=== PATIENT | male | born 1940 | race Caucasian/White ===

== ENCOUNTER 2016-11-19 06:56 | Day surgery (SDC) | payer MEDICARE ==
[~2016-11-19 06:56] MED LIST: Buffered Lidocaine 1% SYRIN* 3 ML/SYR SYRINGE INTRADERM ONE
[2016-11-19] MEDS ORDERED: Lidocaine 1% INJ* 10 MG/ML 30 ML SDV ONE (07:06)
[2016-11-19] MEDS ORDERED: Bupivacaine 0.5% W/EPI SDV* 30 ML VIAL ONE (07:06)
[2016-11-19] MEDS ORDERED: Ketorolac INJ* 30 MG/ML 1 ML VIAL ONE (07:33)
[2016-11-19] MEDS ORDERED: ceFAZolin 2 GM PREMIX(*) 2 GM/50 ML BAG IVPB ONE (07:34)
[2016-11-19] MEDS ORDERED: fentaNYL* 50 MCG/ML 2 ML VIAL (100 MCG VIAL) ONE (07:38)
[2016-11-19] MEDS ORDERED: Midazolam* 1 MG/ML 2 ML VIAL (2 MG) ONE (07:38)
[2016-11-19] MEDS ORDERED: Propofol* 10 MG/ML 20 ML BTL IV PUSH ONE (07:40)
[2016-11-19] MEDS ORDERED: fentaNYL* 50 MCG/ML 2 ML VIAL (100 MCG VIAL) IV PRN (07:48)
[2016-11-19] MEDS ORDERED: Ondansetron INJ* 2 MG/ML VIAL IV PRN (07:48)
[2016-11-19] MEDS ORDERED: oxyCODONE/Acetamin 5/325 MG* TAB PO PRN (09:24)
[2016-11-19 11:34] VITALS: BP 99/62
--- NOTE | 2016-11-20 00:23 | OP ---
CC: Karl Mata MD; Heber Moran MD OPERATIVE REPORT: DATE OF OPERATION: 11/19/16 DATE OF : 36 SURGEON: Karl Mata MD. EAP CLINICIAN: Emma Ramirez NP ANESTHESIOLOGIST: Dr. Levine. ANESTHESIA: LMAC anesthesia. PRE-OP DIAGNOSIS: Right inguinal hernia. POST-OP DIAGNOSIS: Right inguinal hernia. OPERATIVE PROCEDURE: Open repair of right inguinal hernia with mesh. DESCRIPTION OF PROCEDURE: The patient was supine on the operating room table. After adequate intrav enous sedation, compression stockings, Darryl Hugger warmer, and intravenous antibiotics, the right gr oin was clipped and prepped with antiseptic, draped in a sterile fashion. Local infiltrative anesth esia was administered, approximately 2.5 inch incision was created and carried down to the tissue la yers. External oblique was opened in the directions of its fibers. Cord structures were encircled w ith a Shannan drain and tented upward. The indirect space sac was dissected free and reduced. Cone mesh plug was placed into the internal ring, sutured there with 2-0 Polysorb. A second piece of me sh was placed over the inguinal floor, sutured to the tubercle, tails were split, brought around the cord structures and tagged down laterally. External oblique was closed over top with 2- 0 Polysorb , Judy's with 3-0 Polysorb, skin with 4-0 Surgipro followed by sterile dressing. He tolerated the procedure well. He was brought to Recovery in good condition. No complications. No drains. No p athologic specimens. Sponge and instrument counts were correct. ESTIMATED BLOOD LOSS: 10 mL. [id number]/[facility] #: [id number]
== END 2016-11-19 13:23 | disposition home or self-care (01) ==
LOC: OR 06:56
PROVIDERS: ATTEND Surgery
DX: K40.90 Unilateral inguinal hernia, without obstruction or gangrene, not specified as recurrent (principal); Z87.891 Personal history of nicotine dependence; E78.5 Hyperlipidemia, unspecified; I10 Essential (primary) hypertension; R01.1 Cardiac murmur, unspecified; Z85.51 Personal history of malignant neoplasm of bladder
CPT/HCPCS: C1781; J0690; J1885; J2001; J2250; J2704; J3010

== ENCOUNTER 2017-02-14 13:50 | Observation (INO) | payer MEDICARE ==
--- NOTE | 2017-02-14 17:48 | RAD ---
Indication: Right leg edema. Duplex Doppler sonography of the deep venous system of the right lower extremity deep venous system was performed. Bilaterally the common femoral veins appear patent and compressible. Right proximal greater saphenous vein, proximal deep femoral vein, femoral vein, popliteal vein, posterior tibial veins and peroneal veins appear patent and compressible. Overall there is no evidence of occlusive thrombosis visualized there is slow flow and stasis in the right lower extremity venous system and more proximal obstruction is not excluded. IMPRESSION: NO EVIDENCE OF DEEP VENOUS THROMBOSIS IS IDENTIFIED. ALTHOUGH NO OBSTRUCTIVE THROMBOSIS IS NOTED THERE IS SLOW FLOW IN THE RIGHT LOWER EXTREMITY VENOUS SYSTEM. A MORE PROXIMAL OBSTRUCTION CANNOT BE EXCLUDED.
[2017-02-14 19:34] LABS: Hematocrit 29 % (42-52); Hemoglobin 8.9 g/dl (14.0-18.0); Mean Corpuscular HGB Conc 31 g/dl (31-36); Mean Corpuscular Hemoglobin 24 pg (27-31); Mean Corpuscular Volume 76 fL (80-94); Mean Platelet Volume 7 um3 (7.4-10.4); Red Blood Count 3.75 10^6/ul (4.0-5.4); Red Cell Distribution Width 18 % (10.5-15); White Blood Count 13.8 10^3/ul (3.5-10.8)
[2017-02-14 19:39] LABS: Add Diff/Slide Review? Slide Review Added; Comments Flag Yes
[2017-02-14 19:48] LABS: Albumin 2.9 g/dL (3.2-5.2); BUN/Creatinine Ratio 21.6 (8-20); C Reactive Protein 125.67 mg/L (< 5.00); Calcium 9.3 mg/dL (8.6-10.3); EGFR African American 131.6 (>60); EGFR Non-African American 102.3 (>60); Globulin 3.7 g/dL (2-4); Potassium 4.4 mmol/L (3.5-5.0); Total Bilirubin 0.3 mg/dL (0.2-1.0); Total Protein 6.6 g/dL (6.4-8.9)
[2017-02-14 20:01] LABS: Hypochromasia 2+
[2017-02-14 20:02] LABS: Microcytosis 1+; Polychromasia 2+
[2017-02-14] MEDS ORDERED: Iohexol 300* (CONTRAST) 10 ML SDV IV ONE (21:14)
--- NOTE | 2017-02-14 23:28 | ED ---
Petar Aguilar Alok, scribed for Scott Taylor MD on 02/14/17 at 1634 . Lower Extremity - HPI Summary HPI Summary: 76M presents to the ED with right leg edema and right thigh, knee, and coronado pain for the past 2 days. Pt states his pain is worse when bearing weight and notes difficulty ambulating. PMHx includes a bulging disc and PSHx includes hernia repair 3 weeks ago. - History of Current Complaint Chief Complaint: EDExtremityLower Stated Complaint: RT LEG SWELLING/PAIN Time Seen by Provider: 02/14/17 16:18 Hx Obtained From: Patient Onset of Pain: Days Onset/Duration: Still Present Severity Initially: Moderate Severity Currently: Moderate Pain Intensity: 10 Pain Scale Used: 0-10 Numeric Timing: Constant Location: Is Discrete @ - right knee, thigh, coronado Associated Signs And Symptoms: Positive: Swelling, Knee Pain Aggravating Factor(s): Ambulation, Weight Bearing Able to Bear Weight: No - Allergies/Home Medications Allergies/Adverse Reactions: Allergies Allergy/AdvReac Type Severity Reaction Status Date / Time No Known Allergies Allergy Verified 02/14/17 14:02 PMH/Surg Hx/FS Hx/Imm Hx Endocrine/Hematology History: Denies: Hx Diabetes Cardiovascular History: Reports: Hx Hypercholesterolemia, Hx Hypertension - controlled with med Denies: Hx Pacemaker/ICD GI History: Reports: Other GI Disorders - right inguinal hernia History: Reports: Other Problems/Disorders - bladder cancer 2011 - followed by dr lilly Denies: Hx Renal Disease Musculoskeletal History: Reports: Hx Arthritis - spine, Hx Back Problems, Other Musculoskeletal History - bulging disc in lower back, causes leg pain Sensory History: Reports: Hx Contacts or Glasses - glasses Denies: Hx Hearing Aid Opthamlomology History: Reports: Hx Contacts or Glasses - glasses Neurological History: Denies: Hx Headaches Psychiatric History: Denies: Hx Panic Disorder - Cancer History Cancer Type, Location and Year: BLADDER - TUMOR REMOVED Hx Chemotherapy: No Hx Radiation Therapy: No - Surgical History Surgery Procedure, Year, and Place: BLADDER TUMOR REMOVED - 2011, [facility]. tonsillectomy as a child Hx Anesthesia Reactions: No Infectious Disease History: Yes Infectious Disease History: Denies: Traveled Outside the [place] in Last 30 Days - Family History Known Family History: Positive: Other - No - malignant hypothermia - Social History Occupation: Retired Lives: With Family Alcohol Use: None Alcohol Amount: One drink per week Substance Use Type: Reports: None Smoking Status (MU): Never Smoked Tobacco Type: Cigarettes Amount Used/How Often: 2 ppd Review of Systems Negative: Fever Positive: Edema, Other - right coronado, knee, thigh pain. All Other Systems Reviewed And Are Negative: Yes Physical Exam Triage Information Reviewed: Yes Vital Signs On Initial Exam: Initial Vitals Temp Pulse Resp BP Pulse Ox 98.5 F 81 16 115/72 99 02/14/17 14:02 02/14/17 14:02 02/14/17 14:02 02/14/17 14:02 02/14/17 14:02 Vital Signs Reviewed: Yes Appearance: Positive: Well-Appearing, No Pain Distress Skin: Positive: Warm, Skin Color Reflects Adequate Perfusion, Dry Head/Face: Positive: Normal Head/Face Inspection Eyes: Positive: Normal ENT: Positive: Normal ENT inspection Neck: Positive: Supple, Nontender Respiratory/Lung Sounds: Positive: Clear to Auscultation, Breath Sounds Present Cardiovascular: Positive: RRR Abdomen Description: Positive: Nontender, Soft Bowel Sounds: Positive: Present Musculoskeletal: Positive: Other - Slight pitting edema right ankle. No Femoral canal tenderness Neurological: Positive: Normal Psychiatric: Positive: Normal, Affect/Mood Appropriate - Jaylin Coma Scale Coma Scale Total: 15 Diagnostics - Vital Signs Vital Signs Temp Pulse Resp BP Pulse Ox 02/14/17 16:20 98.2 F 76 20 124/80 100 02/14/17 16:19 38 124/80 02/14/17 16:01 98.6 F 70 16 118/78 100 02/14/17 14:02 98.5 F 81 16 115/72 99 - Laboratory Lab Results: Lab Results 02/14/17 02/14/17 Range/Units 19:25 19:25 WBC 13.8 H (3.5-10.8) 10^3/ul RBC 3.75 L (4.0-5.4) 10^6/ul Hgb 8.9 L (14.0-18.0) g/dl Hct 29 L (42-52) % MCV 76 L (80-94) fL MCH 24 L (27-31) pg MCHC 31 (31-36) g/dl RDW 18 H (10.5-15) % Plt Count 478 H (150-450) 10^3/ul MPV 7 L (7.4-10.4) um3 Neut % (Auto) 80.5 (38-83) % Lymph % (Auto) 9.6 L (25-47) % [place] % (Auto) 6.9 (1-9) % Eos % (Auto) 2.5 (0-6) % Baso % (Auto) 0.5 (0-2) % Absolute Neuts (auto) 11.1 H (1.5-7.7) 10^3/ul Absolute Lymphs (auto) 1.3 (1.0-4.8) 10^3/ul Absolute Monos (auto) 0.9 H (0-0.8) 10^3/ul Absolute Eos (auto) 0.4 (0-0.6) 10^3/ul Absolute Basos (auto) 0.1 (0-0.2) 10^3/ul Absolute Nucleated RBC 0 10^3/ul Nucleated RBC % 0 Normal RBC Morphology Not Reportable Polychromasia 2+ Hypochromasia 2+ Microcytosis 1+ Elliptocytes 1+ Sodium 132 L (133-145) mmol/L Potassium 4.4 (3.5-5.0) mmol/L Chloride 99 L (101-111) mmol/L Carbon Dioxide 27 (22-32) mmol/L Anion Gap 6 (2-11) mmol/L BUN 16 (6-24) mg/dL Creatinine 0.74 (0.67-1.17) mg/dL Est GFR ( Amer) 131.6 (>60) Est GFR (Non-Af Amer) 102.3 (>60) BUN/Creatinine Ratio 21.6 H (8-20) Glucose 117 H (70-100) mg/dL Calcium 9.3 (8.6-10.3) mg/dL Total Bilirubin 0.30 (0.2-1.0) mg/dL AST 10 L (13-39) U/L ALT 15 (7-52) U/L Alkaline Phosphatase 92 (34-104) U/L C-Reactive Protein 125.67 H (< 5.00) mg/L Total Protein 6.6 (6.4-8.9) g/dL Albumin 2.9 L (3.2-5.2) g/dL Globulin 3.7 (2-4) g/dL Albumin/Globulin Ratio 0.8 L (1-3) Result Diagrams: 02/14/17 19:25 02/14/17 19:25 Lab Statement: Any lab studies that have been ordered have been reviewed, and results considered in the medical decision making process. - CT CT abd/pel CT Interpretation: Positive (See Comments) - Results pending CT Interpretation Completed By: Radiologist - EKG 2136 Cardiac Rate: NL - 69 bpm EKG Rhythm: Sinus Rhythm - Additional Comments Diagnostic Additional Comments: Right Lower Extremity US - IMPRESSION: NO EVIDENCE OF DEEP VENOUS THROMBOSIS IS IDENTIFIED. ALTHOUGH NO OBSTRUCTIVE THROMBOSIS IS NOTED THERE IS SLOW FLOW IN THE RIGHT LOWER EXTREMITY VENOUS SYSTEM. A MORE PROXIMAL OBSTRUCTION CANNOT BE EXCLUDED. Lower Extremity Course/Dx - Course Course Of Treatment: Mr. Santoyo presented with a C/O his right leg swelling and hurting a little. He had hernia repair in his right groin 3 weeks ago. He R/U'd for a DVT but they mentioned the flow was decreased and he is awaiting the results of a pelvic CT lookiing for obstruction. - Diagnoses Provider Diagnoses: Swelling of right lower extremity Discharge - Discharge Plan Condition: Stable Disposition: OTHER Discharge Disposition Comment: Signed out to Dr. Farah Patient Education Materials: Leg Edema (ED) Referrals: Heber Mroan MD [Primary Care Provider] - Additional Instructions: Please follow up with your primary care provider The documentation as recorded by the Petar hartman Alok accurately reflects the service I personally performed and the decisions made by me, Scott Taylor MD.
--- NOTE | 2017-02-14 23:56 | HP ---
H&P (Free Text) History and Physical: PCP: Aviva Moran MD Urology: Laura Warren MD Date/Time of Evaluation: 02/15/2017 0005 CC: R leg pain & swelling HPI: Mr Santoyo is a 76YO male HX bladder CA followed by Laura Warren MD urology and chronic LBP w/ R sciatica who reports the onset yesterday of non-traumatic R leg pain and swelling from the toes to the thigh. The pain is different and worse than his baseline LBP/sciatica prompting him to present for evaluation. He reports recent weight loss for which his PCP was working him up. Tonight a CT abd/pel W reveals a R pelvic soft tissue mass associated with lytic lesions in the R holly-pelvis concerning for metastatic disease. PMedHx chronic LBP w/ R sciatica bladder CA HLD Ambulatory Orders Pravastatin Sodium [Pravachol] 10 mg PO QPM 01/30/14 Ascorbic Acid TAB* [Vitamin C TAB*] 500 mg PO QAM 11/13/16 Multiple Vitamins W/ Minerals [Multivitamin Adults] 1 tab PO QAM 11/13/16 Tramadol HCl [Ultram] 50 mg PO TID PRN 12/17/16 PSurgHx R inguinal hernia repair ~3 weeks ago tonsillectomy SocHx: quit smoking >40 years ago, minimal alcohol, no recreational drugs; lives with his ; full code status FamHx: M: survived colon CA, passed in her 80s; Father: passed in his 90s "just wore out" ROS: as above, otherwise reviewed and all were negative Constitutional: NAD, normally developed, well-nourished white male vitals: Vital Signs Temp 36.8 C 02/14/17 16:20 Pulse 77 02/15/17 00:34 Resp 22 02/15/17 00:34 BP 124/84 02/15/17 00:34 Pulse Ox 99 02/15/17 00:34 Intake & Output 02/14/17 02/14/17 02/15/17 11:59 23:59 11:59 Weight 67.585 kg HEENM: atraumatic; sclera/conjunctiva: non-icteric/clear; hearing: clinically intact; oropharynx: clear, mucosa moist Neck: soft tissue: non-tender; thyroid: normal Pulmonary: clear to auscultation bilaterally, good aeration, no accessory muscle use CV: RR/RR, normal S1S2, no carotid bruit, no jugular venous distention, 2+ B DP/ PT, trace edema entire RLE Abdominal: soft, non-distended, non-tender, no rebound/guarding/rigidity, normoactive bowel sounds, no hepatosplenomegaly or masses, no costovertebral angle tenderness Musculoskeletal: general: grossly intact; gait: borderline stability Integumental: normal appearance and texture of exposed skin Psychiatric orientation: AA&O to PPS affect: calm mood: cooperative, pleasant eye contact: good content: reliable responses: timely insight: good Testing: Lab Results 02/14/17 02/14/17 Range/Units 19:25 19:25 WBC 13.8 H (3.5-10.8) 10^3/ul RBC 3.75 L (4.0-5.4) 10^6/ul Hgb 8.9 L (14.0-18.0) g/dl Hct 29 L (42-52) % MCV 76 L (80-94) fL MCH 24 L (27-31) pg MCHC 31 (31-36) g/dl RDW 18 H (10.5-15) % Plt Count 478 H (150-450) 10^3/ul MPV 7 L (7.4-10.4) um3 Neut % (Auto) 80.5 (38-83) % Lymph % (Auto) 9.6 L (25-47) % [place] % (Auto) 6.9 (1-9) % Eos % (Auto) 2.5 (0-6) % Baso % (Auto) 0.5 (0-2) % Absolute Neuts (auto) 11.1 H (1.5-7.7) 10^3/ul Absolute Lymphs (auto) 1.3 (1.0-4.8) 10^3/ul Absolute Monos (auto) 0.9 H (0-0.8) 10^3/ul Absolute Eos (auto) 0.4 (0-0.6) 10^3/ul Absolute Basos (auto) 0.1 (0-0.2) 10^3/ul Absolute Nucleated RBC 0 10^3/ul Nucleated RBC % 0 Normal RBC Morphology Not Reportable Polychromasia 2+ Hypochromasia 2+ Microcytosis 1+ Elliptocytes 1+ Sodium 132 L (133-145) mmol/L Potassium 4.4 (3.5-5.0) mmol/L Chloride 99 L (101-111) mmol/L Carbon Dioxide 27 (22-32) mmol/L Anion Gap 6 (2-11) mmol/L BUN 16 (6-24) mg/dL Creatinine 0.74 (0.67-1.17) mg/dL Est GFR ( Amer) 131.6 (>60) Est GFR (Non-Af Amer) 102.3 (>60) BUN/Creatinine Ratio 21.6 H (8-20) Glucose 117 H (70-100) mg/dL Calcium 9.3 (8.6-10.3) mg/dL Total Bilirubin 0.30 (0.2-1.0) mg/dL AST 10 L (13-39) U/L ALT 15 (7-52) U/L Alkaline Phosphatase 92 (34-104) U/L C-Reactive Protein 125.67 H (< 5.00) mg/L Total Protein 6.6 (6.4-8.9) g/dL Albumin 2.9 L (3.2-5.2) g/dL Globulin 3.7 (2-4) g/dL Albumin/Globulin Ratio 0.8 L (1-3) Prostate Specific Ag 1.882 (0-4.000) ng/mL ECG, personally reviewed: NSR rate 69, no ischemia CT abd/pel W, personally reviewed: R pelvic soft tissue mass with R pelvic lytic destruction; official read pending US DVT RLE: IMPRESSION: NO EVIDENCE OF DEEP VENOUS THROMBOSIS IS IDENTIFIED. ALTHOUGH NO OBSTRUCTIVE THROMBOSIS IS NOTED THERE IS SLOW FLOW IN THE RIGHT LOWER EXTREMITY VENOUS SYSTEM. A MORE PROXIMAL OBSTRUCTION CANNOT BE EXCLUDED. 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
[2017-02-15] MEDS ORDERED: Acetaminophen TAB* 325 MG PO PRN (00:07)
[2017-02-15] MEDS ORDERED: traMADol TAB* 50 MG PO PRN (00:08)
[2017-02-15] MEDS ORDERED: Melatonin (NF) 3 MG TAB PO PRN (00:08)
[2017-02-15] MEDS ORDERED: Ondansetron INJ* 2 MG/ML VIAL IV PRN (00:08)
[2017-02-15] MEDS: HYDROmorphone* 1 MG/ML 1 ML SYR IV PRN (01:50)
[2017-02-15] MEDS: Heparin VIAL(*) 5000 UNITS/ML VIAL (FIVE THOUSAND) SUBCUT SCH ×3 (06:39→20:17)
[2017-02-15] MEDS: Omeprazole CAP* 20 MG PO SCH (06:40)
[2017-02-15 07:02] LABS: Hematocrit 28 % (42-52); Hemoglobin 8.6 g/dl (14.0-18.0); Mean Corpuscular HGB Conc 31 g/dl (31-36); Mean Corpuscular Hemoglobin 24 pg (27-31); Mean Corpuscular Volume 76 fL (80-94); Mean Platelet Volume 7 um3 (7.4-10.4); Red Blood Count 3.66 10^6/ul (4.0-5.4); Red Cell Distribution Width 18 % (10.5-15); White Blood Count 12.7 10^3/ul (3.5-10.8)
[2017-02-15 07:18] LABS: BUN/Creatinine Ratio 17.4 (8-20); EGFR African American 142.6 (>60); EGFR Non-African American 110.9 (>60); Potassium 4.5 mmol/L (3.5-5.0)
[2017-02-15] MEDS ORDERED: Iohexol 300* (CONTRAST) 10 ML SDV IV ONE (07:28)
--- NOTE | 2017-02-15 07:49 | RAD ---
INDICATION: Abdominal and right lower extremity pain. History of bladder carcinoma. COMPARISON: There are no prior studies available for comparison. TECHNIQUE: A CT scan of the abdomen and pelvis was performed with intravenous and oral contrast following intravenous injection of 91 ml of Omnipaque 300 nonionic contrast. Contiguous axial sections were obtained from the lung bases through the symphysis pubis. Images were reconstructed in the coronal and sagittal planes. FINDINGS: The lung bases are clear. No pleural effusion is present. The liver and spleen are within normal limits in size without significant focal abnormality. No calcified gallstones are seen. The pancreas appears to be within normal limits in size. The kidneys and adrenal glands are normal in size. No hydronephrosis is seen. There is a fluid density lesion arising from the upper pole of the left kidney measuring 2.0 cm in size most consistent with a cyst. There is mild thickening of the wall of the urinary bladder. There is a small urinary bladder diverticulum arising from the posterior superior aspect of the bladder on the right side measuring 1.8 x 1.5 cm in size. The aorta is normal in caliber with moderate calcific plaque present. There is a large mass present in the right iliopsoas muscle measuring approximately 6.5 x 5.6 cm in size this also involves the obturator internus muscle. There is also a mass in the right gluteus medius muscle measuring 2.5 x 4.6 cm in size. There are numerous relatively large lytic lesions present within the adjacent right iliac bone and acetabulum. There is also small lytic lesion in the right femoral head. There are multiple enlarged left periaortic lymph nodes measuring up to 1.7 cm in transverse dimension. In addition there is mildly enlarged retrocrural lymph nodes present on the right side measuring up to 0.9 cm in size. The stomach, small and large bowel appear nondistended. The appendix is within normal limits. There is no evidence for diverticulitis or colitis. No free intraperitoneal air or fluid is seen. IMPRESSION: 1. EXTENSIVE NEOPLASTIC PROCESSES IN THE RIGHT HEMIPELVIS WITH MULTIPLE LYTIC LESIONS WHICH ARE MOST PROMINENT IN THE RIGHT ILIAC BONE AND ACETABULAR REGION ALSO LIKELY INVOLVING THE RIGHT FEMORAL HEAD. THERE IS INVOLVEMENT OF THE ADJACENT MUSCLES AND SOFT TISSUES DESCRIBED. THERE IS ALSO LEFT PERIAORTIC AND RIGHT RETROCRURAL LYMPHADENOPATHY. 2. MILD THICKENING OF THE WALL OF THE URINARY BLADDER AND SMALL BLADDER DIVERTICULUM.
--- NOTE | 2017-02-15 09:03 | RAD ---
INDICATION: RIGHT soft tissue and bone mass on February 14, 2017 CT. COMPARISON: February 14, [address] and June 23, 2011 chest radiograph. TECHNIQUE: Multidetector CT images were obtained from the lung apices to the upper abdomen with 80 mL Omnipaque 300 IV contrast. Multiplanar reformation. REPORT: Small calcified granuloma at the apical segment of the RIGHT upper lobe. Minimal bibasilar subsegmental atelectasis and linear pleural-parenchymal scarring. No suspicious focal pulmonary lesions. Negative for pleural effusions. 1 cm hypodense nodule at the posterior aspect of the LEFT thyroid lobe. Negative for thoracic lymphadenopathy. Negative for cardiomegaly or pericardial effusion. Coronary artery calcifications. Normal diameter thoracic aorta. Limited images through the upper abdomen are remarkable for decreased density of the liver consistent with fatty infiltration. Negative for suspicious focal osseous lesions of the thorax. IMPRESSION: 1. Negative for suspicious focal pulmonary lesions, thoracic lymphadenopathy, or suspicious thoracic osseous lesions. 2. Thyroid ultrasound suggested for further assessment of noted LEFT thyroid lobe nodule. 3. Coronary artery calcifications. 4. Hepatosteatosis.
[2017-02-15] MEDS: Docusate CAP* 100 MG PO SCH ×2 (09:28→20:17)
--- NOTE | 2017-02-15 15:18 | PN ---
Subjective Date of Service: 02/15/17 Interval History: Patient seen and examined at bedside. Denies fever, chills, shortness of breath , chest discomfort, N/V/D. Pt states that it is easier to walk today and his pain and swelling is improved in his right LE. Pt states that he follows with the pain clinic for chronic low back pain due to a bulging disc with pain that radiates to his right LE. Pt states that the pain yesterday was different than his normal pain. Pt states that his last colonoscopy was 3 years ago and was normal. Pt's bladder cancer was in 2010. He has no knowledge of a thyroid nodule. Family History: Unchanged from Admission Social History: Unchanged from Admission Past Medical History: Unchanged from Admission Objective Active Medications: Acetaminophen (Tylenol Tab*) 650 mg PO Q6H PRN Reason: FEVER/PAIN Docusate Sodium (Colace Cap*) 200 mg PO BID ASHOK Heparin Sodium (Porcine) (Heparin Vial(*)) 5,000 units SUBCUT Q8HR ASHOK Hydromorphone HCl (Dilaudid Iv*) 0.5 mg IV Q2H PRN Reason: PAIN Sodium Chloride (Ns 0.9% 1000 Ml*) 1,000 mls @ 75 mls/hr IV PER RATE [facility] Melatonin (Melatonin (Nf)) 3 mg PO BEDTIME PRN; Protocol Reason: Sleep Omeprazole (Prilosec Cap*) 20 mg PO DAILY@0600 ASHOK Ondansetron HCl (Zofran Inj*) 4 mg IV Q6H PRN Reason: NAUSEA Oxycodone HCl (Roxycodone Tab*) 5 mg PO Q4H PRN Reason: PAIN Tramadol HCl (Ultram*) 50 mg PO Q6H PRN Reason: PAIN Vital Signs 02/15/17 02/15/17 02/15/17 00:34 01:25 01:50 Temperature 99.2 F Pulse Rate 77 74 Respiratory 22 18 18 Rate Blood Pressure 124/84 133/79 (mmHg) O2 Sat by Pulse 99 100 Oximetry 02/15/17 02/15/17 02/15/17 02:50 04:49 07:55 Temperature 98.9 F 98.2 F Pulse Rate 75 70 Respiratory 16 16 16 Rate Blood Pressure 133/71 119/70 (mmHg) O2 Sat by Pulse 97 97 Oximetry 02/15/17 02/15/17 08:00 11:55 Temperature 98.0 F Pulse Rate 69 Respiratory 16 16 Rate Blood Pressure 116/61 (mmHg) O2 Sat by Pulse 99 Oximetry Oxygen Devices in Use Now: None Appearance: NAD, laying in bed Eyes: PERRLA Ears/Nose/Mouth/Throat: Mucous Membranes Moist Respiratory: Symmetrical Chest Expansion and Respiratory Effort, Clear to Auscultation Cardiovascular: NL Sounds; No Murmurs; No JVD, RRR Abdominal: NL Sounds; No Tenderness; No Distention Extremities: - - +1 right LE edema Skin: No Rash or Ulcers Neurological: Alert and Oriented x 3, NL Muscle Strength and Tone Lines/Tubes/Other Access: Clean, Dry and Intact Peripheral IV - site benign Nutrition: Taking PO's Result Diagrams: 02/15/17 06:39 02/15/17 06:39 Additional Lab and Data: Assess/Plan/Problems-Billing Assessment: Mr. Santoyo is a 76 yo male with PMH bladder CA, s/p TURB in 2010 and chronic low back pain and right sciatica who presented to the emergency room for right LE pain and edema and was found to have a right pelvic mass on CT. - Patient Problems (1) Metastatic disease Code(s): C79.9 - SECONDARY MALIGNANT NEOPLASM OF UNSPECIFIED SITE SNOMED Code( s): 192220361 Comment: - to Right hemipelvis (soft tissue mass and lytic lesions to right pelvis) - Chest CT no significant findings except for a thyroid nodule - Pain controlled - Oncology consult pending (2) Chronic low back pain with right-sided sciatica Code(s): M54.41 - LUMBAGO WITH SCIATICA, RIGHT SIDE; G89.29 - OTHER CHRONIC PAIN SNOMED Code(s): 722357620 Comment: - Continue pain control (3) History of bladder cancer Code(s): Z85.51 - PERSONAL HISTORY OF MALIGNANT NEOPLASM OF BLADDER SNOMED Code(s): 043893293 Comment: - S/P TURB 06/[address] Warren - Continue to follow outpatient (4) HLD (hyperlipidemia) Code(s): E78.5 - HYPERLIPIDEMIA, UNSPECIFIED SNOMED Code(s): 34073722 Comment: - Continue home statin (5) DVT prophylaxis Code(s): CMW9667 - SNOMED Code(s): 140209856 Comment: - SQ heparin and SCDs (6) Full code status Code(s): Z78.9 - OTHER SPECIFIED HEALTH STATUS SNOMED Code(s): 466680283 Status and Disposition: Inpatient. Discharge to home when medically stable.
[2017-02-15] MEDS: NS 0.9% 1000 ML* 1,000 ML IV SCH (15:39)
[2017-02-15] MEDS: oxyCODONE TAB* 5 MG TAB PO PRN (18:27)
[2017-02-15] MEDS ORDERED: CMCS Pravastatin (NF) 20 MG TAB PO SCH (21:00)
[2017-02-15 21:31] LABS: Ferritin 1162.4 ng/mL (24-336)
--- NOTE | 2017-02-15 21:59 | CONS ---
Amended report to enter date of consultation. CONSULTATION REPORT: DATE OF CONSULT: 02/15/2017. REFERRING PHYSICIAN: Dr. Olivia. PRIMARY CARE: Dr. Moran. UROLOGY: Dr. Warren REASON FOR CONSULTATION: Pelvic mass. HISTORY OF PRESENT ILLNESS: A 76-year-old male, who developed right back pain and right leg pain approximately 1 year ago. He notes a sharp pain going down his right leg. It could occur with movement or with rest. Originally, thought to be secondary to lumbar spine disk disease. Approximately 6 months ago, he started to notice pain in his right hip lying down at night, but no hip pain during the day. The leg pain progressed and he was referred to pain clinic in November of this year. Started on several medications including Neurontin and tramadol. Medications caused constipation and loss of appetite. He went from 165 to 149 pounds this spring and summer. Stopped all pain medications over the past month. His appetite has seemed to improve. Urination is slow, but otherwise normal for him. No hematuria or urgency. His breathing has been fine , no chest pain. He has had no fevers, chills, or night sweats. No cardiac symptoms. No neurologic symptoms. Two days prior to admission, he had sudden swelling in the right leg and excruciating pain to where he became nonweightbearing and that triggered coming to the emergency room. In the emergency room, he had blood work showing a hemoglobin of 8.9, down to 8.6, MCV 76, platelets 478, white count 13.8 with a normal differential. Sodium of 132, creatinine 0.74, calcium 9.3. Normal LFTs. Elevated C-reactive protein. Albumin of 2.9. PSA 1.882. He had a lower extremity ultrasound that did not show DVT, but showed questionable proximal obstruction with low venous flow. He then had a CT scan of the abdomen and pelvis that showed a large mass in the right hemipelvis involving the right iliac bone and acetabulum as well as the right femoral head. A large soft tissue component, which appeared to invade adjacent muscles. Soft tissue mass is 4.5 cm at widest dimension. Its one large mass invading to the bone in multiple locations and it is getting down into the hip sockets, there is no evidence of metastasis. He does not appear to have regional lymphadenopathy, nothing on the left side. Abdominal CT is normal. No liver lesions and a CT of the chest without any pulmonary lesions. Extensive bony infiltration of the pelvis, but no other bone lesions evident. PAST MEDICAL HISTORY: 1. Bladder cancer, [address] Warren, superficial spreading, has had followup. Cystoscopies done every 6 months without evidence for recurrence. 2. Hypertension. 3. High cholesterol. 4. Colonoscopy in 2013 with 3 polyps. SURGERIES: Hernia repair, right side, October of this year. MEDICATIONS AT HOME: 1. Tramadol 50 mg t.i.d. p.r.n. 2. Multivitamin. 3. Vitamin C. 4. Pravachol 10 mg a day. ALLERGIES: None. FAMILY HISTORY: Mother had colon cancer in her 50s, lived into her 80s. No other malignancy in the family. REVIEW OF SYSTEMS: A 14-point review of systems is negative except what is described in HPI. PHYSICAL EXAM: Temp 98.1, BP 111/64, pulse 76, respirations 16, O2 sat 100%. HEENT: Mucosa moist. No lesions. No cervical or supraclavicular lymphadenopathy. Lungs: Clear to auscultation. Heart: Regular rhythm. S1, S2. No murmurs, rubs, or gallops. Abdomen: Nontender, nondistended. No hepatosplenomegaly. Extremities: He has +1 edema, right leg. Good pulses x4. He has scar tissue in the right groin, difficult to tell if he can feel the mass. Pain with right leg on straight leg raise. Left-sided musculoskeletal examination negative. Neuro: Strength 5/5 throughout. Alert and oriented x3. Did not walk him. DIAGNOSTIC STUDIES/LAB DATA: Labs and imaging as reviewed above. ASSESSMENT AND PLAN: A 76-year-old male, who presents with a large pelvic mass. Differential is broad and includes large plasmacytoma, metastatic bladder cancer, could be metastatic colon cancer given microcytic anemia, sarcoma, primary bone cancer, lymphoma unlikely. Currently bedbound secondary to pain. 1. I recommend CT-guided biopsy tomorrow. 2. He is not ambulatory at this time and that will be the primary issue for discharge. It would be good to have an orthopedist look at the CT to make sure he has not had elevated fracture risk with routine activity. The femur appears intact, little worried about the left and right hemipelvis. 3. We will send B12 and iron studies for his anemia as well as an SPEP, but I do not think this is a plasma cell process. 4. I could try short-acting narcotics such as oxycodone since he has had a mixed reaction to other pain medication. 5. We will continue to follow during the hospital stay. [id number]/[facility] #: [id number] MARLY
[2017-02-16] MEDS ORDERED: Heparin VIAL(*) 5000 UNITS/ML VIAL (FIVE THOUSAND) SUBCUT SCH (06:00)
[2017-02-16] MEDS: oxyCODONE TAB* 5 MG TAB PO PRN (06:04)
[2017-02-16] MEDS: Omeprazole CAP* 20 MG PO SCH (06:04)
[2017-02-16] MEDS: NS 0.9% 1000 ML* 1,000 ML IV SCH (06:05)
[2017-02-16] MEDS: Heparin VIAL(*) 5000 UNITS/ML VIAL (FIVE THOUSAND) SUBCUT SCH ×2 (06:15→14:22)
[2017-02-16] MEDS: Docusate CAP* 100 MG PO SCH (09:15)
[2017-02-16 09:35] VITALS: BP 98/62
--- NOTE | 2017-02-16 09:48 | PN ---
Subjective Date of Service: 02/16/17 Interval History: Mr. Santoyo reports pain in the right hip with efforts at mobility. He denies other complaint including chest pain, SOB, nausea, or abdominal pain. He is very eager for discharge to home. Family History: Unchanged from Admission Social History: Unchanged from Admission Past Medical History: Unchanged from Admission Objective Active Medications: Acetaminophen (Tylenol Tab*) 650 mg PO Q6H PRN Docusate Sodium (Colace Cap*) 200 mg PO BID ASHOK Heparin Sodium (Porcine) (Heparin Vial(*)) 5,000 units SUBCUT Q8HR ASHOK Hydromorphone HCl (Dilaudid Iv*) 0.5 mg IV Q2H PRN Sodium Chloride (Ns 0.9% 1000 Ml*) 1,000 mls @ 75 mls/hr IV PER RATE ASHOK Melatonin (Melatonin (Nf)) 3 mg PO BEDTIME PRN; Protocol Omeprazole (Prilosec Cap*) 20 mg PO DAILY@0600 ASHOK Ondansetron HCl (Zofran Inj*) 4 mg IV Q6H PRN Oxycodone HCl (Roxycodone Tab*) 5 mg PO Q4H PRN Pravastatin Sodium (Pravachol (Nf)) 10 mg PO QPM ASHOK Tramadol HCl (Ultram*) 50 mg PO Q6H PRN Vital Signs 02/15/17 02/15/17 02/15/17 11:55 15:20 18:27 Temperature 98.0 F 98.1 F Pulse Rate 69 76 Respiratory 16 16 16 Rate Blood Pressure 116/61 111/64 (mmHg) O2 Sat by Pulse 99 100 Oximetry 02/15/17 02/15/17 02/15/17 19:23 20:22 23:32 Temperature 98.3 F 99.2 F Pulse Rate 83 81 Respiratory 20 16 16 Rate Blood Pressure 125/74 123/69 (mmHg) O2 Sat by Pulse 99 98 Oximetry 02/16/17 02/16/17 02/16/17 04:31 04:35 06:04 Temperature 98.4 F Pulse Rate 73 Respiratory 16 18 19 Rate Blood Pressure (mmHg) O2 Sat by Pulse 98 Oximetry 02/16/17 02/16/17 02/16/17 07:30 08:00 08:04 Temperature 98.6 F Pulse Rate 70 Respiratory 16 18 18 Rate Blood Pressure 98/62 (mmHg) O2 Sat by Pulse 96 Oximetry Oxygen Devices in Use Now: None Appearance: Male sitting up on edge of bed in NAD Eyes: No Scleral Icterus Ears/Nose/Mouth/Throat: Mucous Membranes Moist Neck: Trachea Midline Respiratory: Symmetrical Chest Expansion and Respiratory Effort, Clear to Auscultation Cardiovascular: NL Sounds; No Murmurs; No JVD, No Edema Abdominal: NL Sounds; No Tenderness; No Distention Lymphatic: No Cervical Adenopathy Extremities: No Edema Skin: No Rash or Ulcers Neurological: Alert and Oriented x 3, NL Muscle Strength and Tone Nutrition: Taking PO's Result Diagrams: 02/15/17 06:39 02/15/17 06:39 Additional Lab and Data: Assess/Plan/Problems-Billing Assessment: Mr. Santoyo is a 76 yo male with PMH bladder CA, s/p TURB in 2010, chronic low back pain and right sciatica who presented to the emergency room for right LE pain and edema and was found to have a right pelvic mass with extensive bony involvement. - Patient Problems (1) History of bladder cancer Comment: - Now with metastatic right pelvic mass with extensive bony involvement. - Chest CT no significant findings except for a thyroid nodule. - History of bladder cancer s/p TURP in 2010. - Onc consult appreciated, CT biopsy performed today. Patient will follow up with Dr. Walton early next week for results and planning. - Pain meds prn. - Patient is recommended to be NWB on right hip, discussed over the phone only with Dr. Workman from orthopedics team. If surgical intervention is warranted will need oncology orthopedics at tertiary care facility. (2) HLD (hyperlipidemia) Comment: - Continue pravastatin. (3) DVT prophylaxis Comment: - SQ heparin and SCDs (4) Full code status Status and Disposition: Inpatient. Discharge to home.
[2017-02-16] MEDS: HYDROmorphone* 1 MG/ML 1 ML SYR IV PRN (10:41)
[2017-02-16] MEDS ORDERED: fentaNYL* 50 MCG/ML 2 ML VIAL (100 MCG VIAL) ONE (11:29)
--- NOTE | 2017-02-16 12:38 | RAD ---
Indication: Right-sided pelvic mass with bony destruction, history of bladder cancer Informed consent was obtained from the patient. Using usual aseptic technique and lidocaine as a local anesthetic a destructive lesion in the right ilium was localized under CT guidance. Fine-needle aspiration was performed. One pass was made. Postbiopsy scan demonstrates no hematoma. IMPRESSION: Successful CT localization and fine-needle aspiration of a destructive bony lesion in the right ilium.
--- NOTE | 2017-02-17 03:53 | DS ---
CC: Dr. Moran* DISCHARGE SUMMARY: DATE OF ADMISSION: 02/15/17 DATE OF DISCHARGE: 02/16/17 ATTENDING PHYSICIAN: Dr. Mattie Romero* (dictation provided by Karen Giraldo NP) PRIMARY CARE PHYSICIAN: Dr. Moran. PRIMARY DIAGNOSIS: New right pelvic mass with lytic lesions in the right hip. SECONDARY DIAGNOSES: 1. History of bladder cancer. 2. Chronic low-back pain with right lower extremity sciatica. MEDICATIONS AT THE TIME OF DISCHARGE: 1. Pravastatin 10 mg p.o. q.p.m. 2. Ascorbic acid 500 mg p.o. q.a.m. 3. Multivitamin with mineral 1 tab p.o. q.a.m. 4. Tramadol 50 mg p.o. t.i.d. p.r.n. 5. Oxycodone 5 to 10 mg p.o. q.4 hours p.r.n. pain. HOSPITAL COURSE: Mr. Santoyo is a 76-year-old male with a past medical history of bladder cancer, who presented to the hospital on 02/15/17, who reports a sudden onset of nontraumatic right leg pain and swelling. Please see the dictated H and P by Dr. Harley Dumont for complete details. In brief, at the time of admission, the patient had a CT of abdomen and pelvis that revealed the following: "Extensive neoplastic processes in the right hemipelvis with multiple lytic lesions, which are most prominent in the right iliac bone and acetabular region, also likely involving the right femoral head. There is involvement of the adjacent muscles and soft tissues as described. There is also left periaortic and right retrocrural lymphadenopathy." Mr. Santoyo was admitted to the hospital for pain control and further workup. He went on to have a CT of the chest, which showed "negative for suspicious focal pulmonary lesions, thoracic lymphadenopathy or suspicious thoracic osseous lesions. Thyroid ultrasound suggested for further assessment of noted left thyroid lobe nodule, coronary artery calcifications, and hepatic steatosis." He was seen in consultation by Dr. Walton from Oncology. I refer you to his notes for complete details, but he suspected that the differential would include a large plasma cytoma, metastatic bladder cancer or metastatic colon cancer given the history of microcystic anemia. He recommended that a CT- guided biopsy be performed. That biopsy was obtained today. In addition, I discussed the case with Dr. Workman from orthopedic services who recommended that the patient be nonweightbearing due to the instability of his right pelvis. Dr. Walton also sent B12 and iron studies as well as SPEP for his anemia. I will note that his hemoglobin on arrival was 8.9, with last known hemoglobin of 10 on 01/26/17. He remained stable during this hospitalization and those results can be followed up on outpatient by Dr. Walton. Mr. Santoyo has been seen by Physical Therapy and demonstrates independence with short periods of ambulation with a walker, with nonweightbearing. Efforts were made to have him use the crutches for stairs, but plans will be for his family to obtain a ramp and they will be using a wheelchair for any excursions out of the home. Mr. Santoyo is medically stable for discharge to home. He will have oxycodone for pain control and to followup with Dr. Walton early next week. DISPOSITION: Home. DIET: Regular. ACTIVITY: Nonweightbearing, right hip. FOLLOWUP PLANS: Please follow up with Dr. Walton. The patient has been asked to call for an appointment, Wednesday or Wednesday of next week, to followup with biopsy results and for planning for any treatment. TIME SPENT: Approximately 60 minutes were spent on discharge of this patient; more than half the time spent with the patient at the bedside reviewing the events leading up to this hospitalization, performing the physical examination, and reviewing my plan of care. KAREN GIRALDO NP [id number]/[facility] #: [id number] MARLY
[2017-02-17 16:06] LABS: Albumin 2.2 g/dL (3.4-4.7); Gamma Globulin 0.9 g/dL (0.6-1.6); Total Protein(PEP) 5.8 g/dL (6.3 - 7.9)
== END 2017-02-16 15:45 | disposition home or self-care (01) ==
LOC: ED 13:50 → INTOOBSV 02-15 00:06 → MED 02-15 00:06
PROVIDERS: ADMIT Hospitalist; ATTEND Internal Medicine
DX: C79.51 Secondary malignant neoplasm of bone (principal); C79.89 Secondary malignant neoplasm of other specified sites; Z85.51 Personal history of malignant neoplasm of bladder; M54.41 Lumbago with sciatica, right side; E78.5 Hyperlipidemia, unspecified; Z79.899 Other long term (current) drug therapy; Z87.891 Personal history of nicotine dependence; I10 Essential (primary) hypertension; E78.00 Pure hypercholesterolemia, unspecified; M79.604 Pain in right leg
CPT/HCPCS: 20225; 36415; 71260; 74177; 77012; 80048; 80053; 82607; 82728; 83540; 83550; 84153; 84155; 84165; 85025; 85610; 85730; 86140; 88172; 88173; 88305; 88341; 88342; 88360; 93005; 96372; 96374; 96376; 99223; 99283; A9270-GY; G0103; G0378; J1170; J1644; J3010; Q9967

== ENCOUNTER 2017-03-26 10:56 | Inpatient (IN) | payer MEDICARE ==
[2017-03-26] MEDS ORDERED: Enoxaparin(*) 40 MG/0.4 ML SYR SUBCUT SCH (13:00)
[2017-03-26] MEDS ORDERED: Acetaminophen TAB* 325 MG PO PRN (13:00)
[2017-03-26] MEDS ORDERED: Ondansetron TAB* 4 MG PO PRN (13:00)
[2017-03-26] MEDS ORDERED: NS 0.9% 1000 ML* 1,000 ML IV SCH (13:00)
[2017-03-26] MEDS ORDERED: Prochlorperazine TAB* 10 MG PO PRN (13:00)
[2017-03-26] MEDS ORDERED: LORazepam INJ* 2 MG/ML 1 ML VIAL IV PUSH PRN (13:02)
[2017-03-26] MEDS ORDERED: Ondansetron INJ* 2 MG/ML VIAL IV PRN (13:02)
--- NOTE | 2017-03-26 18:19 | RAD ---
HISTORY: Right leg pain and edema COMPARISONS: February 14, 2017 TECHNIQUE: Multiple transverse and longitudinal ultrasound images were obtained of the right lower extremity from the level of the common femoral vein inferiorly through to the infrapopliteal veins using grayscale, color Doppler, and spectral Doppler imaging with and without compression and with augmentation. Comparison images were obtained of the contralateral common femoral vein. FINDINGS: VEINS: There is partially occlusive thrombus noted within the right common femoral vein, profunda femoris, and within the posterior tibial vein and peroneal vein. The remainder of the venous system of the right lower extremity is compressible throughout its course, with normal flow on color Doppler imaging and normal response to augmentation on spectral Doppler imaging. SOFT TISSUES: Unremarkable. OTHER FINDINGS: There are mildly enlarged right inguinal lymph nodes measuring up to 1.2 cm in short axis IMPRESSION: 1. MULTIFOCAL PARTIALLY OCCLUSIVE RIGHT LOWER EXTREMITY DEEP VEIN THROMBOSIS. 2. MILD RIGHT INGUINAL LYMPHADENOPATHY.
[2017-03-26] MEDS: Enoxaparin(*) 150 MG/ML 1 ML SYRINGE SUBCUT SCH (18:39)
[2017-03-26] MEDS ORDERED: NS 0.9% 500 ML BAG* 500 ML IV ONE (20:00)
[2017-03-26] MEDS: Docusate CAP* 100 MG PO SCH (22:54)
[2017-03-26] MEDS: Polyethylene Glycol 3350* 17 GM PACKET PO SCH (22:55)
[2017-03-27] MEDS: NS 0.9% 1000 ML* 1,000 ML IV SCH ×3 (01:45→21:43)
[2017-03-27 06:33] LABS: Hematocrit 22 % (42-52); Hemoglobin 7.4 g/dl (14.0-18.0); Mean Corpuscular HGB Conc 33 g/dl (31-36); Mean Corpuscular Hemoglobin 25 pg (27-31); Mean Platelet Volume 7 um3 (7.4-10.4); Red Blood Count 3.02 10^6/ul (4.0-5.4); Red Cell Distribution Width 20 % (10.5-15); White Blood Count 9.8 10^3/ul (3.5-10.8)
[2017-03-27 06:37] LABS: Comments Flag Yes
[2017-03-27 06:38] LABS: Mean Corpuscular Volume 74 fL (80-94)
[2017-03-27 06:43] LABS: BUN/Creatinine Ratio 26.9 (8-20); Calcium 7.8 mg/dL (8.6-10.3); EGFR African American 66.3 (>60); EGFR Non-African American 51.6 (>60); Globulin 3.1 g/dL (2-4); Potassium 2.8 mmol/L (3.5-5.0); Total Bilirubin 0.9 mg/dL (0.2-1.0); Total Protein 5.1 g/dL (6.4-8.9)
[2017-03-27 08:07] LABS: Magnesium 2.2 mg/dL (1.9-2.7)
[2017-03-27] MEDS: KCL 20 MEQ/100 ML IVPREMIX* 20 MEQ/100 ML BAG IV SCH ×4 (08:23→16:09)
[2017-03-27] MEDS: Docusate CAP* 100 MG PO SCH ×2 (08:23→20:03)
[2017-03-27] MEDS: Potassium Chlor TAB* 20 MEQ TAB.ER PO SCH (08:23)
[2017-03-27] MEDS: Polyethylene Glycol 3350* 17 GM PACKET PO SCH ×2 (08:23→20:03)
--- NOTE | 2017-03-27 08:23 | PN ---
Progress Note - Progress Note Date of Service: 03/27/17 SOAP: Subjective: feels about the same as yesterday. has not gotten up out of bed yet. has not eaten since admission. has not had a bowel movement. right leg pain. Objective: Vital Signs Temp Pulse Resp BP Pulse Ox 98.8 F 70 16 98/56 96 03/27/17 03:29 03/27/17 03:29 03/27/17 03:29 03/27/17 03:29 03/27/17 03:29 perr eomi op very dry CTA bl s1 s2 nl soft nt +bs r LE swelling to pelvis A+O x 3 Laboratory Results - last 24 hr 03/26/17 03/27/17 03/27/17 12:53 06:02 06:02 WBC 9.8 RBC 3.02 L Hgb 7.4 L Hct 22 L MCV 74 L MCH 25 L MCHC 33 RDW 20 H Plt Count 185 MPV 7 L Neut % (Auto) 93.4 H Lymph % (Auto) 3.3 L Pike % (Auto) 2.2 Eos % (Auto) 1.0 Baso % (Auto) 0.1 Absolute Neuts (auto) 9.2 H Absolute Lymphs (auto) 0.3 L Absolute Monos (auto) 0.2 Absolute Eos (auto) 0.1 Absolute Basos (auto) 0 Absolute Nucleated RBC 0 Nucleated RBC % 0 Sodium 131 L Potassium 2.8 L Chloride 94 L Carbon Dioxide 30 Anion Gap 7 BUN 36 H Creatinine 1.34 H Est GFR ( Amer) 66.3 Est GFR (Non-Af Amer) 51.6 BUN/Creatinine Ratio 26.9 H Glucose 97 Calcium 7.8 L Magnesium 2.2 Total Bilirubin 0.90 AST 16 ALT 18 Alkaline Phosphatase 131 H Total Protein 5.1 L Albumin 2.0 L Globulin 3.1 Albumin/Globulin Ratio 0.6 L Crossmatch See Detail Acetaminophen (Tylenol Tab*) 650 mg PO Q6H PRN PRN Reason: FEVER/PAIN Docusate Sodium (Colace Cap*) 200 mg PO BID REPLACED BY [facility] Last Admin: 03/26/17 22:54 Dose: 200 mg Enoxaparin Sodium (Lovenox(*)) 105 mg SUBCUT DAILY REPLACED BY [facility] Last Admin: 03/26/17 18:39 Dose: 105 mg Sodium Chloride (Ns 0.9% 1000 Ml*) 1,000 mls @ 100 mls/hr IV PER RATE REPLACED BY [facility] Last Admin: 03/27/17 01:45 Dose: 100 mls/hr Potassium Chloride (Potassium Chloride 20 Meq/100 Ml Ivpremix*) 20 meq in 100 mls @ 50 mls/hr IV Q2H ASHOK Stop: 03/27/17 15:59 Lorazepam (Ativan Inj*) 0.5 mg IV PUSH Q4H PRN PRN Reason: Anxiety/nausea/insomnia Ondansetron HCl (Zofran Tab*) 4 mg PO Q4HR PRN PRN Reason: NAUSEA Ondansetron HCl (Zofran Inj*) 4 mg IV Q4H PRN PRN Reason: nausea Oxycodone HCl (Roxycodone Tab*) 5 mg PO Q4H PRN PRN Reason: PAIN Polyethylene Glycol/Electrolytes (Miralax*) 17 gm PO 0800,2100 REPLACED BY [facility] Last Admin: 03/26/17 22:55 Dose: 17 gm Potassium Chloride (Klor Con Er Tab*) 40 meq PO DAILY REPLACED BY [facility] Prochlorperazine (Compazine Tab*) 10 mg PO Q6H PRN PRN Reason: NAUSEA doppler: extensive RLE DVT Assessment: 76 yo M w metastatic bladder CA sp RT and on palliative cisplatin/gemcitabine sp cycle 1 day 6 admitted with weakness, poor PO intake, and dehydration with acute renal failure. Clinically no better today despite hydration over night and blood. Plan: -full admit -cont IVFs, will transfuse another unit of blood -BP still soft, baseline 115-125 systolic, will monitor closely -hypokalemia likely from poor PO intake and cisplatin, will replete IV today and start POs, check magnesium DVT: extensive RLE DVT will plan on lovenox for now based on CLOT trial and will defer to Dr. Dewey as outpatient 1.5mg/kg/dy (can give 100 mg on discharge) DNR
[2017-03-27] MEDS: Enoxaparin(*) 150 MG/ML 1 ML SYRINGE SUBCUT SCH (10:44)
[2017-03-28] MEDS: Enoxaparin(*) 150 MG/ML 1 ML SYRINGE SUBCUT SCH (08:29)
[2017-03-28] MEDS: Polyethylene Glycol 3350* 17 GM PACKET PO SCH ×2 (08:29→20:53)
[2017-03-28] MEDS: Potassium Chlor TAB* 20 MEQ TAB.ER PO SCH ×2 (08:29→13:14)
[2017-03-28] MEDS: Docusate CAP* 100 MG PO SCH ×2 (08:29→20:53)
[2017-03-28] MEDS: NS 0.9% 1000 ML* 1,000 ML IV SCH (08:30)
[2017-03-28 08:45] LABS: Hematocrit 26 % (42-52); Hemoglobin 8.6 g/dl (14.0-18.0); Mean Corpuscular HGB Conc 34 g/dl (31-36); Mean Corpuscular Hemoglobin 26 pg (27-31); Mean Corpuscular Volume 76 fL (80-94); Mean Platelet Volume 7 um3 (7.4-10.4); Red Blood Count 3.38 10^6/ul (4.0-5.4); Red Cell Distribution Width 21 % (10.5-15); White Blood Count 7.1 10^3/ul (3.5-10.8)
[2017-03-28 08:59] LABS: Albumin 2.1 g/dL (3.2-5.2); BUN/Creatinine Ratio 25.9 (8-20); Calcium 7.9 mg/dL (8.6-10.3); EGFR African American 59.6 (>60); EGFR Non-African American 46.3 (>60); Magnesium 1.8 mg/dL (1.9-2.7); Potassium 3.1 mmol/L (3.5-5.0); Total Bilirubin 0.8 mg/dL (0.2-1.0); Total Protein 5.1 g/dL (6.4-8.9)
--- NOTE | 2017-03-28 10:47 | PN ---
Subjective Date of Service: 03/28/17 Interval History: HOSPITALIST PROGRESS NOTE Patient seen and examined at bedside. He feels a little better today, but still feels weak. Family History: Unchanged from Admission Social History: Unchanged from Admission Past Medical History: Unchanged from Admission Objective Active Medications: Acetaminophen (Tylenol Tab*) 650 mg PO Q6H PRN PRN Reason: FEVER/PAIN Last Admin: 03/27/17 08:23 Dose: 650 mg Docusate Sodium (Colace Cap*) 200 mg PO BID [facility] Last Admin: 03/28/17 08:29 Dose: 200 mg Enoxaparin Sodium (Lovenox(*)) 105 mg SUBCUT DAILY [facility] Last Admin: 03/28/17 08:29 Dose: 105 mg Sodium Chloride (Ns 0.9% 1000 Ml*) 1,000 mls @ 100 mls/hr IV PER RATE [facility] Last Admin: 03/28/17 08:30 Dose: 100 mls/hr Lorazepam (Ativan Inj*) 0.5 mg IV PUSH Q4H PRN PRN Reason: Anxiety/nausea/insomnia Ondansetron HCl (Zofran Tab*) 4 mg PO Q4HR PRN PRN Reason: NAUSEA Ondansetron HCl (Zofran Inj*) 4 mg IV Q4H PRN PRN Reason: nausea Oxycodone HCl (Roxycodone Tab*) 5 mg PO Q4H PRN PRN Reason: PAIN Polyethylene Glycol/Electrolytes (Miralax*) 17 gm PO 0800,2100 [facility] Last Admin: 03/28/17 08:29 Dose: 17 gm Potassium Chloride (Klor Con Er Tab*) 40 meq PO DAILY [facility] Last Admin: 03/28/17 08:29 Dose: 40 meq Prochlorperazine (Compazine Tab*) 10 mg PO Q6H PRN PRN Reason: NAUSEA Vital Signs 03/27/17 03/28/17 03/28/17 23:23 03:17 07:40 Temperature 100.0 F 99.3 F 99.1 F Pulse Rate 77 79 70 Respiratory 18 18 14 Rate Blood Pressure 141/71 115/59 103/51 (mmHg) O2 Sat by Pulse 95 98 98 Oximetry Oxygen Devices in Use Now: None Appearance: Elderly gentleman lying in bed in [facility]. Eyes: No Scleral Icterus Ears/Nose/Mouth/Throat: Mucous Membranes Moist Neck: Trachea Midline Respiratory: Symmetrical Chest Expansion and Respiratory Effort, Clear to Auscultation Cardiovascular: RRR - Normal S1 and S2 Extremities: - - RLE edema Neurological: Alert and Oriented x 3, NL Muscle Strength and Tone Lines/Tubes/Other Access: Clean, Dry and Intact Peripheral IV Nutrition: Taking PO's Result Diagrams: 03/28/17 08:38 03/28/17 08:38 Assess/Plan/Problems-Billing Assessment: Mr. Santoyo is a 76yo M with PMH of metastatic bladder CA s/p RT, now on palliative cisplatin/gemcitabine admitted with weakness, found to have dehydration/CHARLEEN and RLE DVT. - Patient Problems (1) Dehydration Comment: - Creatinine slightly higher today, but maintaining good urine output. - Continue IVF and monitor - if no response by tomorrow, may need further imaging. (2) Hypokalemia Comment: - Replete. (3) Hypomagnesemia Comment: - Replete. (4) Anemia Comment: - Hb 8.6 - will not transfuse at this time - continue to monitor. (5) DVT (deep venous thrombosis) Comment: - Patient found to have extensive RLE DVT - continue Lovenox. (6) Metastatic carcinoma of the bladder Comment: - Patient is hopeful he'll be able to continue his chemotherapy this week. (7) DVT prophylaxis Comment: - Lovenox. Status and Disposition: Change to inpatient as patient requires >48h for stabilization.
[2017-03-28] MEDS ORDERED: Magnesium Sulfate 2 GM IV* 2 GM/50 ML BAG IVPB ONE (10:48)
[2017-03-28] MEDS: NS 0.9% w/ 20 Meq KCL 1000 ML* 1,000 ML IV SCH (13:08)
[2017-03-29] MEDS: NS 0.9% w/ 20 Meq KCL 1000 ML* 1,000 ML IV SCH ×2 (00:12→15:52)
[2017-03-29 06:09] LABS: White Blood Count 8.5 10^3/ul (3.5-10.8)
[2017-03-29 06:19] LABS: BUN/Creatinine Ratio 24.6 (8-20); EGFR Non-African American 48.2 (>60); Hematocrit 24 % (42-52); Mean Corpuscular HGB Conc 33 g/dl (31-36); Mean Corpuscular Hemoglobin 25 pg (27-31); Mean Corpuscular Volume 76 fL (80-94); Mean Platelet Volume 7 um3 (7.4-10.4); Potassium 3.5 mmol/L (3.5-5.0); Red Cell Distribution Width 20 % (10.5-15)
[2017-03-29 06:20] LABS: Add Diff/Slide Review? Slide Review Added; Comments Flag Yes
[2017-03-29] MEDS: Polyethylene Glycol 3350* 17 GM PACKET PO SCH ×2 (07:23→21:39)
[2017-03-29] MEDS: oxyCODONE TAB* 5 MG TAB PO PRN ×2 (07:23→12:45)
[2017-03-29] MEDS: Potassium Chlor TAB* 20 MEQ TAB.ER PO SCH (07:23)
[2017-03-29] MEDS: Docusate CAP* 100 MG PO SCH ×2 (07:23→21:39)
[2017-03-29] MEDS: Enoxaparin(*) 150 MG/ML 1 ML SYRINGE SUBCUT SCH (07:24)
[2017-03-29] MEDS ORDERED: Ferric Gluconate IV* 25 MG in NS 0.9% 50 ML* 50 ML IVPB ONE (08:08)
--- NOTE | 2017-03-29 08:25 | PN ---
Progress Note - Progress Note Date of Service: 03/29/17 SOAP: Subjective: feels "ok". a lot of pain in his leg last night, feels better this am after oxycodone. last BM Wednesday, no noticeable blood. no appetite. Objective: Vital Signs Temp Pulse Resp BP Pulse Ox 97.5 F 70 17 98/47 97 03/29/17 07:42 03/29/17 07:42 03/29/17 07:42 03/29/17 07:42 03/29/17 07:42 lying flat in nad perr eomi op dry, very mild thrush mild crackles left base s1 s2 nl soft nt +bs 2+ right LE edema with right inguinal adenopathy A+O x 3, nonfocal neurological exam Laboratory Results - last 24 hr 03/29/17 03/29/17 04:45 04:45 WBC 8.5 RBC 3.20 L Hgb 8.0 L Hct 24 L MCV 76 L MCH 25 L MCHC 33 RDW 20 H Plt Count 111 L MPV 7 L Neut % (Auto) 89.8 H Lymph % (Auto) 5.2 L Mcclain % (Auto) 4.0 Eos % (Auto) 0.9 Baso % (Auto) 0.1 Absolute Neuts (auto) 7.7 Absolute Lymphs (auto) 0.4 L Absolute Monos (auto) 0.3 Absolute Eos (auto) 0.1 Absolute Basos (auto) 0 Absolute Nucleated RBC 0 Nucleated RBC % 0 Sodium 133 Potassium 3.5 Chloride 98 L Carbon Dioxide 27 Anion Gap 8 BUN 35 H Creatinine 1.42 H Est GFR ( Amer) 62.0 Est GFR (Non-Af Amer) 48.2 BUN/Creatinine Ratio 24.6 H Glucose 111 H Calcium 8.0 L Magnesium Total Bilirubin AST ALT Alkaline Phosphatase Total Protein Albumin Globulin Albumin/Globulin Ratio Crossmatch Acetaminophen (Tylenol Tab*) 650 mg PO Q6H PRN PRN Reason: FEVER/PAIN Last Admin: 03/27/17 08:23 Dose: 650 mg Ascorbic Acid (Vitamin C Tab*) 500 mg PO BID [facility] Docusate Sodium (Colace Cap*) 200 mg PO BID [facility] Last Admin: 03/29/17 07:23 Dose: 200 mg Enoxaparin Sodium (Lovenox(*)) 105 mg SUBCUT DAILY [facility] Last Admin: 03/29/17 07:24 Dose: 105 mg Ferrous Sulfate (Ferrous Sulfate Tab*) 325 mg PO BID [facility] Potassium Chloride/Sodium Chloride (Ns 0.9% W/ 20 Meq Kcl 1000 Ml*) 1,000 mls @ 100 mls/hr IV PER RATE [facility] Last Admin: 03/29/17 00:12 Dose: 100 mls/hr Ferric Sodium Gluconate (Complex 25 mg/ Sodium Chloride) 52 mls @ 52 mls/hr IVPB ONCE ONE Stop: 03/29/17 09:07 Ferric Sodium Gluconate Complex 100 mg/ Sodium Chloride 108 mls @ 0 mls/hr IVPB ONCE ONE PRN Reason: As Directed Stop: 03/29/17 08:10 Potassium Chloride (Potassium Chloride 20 Meq/100 Ml Ivpremix*) 20 meq in 100 mls @ 50 mls/hr IV Q2H [facility] Stop: 03/29/17 12:59 Lorazepam (Ativan Inj*) 0.5 mg IV PUSH Q4H PRN PRN Reason: Anxiety/nausea/insomnia Ondansetron HCl (Zofran Tab*) 4 mg PO Q4HR PRN PRN Reason: NAUSEA Ondansetron HCl (Zofran Inj*) 4 mg IV Q4H PRN PRN Reason: nausea Oxycodone HCl (Roxycodone Tab*) 5 mg PO Q4H PRN PRN Reason: PAIN Last Admin: 03/29/17 07:23 Dose: 5 mg Polyethylene Glycol/Electrolytes (Miralax*) 17 gm PO 0800,2100 [facility] Last Admin: 03/29/17 07:23 Dose: 17 gm Potassium Chloride (Klor Con Er Tab*) 40 meq PO 0900,1400 [facility] Last Admin: 03/29/17 07:23 Dose: 40 meq Prochlorperazine (Compazine Tab*) 10 mg PO Q6H PRN PRN Reason: NAUSEA Assessment: 76 yo M w metastatic bladder CA sp RT and on palliative cisplatin/gemcitabine sp cycle 1 day 8 admitted with weakness, poor PO intake, and dehydration with acute renal failure. Plan: ARF: likely combination of prerenal azotemia and cisplatin induced renal toxicity -cont IVFs, will transfuse another unit of blood -hypokalemia likely from poor PO intake and cisplatin, will replete IV today and cont POs (change to liquid) -check magnesium DVT: extensive RLE DVT -lovenox for now based on CLOT trial and likely falling platelets/ease of stopping -1.5mg/kg/dy (can give 100 mg on discharge) anemia: note microcytic anemia, with last Hb prior to this illness in 2010 when he was normocytic. Certainly at least in part chemotherapy related but concerning for iron deficiency, and now that on lovenox this may become an issue -check anemia panel -give dose of ferrlicit today -start PO iron plus vitamin C -stool guaiac -transfuse 1U today metastatic bladder CA: due for cycle 1 day 8 today, single agent gemcitabine. -will give today to keep on cycle full code
[2017-03-29 08:33] LABS: Magnesium 2.1 mg/dL (1.9-2.7)
[2017-03-29] MEDS: Ferrous Sulfate TAB* 325 MG PO SCH ×2 (11:10→21:39)
[2017-03-29] MEDS: Ascorbic Acid TAB* 500 MG PO SCH ×2 (11:11→21:39)
[2017-03-29] MEDS: Potassium Chloride LIQUID* 20 MEQ PACKET PO SCH ×2 (11:11→21:38)
[2017-03-29 11:39] LABS: Ferritin 2290.6 ng/mL (24-336)
[2017-03-29] MEDS: KCL 20 MEQ/100 ML IVPREMIX* 20 MEQ/100 ML BAG IV SCH ×2 (12:34→14:40)
[2017-03-29] MEDS ORDERED: NS 0.9% IVPB ONE (13:00)
[2017-03-29] MEDS ORDERED: GEMCITABINE IVPB ONE (13:00)
[2017-03-30] MEDS: NS 0.9% w/ 20 Meq KCL 1000 ML* 1,000 ML IV SCH (01:31)
[2017-03-30 08:39] LABS: Hematocrit 29 % (42-52); Hemoglobin 9.5 g/dl (14.0-18.0); Mean Corpuscular HGB Conc 33 g/dl (31-36); Mean Corpuscular Hemoglobin 26 pg (27-31); Mean Corpuscular Volume 78 fL (80-94); Mean Platelet Volume 7 um3 (7.4-10.4); Red Blood Count 3.67 10^6/ul (4.0-5.4); Red Cell Distribution Width 22 % (10.5-15); White Blood Count 10.6 10^3/ul (3.5-10.8)
[2017-03-30 08:45] LABS: Comments Flag Yes
[2017-03-30 08:46] LABS: Add Diff/Slide Review? Slide Review Added
[2017-03-30 09:12] LABS: Albumin 2.1 g/dL (3.2-5.2); BUN/Creatinine Ratio 22.6 (8-20); Calcium 7.9 mg/dL (8.6-10.3); EGFR Non-African American 43.6 (>60); Globulin 3.1 g/dL (2-4); Magnesium 1.7 mg/dL (1.9-2.7); Potassium 4.1 mmol/L (3.5-5.0); Total Protein 5.2 g/dL (6.4-8.9)
[2017-03-30] MEDS: Enoxaparin(*) 150 MG/ML 1 ML SYRINGE SUBCUT SCH (09:48)
[2017-03-30] MEDS: Potassium Chloride LIQUID* 20 MEQ PACKET PO SCH (09:49)
[2017-03-30] MEDS: Docusate CAP* 100 MG PO SCH (09:50)
[2017-03-30] MEDS: Ascorbic Acid TAB* 500 MG PO SCH (09:50)
[2017-03-30] MEDS: Ferrous Sulfate TAB* 325 MG PO SCH (09:50)
[2017-03-30] MEDS: Polyethylene Glycol 3350* 17 GM PACKET PO SCH (10:04)
[2017-03-30 11:53] VITALS: BP 115/63
--- NOTE | 2017-03-30 13:10 | DS ---
DISCHARGE SUMMARY: DATE OF ADMISSION: 03/26/17 DATE OF DISCHARGE: 03/30/17 REASON FOR ADMISSION: Dehydration, renal insufficiency, status post cisplatin and chemotherapy for metastatic bladder cancer. HISTORY OF PRESENT ILLNESS: Mr. Santoyo is a 76-year-old male who recently was started on chemotherapy for metastatic bladder cancer with cisplatinum and Gemzar receiving day #1 on 03/22/2017 with the cisplatin dose of 70 mg/m2. He presented to the office on the day of admission with being very weak and fatigued. He was found to have hemoglobin of 6.3 and elevated creatinine. He was feeling quite poorly and decision made to admit him to the hospital. At the time of admission labs included a creatinine of 1.27 up from his baseline of 0.7, H and H of 19/6.0 with a white count of 17,000 and platelet count 277, 000. Electrolytes included a slightly low potassium at 3.6. HOSPITAL COURSE: The patient was admitted to the hospital, given 2 units of packed red blood cells and also normal saline at 75 an hour after initial bolus of 500 mL. His right leg was somewhat swollen and there was concern whether this could be a secondary to tumor obstruction in the groin. Question of whether he could have a DVT. He was initially started on Lovenox prophylaxis, but was found to have an extensive DVT and was changed to therapeutic doses of Lovenox. During the hospitalization he continued to receive IV fluids along with repletion of electrolytes. He received 1 further unit of packed red blood cells on 03/29/2017. At that time, he was also due for his day #8 Gemzar and he received this at full dose as his counts were adequate at that time. He continued receiving electrolyte repletion with extra doses of potassium and magnesium as well as IV Ferrlecit due to his low MCV and presumed iron deficiency. During the hospitalization iron and TIBC were ordered along with ferritin; unfortunately it was drawn after he had received his dose of Ferrlecit and therefore falsely elevated. When the patient was seen this morning he was feeling markedly improved and felt ready to be discharged to home. PHYSICAL EXAMINATION: This 76-year-old male in no acute distress, in bed, eating breakfast although stating that his appetite is very poor and food tastes poorly. Blood pressure 103/53, pulse 78, T-max in the last 48 hours is temperature of 99.6 and there was just one recorded temperature of 100 during hospitalization currently 99.0. HEENT: No erythema, no thrush reasonably moist mucous membranes. Heart: 2/6 systolic ejection murmur. Lungs clear. Abdomen is soft, nontender without masses or organomegaly. Right leg significantly swollen although not changed from admission. DIAGNOSTIC STUDIES/LAB DATA: Laboratory studies at the time of discharge include white count 10,600, hematocrit 29, hemoglobin 9.5, platelet count of 72, 000. Chemistry studies sodium 134, potassium 4.1, chloride 100, bicarb 25, BUN 35, creatinine 1.55 (creatinine is slightly higher even than last several days ago, but he does appear to be eating and drinking better and can continue to receive IV hydration as an outpatient). Glucose 116, magnesium 1.7. MEDICATIONS AT THE TIME OF DISCHARGE: Include: 1. Potassium chloride 20 mEq b.i.d. 2. Magnesium oxide 250 mg b.i.d. 3. Ferrous sulfate 325 b.i.d. 4. Enoxaparin 100 mg subcutaneously. Patient is being taught how to give himself subcutaneous injections. 5. The patient will remain on ascorbic acid 500 mg daily. 6. Pravastatin 20 mg daily. 7. Oxycodone 5 to 10 q. 4 hours p.r.n. pain. 8. Compazine p.r.n. 9. Zofran p.r.n. 10. Bowel medications as needed. 11. Tylenol p.r.n. DISCHARGE DIAGNOSES: 1. Metastatic bladder cancer. 2. DVT diagnosed during hospitalization. 3. Dehydration with renal insufficiency secondary to prior cisplatinum and bladder cancer. 4. Anemia, iron deficient. 5. Hypokalemia. 6. Hypomagnesemia. PLAN: Patient to return to the outpatient clinic in 2 day's time for further labs and IV hydration, this will likely need to be repeated 2 to 3 times per week. He is currently day #9 status post cycle #1 of Gemzar and cisplatinum and may or may not be able to receive further cisplatinum in the future. [id number]/[facility] #: [id number] [facility]
== END 2017-03-30 13:20 | disposition home or self-care (01) | DRG 812 ==
LOC: MED 10:56 → OBSVTOIN 03-28 10:56
PROVIDERS: ADMIT Internal Medicine Hematology & Oncology; ATTEND Internal Medicine Hematology & Oncology
PROC: 30233P1 Transfusion of Nonautologous Frozen Red Cells into Peripheral Vein, Percutaneous Approach (ICD-10-PCS; principal; 2017-03-26)
DX: D64.81 Anemia due to antineoplastic chemotherapy (principal); N17.9 Acute kidney failure, unspecified; I82.411 Acute embolism and thrombosis of right femoral vein; C79.51 Secondary malignant neoplasm of bone; E86.0 Dehydration; C67.9 Malignant neoplasm of bladder, unspecified; T45.1X5A Adverse effect of antineoplastic and immunosuppressive drugs, initial encounter; E87.6 Hypokalemia; I82.441 Acute embolism and thrombosis of right tibial vein; X58.XXXA Exposure to other specified factors, initial encounter; E78.00 Pure hypercholesterolemia, unspecified; Z80.0 Family history of malignant neoplasm of digestive organs; Y92.9 Unspecified place or not applicable; Z79.891 Long term (current) use of opiate analgesic; Z79.899 Other long term (current) drug therapy
CPT/HCPCS: 36415; 80048; 80053; 81003; 81015; 82728; 83540; 83550; 83735; 85025; 86850; 86900; 86901; 86922; 96361; 96374; 99215; 99219; 99232; A9270-GY; G0378; G0463; G8978-GP-CJ; G8979-GP-CI; J1650; J2060; J2916; J3475; J3480; J9201; P9040

== ENCOUNTER 2017-04-19 07:25 | Day surgery (SDC) | payer MEDICARE ==
[~2017-04-19 07:25] MED LIST changes: +Buffered Lidocaine 0.9% SYRIN* 5 ML/SYR SYRINGE INTRADERM ONE; +Buffered Lidocaine 0.9% SYRIN* 5 ML/SYR SYRINGE ONE; -Buffered Lidocaine 1% SYRIN* 3 ML/SYR SYRINGE INTRADERM ONE; +Famotidine IV* 10 MG/ML 2 ML (20 mg) IV ONE
[2017-04-19] MEDS ORDERED: Midazolam* 1 MG/ML 2 ML VIAL (2 MG) ONE (08:25)
[2017-04-19] MEDS ORDERED: fentaNYL* 50 MCG/ML 2 ML VIAL (100 MCG VIAL) ONE (08:25)
[2017-04-19] MEDS ORDERED: Lidocaine 1% MPF wEPI 200,000* 30 ML SDV ONE (08:48)
[2017-04-19] MEDS ORDERED: Bupivacaine 0.5% SDV PF* 30 ML VIAL ONE (08:48)
[2017-04-19] MEDS ORDERED: KETAMINE HCL* 50 MG/ML 10 ML VIAL ONE (09:12)
[2017-04-19] MEDS ORDERED: Acetaminophen TAB* 325 MG PO PRN (09:19)
[2017-04-19] MEDS ORDERED: Ondansetron INJ* 2 MG/ML VIAL IV PRN (09:19)
[2017-04-19] MEDS ORDERED: PROCHLORPERAZINE INJ 5 MG/ML 2 ML VIAL IV PRN (09:19)
[2017-04-19] MEDS ORDERED: Propofol* 10 MG/ML 20 ML BTL IV PUSH ONE (09:32)
[2017-04-19] MEDS ORDERED: Famotidine IV* 10 MG/ML 2 ML (20 mg) ONE (09:32)
[2017-04-19] MEDS ORDERED: Lidocaine 2% PF * 5 ML VIAL ONE (09:32)
[2017-04-19] MEDS ORDERED: oxyCODONE/Acetamin 5/325 MG* TAB PO PRN (10:00)
[2017-04-19 10:28] VITALS: BP 113/71
--- NOTE | 2017-04-19 10:44 | RAD ---
Indication: Status post line placement. Single frontal view of the chest performed at 1010 hours was reviewed. Comparison is made with previous exam dated April 19, 2017, earlier the same day. No mediastinal shift is noted. Central line is in place. Lung vernon appear clear. IMPRESSION: CENTRAL LINE IN PLACE WITH NO PNEUMOTHORAX.
--- NOTE | 2017-04-19 11:39 | RAD ---
CPT II Codes: 6045F INDICATION: PowerPort placement Approximately 21.4 seconds of fluoroscopy time was used. One spot image demonstrates placement of a PowerPort into the superior vena cava. IMPRESSION: Successful placement of a PowerPort in the superior vena cava.
--- NOTE | 2017-04-19 16:47 | OP ---
CC: [facility]; Dr. Heber Moran * DATE OF OPERATION: 04/19/17 - [facility] DATE OF : 36 SURGEON: Sandra Glaser MD METAL MINE INSPECTOR: None. ANESTHESIOLOGIST: Dr. Pavon ANESTHESIA: MAC PRE-OP DIAGNOSIS: Bladder cancer. POST-OP DIAGNOSIS: Bladder cancer. OPERATIVE PROCEDURE: PowerPort placement. INDICATIONS: Mr. Santoyo is a 76-year-old male who presented to the office with a known history of bladder cancer, who is to undergo chemotherapy, who needs a port for the chemotherapy. He was therefore prepared for surgery. DESCRIPTION OF PROCEDURE: He was brought to the operating room, placed on the OR table in a supine position and given IV sedation. The chest was prepped and draped in the usual sterile fashion. After infiltrating with local anesthetic, under Seldinger technique, a wire was placed into the right subclavian vein. A port pocket was then created by infiltrating the skin of the chest wall with local anesthetic, making an incision and elevating a flap inferiorly using electrocautery. Once this was of size adequate to accommodate the port, the catheter was tunneled from the wire exit site to the port pocket site. Then a dilator and introducer were passed over the wire into the right subclavian vein and superior vena cava under fluoroscopic visualization. The wire and dilator were removed. The catheter was advanced through the introducer and to the superior vena cava under fluoroscopic visualization and then the wire was peeled away. The position of the catheter was checked. Next, catheter was trimmed and attached to the port and then the port was inserted into the pocket and secured to the chest wall with 2-0 Surgipro stitch. The port function was checked and it was found to flush easily and withdraws easily. Then, the port pocket was closed using 3-0 Polysorb and subcutaneous layers of skin was closed with 4-0 Surgipro in a subcuticular fashion. The dayday in the skin that had been made at the wire access site was closed with a stitch of 4-0 Surgipro as well. The port was flushed with heparinized saline and the needle was left in place. Steri-Strips and a dry sterile dressing were applied. All sponge and instrument counts were correct. The patient tolerated the procedure well and was transferred to Recovery in a stable condition. [id number]/[facility] #: [id number] MARLY
== END 2017-04-19 10:40 | disposition home or self-care (01) ==
LOC: OR 07:25
PROVIDERS: ATTEND Surgery
DX: C67.9 Malignant neoplasm of bladder, unspecified (principal); E78.00 Pure hypercholesterolemia, unspecified; D64.9 Anemia, unspecified; E86.0 Dehydration; Z87.891 Personal history of nicotine dependence
CPT/HCPCS: 71010; C1788; J1642; J2001; J2250; J2704; J3010

== ENCOUNTER 2019-05-07 14:38 | Inpatient (IN) | payer MEDICARE ==
--- NOTE | 2019-05-07 15:11 | ED ---
GI/ HPI - HPI Summary HPI Summary: The patient is an 78 y/o M presenting to [facility] accompanied by daughter with a chief complaint of generalized weakness and lethargy since yesterday accompanied by diarrhea. His daughter states that she noticed he wasnt feeling well yesterday, and today he notes that hes had watery diarrhea without blood, incontinence of stool, fever, and diaphoresis. He denies any cough. Currently, his symptoms are rated 3/10 in severity. He also c/o chronic right knee pain secondary to metastases of bladder cancer with immunotherapy treatment, which he has an appointment for tomorrow. Oncologist is Dr. Walton. PMHx: DVT, HLD, right inguinal hernia, bladder cancer with metastases. Nonsmoker, no EtOH, no substance use. Medications reviewed. Allergies noted. - History of Current Complaint Time Seen by Provider: 05/07/19 14:53 Stated Complaint: WEAKNESS,MUSCLE PAIN PER DAUGHTER Hx Obtained From: Patient, Family/Burrer Hand - daughter Onset/Duration: Started Hours Ago - yesterday, Still Present Timing: Lasting Hours Severity: Mild Current Severity: Moderate Pain Intensity: 3 Associated Signs and Symptoms: Positive: Weakness, Fever, Other: - diaphoresis, incontinence of stool. Negative: Blood w/Stool, Cough Aggravating Factor(s): Nothing Alleviating Factor(s): Nothing - Additional Pertinent History Primary Care Physician: LISA - Allergy/Home Medications Allergies/Adverse Reactions: Allergies Allergy/AdvReac Type Severity Reaction Status Date / Time Iodinated Contrast Media Allergy Itching Verified 02/27/19 09:16 [Iodinated Contrast- Oral and IV Dye] iodixanol [From Visipaque] Allergy Itching Verified 02/27/19 09:16 Home Medications: Home Medications Apixaban [Eliquis] 5 mg PO BID 05/07/19 [History Confirmed 05/07/19] Hydrocortisone TAB* [Cortef*] 5 mg PO SEE INSTRUCTIONS 05/07/19 [History Confirmed 05/07/19] Levothyroxine TAB* [Synthroid TAB*] 50 mcg PO DAILY 05/07/19 [History Confirmed 05/07/19] Morphine Sulfate 15 mg PO 05/07/19 [History] traMADol TAB* [Ultram*] 50 mg PO Q6HR PRN 05/07/19 [History Confirmed 05/07/19] PMH/Surg Hx/FS Hx/Imm Hx Endocrine/Hematology History: Denies: Hx Diabetes Cardiovascular History: Reports: 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 , Hx Hypercholesterolemia Denies: Hx Hypertension, Hx Pacemaker/ICD Respiratory History: Denies: Hx Asthma, Hx Chronic Obstructive Pulmonary Disease (COPD) GI History: Reports: Other GI Disorders - right inguinal hernia History: Reports: Hx Renal Disease - abnormal gfr, Other Problems/ Disorders - bladder cancer 2011 - followed by dr lilly Denies: Hx Dialysis Musculoskeletal History: Reports: Hx Arthritis - spine, Hx Back Problems, Other Musculoskeletal History - bulging disc in lower back, causes leg pain Sensory History: Reports: Hx Contacts or Glasses Denies: Hx Hearing Aid Opthamlomology History: Reports: Hx Contacts or Glasses Neurological History: Reports: Hx Nerve Disease Denies: Hx Headaches Psychiatric History: Denies: Hx Panic Disorder - Cancer History Cancer Type, Location and Year: bladder Hx Chemotherapy: No - on radiation Hx Radiation Therapy: No - Surgical History Surgery Procedure, Year, and Place: BLADDER TUMOR REMOVED - 2011, [facility] [place]. tonsillectomy as a child. right inguinal hernia repair 10/2016 Hx Anesthesia Reactions: No Infectious Disease History: No Infectious Disease History: Denies: Traveled Outside the [place] in Last 30 Days - Family History Known Family History: Positive: Other - No - malignant hypothermia Negative: Hypertension, Diabetes - Social History Alcohol Use: None Alcohol Amount: One drink per week Hx Substance Use: No Substance Use Type: Reports: None Substance Use Comment - Amount & Last Used: transcribed oxycodone Hx Tobacco Use: No Smoking Status (MU): Never Smoked Tobacco Type: Cigarettes Amount Used/How Often: 2 ppd, smoked for 10 years Review of Systems Positive: Fever, Skin Diaphoresis, Other - lethargy Negative: Cough Positive: Diarrhea - watery, Other - incontinence of stool. Negative: hematochezia Positive: Weakness - generalized All Other Systems Reviewed And Are Negative: Yes Physical Exam - Summary Physical Exam Summary: VITAL SIGNS: Reviewed. GENERAL: Patient is an elderly and very frail appearing male who is lying comfortable in the stretcher. Patient is not in any acute respiratory distress. HEAD AND FACE: No signs of trauma. No ecchymosis, hematomas or skull depressions. No sinus tenderness. EYES: PERRLA, EOMI x 2, No injected conjunctiva, no nystagmus. EARS: Hearing grossly intact. Ear canals and tympanic membranes are within normal limits. MOUTH: Dry oral mucosa but oropharynx is otherwise within normal limits. NECK: Supple, trachea is midline, no adenopathy, no JVD, no carotid bruit, no c- spine tenderness, neck with full ROM. CHEST: Symmetric, no tenderness at palpation. LUNGS: Crackles in the bases of the lungs. No wheezing. CVS: Regular rate and rhythm, S1 and S2 present, no murmurs or gallops appreciated. ABDOMEN: Soft, non-tender. No signs of distention. No rebound, no guarding, and no masses palpated. Bowel sounds are normal. EXTREMITIES: Tenderness to palpation of the right knee, no swelling, no deformity, no edema. FROM in all major joints, no edema, no cyanosis or clubbing. NEURO: Alert and oriented x 3. No acute neurological deficits. Speech is normal and follows commands. SKIN: Erythema on the right third and left second fingers. Dry and warm. Triage Information Reviewed: Yes Vital Signs On Initial Exam: Initial Vitals Pulse Pulse Ox 84 94 05/07/19 14:47 05/07/19 14:47 Vital Signs Reviewed: Yes Procedures - Sedation Patient Received Moderate/Deep Sedation with Procedure: No Diagnostics - Vital Signs Vital Signs Temp Pulse Resp BP Pulse Ox 05/07/19 14:53 100.2 F 78 20 122/83 95 05/07/19 14:48 122/83 05/07/19 14:47 84 94 - Laboratory Result Diagrams: 05/07/19 15:39 05/07/19 15:39 Lab Statement: Any lab studies that have been ordered have been reviewed, and results considered in the medical decision making process. - Radiology Chest X-Ray Radiology Interpretation Completed By: Radiologist Summary of Radiographic Findings: Impression: No evidence for active cardiopulmonary disease. ED physician has reviewed this report. - EKG 1538 Cardiac Rate: NL - 80 bpm EKG Rhythm: Sinus Rhythm Summary of EKG Findings: EKG at 1538 reveals NSR at 80 bpm. Left axis deviation. No ST elevations. ED physician has reviewed and interpreted this EKG. Re-Evaluation - Re-Evaluation First Eval Re-Evaluation Time: 18:10 Change: Unchanged Comment: We discussed all of the results and plan for admission. GIGU Course/Dx - Course Assessment/Plan: Patient is an 78 y/o M with chief complaint of watery diarrhea without blood, incontinence of stool, fever, weakness, lethargy, and diaphoresis onset last night. Currently being treated for bladder cancer by Dr. Walton. Initially in the ED course, the patient was given IV fluids since the patient has severe dehydration. Blood work shows WBCs of 13.3, hemoglobin of 14 , BUN of 26, creatinine of 1.53, total bili of 1.2, AST of 41, CPK of 439, troponin of 0.29, CRP of 204.8, BNP of 42, ESR of 67, INR of 1.45, APTT of 44.6 , and fibrinogen of 674. Therefore the patient was given Rocephin. Urinalysis is positive for UTI. The patient continues to have IV fluids. I discussed my physical exam and findings with Dr. Dewey from oncology and he recommends admission to the hospitalist services. I discussed my physical exam and findings with Dr. Wade from the hospital services who accepted the patient for admission. - Diagnoses Provider Diagnoses: Cellulitis, UTI (urinary tract infection), Weakness, Knee pain, chronic - Physician Notifications Discussed Care Of Patient With: Freddy Dewey - oncologist Time Discussed With Above Provider: 17:50 Instructed by Provider To: Other - I discussed the patient's case with Dr. Dewey , who recommends admission to the hosptialist services. At 1755, I spoke with Dr. Wade, hospitalist, who accepts the patient for admission. Discharge ED - Sign-Out/Discharge Documenting (check all that apply): Patient Departure - Patient accepted for admission by Dr. Wade. - Discharge Plan Condition: Stable Disposition: ADMITTED TO [facility] Referrals: Heber Moran MD [Primary Care Provider] - - Billing Disposition and Condition Condition: STABLE Disposition: Admitted to [facility] - Attestation Statements Document Initiated by Janieibflex: Yes Documenting Scribe: Jazmine Lucas Provider For Whom Dionisio is Documenting (Include Credential): Dr. Heber Bowie MD Scribe Attestation: Jazmine Aguilar scribed for Dr. Heber Bowie MD on 05/07/19 at 1846. Scribe Documentation Reviewed: Yes Provider Attestation: The documentation as recorded by the Jazmine hartman accurately reflects the service I personally performed and the decisions made by me, Dr. Heber Bowie MD Status of Scribe Document: Viewed
[2019-05-07] MEDS ORDERED: NS 0.9% 1000 ML** 1,000 ML IV ONE ×2 (15:18→19:13)
[2019-05-07 15:53] LABS: Hematocrit 42 % (42-52); Hemoglobin 13.9 g/dL (14.0-18.0); Mean Corpuscular HGB Conc 34 g/dL (31-36); Mean Corpuscular Hemoglobin 29 pg (27-31); Mean Corpuscular Volume 86 fL (80-94); Mean Platelet Volume 7.9 fL (7.4-10.4); Platelet Count 178 10^3/uL (150-450); Red Blood Count 4.81 10^6 /uL (4.18-5.48); Red Cell Distribution Width 14 % (10-15); White Blood Count 13.3 10^3/uL (3.5-10.8)
[2019-05-07 16:05] LABS: ALT 17 U/L (7-52); AST 41 U/L (13-39); Albumin 3.9 g/dL (3.2-5.2); Albumin/Globulin Ratio 1.2 (1-3); Alkaline Phosphatase 80 U/L (34-104); Anion Gap 14 mmol/L (2-11); Blood Urea Nitrogen 26 mg/dL (6-24); CO2 Carbon Dioxide 22 mmol/L (22-32); Calcium 9.4 mg/dL (8.6-10.3); Chloride 101 mmol/L (101-111); Creatine Kinase 439 U/L (10-223); EGFR African American 53.3 (>60); Globulin 3.2 g/dL (2-4); Glucose 76 mg/dL (70-100); Potassium 3.6 mmol/L (3.5-5.0); Sodium 137 mmol/L (135-145); Total Protein 7.1 g/dL (6.4-8.9)
[2019-05-07 16:08] LABS: Troponin I 0.29 ng/mL (<0.04)
[2019-05-07 16:23] LABS: ABS Eosinophils 0.1 10^3/ul (0-0.6); ABS Lymphocytes 1.5 10^3/ul (1.0-4.8); ABS Monocytes 1.6 10^3/ul (0-0.8); ABS Neutrophils 10.1 10^3/ul (1.5-7.7); Eosinophil % 0.8 %; Lymphocyte % 10.9 %
[2019-05-07 16:26] LABS: Activated Partial Thrombo Time 44.6 seconds (26.0-38.0); Fibrinogen 674.5 mg/dL (110.8-404.3); INR 1.45 (0.82-1.09)
[2019-05-07 16:51] LABS: Urine Appearance Cloudy; Urine Bacteria Absent (Absent); Urine Bilirubin Negative (Negative); Urine Blood 3+ (Negative); Urine Color Yellow; Urine Glucose Negative (Negative); Urine Ketones 1+ (Negative); Urine Nitrite Negative (Negative); Urine Protein Negative (Negative); Urine Red Blood Cell 3+(>10/hpf) (Absent); Urine Specific Gravity 1.012 (1.010-1.030); Urine Urobilinogen Negative (Negative); Urine White Blood Cell 3+(>20/hpf) (Absent)
[2019-05-07 17:08] LABS: Erythrocyte Sed Rate 67 mm/Hr (0-19)
[2019-05-07] MEDS ORDERED: Ondansetron INJ* 2 MG/ML VIAL IV ONE (17:16)
[2019-05-07] MEDS ORDERED: Morphine 4 MG/ML VIAL (1 ml) 4 MG/ML VIAL IV ONE (17:16)
[2019-05-07] MEDS ORDERED: cefTRIAXone(*) 1 GM in NS 0.9% 50 ML* 50 ML IVPB ONE (17:35)
[2019-05-07] MEDS ORDERED: NS 0.9% 500 ML* 500 ML IV ONE (19:15)
[2019-05-07] MEDS ORDERED: Ondansetron TAB* 4 MG PO PRN (19:15)
[2019-05-07] MEDS ORDERED: Docusate CAP* 100 MG PO PRN (19:15)
[2019-05-07] MEDS ORDERED: Morphine ORAL.SOLN 10 mg* 2 MG/ML UDC 5 ml PO PRN (19:15)
[2019-05-07] MEDS ORDERED: Aspirin TAB* 325 MG PO ONE (19:17)
[2019-05-07 19:48] LABS: Cholesterol 196 mg/dL; HDL Cholesterol 35.2 mg/dL; LDL Cholesterol 141 mg/dL; Triglycerides 98 mg/dL
[2019-05-07] MEDS: Acetaminophen TAB* 325 MG PO PRN (20:31)
[2019-05-07] MEDS: traMADol TAB* 50 MG PO PRN (20:43)
[2019-05-07] MEDS: Apixaban* 5 MG TAB PO SCH (20:43)
[2019-05-07] MEDS: Metoprolol Tartrate TAB* 25 MG PO SCH ×2 (20:44→22:22)
[2019-05-07] MEDS ORDERED: NS 0.9% 1000 ML** 1,000 ML IV SCH (21:00)
[2019-05-07 21:08] LABS: Troponin I 0.39 ng/mL (<0.04)
--- NOTE | 2019-05-07 22:17 | HP ---
HISTORY AND PHYSICAL: DATE OF ADMISSION: 05/07/19 ADMITTING PROVIDER: Marc Wade MD PRIMARY CARE PROVIDER: Dr. Moran. OUTPATIENT ONLINE ADVERTISING MANAGER/ONCOLOGIST: Dr. Walton. OUTPATIENT SURVEY RODMAN: Dr. Leonard. OUTPATIENT UROLOGIST: Dr. Warren. CHIEF COMPLAINT: Diffuse body aches; profuse diarrhea; right third finger pain ; increased frequency of urination. HISTORY OF PRESENT ILLNESS: Sean Santoyo is an 78-year-old male with past medical history of bladder cancer(metastatic to the right pelvis and bones; on immunotherapy q3 weeks with Atezolizumab), chronic right knee and leg pain, hyperlipidemia, and DVT(on lifelong anticoagulation). He attended a wedding 2 days prior to admission, felt well, but upon awaking in the morning prior to admission felt overall body ache and developed multiple episodes of loose brown diarrhea throughout the day. He is a poor and inconsistent historian. He, at one point in time, said he did have chest pain that was "pretty bad," but then revised it to say that was really back pain. He did have some diaphoresis and drenching night sweats the night prior to admission. He denies any blood in his bowel movements. He had a headache that has since resolved. No shortness of breath or cough. His right third finger has been slightly painful for the last few weeks. The index finger on the left has been red but not been painful. He does have frequency of urination for the last few days, but denies any dysuria. He presented [place] [facility], was found to be febrile up to 102 with leukocytosis of 13.3. CRP of 204.8 and a troponin of 0.29. Urinalysis had 3+ leukocyte esterase, 3+ white count, 3+ rbc's. He was started on ceftriaxone and got 1 L of normal saline. He was referred to hospitalist service for admission for sepsis secondary to possible UTI versus bilateral finger cellulitis and/or diarrheal illness. Hematology/Oncology will be taking over the case tomorrow. PAST MEDICAL HISTORY: 1. Metastatic bladder cancer to the right pelvis and bones. 2. Chronic right knee and leg pain, on opiate therapy. 3. DVT, on lifelong anticoagulation. 4. Hyperlipidemia. 5. Adrenal insufficiency, on chronic hydrocortisone. 6. Moderate aortic stenosis, aortic valve area 1.2 cm as of September 2018. 7. Immunosuppression secondary to treatment of 1) MEDICATIONS: Include: 1. Levothyroxine 50 mcg daily. 2. Tramadol 50 mg p.o. q.6 hours p.r.n. 3. Hydrocortisone 10 mg a.m., 5 mg noon, and 2.5 mg p.m. 4. Eliquis 5 mg p.o. b.i.d. 5. Tylenol 650 mg p.o. q.6 hours p.r.n. 6. Colace 200 mg p.o. b.i.d. p.r.n. 7. Ascorbic acid 500 mg p.o. q.a.m. 8. Zofran 4 mg p.o. q.4 hours p.r.n. 9. Morphine sulfate 15 mg b.i.d. p.r.n. 10. Multivitamin 1 tab p.o. q.a.m. 11. Atezolizumab every 3 weeks, almost finishing up 2-year course, due for next session tomorrow. FAMILY HISTORY: His mother of old age in her 80s; she had history of rectal cancer. Father of old age at 95. Sister is alive and obese. ALLERGIES: No known drug allergies. SOCIAL HISTORY: The patient is a former smoker, quit in the 1970s, smoked 5 years for 1 pack per day. Does not drink any alcohol formally, occasionally did. Denies any drug use. He is a retired [employer]. His medical surrogates are his daughters including Shaunna Tate. He he desires to be a DNR/DNI and states there should be paperwork already to this effect. REVIEW OF SYSTEMS: A complete 14-point review of systems is negative except as per HPI. He denies any current headache, vision changes, neck stiffness, abdominal pain, nausea, vomiting, orthopnea. He has chronic right leg swelling and chronic right knee pain with both pressure and bending. He walks with a walker versus cane. Denies history of falls. PHYSICAL EXAMINATION GENERAL APPEARANCE: In no acute distress, but he looks ill appearing. VITAL SIGNS: Temperature 100.2, pulse rate 78, respiratory rate 20, satting 94 % on room air, blood pressure 122/83. HEENT: Normocephalic, atraumatic. Pupils equal, round, and reactive to light. Extraocular motions are intact. Poor dentition. Dry mucous membranes. NECK: Supple. No cervical lymphadenopathy. No thyroid masses appreciated. LUNGS: Anterolaterally clear to auscultation bilaterally with no wheezing, rales, or rhonchi. CARDIOVASCULAR: Pansystolic 3/6 murmur across the precordium. RRR no rubs or gallops. ABDOMEN: Soft, nontender, nondistended. No rebound. No guarding. EXTREMITIES: Warm, well perfused. No peripheral edema, but slight darkening of the right leg skin compared to the left. He has pain to palpation of the patella with any bending of the knee. SKIN: The third right finger has a distal DIP amputation from a service injury and is slightly erythematous and tender to palpation and minimally warm, no drainage. The left index finger also with some swelling and erythema, slightly warm. DIAGNOSTIC STUDIES/LAB DATA: White count 13.3, hemoglobin 13.9, hematocrit 42. INR 1.45. ESR 67. Fibrinogen 674, aPTT 44.6. AB.42, pCO2 34, pO2 67 , bicarb 23.5. Sodium 137, potassium 3.6, chloride 101, carbon dioxide 22, anion gap 14, BUN 26, creatinine 1.53, glucose 76, lactic acid 1.2. Total bili 1.2, AST 41, ALT 17, alk phos 80. CK 439. Troponin 0.29. CRP 204.8. BNP 402. Albumin 3.9. Urinalysis: 1+ ketones, 3+ blood, 3+ leukocyte esterase, 3+ wbc's, 3+ rbc's, no nitrites. Imaging demonstrated chest x-ray with no acute cardiopulmonary process. EKG demonstrated normal sinus rhythm, left axis deviation, prolonged QTc of 473. There is nondiagnostic slight ST depressions in V4 through V6 and lead II. No ST elevations or T-wave inversions. ASSESSMENT AND PLAN: Sean Santoyo is an 78-year-old male with past medical history of metastatic bladder cancer, on immunotherapy with a PDL1- directed antibody, who is presenting with diarrhea, diffuse body aches, fever, leukocytosis, and 2 warm, red fingers. 1. Sepsis. He is meeting sepsis criteria for leukocytosis, fever, but no lactic acidosis. He has been getting ceftriaxone. I will continue that here. Follow up blood cultures. He has intermittently positive UA and possible UTI. 2. Non-ST elevation myocardial infarction with elevated troponin. He is a poor historian of chest pain. I am going to give him aspirin 324 mg and Lipitor 80 mg and if blood pressure tolerates beta anuj. Repeat troponins every 3 hours until peaked. Repeat EKG in the morning. He does have history of echo back in September that showed preserved ejection fraction, impaired relaxation, and some moderate aortic stenosis. 3. Metastatic bladder cancer. He is due to for his atezolizumab tomorrow, and has nearly finished off his planned 2-year course, but will be held for now in the setting of infection/sepsis. This medication has risk of infection (42%) and diarrhea (24%) and for his diarrhea, we will be testing for Clostridium difficile, but may be just related to the medications. He denies any recent antibiotics. 4. For his chronic pain, continue his morphine sulfate 15 mg p.o. b.i.d. p.r.n. and Tylenol 50 mg p.r.n. He has reported extensive workup for the right leg pain and does not look acutely infected, but we will monitor clinically. 5. For his hypercoagulable state in the setting of metastatic bladder cancer, continue his Eliquis 5 mg daily. 6. For his adrenal insufficiency, he will continue his hydrocortisone 10 mg a.m., 5 mg noon, 2.5 mg q.p.m. He follows with Dr. Leonard. May need stress-dose steroids if he gets hypotensive in the setting of his acute illness. 7. Code status. He is a DNR/DNI. 8. DVT prophylaxis. He will be on Eliquis for his chronic deep venous thrombosis and hypercoagulable state. 9. He can eat a heart healthy diet. 10. Medical surrogate is Shaunna Tate, his daughter. [id number]/CPS #: [id number] MARLY
[2019-05-07] MEDS: Morphine TAB Extended Release (*) 15 MG TAB.ER PO PRN (22:41)
[2019-05-08 00:21] LABS: Troponin I 0.53 ng/mL (<0.04)
[2019-05-08] MEDS: traMADol TAB* 50 MG PO PRN ×2 (02:40→16:34)
[2019-05-08] MEDS: Levothyroxine TAB* 50 MCG TAB PO SCH (05:13)
[2019-05-08 06:18] LABS: ABS Eosinophils 0.3 10^3/ul (0-0.6); ABS Lymphocytes 0.8 10^3/ul (1.0-4.8); ABS Monocytes 0.9 10^3/ul (0-0.8); ABS Neutrophils 7.8 10^3/ul (1.5-7.7); Hematocrit 39 % (42-52); Hemoglobin 12.9 g/dL (14.0-18.0); Mean Corpuscular HGB Conc 33 g/dL (31-36); Mean Corpuscular Hemoglobin 29 pg (27-31); Mean Corpuscular Volume 88 fL (80-94); Mean Platelet Volume 8.3 fL (7.4-10.4); Platelet Count 140 10^3/uL (150-450); Red Blood Count 4.45 10^6 /uL (4.18-5.48); Red Cell Distribution Width 14 % (10-15); White Blood Count 9.8 10^3/uL (3.5-10.8)
[2019-05-08 06:35] LABS: Anion Gap 8 mmol/L (2-11); BUN/Creatinine Ratio 16.9 (8-20); Blood Urea Nitrogen 30 mg/dL (6-24); CO2 Carbon Dioxide 23 mmol/L (22-32); Calcium 8.3 mg/dL (8.6-10.3); Chloride 108 mmol/L (101-111); EGFR African American 44.7 (>60); Glucose 79 mg/dL (70-100); Potassium 4.3 mmol/L (3.5-5.0); Sodium 139 mmol/L (135-145)
[2019-05-08 06:57] LABS: Urine Creatinine Concentration 151.53 mg/dL
[2019-05-08 08:27] LABS: Troponin I 0.45 ng/mL (<0.04)
[2019-05-08] MEDS ORDERED: Hydrocortisone TAB* 5 MG PO SCH ×3 (09:00→18:00)
[2019-05-08] MEDS: Metoprolol Tartrate TAB* 25 MG PO SCH ×2 (09:24→21:57)
[2019-05-08] MEDS: Apixaban* 5 MG TAB PO SCH (09:24)
--- NOTE | 2019-05-08 12:48 | ECHO ---
*[facility]* [place] [address] Fax #: [phone] Transthoracic Echocardiogram Patient: Sean Santoyo : 1940 Study Date: 05/08/2019 Age: 78 Gender: M HR: 75 bpm Height: 70 in /177.8 cm BSA: 1.96 m^2 Weight: 170.6 lb /77.6 kg BMI: 24.5 kg/m^2 *Police Commissioner: * Olga Del Valle RDCS RN *Referring Physician: * Marc Wade *Reading Physician: * Jerson Dolan MD Indications: Abnormal EKG. Myocardial Infarction (new). Aortic Stenosis. History: Aortic stenosis. Metastatic bladder cancer. Prior DVT. Risk factors: Dyslipidemia. Conclusions Summary: - Left ventricle: Systolic function is normal. The estimated ejection fraction is 60-65%. Wall motion is normal; there are no regional wall motion abnormalities. Left ventricular diastolic function parameters are indeterminate. - Right ventricle: Systolic function is normal. - Mitral valve: There is no evidence of stenosis. There is mild regurgitation. - Aortic valve: The findings are consistent with moderate stenosis. There is no regurgitation. The peak systolic velocity is 4.1 m/sec. The mean systolic gradient is 41.0 mm Hg. The LVOT to aortic valve VTI ratio is 0.39. The valve area by the peak velocity method is 1.10 cm^2. - Tricuspid valve: There is trace to mild regurgitation. - Pericardium, extracardiac: There is no significant pericardial effusion. - Pulmonary arteries: Systolic pressure can not be accurately estimated. - Compared to study of 10/19/18, there is little change. Study data: Transthoracic echocardiogram. Procedure: Transthoracic echocardiography was performed. Image quality was fair. Complete 2D, spectral Doppler, and color flow Doppler. Location: Bedside. Patient status: Inpatient. Patient room number: 439. Rhythm: Normal sinus rhythm. Findings Left ventricle: The cavity size is mildly reduced. Wall thickness is mildly to moderately increased. Systolic function is normal. The estimated ejection fraction is 60-65%. Wall motion is normal; there are no regional wall motion abnormalities. Left ventricular diastolic function parameters are indeterminate. Right ventricle: The cavity size is normal. Systolic function is normal. Left atrium: The atrium is normal in size. Right atrium: The atrium is normal in size. Mitral valve: The mitral valve annulus appears calcified. The leaflets are mildly thickened. There is no evidence of stenosis. There is mild regurgitation. Aortic valve: The valve is trileaflet. The leaflets are moderately thickened. Valve mobility is restricted. The findings are consistent with moderate stenosis. There is no regurgitation. Tricuspid valve: The valve is structurally normal. There is no evidence of stenosis. There is trace to mild regurgitation. Pulmonic valve: The valve is structurally normal. There is no evidence of stenosis. There is trace regurgitation. Aorta: Aortic root: The aortic root is not dilated. Ascending aorta: The ascending aorta is mildly dilated. Aortic arch: The aortic arch is not dilated. Pericardium: There is no significant pericardial effusion. Pulmonary arteries: Not well visualized. Systolic pressure can not be accurately estimated. Systemic veins: Inferior vena cava: Not visualized. Measurements Left ventricle Value Ref Right atrium Value Ref LEYLA, LAX (L) 3.6 cm 4.2 - ML dim, ES, A4C 3.5 cm 2.6 - 4.4 5.8 SI dim, ES, A4C 5.2 cm 3.4 - 5.3 ESD, LAX (L) 2.1 cm 2.5 - 4.0 Aortic valve Value Ref FS, LAX 42 % 25 - 43 Peak v, S 4.1 m/sec --------- PW, ED (H) 1.1 cm 0.6 - VTI, S 79.4 cm --------- 1.0 Mean grad, S 41.0 mm Hg --------- IVS/PW, ED 1.13 -------- Peak grad, S 67.0 mm Hg --------- E', lat hilary, TDI (L) 9.0 cm/sec >=10.0 LVOT/AV, VTI ratio 0.39 --- ------ E/e', lat hilary, TDI 14 -------- ENRIQUE, VTI 1.20 cm^2 ------ --- E', med hilary, TDI (L) 5.0 cm/sec >=7.0 ENRIQUE, Vmax 1.10 cm^2 --- ------ E/e', med hilary, TDI 25 -------- E', avg, TDI 7.0 cm/sec -------- Mitral valve Value Ref E/e', avg, TDI (H) 18 <=14 Peak E 1.23 m/sec --- ------ Peak A 1.56 m/sec --------- LVOT Value Ref Decel time 287 ms --------- Diam, S 2.00 cm -------- Peak grad, D 6.0 mm Hg --------- Area 3.1 cm^2 -------- Peak E/A ratio 0.79 --------- Peak ann, S 1.41 m/sec -------- VTI, S 31.0 cm -------- Pulmonic valve Value Ref Peak grad, S 8 mm Hg -------- Peak v, S 1 m/sec --------- Mean grad, S 5 mm Hg -------- Peak grad, S 4.0 mm Hg --------- Ventricular septum Value Ref Aortic root Value Ref IVS, ED (H) 1.3 cm 0.6 - Root diam 3.5 cm <4.1 1.0 Ascending aorta Value Ref Right ventricle Value Ref AAo AP diam, S 3.5 cm --------- AW thickness, ED 0.4 cm 0.1 - 0.5 Aortic arch Value Ref LEYLA, LAX 3.2 cm -------- Arch diam 2.9 cm --------- LEYLA minor ax, A4C (H) 3.6 cm 1.9 - mid 3.5 Decending aorta Value Ref Zi peak ann 0.9 m/sec --------- Left atrium Value Ref SI dim ES, LAX 3.6 cm -------- ML dim, A4C 4.0 cm -------- SI dim, A4C 5.6 cm -------- Vol, ES, 2-p 52 ml -------- Vol/bsa, ES, 2-p 27 ml/m^2 16 - 34 Legend: (L) and (H) ventura values outside specified reference range. Prepared and electronically signed by Jerson Dolan MD 05/08/2019 12:47
[2019-05-08] MEDS: Atorvastatin* 40 MG TAB PO SCH (16:19)
[2019-05-08] MEDS: cefTRIAXone(*) 1 GM in NS 0.9% 50 ML* 50 ML IVPB SCH (16:19)
[2019-05-08] MEDS: NS 0.9% 1000 ML** 1,000 ML IV SCH ×2 (16:20→20:00)
[2019-05-08] MEDS: Morphine TAB Extended Release (*) 15 MG TAB.ER PO PRN (16:33)
[2019-05-08] MEDS ORDERED: NS 0.9% 1000 ML** 1,000 ML IV SCH (17:30)
--- NOTE | 2019-05-08 17:37 | PN ---
Progress Note - Progress Note Date of Service: 05/08/19 SOAP: Subjective: []Presented with 48 hrs of fever, diarrhea and diffuse joint pain. On presentation noted to have increased ESR, swelling and redness in several fingers, and initial evaluation with fever, WBC in urine. Labs: Cr 1.78 (up), WBC 13, Trop 0.5. He was admitted and started on antibiotics. Acetaminophen (Tylenol Tab*) 650 mg PO Q6H PRN PRN Reason: FEVER/PAIN Last Admin: 05/07/19 20:31 Dose: 650 mg Apixaban (Eliquis*) 2.5 mg PO BID ASHOK Atorvastatin Calcium (Lipitor*) 40 mg PO 1700 [facility] Last Admin: 05/08/19 16:19 Dose: 40 mg Docusate Sodium (Colace Cap*) 200 mg PO BID PRN PRN Reason: CONSTIPATION Hydrocortisone Sodium Succinate (Solu-Cortef*) 100 mg IV Q8H [facility] Ceftriaxone Sodium 1 gm/ (Sodium Chloride) 50 mls @ 100 mls/hr IVPB Q24H [facility] Last Admin: 05/08/19 16:19 Dose: 100 mls/hr Sodium Chloride (Ns 0.9% 1000 Ml) 1,000 mls @ 150 mls/hr IV PER RATE [facility] Last Admin: 05/08/19 16:20 Dose: 150 mls/hr Sodium Chloride (Ns 0.9% 1000 Ml) 1,000 mls @ 1,000 mls/hr IV PER RATE [facility] Stop: 05/08/19 18:30 Levothyroxine Sodium (Synthroid Tab*) 50 mcg PO 0600 [facility] Last Admin: 05/08/19 05:13 Dose: 50 mcg Metoprolol Tartrate (Lopressor Tab*) 12.5 mg PO Q12HR [facility] Last Admin: 05/08/19 09:24 Dose: 12.5 mg Morphine Sulfate (Ms Contin(*)) 15 mg PO BID PRN PRN Reason: PAIN - SEVERE Last Admin: 05/08/19 16:33 Dose: 15 mg Ondansetron HCl (Zofran Tab*) 4 mg PO Q4HR PRN PRN Reason: NAUSEA Tramadol HCl (Ultram*) 50 mg PO Q6HR PRN PRN Reason: PAIN - MODERATE Last Admin: 05/08/19 16:34 Dose: 50 mg PMHx: Bladder Cancer, adrenal insufficiency, Objective: [] Vital Signs Temp Pulse Resp BP Pulse Ox 99.7 F 80 22 102/59 98 05/08/19 11:45 05/08/19 11:45 05/08/19 16:34 05/08/19 11:45 05/08/19 11:45 HEENT: OM dry, dehydrated CTA VIANNEY, RRR 70s +BS, diffuse tenderness, no HSM Ext dry, good puses, cool Neuro: responsive but bellow baseline MS, NF Assessment: []78 yo with metastatic bladder cancer and long standing immunotherapy now with 2 days diarrhea, polyarthrits, fever and hypotensive. Ddx: acute infection, acute immune activation syndrome. Plan: []1. FEN/ARF - 1 L NS now and thend 150 cc per hr. - Check CMP and Mg in am. 2. GI - check stool leukocytes, C. diff - If stool leukocytes +, possible immune colitis. - CT chest once RF improved 3. Endocrine - Stress steroids, hydrocortisone 100 mg IV Q8 4. Joint inflammation. check YAHAIRA and RF 5. Cardiac. Possible demand ischemia, immune carditis. - Follow Trop - Continue Beta anuj. 6. Full code 7. MS change, if not improved in am, WARP TIER imaging.
[2019-05-08] MEDS ORDERED: Hydrocortisone INJ* 100 MG VIAL IV SCH (18:00)
[2019-05-08] MEDS: Hydrocortisone INJ* 100 MG VIAL IV SCH (18:15)
[2019-05-08 19:10] LABS: Troponin I 0.36 ng/mL (<0.04)
[2019-05-08] MEDS: Acetaminophen TAB* 325 MG PO PRN (19:59)
[2019-05-08] MEDS: Apixaban* 2.5 MG TAB PO SCH (22:11)
[2019-05-09] MEDS: Hydrocortisone INJ* 100 MG VIAL IV SCH ×2 (02:20→09:27)
[2019-05-09] MEDS: NS 0.9% 1000 ML** 1,000 ML IV SCH ×3 (02:20→17:53)
[2019-05-09] MEDS: Levothyroxine TAB* 50 MCG TAB PO SCH (05:25)
[2019-05-09 06:10] LABS: ABS Lymphocytes 0.6 10^3/ul (1.0-4.8); ABS Monocytes 0.5 10^3/ul (0-0.8); ABS Neutrophils 9.7 10^3/ul (1.5-7.7); Hematocrit 33 % (42-52); Hemoglobin 11.1 g/dL (14.0-18.0); Lymphocyte % 5.7 %; Mean Corpuscular HGB Conc 34 g/dL (31-36); Mean Corpuscular Hemoglobin 30 pg (27-31); Mean Corpuscular Volume 87 fL (80-94); Mean Platelet Volume 8.5 fL (7.4-10.4); Platelet Count 132 10^3/uL (150-450); Red Blood Count 3.76 10^6 /uL (4.18-5.48); Red Cell Distribution Width 14 % (10-15); White Blood Count 10.9 10^3/uL (3.5-10.8)
[2019-05-09 06:24] LABS: Anion Gap 8 mmol/L (2-11); CO2 Carbon Dioxide 21 mmol/L (22-32); Calcium 8.3 mg/dL (8.6-10.3); Chloride 111 mmol/L (101-111); Potassium 4.6 mmol/L (3.5-5.0); Sodium 140 mmol/L (135-145)
[2019-05-09 06:30] LABS: ALT 20 U/L (7-52); AST 44 U/L (13-39); Albumin/Globulin Ratio 1.1 (1-3); Alkaline Phosphatase 81 U/L (34-104); BUN/Creatinine Ratio 19.3 (8-20); Blood Urea Nitrogen 33 mg/dL (6-24); C Reactive Protein 420.96 mg/L (<8.01); EGFR African American 46.8 (>60); EGFR Non-African American 38.7 (>60); Globulin 2.7 g/dL (2-4); Glucose 146 mg/dL (70-100); Total Protein 5.7 g/dL (6.4-8.9)
[2019-05-09 06:34] LABS: Troponin I 0.17 ng/mL (<0.04)
[2019-05-09] MEDS: Apixaban* 2.5 MG TAB PO SCH ×2 (09:27→21:19)
[2019-05-09] MEDS: Metoprolol Tartrate TAB* 25 MG PO SCH ×2 (09:27→21:22)
--- NOTE | 2019-05-09 11:18 | PN ---
Progress Note - Progress Note Date of Service: 05/09/19 SOAP: Subjective: [Feeling better today. Acknowledges that his brain has been "a little off". Still foggy today, but improved. Afebrile overnight. Appetite still poor, no n /v. No BM in 2d (was having diarrhea at admission).] Objective: [ Vital Signs: Temp Pulse Resp BP Pulse Ox 96.3 F 71 20 100/65 95 05/09/19 07:15 05/09/19 07:15 05/09/19 07:47 05/09/19 07:15 05/09/19 07:15 Acetaminophen (Tylenol Tab*) 650 mg PO Q6H PRN PRN Reason: FEVER/PAIN Last Admin: 05/08/19 19:59 Dose: 650 mg Apixaban (Eliquis*) 2.5 mg PO BID [facility] Last Admin: 05/09/19 09:27 Dose: 2.5 mg Atorvastatin Calcium (Lipitor*) 40 mg PO 1700 [facility] Last Admin: 05/08/19 16:19 Dose: 40 mg Docusate Sodium (Colace Cap*) 200 mg PO BID PRN PRN Reason: CONSTIPATION Ceftriaxone Sodium 1 gm/ (Sodium Chloride) 50 mls @ 100 mls/hr IVPB Q24H [facility] Last Admin: 05/08/19 16:19 Dose: 100 mls/hr Sodium Chloride (Ns 0.9% 1000 Ml) 1,000 mls @ 150 mls/hr IV PER RATE [facility] Last Admin: 05/09/19 11:01 Dose: 150 mls/hr Levothyroxine Sodium (Synthroid Tab*) 50 mcg PO 0600 [facility] Last Admin: 05/09/19 05:25 Dose: 50 mcg Methylprednisolone Sodium Succinate (Solu-Medrol 40 Mg) 80 mg IV Q12H [facility] Metoprolol Tartrate (Lopressor Tab*) 12.5 mg PO Q12HR [facility] Last Admin: 05/09/19 09:27 Dose: Not Given Morphine Sulfate (Ms Contin(*)) 15 mg PO BID PRN PRN Reason: PAIN - SEVERE Last Admin: 05/08/19 16:33 Dose: 15 mg Ondansetron HCl (Zofran Tab*) 4 mg PO Q4HR PRN PRN Reason: NAUSEA Tramadol HCl (Ultram*) 50 mg PO Q6HR PRN PRN Reason: PAIN - MODERATE Last Admin: 05/08/19 16:34 Dose: 50 mg Laboratory Results - last 24 hr 05/08/19 05/08/19 05/09/19 05:34 18:18 05:56 WBC 10.9 H RBC 3.76 L Hgb 11.1 L Hct 33 L MCV 87 MCH 30 MCHC 34 RDW 14 Plt Count 132 L MPV 8.5 Neut % (Auto) 89.3 Lymph % (Auto) 5.7 [place] % (Auto) 4.9 Eos % (Auto) 0.0 Baso % (Auto) 0.1 Absolute Neuts (auto) 9.7 H Absolute Lymphs (auto) 0.6 L Absolute Monos (auto) 0.5 Absolute Eos (auto) 0.0 Absolute Basos (auto) 0.0 Absolute Nucleated RBC 0.0 Nucleated RBC % 0.0 Sodium Potassium Chloride Carbon Dioxide Anion Gap BUN Creatinine Est GFR ( Amer) Est GFR (Non-Af Amer) BUN/Creatinine Ratio Glucose Calcium Magnesium Total Bilirubin AST ALT Alkaline Phosphatase Troponin I 0.36 H* C-Reactive Protein Total Protein Albumin Globulin Albumin/Globulin Ratio Rheumatoid Factor 15 H 05/09/19 05:56 WBC RBC Hgb Hct MCV MCH MCHC RDW Plt Count MPV Neut % (Auto) Lymph % (Auto) [place] % (Auto) Eos % (Auto) Baso % (Auto) Absolute Neuts (auto) Absolute Lymphs (auto) Absolute Monos (auto) Absolute Eos (auto) Absolute Basos (auto) Absolute Nucleated RBC Nucleated RBC % Sodium 140 Potassium 4.6 Chloride 111 Carbon Dioxide 21 L Anion Gap 8 BUN 33 H Creatinine 1.71 H Est GFR ( Amer) 46.8 Est GFR (Non-Af Amer) 38.7 BUN/Creatinine Ratio 19.3 Glucose 146 H Calcium 8.3 L Magnesium 2.0 Total Bilirubin 0.40 AST 44 H ALT 20 Alkaline Phosphatase 81 Troponin I 0.17 H* C-Reactive Protein 420.96 H Total Protein 5.7 L Albumin 3.0 L Globulin 2.7 Albumin/Globulin Ratio 1.1 Rheumatoid Factor Exam: Gen: Chronically ill appearing 78 yo male but in NAD, sitting up in a chair at bedside HEENT: MMM CV: RRR, 3/6 VIANNEY noted Abd: soft, nonTTP MS: focal effusion at the R 3rd finger PIPJ (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 Cultures have been negative up to the this time without evidence of for focal source of infection. He has now been afebrile for ~24 hours but has had a significant rise in CRP. RF is mildly positive. This appears most consistent with an immune mediated syndrome, but infection can not be completely ruled out at this time. Plan: [1. Febrile illness - favor immune mediated event - switch steroid to 2mg/kg prednisone equivalent (will use 80mg solumedrol bid) - cont ceftriaxone at this time - follow CRP - diarrhea has now stopped, making an infectious colitis unlikely - mental status appears improved since yesterday 2. Demand ischemia - no focal wall motion abnormalities on echo - no pericardial effusion or pericardial thickening to indicate pericarditis - no EKG changes - stop telemetry monitoring at this time 3. Metastatic bladder CA - recent restaging scans show a low burden of stable disease 4. Adrenal insufficiency - stress doses of hydrocortisone received yesterday, transition to solumedrol today 5. h/o DVT - cont Eliquis - small drop in Hgb, no evidence of significant bleeding, cont to follow 6. Moderate Dispo: continue inpatient level care, no clear discharge plan at this time
[2019-05-09] MEDS: methylPREDNISolone SOD 40 MG* 1 ML VIAL IV SCH (11:24)
[2019-05-09] MEDS: cefTRIAXone(*) 1 GM in NS 0.9% 50 ML* 50 ML IVPB SCH (15:05)
[2019-05-09] MEDS: Atorvastatin* 40 MG TAB PO SCH (15:42)
[2019-05-10] MEDS: NS 0.9% 1000 ML** 1,000 ML IV SCH ×2 (00:47→08:28)
[2019-05-10] MEDS: methylPREDNISolone SOD 40 MG* 1 ML VIAL IV SCH (00:47)
[2019-05-10] MEDS: Levothyroxine TAB* 50 MCG TAB PO SCH (05:07)
[2019-05-10 06:56] LABS: ABS Lymphocytes 0.6 10^3/ul (1.0-4.8); ABS Monocytes 0.3 10^3/ul (0-0.8); ABS Neutrophils 9.4 10^3/ul (1.5-7.7); Eosinophil % 0.1 %; Hematocrit 36 % (42-52); Hemoglobin 12.2 g/dL (14.0-18.0); Lymphocyte % 5.6 %; Mean Corpuscular HGB Conc 34 g/dL (31-36); Mean Corpuscular Hemoglobin 29 pg (27-31); Mean Corpuscular Volume 86 fL (80-94); Mean Platelet Volume 9.3 fL (7.4-10.4); Platelet Count 127 10^3/uL (150-450); Red Blood Count 4.16 10^6 /uL (4.18-5.48); Red Cell Distribution Width 14 % (10-15); White Blood Count 10.3 10^3/uL (3.5-10.8)
[2019-05-10 07:08] LABS: BUN/Creatinine Ratio 26.6 (8-20); C Reactive Protein 265.91 mg/L (<8.01); Calcium 8.7 mg/dL (8.6-10.3); EGFR African American 59.5 (>60); EGFR Non-African American 49.2 (>60); Potassium 3.8 mmol/L (3.5-5.0)
[2019-05-10] MEDS: Metoprolol Tartrate TAB* 25 MG PO SCH ×2 (08:36→19:58)
[2019-05-10] MEDS: Apixaban* 2.5 MG TAB PO SCH ×2 (08:36→19:58)
--- NOTE | 2019-05-10 10:20 | PN ---
Progress Note - Progress Note Date of Service: 05/10/19 SOAP: Subjective: [Feeling much better today. Still has some discomfort in his R 3rd finger. Feels less "foggy". Appetite is improving slightly.] Objective: [ Vital Signs: Temp Pulse Resp BP Pulse Ox 97.1 F 79 20 147/86 94 05/10/19 07:40 05/10/19 07:40 05/10/19 07:40 05/10/19 07:40 05/10/19 07:40 Acetaminophen (Tylenol Tab*) 650 mg PO Q6H PRN PRN Reason: FEVER/PAIN Last Admin: 05/08/19 19:59 Dose: 650 mg Apixaban (Eliquis*) 2.5 mg PO BID [facility] Last Admin: 05/10/19 08:36 Dose: 2.5 mg Atorvastatin Calcium (Lipitor*) 40 mg PO 1700 [facility] Last Admin: 05/09/19 15:42 Dose: 40 mg Docusate Sodium (Colace Cap*) 200 mg PO BID PRN PRN Reason: CONSTIPATION Levothyroxine Sodium (Synthroid Tab*) 50 mcg PO 0600 [facility] Last Admin: 05/10/19 05:07 Dose: 50 mcg Methylprednisolone Sodium Succinate (Solu-Medrol 125mg *) 60 mg IV Q12H [facility] Metoprolol Tartrate (Lopressor Tab*) 12.5 mg PO Q12HR [facility] Last Admin: 05/10/19 08:36 Dose: 12.5 mg Morphine Sulfate (Ms Contin(*)) 15 mg PO BID PRN PRN Reason: PAIN - SEVERE Last Admin: 05/08/19 16:33 Dose: 15 mg Ondansetron HCl (Zofran Tab*) 4 mg PO Q4HR PRN PRN Reason: NAUSEA Tramadol HCl (Ultram*) 50 mg PO Q6HR PRN PRN Reason: PAIN - MODERATE Last Admin: 05/08/19 16:34 Dose: 50 mg Laboratory Results - last 24 hr 05/10/19 05/10/19 05:50 05:50 WBC 10.3 RBC 4.16 L Hgb 12.2 L Hct 36 L MCV 86 MCH 29 MCHC 34 RDW 14 Plt Count 127 L MPV 9.3 Neut % (Auto) 91.2 Lymph % (Auto) 5.6 Heard % (Auto) 3.0 Eos % (Auto) 0.1 Baso % (Auto) 0.1 Absolute Neuts (auto) 9.4 H Absolute Lymphs (auto) 0.6 L Absolute Monos (auto) 0.3 Absolute Eos (auto) 0.0 Absolute Basos (auto) 0.0 Absolute Nucleated RBC 0.0 Nucleated RBC % 0.0 Sodium 142 Potassium 3.8 Chloride 114 H Carbon Dioxide 20 L Anion Gap 8 BUN 37 H Creatinine 1.39 H Est GFR ( Amer) 59.5 Est GFR (Non-Af Amer) 49.2 BUN/Creatinine Ratio 26.6 H Glucose 152 H Calcium 8.7 C-Reactive Protein 265.91 H Exam: Gen: Chronically ill appearing 78 yo male but in NAD, sitting up in bed HEENT: MMM CV: RRR, 3/6 VIANNEY noted Abd: soft, nonTTP MS: focal effusion at the R 3rd finger PIPJ (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 Cultures are negative and he is without evidence of for focal source of infection. He has now been afebrile for ~48 hours. He had a significant rise in CRP, but improved now today. RF is mildly positive. Diarrhea has resolved and he had a regular BM today. This appears most consistent with an immune mediated syndrome. Plan: [1. Febrile illness, improved with acute metabolic encephalopathy - favor immune mediated event - decrease solumedrol to 60 mg bid - stop ceftriaxone - cont to follow CRP - diarrhea has now stopped, making an infectious colitis unlikely - mental status appears back to baseline 2. Demand ischemia v myocarditis - no focal wall motion abnormalities on echo - no pericardial effusion or pericardial thickening to indicate pericarditis - no EKG changes - stop telemetry monitoring at this time 3. Metastatic bladder CA - recent restaging scans show a low burden of stable disease - further treatment will be determined by Dr Walton following discharge 4. Adrenal insufficiency - stress doses of hydrocortisone initially, now receiving treatment doses of solumedrol 5. h/o DVT - cont Eliquis - initial small drop in Hgb which was likely dilutional, no evidence of significant bleeding, cont to follow 6. Moderate Dispo: continue inpatient level care, anticipate potential dc tomorrow if he continues to do well off of IV fluids and abx today
[2019-05-10] MEDS: methylPREDNISolone 125 MG* 2 ML VIAL IV SCH (12:55)
[2019-05-10] MEDS: Atorvastatin* 40 MG TAB PO SCH (17:29)
[2019-05-11] MEDS: methylPREDNISolone 125 MG* 2 ML VIAL IV SCH (00:17)
[2019-05-11 05:07] LABS: ABS Lymphocytes 0.7 10^3/ul (1.0-4.8); ABS Monocytes 0.5 10^3/ul (0-0.8); ABS Neutrophils 11.1 10^3/ul (1.5-7.7); Hematocrit 33 % (42-52); Lymphocyte % 5.8 %; Mean Corpuscular HGB Conc 34 g/dL (31-36); Mean Corpuscular Hemoglobin 29 pg (27-31); Mean Corpuscular Volume 86 fL (80-94); Mean Platelet Volume 9.5 fL (7.4-10.4); Platelet Count 150 10^3/uL (150-450); Red Blood Count 3.83 10^6 /uL (4.18-5.48); Red Cell Distribution Width 14 % (10-15); White Blood Count 12.3 10^3/uL (3.5-10.8)
[2019-05-11] MEDS: Levothyroxine TAB* 50 MCG TAB PO SCH (05:11)
[2019-05-11 05:18] LABS: BUN/Creatinine Ratio 29.6 (8-20); C Reactive Protein 151.37 mg/L (<8.01); Potassium 3.6 mmol/L (3.5-5.0)
--- NOTE | 2019-05-11 09:21 | DS ---
- Discharge Summary Admission Date: 05/07/19 Discharge Date: 05/11/19 Discharge Diagnosis: 1. 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 DVT: continue NOAC 5. Metastatic Bladder Cancer: stable disease, treatment on hold Discharge Medications: Medication Instructions Recorded Confirmed Type Ascorbic Acid TAB* [Vitamin C 500 mg PO QAM 11/13/16 05/07/19 History TAB*] Multiple Vitamins W/ Minerals 1 tab PO QAM 11/13/16 05/07/19 History [Multivitamin Adults] Acetaminophen TAB* [Tylenol TAB*] 650 mg PO Q6H PRN #0 tab 02/16/17 05/07/19 Rx Ondansetron TAB* [Zofran 4 MG Tab*] 4 mg PO Q4HR PRN 03/26/17 05/07/19 History Docusate CAP* [Colace Cap*] 200 mg PO BID PRN 04/13/17 05/07/19 History Apixaban [Eliquis] 5 mg PO BID 05/07/19 05/07/19 History Hydrocortisone TAB* [Cortef TAB*] 5 mg PO SEE INSTRUCTIONS 05/07/19 05/07/19 History Levothyroxine TAB* [Synthroid TAB*] 50 mcg PO DAILY 05/07/19 05/07/19 History Morphine Sulfate [Ms Contin] 15 mg PO BID 05/07/19 05/07/19 History traMADol TAB* [Ultram*] 50 mg PO Q6HR PRN 05/07/19 05/07/19 History Metoprolol Tartrate TAB* 12.5 mg PO Q12HR #60 tab 05/11/19 Rx [Lopressor TAB*] Pantoprazole TAB * [Protonix TAB*] 40 mg PO DAILY #30 tab 05/11/19 Rx predniSONE TAB* [Deltasone 20 MG 20 mg PO DAILY #100 tab 05/11/19 Rx TAB*] Disposition: Home Condition: Good Activity: as tolerated Diet: as tolerated Hospital Course: Please see admission note for full H&P, however, briefly, Mr. Santoyo is well known to our service due to his unfortunate diagnosis of metastatic bladder cancer. He has been treated with Atezolizimab for the past 2 years tolerating reasonably well, though complicated by immune mediated adrenal insufficiency and hypothyroidism that has been managed medically. He presented to the ER on 05/07/19 with a fever, diffuse joint pains, diarrhea, and non-specific chest pain. His last treatment was 04/17 (Cycle 33, q4week dosing). He was admitted by the hospitalist service with the diagnosis of sepsis of unclear source and NSTEMI. However, on 05/08/19 oncology evaluation increased suspicion for immune-mediated response. He was started on high-dose steroids and has shown marked improvement since. All of his cultures are negative and he has not had further fevers since presentation. On admission Mr. Santoyo's CRP was 204.8, rising to 420.96, and decreasing in response to steroids at 151.37 today. His Creatinine on admission was 1.53 rising to 1.78, and normalizing as of today hear his baseline 1.42. Rheumatoid factor on admission was 15. Bilirubin on admission was 1.2 and has normalized. His troponin on admission was 0.29 with no changes on EKG, he peaked @ 0.45 on 05/08/19. A transthoracic echo completed on admission revealed moderate stenosis of both the mitral and aortic valves. There was no focal wall abnormalities and his EF is 60-65%. Mr. Santoyo feels very well today and has been ambulating with PT. All of his presenting symptoms have improved and he has been off abx. for the last 24 hours. He will be discharged home following his first dose of prednisone 100 mg PO. He will taper this slowly decreasing to 80 mg (to equal 1 mg/kg) on . He will be followed closely by our office. Plan of care was reviewed at length, all questions answered. Follow-up: Oncology, Dr. Walton: 05/18/19 [id number] @ [facility]ology, Dr. Leonard: within 1 mo., office to contact patient Primary, Dr. Moran: follow-up as needed
[2019-05-11] MEDS ORDERED: predniSONE TAB* 20 MG PO ONE (10:01)
[2019-05-11] MEDS ORDERED: predniSONE TAB* 50 MG PO ONE (10:01)
[2019-05-11] MEDS ORDERED: Pantoprazole TAB * 40 MG TAB PO ONE (10:01)
[2019-05-11] MEDS: Metoprolol Tartrate TAB* 25 MG PO SCH (10:30)
[2019-05-11] MEDS: Apixaban* 2.5 MG TAB PO SCH (10:32)
[2019-05-11 11:01] VITALS: BP 135/80
== END 2019-05-11 14:42 | disposition home or self-care (01) | DRG 871 ==
LOC: ED 14:38 → MEDTELE 18:25
PROVIDERS: ADMIT Internal Medicine; ATTEND Internal Medicine Hematology & Oncology
DX: A41.9 Sepsis, unspecified organism (principal); I21.4 Non-ST elevation (NSTEMI) myocardial infarction; G92 Toxic encephalopathy; C79.51 Secondary malignant neoplasm of bone; C79.89 Secondary malignant neoplasm of other specified sites; D68.59 Other primary thrombophilia; E27.3 Drug-induced adrenocortical insufficiency; K52.1 Toxic gastroenteritis and colitis; I31.9 Disease of pericardium, unspecified; E78.00 Pure hypercholesterolemia, unspecified; M47.9 Spondylosis, unspecified; C67.9 Malignant neoplasm of bladder, unspecified; E78.5 Hyperlipidemia, unspecified; M13.0 Polyarthritis, unspecified; E03.2 Hypothyroidism due to medicaments and other exogenous substances; T45.1X5A Adverse effect of antineoplastic and immunosuppressive drugs, initial encounter; N05.8 Unspecified nephritic syndrome with other morphologic changes; K71.6 Toxic liver disease with hepatitis, not elsewhere classified; G89.29 Other chronic pain; Z66 Do not resuscitate; I08.0 Rheumatic disorders of both mitral and aortic valves; M25.561 Pain in right knee; Z80.8 Family history of malignant neoplasm of other organs or systems; Z91.041 Radiographic dye allergy status; Z86.718 Personal history of other venous thrombosis and embolism; Z87.891 Personal history of nicotine dependence; Y92.9 Unspecified place or not applicable; Z79.01 Long term (current) use of anticoagulants
CPT/HCPCS: 36415; 71045; 80048; 80053; 80061; 81003; 81015; 82550; 82570; 82803; 83036; 83605; 83630; 83735; 83880; 84300; 84484; 85025; 85384; 85610; 85652; 85730; 86038; 86140; 86431; 87040; 87086; 93005; 93306; 96361; 96365; 96375; 99232; 99233; 99239; 99284; A9270-GY; G8978-GP-CI; G8978-GP-CL; G8979-GP-CI; G8980-GP-CI; J0696; J1720; J2270; J2405; J2920; J2930; J7512

== ENCOUNTER 2019-06-11 10:21 | Emergency (ER) | payer MEDICARE ==
--- OUTSIDE RECORDS SUMMARY | 2019-06-11 10:26 | XMS REPORT | Continuity of Care Document ---
:1940 External Reference #:[id number] Author Name Heber Moran M.D. (transmitted by agent of provider Hannah Nieto) Address [address] [facility] [address] [facility], [place] [address] Problems Active Problems Provider Date Chondromalacia Em Greene MD Onset: 04/16/2016 History of thromboembolism of vein Heber Moran M.D. Onset: 11/08/2017 Pure hypercholesterolemia Heber Moran M.D. Onset: 11/08/2017 Secondary malignant neoplasm of bone Heber Moran M.D. Onset: 11/08/2017 Malignant tumor of urinary bladder Heber Moran M.D. Onset: 11/08/2017 Social History Type Date Description Comments Sex Unknown Cigarette Use Quit 45 Years Ago Tobacco Use Start: Unknown 2ppd; began age 18 Smoking Status Reviewed: 05/15/19 2ppd; began age 18 ETOH Use Occasionally consumes alcohol Tobacco Use Start: Unknown End: Patient is a former smoker Unknown Exercise Type/Frequency Exercises regularly Allergies, Adverse Reactions, Alerts Description No Known Drug Allergies Medications Active Medications SIG Qnty Indications Ordering Date Provider Metoprolol Tartrate 1/2 Tab Every 12 60tabs Unknown 05/11/2019 Hours 25mg Tablets Pantoprazole Sodium Every Day 30tabs Unknown 05/11/[address] Prednisone Every Day 100tabs Unknown 05/11/2019 20mg Tablets Eliquis Twice Daily Unknown 05/07/2019 5mg Tablets Hydrocortisone See Instructions Unknown 05/07/2019 5mg Tablets Tramadol HCL Every 6 Hours Unknown 05/07/2019 50mg Tablets Levothyroxine Sodium Every Day Unknown 05/07/2019 50mcg Tablets Morphine Sulfate ER Twice Daily Unknown 05/07/2019 15mg Tablets ER Docusate Sodium Twice Daily Unknown 04/13/2017 100mg Capsules Ondansetron HCL Every 4 Hours Unknown 03/26/2017 4mg Tablets Ascorbic Acid Every Morning Unknown 11/13/2016 500mg Tablets Multivitamins 1 PO qd 30tabs Heber Gustafson 11/07/2007 Tablets Garcia Moran Vit C 1 PO qd Heber Gustafson 11/07/2007 500mg, Tablets Garcia Moran Morphine 1 tablet as needed Unknown 15mg Acetaminophen 2 tablets by mouth Unknown 325mg every 6 hours as Tablets needed for pain/fever Miralax 17 grams by mouth Unknown Powder every day as needed Eliquis 1 by mouth twice a Unknown 5mg Tablets day Levothyroxine Sodium 1 by mouth every Unknown day 50mcg Tablets Hydrocortisone Unknown 5mg Tablets Immunizations CPT Code Status Date Vaccine Lot # 73780 Given 04/21/2019 Influenza Virus Vaccine, Quadrivalent, Split, Preservative Free [id number] Given 01/16/2019 Pneumococcal Conjugate Vaccine 13 Valent For [id number] Intramuscular Use 01995 Given 09/28/2016 Tdap - Tetanus/Diptheria/Acellular Pertussis [id number] 38320 Given 04/09/2016 Influenza Virus Vaccine, Quadrivalent, Split, Preservative Free [id number] Given 04/27/2015 Flu Vaccine NOS 28836 Given 05/20/2013 Flu Vaccine Split Virus Preservative Free For Indiv 3Yr Older 87523 Given 08/03/2012 Zoster (Zostavax) [id number] Given 07/05/2012 Fluzone Vaccine [id number] Given 05/18/2011 Fluzone Vaccine [id number] 41734 Given 06/11/2008 Influenza Virus 3Yrs & Over 06654 Given 06/11/2008 Influenza Virus 3Yrs & Over 02585 Given 06/20/2007 Influenza Virus 3Yrs & Over 52066 Given 06/20/2007 Influenza Virus 3Yrs & Over 20631 Given 10/04/2006 Tetanus And Diptheria (Td) For Adult Use Preservative Free 96289 Given 09/11/2002 Pneumonia Vaccine 51394 Given 08/27/1997 Hep B Pediatric/Adolescent Vital Signs Date Vital Result Comment 05/15/2019 9:56am Height 67 inches 5'7" Weight 181.00 lb Heart Rate 63 /min BP Systolic Sitting 149 mmHg BP Diastolic Sitting 80 mmHg O2 % BldC Oximetry 96 % BMI (Body Mass Index) 28.3 kg/m2 01/16/2019 2:21pm Height 67 inches 5'7" Weight 169.00 lb Heart Rate 60 /min BP Systolic Sitting 133 mmHg BP Diastolic Sitting 73 mmHg BMI (Body Mass Index) 26.5 kg/m2 Results Test Date Facility Test Result H/L Range Note Comp Metabolic 05/07/2019 [facility] Sodium 137 mmol/L Normal 135-[address] [place] [address] [phone] Potassium 3.6 mmol/L Normal 3.5-5.0 Chloride 101 mmol/L Normal 101-111 Co2 Carbon Dioxide 22 mmol/L Normal 22-32 Anion Gap 14 mmol/L High 2-11 Glucose 76 mg/dL Normal 70-100 Blood Urea Nitrogen 26 mg/dL High 6-24 Creatinine 1.53 mg/dL High 0.67-1.17 BUN/Creatinine Ratio 17.0 Normal 8-20 Calcium 9.4 mg/dL Normal 8.6-10.3 Total Protein 7.1 g/dL Normal 6.4-8.9 Albumin 3.9 g/dL Normal 3.2-5.2 Globulin 3.2 g/dL Normal 2-4 Albumin/Globulin Ratio 1.2 Normal 1-3 Total Bilirubin 1.20 mg/dL High 0.2-1.0 Alkaline Phosphatase 80 U/L Normal 34-104 Alt 17 U/L Normal 7-52 Ast 41 U/L High 13-39 Egfr Non- 44.0 >60 Egfr 53.3 >60 1 Laboratory test 05/07/2019 [facility] Creatine 439 U/L High 10 -[address] Kinase(CK) [place] [address] [phone] C Reactive Protein 204.80 mg/L High <8.01 Troponin-I (TnI) 0.29 ng/mL Critical high <0.04 2 B-Type Natriuretic Peptide BNP 402 pg/mL High <=100 Lactic Acid 1.2 mmol/L Normal 0.5-2.0 3 Inr/Protime 05/07/2019 [facility] Inr 1.45 High 0.82-1.[address] [place] [address] [phone] Laboratory test 05/07/2019 [facility] Partial 44.6 High 26.0- 38.[address] [place] [address] Time PTT [phone] Fibrinogen 674.5 mg/dL High 110.8-404.3 Urinalysis Profile 05/07/2019 [facility] Urine Color Yellow [address] [place] [address] [phone] Urine Appearance Cloudy Urine Specific [place] 1.012 Normal 1.010-1.030 Urine pH 5.0 Normal 5-9 Urine Urobilinogen Negative Negative Urine Ketones 1+ Abnormal Negative Urine Protein Negative Negative Urine Leukocytes 3+ Abnormal Negative Urine Blood 3+ Abnormal Negative Urine Nitrite Negative Negative Urine Bilirubin Negative Negative Urine Glucose Negative Negative Urine White Blood Cell 3+(>20/hpf) Abnormal Absent Urine Red Blood Cell 3+(>10/hpf) Abnormal Absent Urine Bacteria Absent Absent CBC Auto 05/07/2019 [facility] White Blood 13.3 10^3/uL High 3.5-10.[address] [place] [address] [phone] Red Blood Count 4.81 10^6/uL Normal 4.18-5.48 Hemoglobin 13.9 g/dL Low 14.0-18.0 Hematocrit 42 % Normal 42-52 Mean Corpuscular Volume 86 fL Normal 80-94 Mean Corpuscular Hemoglobin 29 pg Normal 27-31 Mean Corpuscular HGB Conc 34 g/dL Normal 31-36 Red Cell Distribution Width 14 % Normal 10-15 Platelet Count 178 10^3/uL Normal 150-450 Mean Platelet Volume 7.9 fL Normal 7.4-10.4 Abs Neutrophils 10.1 10^3/uL High 1.5-7.7 Abs Lymphocytes 1.5 10^3/uL Normal 1.0-4.8 Abs Monocytes 1.6 10^3/uL High 0-0.8 Abs Eosinophils 0.1 10^3/uL Normal 0-0.6 Abs Basophils 0.0 10^3/uL Normal 0-0.2 Abs Nucleated RBC 0.0 10^3/uL Granulocyte % 76.1 % Lymphocyte % 10.9 % Monocyte % 12.0 % Eosinophil % 0.8 % Basophil % 0.2 % Nucleated Red Blood Cells % 0.0 Laboratory test 05/07/2019 [facility] Erythrocyte Sed 67 mm/Hr High 0-[address] [place] [address] [phone] Lipid Profile 05/07/2019 [facility] Triglycerides 98 mg/dL 5 (Trig/Chol/HDL) [place] [address] [phone] Cholesterol 196 mg/dL 6 HDL Cholesterol 35.2 mg/dL 7 LDL Cholesterol 141 mg/dL 8 Laboratory test 05/07/2019 [facility] Hemoglobin A1c 5.6 % Normal 4.0-5.[address] (Glyco HGB) [place] [address] [phone] Blood Culture SEE RESULT BELOW 10 Urine Culture And 05/07/2019 [facility] Urine Culture SEE RESULT [address] [place] [address] [phone] Arterial Blood Gas 05/07/2019 [facility] PH Arterial 7.[address] -7.4 [place] [address] 5 [phone] Pco2 Arterial 34 mmHg Low 35-45 Po2 Arterial 67 mmHg Low 80-100 O2 Saturation Arterial 96.1 % Normal 94.0-98.0 Base Excess Arterial -1.7 mmol/L Normal -2.0-2.0 12 Hco3 Arterial 23.5 mmol/L Normal 19-31 Laboratory test 02/13/2019 [facility] Magnesium 2.0 mg/dL Normal 1.9-2.[address] [place] [address] [phone] TSH (Thyroid Stim Horm) 1.88 mcIU/mL Normal 0.34-5.60 Free T4 (Free Thyroxine) 0.90 ng/dL Normal 0.61-1.12 Comp Metabolic 02/13/2019 [facility] Sodium 138 mmol/L Normal 135-[address] [place] [address] [phone] Potassium 4.4 mmol/L Normal 3.5-5.0 Chloride 103 mmol/L Normal 101-111 Co2 Carbon Dioxide 28 mmol/L Normal 22-32 Anion Gap 7 mmol/L Normal 2-11 Calcium 9.1 mg/dL Normal 8.6-10.3 Albumin 3.9 g/dL Normal 3.2-5.2 Total Bilirubin 0.40 mg/dL Normal 0.2-1.0 Glucose 113 mg/dL High 70-100 Blood Urea Nitrogen 24 mg/dL Normal 6-24 Creatinine 1.29 mg/dL High 0.67-1.17 BUN/Creatinine Ratio 18.6 Normal 8-20 Total Protein 6.2 g/dL Low 6.4-8.9 Globulin 2.3 g/dL Normal 2-4 Albumin/Globulin Ratio 1.7 Normal 1-3 Alkaline Phosphatase 89 U/L Normal 34-104 Alt 13 U/L Normal 7-52 Ast 17 U/L Normal 13-39 Egfr Non- 53.6 >60 Egfr 64.8 >60 13 CBC Auto 02/13/2019 [facility] White Blood 9.0 10^3/uL Normal 3.5-10.[address] [place], [place] [address] [phone] Red Blood Count 4.23 10^6/uL Normal 4.18-5.48 Hemoglobin 12.4 g/dL Low 14.0-18.0 Hematocrit 37 % Low 42-52 Mean Corpuscular Volume 88 fL Normal 80-94 Mean Corpuscular Hemoglobin 29 pg Normal 27-31 Mean Corpuscular HGB Conc 33 g/dL Normal 31-36 Red Cell Distribution Width 14 % Normal 10-15 Platelet Count 192 10^3/uL Normal 150-450 Mean Platelet Volume 8.3 fL Normal 7.4-10.4 Abs Neutrophils 6.0 10^3/uL Normal 1.5-7.7 Abs Lymphocytes 1.9 10^3/uL Normal 1.0-4.8 Abs Monocytes 0.8 10^3/uL Normal 0-0.8 Abs Eosinophils 0.2 10^3/uL Normal 0-0.6 Abs Basophils 0.0 10^3/uL Normal 0-0.2 Abs Nucleated RBC 0.0 10^3/uL Granulocyte % 67.0 % Lymphocyte % 20.8 % Monocyte % 9.4 % Eosinophil % 2.5 % Basophil % 0.3 % Nucleated Red Blood Cells % 0.0 CBC Auto 01/23/2019 [facility] White Blood 8.8 10^3/uL Normal 3.5-10.[address] [place] [address] [phone] Red Blood Count 4.15 10^6/uL Low 4.18-5.48 Hemoglobin 12.2 g/dL Low 14.0-18.0 Hematocrit 36 % Low 42-52 Mean Corpuscular Volume 87 fL Normal 80-94 Mean Corpuscular Hemoglobin 30 pg Normal 27-31 Mean Corpuscular HGB Conc 34 g/dL Normal 31-36 Red Cell Distribution Width 14 % Normal 10-15 Platelet Count 195 10^3/uL Normal 150-450 Mean Platelet Volume 8.2 fL Normal 7.4-10.4 Abs Neutrophils 6.1 10^3/uL Normal 1.5-7.7 Abs Lymphocytes 1.7 10^3/uL Normal 1.0-4.8 Abs Monocytes 0.7 10^3/uL Normal 0-0.8 Abs Eosinophils 0.2 10^3/uL Normal 0-0.6 Abs Basophils 0.1 10^3/uL Normal 0-0.2 Abs Nucleated RBC 0.0 10^3/uL Granulocyte % 69.3 % Lymphocyte % 19.1 % Monocyte % 8.4 % Eosinophil % 2.6 % Basophil % 0.6 % Nucleated Red Blood Cells % 0.0 Comp Metabolic 01/23/2019 [facility] Sodium 140 mmol/L Normal 135-[address] [place] [address] [phone] Potassium 4.6 mmol/L Normal 3.5-5.0 Chloride 105 mmol/L Normal 101-111 Co2 Carbon Dioxide 28 mmol/L Normal 22-32 Anion Gap 7 mmol/L Normal 2-11 Calcium 9.4 mg/dL Normal 8.6-10.3 Albumin 3.8 g/dL Normal 3.2-5.2 Total Bilirubin 0.30 mg/dL Normal 0.2-1.0 Glucose 92 mg/dL Normal 70-100 Blood Urea Nitrogen 30 mg/dL High 6-24 Creatinine 1.55 mg/dL High 0.67-1.17 BUN/Creatinine Ratio 19.4 Normal 8-20 Total Protein 6.0 g/dL Low 6.4-8.9 Globulin 2.2 g/dL Normal 2-4 Albumin/Globulin Ratio 1.7 Normal 1-3 Alkaline Phosphatase 88 U/L Normal 34-104 Alt 13 U/L Normal 7-52 Ast 16 U/L Normal 13-39 Egfr Non- 43.4 >60 Egfr 52.5 >60 14 CBC Auto 01/02/2019 [facility] White Blood 9.1 10^3/uL Normal 3.5-10.[address] [place] [address] [phone] Red Blood Count 4.27 10^6/uL Normal 4.18-5.48 Hemoglobin 12.5 g/dL Low 14.0-18.0 Hematocrit 37 % Low 42-52 Mean Corpuscular Volume 87 fL Normal 80-94 Mean Corpuscular Hemoglobin 29 pg Normal 27-31 Mean Corpuscular HGB Conc 34 g/dL Normal 31-36 Red Cell Distribution Width 15 % Normal 10.5-15 Platelet Count 191 10^3/uL Normal 150-450 Mean Platelet Volume 8.4 fL Normal 7.4-10.4 Abs Neutrophils 6.8 10^3/uL Normal 1.5-7.7 Abs Lymphocytes 1.2 10^3/uL Normal 1.0-4.8 Abs Monocytes 0.8 10^3/uL Normal 0-0.8 Abs Eosinophils 0.2 10^3/uL Normal 0-0.6 Abs Basophils 0.0 10^3/uL Normal 0-0.2 Abs Nucleated RBC 0.0 10^3/uL Granulocyte % 75.1 % Lymphocyte % 13.7 % Monocyte % 8.6 % Eosinophil % 2.2 % Basophil % 0.4 % Nucleated Red Blood Cells % 0.0 Comp Metabolic 01/02/2019 [facility] Sodium 139 mmol/L Normal 135-[address] [place] [address] [phone] Potassium 4.2 mmol/L Normal 3.5-5.0 Chloride 105 mmol/L Normal 101-111 Co2 Carbon Dioxide 29 mmol/L Normal 22-32 Anion Gap 5 mmol/L Normal 2-11 Calcium 9.3 mg/dL Normal 8.6-10.3 Albumin 3.8 g/dL Normal 3.2-5.2 Total Bilirubin 0.50 mg/dL Normal 0.2-1.0 Glucose 73 mg/dL Normal 70-100 Blood Urea Nitrogen 24 mg/dL Normal 6-24 Creatinine 1.39 mg/dL High 0.67-1.17 BUN/Creatinine Ratio 17.3 Normal 8-20 Total Protein 6.0 g/dL Low 6.4-8.9 Globulin 2.2 g/dL Normal 2-4 Albumin/Globulin Ratio 1.7 Normal 1-3 Alkaline Phosphatase 73 U/L Normal 34-104 Alt 14 U/L Normal 7-52 Ast 17 U/L Normal 13-39 Egfr Non- 49.2 >60 Egfr 59.5 >60 15 CBC Auto 12/12/2018 [facility] White Blood 8.4 10^3/uL Normal 3.5-10.[address] [place] [address] [phone] Red Blood Count 4.34 10^6/uL Normal 4.18-5.48 Hemoglobin 12.5 g/dL Low 14.0-18.0 Hematocrit 38 % Low 42-52 Mean Corpuscular Volume 87 fL Normal 80-94 Mean Corpuscular Hemoglobin 29 pg Normal 27-31 Mean Corpuscular HGB Conc 33 g/dL Normal 31-36 Red Cell Distribution Width 15 % Normal 10.5-15 Platelet Count 187 10^3/uL Normal 150-450 Mean Platelet Volume 8.5 fL Normal 7.4-10.4 Abs Neutrophils 6.2 10^3/uL Normal 1.5-7.7 Abs Lymphocytes 1.3 10^3/uL Normal 1.0-4.8 Abs Monocytes 0.7 10^3/uL Normal 0-0.8 Abs Eosinophils 0.2 10^3/uL Normal 0-0.6 Abs Basophils 0.0 10^3/uL Normal 0-0.2 Abs Nucleated RBC 0.0 10^3/uL Granulocyte % 73.7 % Lymphocyte % 15.2 % Monocyte % 8.3 % Eosinophil % 2.5 % Basophil % 0.3 % Nucleated Red Blood Cells % 0.1 Laboratory 12/12/2018 [facility] TSH (Thyroid 2.98 Normal 0.34 -5.[address] Stim Horm) mcIU/[place] [address] [phone] Comp Metabolic 12/12/2018 [facility] Sodium 142 mmol/L Normal 135-[address] [place] [address] [phone] Potassium 4.0 mmol/L Normal 3.5-5.0 Chloride 106 mmol/L Normal 101-111 Co2 Carbon Dioxide 28 mmol/L Normal 22-32 Anion Gap 8 mmol/L Normal 2-11 Calcium 9.4 mg/dL Normal 8.6-10.3 Albumin 4.0 g/dL Normal 3.2-5.2 Total Bilirubin 0.40 mg/dL Normal 0.2-1.0 Glucose 98 mg/dL Normal 70-100 Blood Urea Nitrogen 26 mg/dL High 6-24 Creatinine 1.33 mg/dL High 0.67-1.17 BUN/Creatinine Ratio 19.5 Normal 8-20 Total Protein 6.2 g/dL Low 6.4-8.9 Globulin 2.2 g/dL Normal 2-4 Albumin/Globulin Ratio 1.8 Normal 1-3 Alkaline Phosphatase 88 U/L Normal 34-104 Alt 16 U/L Normal 7-52 Ast 18 U/L Normal 13-39 Egfr Non- 51.7 >60 Egfr 62.6 >60 18 CBC Auto 11/21/2018 [facility] White Blood 8.7 10^3/uL Normal 3.5-10.[address] [place] [address] [phone] Red Blood Count 3.98 10^6/uL Low 4.18-5.48 Hemoglobin 11.5 g/dL Low 14.0-18.0 Hematocrit 35 % Low 36-46 Mean Corpuscular Volume 88 fL Normal 80-94 Mean Corpuscular Hemoglobin 29 pg Normal 27-31 Mean Corpuscular HGB Conc 33 g/dL Normal 31-36 Red Cell Distribution Width 15 % Normal 10.5-15 Platelet Count 188 10^3/uL Normal 150-450 Mean Platelet Volume 8.3 fL Normal 7.4-10.4 Abs Neutrophils 6.3 10^3/uL Normal 1.5-7.7 Abs Lymphocytes 1.4 10^3/uL Normal 1.0-4.8 Abs Monocytes 0.7 10^3/uL Normal 0-0.8 Abs Eosinophils 0.2 10^3/uL Normal 0-0.6 Abs Basophils 0 10^3/uL Normal 0-0.2 Abs Nucleated RBC 0 10^3/uL Granulocyte % 72.4 % Lymphocyte % 16.2 % Monocyte % 8.5 % Eosinophil % 2.4 % Basophil % 0.5 % Nucleated Red Blood Cells % 0 Lipid Profile 11/15/2018 [facility] Triglycerides 140 mg/dL 19 (Trig/Chol/HDL) [address] [place] [address] [phone] Cholesterol 215 mg/dL 20 HDL Cholesterol 45.4 mg/dL 21 LDL Cholesterol 142 mg/dL 22 1 Because ethnic data is not always readily available, this report includes an eGFR for both -Americans and non- Americans. The National Kidney Disease Education Program (NKDEP) does not endorse the use of the MDRD equation for patients that are not between the ages of 18 and 70, are , have extremes of body size, muscle mass, or nutritional status, or are non- or non-. According to the National Kidney Foundation, irrespective of diagnosis, the stage of the disease is based on the level of kidney function: Stage Description GFR(mL/min/1.73 m(2)) 1 Kidney damage with normal or decreased GFR 90 2 Kidney damage with mild decrease in GFR 60-89 3 Moderate decrease in GFR 30-59 4 Severe decrease in GFR 15-29 5 Kidney failure <15 (or dialysis) 2 Result TnIDx:0.29 Called to [id number] at: 16:06:16 by:[id number] Read back by: [id number] Troponin-I testing on Plasma Separator Tubes (PST) has a known false positive rate of 0.20-0.40%. All positive troponins reflex immediately to secondary confirmatory testing. Using the [employer] DxI 800 Access Immunoassay systems, the 99th percentile upper reference limit was demonstrated to be < 0.03 ng/mL. 3 [facility] Severe Sepsis and Septic Shock Management Bundle Measure requires all lactic acids initially measuring >2.0 mmol/L be repeated. 4 Standard intensity warfarin therapeutic range: 2.0-3.0 High intensity warfarin therapeutic range: 2.5-3.5 5 Desirable: <150 Borderline High: 150-199 High: 200-499 Very High: >500 6 Desirable: <200 Borderline High: 200-239 High: >239 7 Low: <40 Desirable: 40-60 High: >60 8 Desirable: <100 Near Optimal: 100-129 Borderline High: 130-159 High: 160-189 Very High: >189 9 Therapeutic target for the treatment of diabetes mellitus patients is <7% HBA1C, and in selective patients <6.0%. Please refer to [place] [employer] diabetic care guidelines for further information. 10 SEE RESULT BELOW Name: SEAN SANTOYO : [address]: Alec Walton MD Acct: [id number] Unit: [id number] AGE: 78 Location: [place] [address] Re05/07/19 Dis: 05/11/19 SEX: M Status: DIS IN SPEC: [id number] JOSE ANTONIO: 05/07/[address]: Heber Bowie MD REQ: [id number] RECD: 05/07/19 STATUS: FLORENCIA CROWLEY DR: Heber Moran III, MD _ SOURCE: BLOOD,VENO SPDESC: ORDERED: Blood Cult Procedure Result Reported Site Aerobic Culture Bottle Final 05/12/19- 1700 ML No Growth Day 5 Anaerobic Culture Bottle Final 05/12/19- 1658 ML No Growth Day 5 * ML - Main Lab . END OF REPORT DEPARTMENT OF PATHOLOGY, [address] [place] [address] Rafael Mckeon M.D. Director [facility] # [id number] 11 SEE RESULT BELOW Name: SEAN SANTOYO : [address]: Alec Walton MD Acct: [id number] Unit: [id number] AGE: 78 Location: [place] [address] Re05/07/19 SEX: M Status: ADM IN SPEC: [id number] JOSE ANTONIO: 05/07/19-1639 [facility] DR: Heber Bowie MD REQ: [id number] RECD: 05/07/19 STATUS: FLORENCIA CROWLEY DR: Heber Moran III, MD _ SOURCE: URINE SPDESC: ORDERED: Urine Culture Procedure Result Reported Site Urine Culture Final 05/08/19- 1556 ML No growth of clinically significant organisms * ML - Main Lab . END OF REPORT DEPARTMENT OF PATHOLOGY, [address] [place] [address] Rafael Mckeon M.D. Director [facility] # [id number] 12 Reference ranges based on room air. 13 Because ethnic data is not always readily available, this report includes an eGFR for both -Americans and non- Americans. The National Kidney Disease Education Program (NKDEP) does not endorse the use of the MDRD equation for patients that are not between the ages of 18 and 70, are , have extremes of body size, muscle mass, or nutritional status, or are non- or non-. According to the National Kidney Foundation, irrespective of diagnosis, the stage of the disease is based on the level of kidney function: Stage Description GFR(mL/min/1.73 m(2)) 1 Kidney damage with normal or decreased GFR 90 2 Kidney damage with mild decrease in GFR 60-89 3 Moderate decrease in GFR 30-59 4 Severe decrease in GFR 15-29 5 Kidney failure <15 (or dialysis) 14 Because ethnic data is not always readily available, this report includes an eGFR for both -Americans and non- Americans. The National Kidney Disease Education Program (NKDEP) does not endorse the use of the MDRD equation for patients that are not between the ages of 18 and 70, are , have extremes of body size, muscle mass, or nutritional status, or are non- or non-. According to the National Kidney Foundation, irrespective of diagnosis, the stage of the disease is based on the level of kidney function: Stage Description GFR(mL/min/1.73 m(2)) 1 Kidney damage with normal or decreased GFR 90 2 Kidney damage with mild decrease in GFR 60-89 3 Moderate decrease in GFR 30-59 4 Severe decrease in GFR 15-29 5 Kidney failure <15 (or dialysis) 15 Because ethnic data is not always readily available, this report includes an eGFR for both -Americans and non- Americans. The National Kidney Disease Education Program (NKDEP) does not endorse the use of the MDRD equation for patients that are not between the ages of 18 and 70, are , have extremes of body size, muscle mass, or nutritional status, or are non- or non-. According to the National Kidney Foundation, irrespective of diagnosis, the stage of the disease is based on the level of kidney function: Stage Description GFR(mL/min/1.73 m(2)) 1 Kidney damage with normal or decreased GFR 90 2 Kidney damage with mild decrease in GFR 60-89 3 Moderate decrease in GFR 30-59 4 Severe decrease in GFR 15-29 5 Kidney failure <15 (or dialysis) 16 [id number] 18 Because ethnic data is not always readily available, this report includes an eGFR for both -Americans and non- Americans. The National Kidney Disease Education Program (NKDEP) does not endorse the use of the MDRD equation for patients that are not between the ages of 18 and 70, are , have extremes of body size, muscle mass, or nutritional status, or are non- or non-. According to the National Kidney Foundation, irrespective of diagnosis, the stage of the disease is based on the level of kidney function: Stage Description GFR(mL/min/1.73 m(2)) 1 Kidney damage with normal or decreased GFR 90 2 Kidney damage with mild decrease in GFR 60-89 3 Moderate decrease in GFR 30-59 4 Severe decrease in GFR 15-29 5 Kidney failure <15 (or dialysis) 19 Desirable: <150 Borderline High: 150-199 High: 200-499 Very High: >500 20 Desirable: <200 Borderline High: 200-239 High: >239 21 Low: <40 Desirable: 40-60 High: >60 22 Desirable: <100 Near Optimal: 100-129 Borderline High: 130-159 High: 160-189 Very High: >189 Procedures Date Code Description Status 05/08/2019 72506 ECHO Transthorasic Realtime 2D W Doppler & Color Flow Completed Hosp 02/01/2014 [id number] Colonoscopy Completed 12/03/2008 [id number] Colonoscopy Completed Medical Devices Description No Information Available Encounters Description No Information Available Assessments Date Code Description Provider 05/15/2019 T45.1x5D Adverse effect of antineoplastic and Heber Moran M.D. immunosuppressive drugs, subsequent encounter 01/16/2019 Z00.00 Encounter for general adult medical Heber Moran M.D. examination without abno 01/16/2019 C67.9 Malignant neoplasm of bladder, unspecified Heber Moran M.D. 01/16/2019 C79.51 Secondary malignant neoplasm of bone Heber Moran M.D. 01/16/2019 E78.00 Pure hypercholesterolemia, unspecified Heber Moran M.D. 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 01/16/2019 I34.0 Nonrheumatic mitral (valve) insufficiency Heber Moran M.D. 01/16/2019 Z23 Encounter for immunization Heber Moran M.D. Plan of Treatment 05/15/2019 - Heber Moran M.D.T45.1x5D Adverse effect of antineoplastic and immunosuppressive drugs, subsequent encounterComments:Hospital admission with fatigue, fever, diarrhea initially dx'd as possible sepsis, but subsequentlyfelt to be an inflammatory reaction to his immunotherapy. Sx improved and lab abnormalities began to correct wit steroid Rx. Pt feeling better now and follow up with Dr Walton pending later this week. Functional Status Description No Information Available Mental Status Description No Information Available Referrals Description No Information Available
[2019-06-11 10:27] VITALS: BP 149/75
--- NOTE | 2019-06-11 11:25 | ED ---
Skin Complaint - HPI Summary HPI Summary: got 3 small "insect bites" on anterior thighs 1-2 days ago and the one on R thigh is leaking water for 24hours . He does have a hx of edema in R leg from past tumor surgery (2 years ago) so R leg is always swollen. no redness, pain or purulent drainage - is keeping bacitracin dressing on wound - History of Current Complaint Chief Complaint: UCLowerExtremity Time Seen by Provider: 06/11/19 11:13 Stated Complaint: DISCHARGE FROM A LEG WOUND Hx Obtained From: Patient, Family/Loadmaster Onset/Duration: Started Days Ago Skin Exposure Onset/Duration: Hours Ago - 24h Timing: Constant Current Severity: None Pain Intensity: 0 Aggravating Symptom(s): Nothing Alleviating Symptom(s): Nothing Associated Signs & Symptoms: Negative Related History: Insect Bite/Sting, Other: - chronic edema R lower extremeity - Additional Pertinent History Primary Care Physician: LISA - Allergy/Home Medications Allergies/Adverse Reactions: Allergies Allergy/AdvReac Type Severity Reaction Status Date / Time Iodinated Contrast Media Allergy Itching Verified 06/11/19 10:28 [Iodinated Contrast- Oral and IV Dye] iodixanol [From Visipaque] Allergy Itching Verified 06/11/19 10:28 PMH/Surg Hx/FS Hx/Imm Hx Previously Healthy: Yes Endocrine/Hematology History: Reports: Hx Anticoagulant Therapy Denies: Hx Diabetes Comment Only: Other Endocrine/Hematological Disorders - Adrenal Insufficiency Cardiovascular History: Reports: 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 , Hx Hypercholesterolemia, Hx Valvular Heart Disease Denies: Hx Hypertension, Hx Pacemaker/ICD Respiratory History: Denies: Hx Asthma, Hx Chronic Obstructive Pulmonary Disease (COPD) GI History: Reports: Other GI Disorders - right inguinal hernia History: Reports: Hx Kidney Infection, Hx Renal Disease - abnormal gfr, Other Problems/Disorders - bladder cancer 2011 - followed by dr lilly Denies: Hx Dialysis Musculoskeletal History: Reports: Hx Arthritis - spine, Hx Back Problems, Hx Orthopedic Injury, Other Musculoskeletal History - bulging disc in lower back, causes leg pain Sensory History: Reports: Hx Contacts or Glasses Denies: Hx Hearing Aid Opthamlomology History: Reports: Hx Contacts or Glasses Neurological History: Reports: Hx Nerve Disease Denies: Hx Headaches Psychiatric History: Denies: Hx Panic Disorder - Cancer History Cancer Type, Location and Year: bladder Hx Chemotherapy: No - on radiation Hx Radiation Therapy: No - Surgical History Surgery Procedure, Year, and Place: BLADDER TUMOR REMOVED - 2011, [facility]. tonsillectomy as a child. right inguinal hernia repair 10/2016 Hx Anesthesia Reactions: No Infectious Disease History: No Infectious Disease History: Denies: Hx Clostridium Difficile, Hx Hepatitis, Hx of Known/Suspected MRSA, Hx Shingles, Hx Tuberculosis, Traveled Outside the [place] in Last 30 Days - Family History Known Family History: Positive: Other - No - malignant hypothermia Negative: Hypertension, Diabetes - Social History Occupation: Retired Lives: Assisted Living Alcohol Use: None Alcohol Amount: One drink per week Hx Substance Use: No Substance Use Type: Reports: None Substance Use Comment - Amount & Last Used: transcribed oxycodone Hx Tobacco Use: No Smoking Status (MU): Former Smoker Type: Cigarettes Amount Used/How Often: 2 ppd, smoked for 10 years Review of Systems Constitutional: Negative Negative: Fever, Chills Cardiovascular: Negative Negative: Chest Pain Respiratory: Negative Negative: Shortness Of Breath Genitourinary: Negative Negative: dysuria, frequency Positive: Other - leaking bug bite R thigh Neurological: Negative Negative: Headache Psychological: Normal All Other Systems Reviewed And Are Negative: Yes Physical Exam Triage Information Reviewed: Yes Vital Signs On Initial Exam: Initial Vitals Temp Pulse Resp BP Pulse Ox 97.7 F 69 16 149/75 100 06/11/19 10:26 06/11/19 10:26 06/11/19 10:26 06/11/19 10:26 06/11/19 10:26 Vital Signs Reviewed: Yes Appearance: Positive: Well-Appearing, No Pain Distress, Well-Nourished Skin: Positive: Other - 4mm circular, flat, open slightly erythemic lesion R thigh draining clear watery fluid no streaking/ R lower extremity is chronically swollen Respiratory/Lung Sounds: Positive: Clear to Auscultation Cardiovascular: Positive: Normal Musculoskeletal: Positive: Normal, Strength/ROM Intact Neurological: Positive: Normal Psychiatric: Positive: Normal Diagnostics - Vital Signs Vital Signs Temp Pulse Resp BP Pulse Ox 06/11/19 10:26 97.7 F 69 16 149/75 100 - Laboratory Lab Statement: Any lab studies that have been ordered have been reviewed, and results considered in the medical decision making process. Course/Dx - Differential Diagnoses - Skin Complaint Differential Diagnoses: Abscess, Cellulitis, Contact Dermatitis - Diagnoses Provider Diagnoses: Bug bite Discharge ED - Sign-Out/Discharge Documenting (check all that apply): Patient Departure All imaging exams completed and their final reports reviewed: No Studies - Discharge Plan Condition: Good Disposition: HOME Patient Education Materials: Insect Bite or Sting (ED) Referrals: Heber Moran MD [Primary Care Provider] - 2 Days (if no better) Additional Instructions: keep wound clean and covered report to ER if you develop a fever, redness, swelling around opening or drainage changes color - Billing Disposition and Condition Condition: GOOD Disposition: Home
== END 2019-06-11 11:39 | disposition home or self-care (01) ==
LOC: UCEAST 10:21
DX: S70.361A Insect bite (nonvenomous), right thigh, initial encounter (principal); Z91.041 Radiographic dye allergy status; Z87.891 Personal history of nicotine dependence; W57.XXXA Bitten or stung by nonvenomous insect and other nonvenomous arthropods, initial encounter; Y92.9 Unspecified place or not applicable
CPT/HCPCS: 99211; G0463

== ENCOUNTER 2019-06-16 09:45 | Inpatient (IN) | payer MEDICARE ==
--- NOTE | 2019-06-16 09:57 | ED ---
Complex/Multi-Sys Presentation - HPI Summary HPI Summary: This pt is an 78 y/o male presenting to [facility] via EMS after pt was found on the floor next to his bed. EMS reports his health administrator of home health arrived this morning and found pt on his knees on the floor next to his bed. Pt is unable to remember how he ended up on the floor. Pt states the last thing he remembers is his home health aide knocking on the door. EMS report aide and daughter couldn' t get the patient up and EMS was called. Pt only reports right leg pain, which he states is chronic, as well as right leg swelling that is also chronic per patient. 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 He denies any other pain. Denies fever, chest pain, or SOB. Pt reports yesterday he was doing well. 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 His oncologist Dr. Walton. - History Of Current Complaint Hx Obtained From: Patient Onset/Duration: Still Present Severity Currently: Moderate Location: Pain At: - right leg Aggravating Factor(s): nothing Alleviating Factor(s): nothing Associated Signs And Symptoms: Positive: Edema - right leg, Other - POSITIVE: right leg pain. Negative: SOB, Chest Pain, Fever - Allergies/Home Medications Allergies/Adverse Reactions: Allergies Allergy/AdvReac Type Severity Reaction Status Date / Time Iodinated Contrast Media Allergy Itching Verified 06/16/19 09:53 [Iodinated Contrast- Oral and IV Dye] iodixanol [From Visipaque] Allergy Itching Verified 06/16/19 09:53 Home Medications: Home Medications Metoprolol Tartrate TAB* [Lopressor TAB*] 25 mg PO BID 06/16/19 [History Confirmed 06/16/19] Morphine Sulfate 15 mg PO BID PRN 06/16/19 [History Confirmed 06/16/19] Multivitamins/Minerals TAB* [Theragran/minerals TAB*] 1 tab PO DAILY 06/16/19 [ History Confirmed 06/16/19] Pantoprazole TAB * [Protonix TAB*] 40 mg PO DAILY 06/16/19 [History Confirmed ] Polyethylene Glycol 3350* [Miralax*] 17 gm PO DAILY 06/16/19 [History Confirmed 06/16/19] predniSONE TAB* [Deltasone 20 MG TAB*] 40 mg PO DAILY 06/16/19 [History Confirmed 06/16/19] traMADol TAB* [Ultram*] 50 mg PO Q6HR PRN 06/16/19 [History Confirmed 06/16/19] PMH/Surg Hx/FS Hx/Imm Hx Endocrine/Hematology History: Reports: Hx Anticoagulant Therapy Denies: Hx Diabetes Comment Only: Other Endocrine/Hematological Disorders - Adrenal Insufficiency Cardiovascular History: Reports: 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 , Hx Hypercholesterolemia, Hx Valvular Heart Disease Denies: Hx Hypertension, Hx Pacemaker/ICD Respiratory History: Denies: Hx Asthma, Hx Chronic Obstructive Pulmonary Disease (COPD) GI History: Reports: Other GI Disorders - right inguinal hernia History: Reports: Hx Kidney Infection, Hx Renal Disease - abnormal gfr, Other Problems/Disorders - bladder cancer 2011 - followed by dr lilly Denies: Hx Dialysis Musculoskeletal History: Reports: Hx Arthritis - spine, Hx Back Problems, Hx Orthopedic Injury, Other Musculoskeletal History - bulging disc in lower back, causes leg pain Sensory History: Reports: Hx Contacts or Glasses Denies: Hx Hearing Aid Opthamlomology History: Reports: Hx Contacts or Glasses Neurological History: Reports: Hx Nerve Disease Denies: Hx Headaches Psychiatric History: Denies: Hx Panic Disorder - Cancer History Cancer Type, Location and Year: bladder Hx Chemotherapy: No - on radiation Hx Radiation Therapy: No - Surgical History Surgical History: Yes Surgery Procedure, Year, and Place: BLADDER TUMOR REMOVED - 2011, . tonsillectomy as a child. right inguinal hernia repair 10/2016 Hx Anesthesia Reactions: No Infectious Disease History: Denies: Hx Clostridium Difficile, Hx Hepatitis, Hx of Known/Suspected MRSA, Hx Shingles, Hx Tuberculosis - Family History Known Family History: Positive: Other - No - malignant hypothermia Negative: Hypertension, Diabetes - Social History Alcohol Use: None Alcohol Amount: One drink per week Hx Substance Use: No Substance Use Type: Reports: None Substance Use Comment - Amount & Last Used: transcribed oxycodone Hx Tobacco Use: No Smoking Status (MU): Former Smoker Type: Cigarettes Amount Used/How Often: 2 ppd, smoked for 10 years Review of Systems Negative: Fever, Chills Negative: Chest Pain Negative: Shortness Of Breath Musculoskeletal: Other - POSITIVE: chronic right leg pain Positive: Edema - right leg All Other Systems Reviewed And Are Negative: Yes Physical Exam - Summary Physical Exam Summary: Constitutional: Well-developed, Well-nourished, Alert. (-) Distressed Skin: Warm, Dry. A papular rash to the anterior right thigh. HENT: Normocephalic; Atraumatic Eyes: Conjunctiva normal Neck: Musculoskeletal ROM normal neck. (-) JVD, (-) Stridor, (-) Nuchal rigidity Cardio: Rhythm regular, rate normal, Heart sounds normal; Intact distal pulses; Radial pulses are 2+ and symmetric. (-) Murmur Pulmonary/Chest wall: Effort normal. (-) Respiratory distress, (-) Wheezes, (-) Rales. He has a right sided chest wall port. Abd: Soft, (-) tenderness, (-) Distension, (-) Guarding, (-) Rebound Musculoskeletal: Right lower extremity has 2+ edema and tenderness at the mid femur. 2+ DP pulses Lymph: (-) Cervical adenopathy Neuro: Alert, Oriented x3, GCS 15 Psych: Mood and affect Normal Triage Information Reviewed: Yes Vital Signs On Initial Exam: Initial Vitals Temp Pulse Resp BP Pulse Ox 98.9 F 101 20 99/51 91 06/16/19 09:50 06/16/19 09:50 06/16/19 09:50 06/16/19 09:50 06/16/19 09:50 Vital Signs Reviewed: Yes Procedures - Sedation Patient Received Moderate/Deep Sedation with Procedure: No Diagnostics - Laboratory Result Diagrams: 06/16/19 10:13 06/16/19 10:13 Lab Statement: Any lab studies that have been ordered have been reviewed, and results considered in the medical decision making process. - Radiology Right hip XR Radiology Interpretation Completed By: Radiologist Summary of Radiographic Findings: IMPRESSION: Marked deformity and erosion of the right femoral head and neck and acetabulum with superior subluxation of the right femoral head which is chronic since February 27, 2019. Multiple lytic lesions were noted on a previous pelvis CT date 2017. Dr. Quintanilla has reviewed this report. chest XR Radiology Interpretation Completed By: Radiologist Summary of Radiographic Findings: IMPRESSION: No active disease is noted. Dr. Quintanilla has reviewed this report. - CT Brain CT CT Interpretation Completed By: Radiologist Summary of CT Findings: IMPRESSION: No acute intracranial pathology. Dr. Quintanilla has reviewed this report. - EKG 10:06 Cardiac Rate: NL - at 93 bpm EKG Rhythm: Sinus Tachycardia Ectopy: PACs Summary of EKG Findings: EKG at 1006 shows sinus tachycardia at a rate of 93 bpm. PACs. atrial trigeminy 10:19 Cardiac Rate: NL - at 86 bpm EKG Rhythm: Sinus Rhythm EKG Comparison: No Significant Change - no change from prior. Summary of EKG Findings: EKG at 10:19 shows sinus rhythm at 86 bpm. No change from prior. - Additional Comments Diagnostic Additional Comments: Lung Scan VQ-NM, as read by radiologist IMPRESSION: Low probability for pulmonary embolism. Dr. Quintanilla has reviewed this report. Re-Evaluation - Re-Evaluation First Eval Re-Evaluation Time: 10:44 Comment: Troponin of 0.9. Second Eval Re-Evaluation Time: 11:16 Comment: Updated the patient's daughter. Will obtain blood cultures and start him on broad spectrum antibiotics given his elevated white count. Complex Multi-Symp Course/Dx Course Of Treatment: 78 y/o male w hx mestastic bladder cancer p/w fall. - PE w R thigh pain, papular rash. XR neg for acute fr, no free air to suggest deep space infection. CT brain negative for acute pathology. EKG with atrial trigeminy. Trop elevated to 0.9 from 0.06. Discuss w oncology was concerned for autoimmune myocarditis. Patient given 125 of solumedrol also covered broadly for infectious pathology w vanc/zosyn. Cr elevated. - CXR neg for PNA. CT brain ordered for ?syncope/fall on blood thinners. No intracranial pathology. - Give IVF. Pain control w tramadol per onc. - no e/o septic shock , given 1 L IVF initially, LA returned at 3, given 2nd liter NS. - checked VQ scan for PE given elevated trop, elevated Cr. Recent echo last month w EF 60%. VQ neg for PE. - Diagnoses Provider Diagnoses: Autoimmune myocarditis - Physician Notifications Discussed Care Of Patient With: Fabrizio Sanderson Time Discussed With Above Provider: 11:02 Instructed by Provider To: Other - Discussed with Dr. Sanderson, electrical worker, who agrees with medical management at this point and looking at other causes for elevated WBC. [11:10] Discussed with Dr. Dewey, oncologist, who agrees with VQ. [11:33] Dr. Walton, oncologist, called and believes pt may have autoimmune myocarditis. [11:41] Updated Dr. Sanderson. [12:46] Dr. Dewey, oncologist, accepts the pt for admission. Discharge ED - Sign-Out/Discharge Documenting (check all that apply): Patient Departure - Admit to [facility] [place], [place] - Discharge Plan Condition: Stable Disposition: ADMITTED TO [facility] Referrals: Heber Moran MD [Primary Care Provider] - - Billing Disposition and Condition Condition: STABLE Disposition: Admitted to [facility] - Attestation Statements Document Initiated by Dionisio: Yes Documenting Scribe: Leila Jorgensen Provider For Whom Dionisio is Documenting (Include Credential): Bety Quintanilla MD Scribe Attestation: Leila Aguilar, scribed for Bety Quintanilla MD on 06/16/19 at 1351. Scribe Documentation Reviewed: Yes Provider Attestation: The documentation as recorded by the Leila hartman accurately reflects the service I personally performed and the decisions made by , Bety Quintanilla MD Status of Scribe Document: Viewed
[2019-06-16 10:20] LABS: Hematocrit 39 % (42-52); Hemoglobin 13.3 g/dL (14.0-18.0); Mean Corpuscular HGB Conc 34 g/dL (31-36); Mean Corpuscular Hemoglobin 30 pg (27-31); Mean Corpuscular Volume 90 fL (80-94); Mean Platelet Volume 8.1 fL (7.4-10.4); Platelet Count 166 10^3/uL (150-450); Red Blood Count 4.39 10^6 /uL (4.18-5.48); Red Cell Distribution Width 18 % (10-15); White Blood Count 22.8 10^3/uL (3.5-10.8)
[2019-06-16 10:38] LABS: ALT 23 U/L (7-52); AST 49 U/L (13-39); Albumin 3.4 g/dL (3.2-5.2); Albumin/Globulin Ratio 1.2 (1-3); Alkaline Phosphatase 91 U/L (34-104); Anion Gap 13 mmol/L (2-11); BUN/Creatinine Ratio 18.3 (8-20); Blood Urea Nitrogen 48 mg/dL (6-24); CO2 Carbon Dioxide 25 mmol/L (22-32); Calcium 8.8 mg/dL (8.6-10.3); Chloride 102 mmol/L (101-111); EGFR African American 28.6 (>60); EGFR Non-African American 23.7 (>60); Globulin 2.9 g/dL (2-4); Glucose 85 mg/dL (70-100); Potassium 4.6 mmol/L (3.5-5.0); Sodium 140 mmol/L (135-145); Total Protein 6.3 g/dL (6.4-8.9)
[2019-06-16 10:42] LABS: Troponin I 0.94 ng/mL (<0.04)
[2019-06-16 10:54] LABS: ABS Basophils 0.1 10^3/ul (0-0.2); ABS Lymphocytes 1.5 10^3/ul (1.0-4.8); ABS Monocytes 1.3 10^3/ul (0-0.8); Lymphocyte % 6.4 %
[2019-06-16] MEDS ORDERED: NS 0.9% 1000 ML** 1,000 ML IV ONE ×2 (11:09→13:51)
[2019-06-16] MEDS ORDERED: Piperacillin/Tazobac ADVAN(*) 3.375 GM in NS 0.9% 100 ML* 100 ML IVPB ONE (11:16)
[2019-06-16] MEDS ORDERED: Vancomycin(*) 1,250 MG in NS 0.9% 250 ML* 250 ML IVPB ONE (11:18)
[2019-06-16] MEDS ORDERED: methylPREDNISolone 125 MG* 2 ML VIAL IV ONE (11:33)
[2019-06-16] MEDS ORDERED: Vancomycin(*) 1,000 MG VIAL IVPB SCH (12:00)
[2019-06-16] MEDS ORDERED: Zosyn per Pharmacy* NOTE FOLLOW UP SCH (13:00)
[2019-06-16] MEDS ORDERED: Morphine 4 MG/ML VIAL (1 ml) 4 MG/ML VIAL IV ONE (13:03)
[2019-06-16] MEDS ORDERED: NS 0.9% 250 ML* 250 ML ONE (13:22)
--- NOTE | 2019-06-16 16:26 | ECHO ---
*[facility]* [place] [address] Fax #: [phone] Transthoracic Echocardiogram Patient: Sean Santoyo : 1940 Study Date: 06/16/2019 Age: 78 Gender: M HR: 93 bpm Height: 70 in /177.8 cm BSA: 1.95 m^2 Weight: 170.6 lb /77.6 kg BMI: 24.5 kg/m^2 *Transportation Broker: * Olga Del Valle RDCS RN *Referring Physician: * Bety Quintanilla *Reading Physician: * Fabrizio Sanderson MD Indications: Syncope. Myocarditis. History: Aortic stenosis. Metastatic bladder cancer. DVT. Risk factors: Dyslipidemia. Conclusions Summary: - Left ventricle: Systolic function is normal. The estimated ejection fraction is 60-65%. - Left atrium: The atrium is mildly dilated. - Right atrium: The atrium is mildly dilated. - Aortic valve: The findings are consistent with moderate stenosis. The peak systolic velocity is 3.83 m/sec. The mean systolic gradient is 38.0 mm Hg. The peak systolic gradient is 59.0 mm Hg. The LVOT to aortic valve VTI ratio is 0.43. The valve area by the velocity-time integral method is 1.36 cm^2. The valve area by the peak velocity method is 1.41 cm^2. - Ascending aorta: The ascending aorta is mildly dilated at 3.5 cm. - Pericardium, extracardiac: There is no significant pericardial effusion. - C/t 05/08/2019, left ventricle ejection fraction and are stable. Now there is possible relative hypokinesis of the basal inferior myocardium. Study data: Transthoracic echocardiogram. Procedure: Transthoracic echocardiography was performed. Image quality was fair. Complete 2D, spectral Doppler, and color flow Doppler. Location: Emergency department. Patient status: Inpatient. Patient room number: ED 10. Rhythm: Normal sinus rhythm with PAC's. Findings Left ventricle: The cavity size is mildly reduced. Wall thickness is mildly to moderately increased. Systolic function is normal. The estimated ejection fraction is 60-65%. Regional wall motion abnormalities: Hypokinesis of the basalinferior myocardium. Doppler parameters are consistent with abnormal left ventricular relaxation (grade 1 diastolic dysfunction). Right ventricle: The cavity size is normal. Systolic function is normal. Left atrium: The atrium is mildly dilated. Right atrium: The atrium is mildly dilated. Mitral valve: The mitral valve annulus appears calcified. The leaflets are mildly thickened. There is no evidence of stenosis. There is mild regurgitation. Aortic valve: The annulus is calcified. The valve is trileaflet. The leaflets are moderately thickened with decreased excursion, especially the right coronary cusp. The findings are consistent with moderate stenosis. There is no significant regurgitation. Tricuspid valve: The valve is structurally normal. There is no evidence of stenosis. There is trace regurgitation. Pulmonic valve: Not well visualized. There is no evidence of stenosis. There is no significant regurgitation. Aorta: Aortic root: The aortic root is not dilated. Ascending aorta: The ascending aorta is mildly dilated at 3.5 cm. Aortic arch: The aortic arch is not dilated. Pericardium: There is no significant pericardial effusion. Pulmonary arteries: Not well visualized. Systolic pressure is within the normal range, estimated to be 21 mm Hg. Systemic veins: Inferior vena cava: The vessel is normal in size. There is (>= 50%) respiratory change in the IVC dimension. Measurements Left ventricle Value Ref Aortic valve Value Ref LEYLA, LAX (L) 3.9 cm 4.2 - 5.8 Hilary diam, ED 2.1 cm ---- ESD, LAX 2.5 cm 2.5 - 4.0 Peak v, S 3.83 m/sec ---- FS, LAX 35 % 25 - 43 VTI, S 72.2 cm ---- PW, ED (H) 1.3 cm 0.6 - 1.0 Mean grad, S 38.0 mm Hg ---- IVS/PW, ED 1.1 Peak grad, S 59.0 mm Hg ---- E', lat hilary, TDI (L) 5.2 cm/sec >=10.0 LVOT/AV, VTI ratio 0.43 --- - E/e', lat hilary, 21 ENRIQUE, VTI 1.36 cm^2 ---- TDI ENRIQUE, Vmax 1.41 cm^2 ---- E', med hilary, TDI (L) 5.2 cm/sec >=7.0 E/e', med hilary, 21 Mitral valve Value Ref TDI Peak E 1.1 m/sec ---- E', avg, TDI 5.2 cm/sec Peak A 1.43 m/sec ---- E/e', avg, TDI (H) 21 <=14 Decel time 313 ms --- - Peak grad, D 4.8 mm Hg ---- LVOT Value Ref Peak E/A ratio 0.8 ---- Area 3.1 cm^2 Peak ann, S 1.72 m/sec Pulmonic valve Value Ref VTI, S 31.3 cm Peak v, S 0.86 m/sec ---- Peak grad, S 12 mm Hg Peak grad, S 3.0 mm Hg ---- Mean grad, S 7 mm Hg SV 93 ml Tricuspid valve Value Ref SV/bsa 48 ml/m^2 Peak RV-RA grad, S 18 mm Hg ---- Max TR ann 2.1 m/sec ---- Ventricular septum Value Ref IVS, ED (H) 1.4 cm 0.6 - 1.0 Aortic root Value Ref Root diam 3.2 cm <4.1 Right ventricle Value Ref LEYLA, LAX 2.8 cm Ascending aorta Value Ref LEYLA minor ax, A4C 2.8 cm 1.9 - 3.5 AAo AP diam, S 3.5 cm ---- mid Pressure, S 21 mm Hg Aortic arch Value Ref Arch diam 2.2 cm ---- Left atrium Value Ref AP dim, ES 3.90 cm 3.00 - Decending aorta Value Ref 4.00 Zi peak ann 0.43 m/sec ---- ML dim, A4C 4.5 cm SI dim, A4C 6.2 cm Pulmonary artery Value Ref Vol/bsa, ES, 1-p (H) 39 ml/m^2 12 - 37 Pressure, S 21.0 mm Hg ---- A4C Vol/bsa, ES, A/L 34 ml/m^2 16 - 34 Inferior vena cava Value Ref Diam 1.3 cm ---- Right atrium Value Ref ML dim, ES, A4C 3.6 cm 2.6 - 4.4 SI dim, ES, A4C (H) 5.5 cm 3.4 - 5.3 Estimated RAP 3 mm Hg Legend: (L) and (H) [place]ura values outside specified reference range. Prepared and electronically signed by Fabrizio Sanderson MD 06/16/2019 16:25
[2019-06-16] MEDS: NS 0.9% 1000 ML** 1,000 ML IV SCH (17:39)
[2019-06-16] MEDS: Piperacillin/Tazobac ADVAN(*) 3.375 GM in NS 0.9% 100 ML* 100 ML IVPB SCH (17:39)
[2019-06-16 18:15] LABS: Troponin I 0.82 ng/mL (<0.04)
--- NOTE | 2019-06-16 19:04 | HP ---
CC: Dr. Heber Moran; Dr. Alec Walton * ADMISSION HISTORY AND PHYSICAL: DATE OF ADMISSION: 06/16/19 PRIMARY CARE PROVIDER: Dr. Heber Moran. PRIMARY ONCOLOGIST: Dr. Alec Walton. ATTENDING PHYSICIAN: Dr. Freddy Dewey.* (DICTATED BY MICHAEL RIVERA) ADMITTING PROVIDER: MICHAEL Rivera CHIEF COMPLAINT: Altered mental status. HISTORY OF PRESENT ILLNESS: This is an 78-year-old gentleman with a history of metastatic urothelial carcinoma, completed nearly 2 years of immunotherapy and was admitted in early May with encephalitis, myocarditis, arthritis, nephritis and hepatitis, all secondary to diffuse and severe immune-mediated reaction. The patient improved significantly with high dose steroids and has been slowly tapering his steroids over the last month or so. He was seen in the Oncology Clinic for routine followup earlier this week when he was taking 40 mg of prednisone daily and reported that he was feeling very good. His labs at that time showed that his renal function had returned to baseline and he had no complaints apart from a couple of bug bites one of which was draining some serous fluid from his right thigh. The patient reports that he was feeling relatively well yesterday and is unsure what happened overnight. He believes he rolled out of bed and his healthcare aide found him on the floor this morning, confused as to how he got there. He was subsequently transferred to the emergency department for further evaluation. He was found to be hypotensive, tachycardic, but afebrile. Alert, but unclear on the exact details of the last 12 to 24 hours. The patient denies chest pain or shortness of breath. He is having some pain in his right hip and knee, which is somewhat chronic for him, which seems to be worse than usual. PAST MEDICAL HISTORY: 1. Metastatic urothelial carcinoma. 2. Adrenal insufficiency. 3. Aortic stenosis. 4. History of DVT. 5. Hyperlipidemia. 6. Hypothyroidism. 7. Retinal detachment. PAST SURGICAL HISTORY: Hernia repair. HOME MEDICATIONS: 1. Eliquis 5 mg p.o. twice daily. 2. Ascorbic acid 500 mg p.o. daily. 3. Docusate 200 mg p.o. twice daily. 4. Levothyroxine 50 mcg p.o. daily. 5. Metoprolol tartrate 25 mg p.o. twice daily. 6. Morphine sulfate 15 mg p.o. twice daily. 7. Multivitamin 1 tablet p.o. daily. 8. Zofran 4 mg p.o. q.4 hours as needed for nausea and vomiting. 9. Protonix 40 mg p.o. daily. 10. MiraLAX 17 grams p.o. daily. 11. Prednisone 40 mg p.o. daily on a taper of 10 mg per week. 12. Tramadol 50 mg p.o. q.6 hours. FAMILY HISTORY: The patient's mother of colon cancer at the age of 83. SOCIAL HISTORY: The patient lives independently with 2 daughters nearby. He has a 5-pack year smoking history, quit nearly 50 years ago and occasionally consumes alcohol. PHYSICAL EXAMINATION GENERAL: Ill and uncomfortable appearing 78-year-old male. INITIAL VITAL SIGNS: Temperature 98.9 degrees Fahrenheit, pulse 101 beats per minute, respiratory rate 20, oxygen saturation 91% on room air, blood pressure 99/51 mmHg. HEENT: Head is normocephalic, atraumatic. Mucous membranes are mildly dry. RESPIRATORY: Lungs are clear to auscultation without wheezes, crackles, or rhonchi. CARDIOVASCULAR: Heart has a regular rate and rhythm. Murmur appreciated. ABDOMEN: Soft and nontender to palpation. EXTREMITIES: Right lower extremity is edematous. SKIN: There is pustular rash consistent with what appears to be a folliculitis over the right thigh around where a prior bandage was placed and surrounding erythema engulfing most of the right medial and posterior thigh extending up over the pelvis. PSYCH: The patient is alert and appropriately oriented. DIAGNOSTIC STUDIES/LAB DATA: Laboratory evaluation: CBC shows a white blood cell count of 22,800, hemoglobin of 13.3 g/dL, platelets of 166,000. Comprehensive metabolic panel shows a sodium of 140, potassium of 4.6, BUN 48, and creatinine 2.6, lactic acid 3.1. Troponin 0.94. ASSESSMENT AND PLAN: This is an 78-year-old gentleman with metastatic urothelial cancer most recently ALESSIA after nearly 2 years of immunotherapy compromised by severe immune-mediated toxicity in approximately 6 weeks ago on a tapering prednisone dose, who presented with some mild confusion, leukocytosis , hypotension, elevated troponin, lactic acid and acute kidney injury. He does have an obvious cellulitis of the right leg. This either represents sepsis versus resurgence of immune-mediated toxicity. Based on the appearance of his leg, sepsis is favored in this case. 1. Sepsis - blood cultures have been collected. Treat with broad-spectrum antibiotics including Zosyn. The patient received fluid bolus in the emergency department and we will plan to follow his lactic acid and continue with maintenance fluids. 2. Acute kidney injury - monitored closely following fluid bolus. 3. History of severe immune-mediated toxicity - thing is it is difficult to determine whether this is the resurgence of immune toxicity from his prior PD- L1 inhibitor versus sepsis. The patient was empirically treated with high dose steroids in the emergency department and will continue at doses equivalent of 2 mg/kg of prednisone. If this does appear to be a resurgence of immune-mediated toxicity, we will consider use of infliximab, but not until infection has been effectively ruled out. 4. Demand ischemia versus recurrent myocarditis - the patient is asymptomatic with a normal EKG. We will obtain an echocardiogram and follow with serial troponins. 5. Chronic right hip pain. 6. Code status is full. 7. DVT prophylaxis - continue apixaban for prior DVT, no additional chemo prophylaxis is indicated. 8. Disposition: The patient is being admitted to inpatient status and anticipated length of stay to be greater than 1 midnight. MICHAEL RIVERA [id number]/CPS #: [id number] MTDD
[2019-06-16] MEDS: Acetaminophen TAB* 325 MG PO PRN (20:54)
[2019-06-16] MEDS: Metoprolol Tartrate TAB* 25 MG PO SCH (20:54)
[2019-06-16] MEDS: traMADol TAB* 50 MG PO PRN (20:54)
[2019-06-16] MEDS: Apixaban* 2.5 MG TAB PO SCH (20:54)
[2019-06-16 21:39] LABS: Urine Appearance Cloudy; Urine Bacteria Absent (Absent); Urine Bilirubin Negative (Negative); Urine Blood 3+ (Negative); Urine Color Yellow; Urine Glucose Negative (Negative); Urine Ketones Negative (Negative); Urine Nitrite Negative (Negative); Urine Protein 1+(30 mg/dL) (Negative); Urine Red Blood Cell 3+(>10/hpf) (Absent); Urine Urobilinogen Negative (Negative); Urine White Blood Cell Trace(0-5/hpf) (Absent)
[2019-06-16] MEDS ORDERED: NS 0.9% 500 ML* 500 ML IV ONE ×2 (23:20→23:27)
[2019-06-16] MEDS ORDERED: Ibuprofen TAB* 400 MG PO ONE (23:27)
[2019-06-16] MEDS ORDERED: Metoprolol Tartrate IV* 1 MG/ML 5 ML VIAL IV ONE (23:45)
[2019-06-17 00:17] LABS: Troponin I 0.72 ng/mL (<0.04)
[2019-06-17] MEDS ORDERED: NS 0.9% 500 ML* 500 ML IV ONE (00:40)
[2019-06-17] MEDS ORDERED: Amiodarone 150 MG IVPREMIX* 150 MG/100 ML BAG IV ONE (01:30)
[2019-06-17] MEDS ORDERED: Amiodarone 360 MG IVPREMIX* 360 MG/200 ML BAG IV ONE (01:45)
[2019-06-17] MEDS ORDERED: Vancomycin per Pharmacy* NOTE FOLLOW UP PRN (02:25)
[2019-06-17] MEDS ORDERED: Norepinephrine 16MCG/ML IVPRE* 4,000 MCG/250 ML BAG IV ONE (02:47)
[2019-06-17] MEDS ORDERED: Vancomycin 1500 MG IV - x ONCE IVPB ONE ×2 (03:00)
[2019-06-17] MEDS ORDERED: Norepinephrine 16MCG/ML IVPRE* 4,000 MCG/250 ML BAG IV SCH (03:00)
[2019-06-17 03:15] LABS: Hematocrit 37 % (42-52); Hemoglobin 12.2 g/dL (14.0-18.0); Mean Corpuscular HGB Conc 33 g/dL (31-36); Mean Corpuscular Hemoglobin 30 pg (27-31); Mean Corpuscular Volume 91 fL (80-94); Mean Platelet Volume 8.4 fL (7.4-10.4); Platelet Count 128 10^3/uL (150-450); Red Blood Count 4.08 10^6 /uL (4.18-5.48); Red Cell Distribution Width 18 % (10-15); White Blood Count 16.2 10^3/uL (3.5-10.8)
[2019-06-17 03:30] LABS: BUN/Creatinine Ratio 19.7 (8-20); EGFR African American 33.4 (>60); EGFR Non-African American 27.6 (>60)
[2019-06-17 03:53] LABS: ABS Eosinophils 0.1 10^3/ul (0-0.6); ABS Lymphocytes 0.7 10^3/ul (1.0-4.8); ABS Monocytes 0.7 10^3/ul (0-0.8); ABS Neutrophils 14.7 10^3/ul (1.5-7.7); Eosinophil % 0.5 %; Lymphocyte % 4.4 %
[2019-06-17] MEDS: Piperacillin/Tazobac ADVAN(*) 3.375 GM in NS 0.9% 100 ML* 100 ML IVPB SCH ×4 (05:33→21:30)
[2019-06-17 06:19] LABS: ABS Basophils 0.1 10^3/ul (0-0.2); ABS Eosinophils 0.1 10^3/ul (0-0.6); ABS Lymphocytes 0.7 10^3/ul (1.0-4.8); ABS Monocytes 0.8 10^3/ul (0-0.8); ABS Neutrophils 16.8 10^3/ul (1.5-7.7); Eosinophil % 0.6 %; Hematocrit 39 % (42-52); Mean Corpuscular HGB Conc 34 g/dL (31-36); Mean Corpuscular Hemoglobin 30 pg (27-31); Mean Corpuscular Volume 90 fL (80-94); Mean Platelet Volume 8.2 fL (7.4-10.4); Platelet Count 141 10^3/uL (150-450); Red Blood Count 4.29 10^6 /uL (4.18-5.48); Red Cell Distribution Width 18 % (10-15); White Blood Count 18.5 10^3/uL (3.5-10.8)
[2019-06-17 06:28] LABS: Albumin 2.4 g/dL (3.2-5.2); BUN/Creatinine Ratio 19.9 (8-20); Calcium 7.2 mg/dL (8.6-10.3); EGFR African American 33.1 (>60); EGFR Non-African American 27.4 (>60); Globulin 2.5 g/dL (2-4); Potassium 4.5 mmol/L (3.5-5.0); Total Bilirubin 0.6 mg/dL (0.2-1.0); Total Protein 4.9 g/dL (6.4-8.9)
--- NOTE | 2019-06-17 08:01 | PN ---
Progress Note - Progress Note Date of Service: 06/17/19 SOAP: Subjective: unaware of any of the events from overnight. feels "good" though does note pain in right leg Objective: Vital Signs Temp Pulse Resp BP Pulse Ox 98.6 F 113 27 114/70 94 06/17/19 07:41 06/17/19 07:15 06/17/19 07:15 06/17/19 07:15 06/17/19 07:15 sitting up in nad confused perr eomi mild thrush CTA bl s1 s2 III/ VIANNEY (known) soft nt +Bs r thigh 3+ edema to pelvis, mild erythema, clustered pinpoint rash on inner thigh, not draining dopplerable pulses on right cool toes confused but pleasant Laboratory Results - last 24 hr 06/16/19 06/16/19 06/16/19 10:13 10:13 13:06 WBC 22.8 H RBC 4.39 Hgb 13.3 L Hct 39 L MCV 90 MCH 30 MCHC 34 RDW 18 H Plt Count 166 MPV 8.1 Neut % (Auto) 87.8 Lymph % (Auto) 6.4 Haakon % (Auto) 5.5 Eos % (Auto) 0.0 Baso % (Auto) 0.3 Absolute Neuts (auto) 20.0 H Absolute Lymphs (auto) 1.5 Absolute Monos (auto) 1.3 H Absolute Eos (auto) 0.0 Absolute Basos (auto) 0.1 Absolute Nucleated RBC 0.0 Nucleated RBC % 0.0 Sodium 140 Potassium 4.6 Chloride 102 Carbon Dioxide 25 Anion Gap 13 H BUN 48 H Creatinine 2.62 H Est GFR ( Amer) 28.6 Est GFR (Non-Af Amer) 23.7 BUN/Creatinine Ratio 18.3 Glucose 85 Lactic Acid 3.1 H* Calcium 8.8 Total Bilirubin 1.00 AST 49 H ALT 23 Alkaline Phosphatase 91 Troponin I 0.94 H* Total Protein 6.3 L Albumin 3.4 Globulin 2.9 Albumin/Globulin Ratio 1.2 Urine Color Urine Appearance Urine pH Ur Specific [place] Urine Protein Urine Ketones Urine Blood Urine Nitrate Urine Bilirubin Urine Urobilinogen Ur Leukocyte Esterase Urine WBC (Auto) Urine RBC (Auto) Urine Bacteria Urine Glucose 06/16/19 06/16/19 06/16/19 17:36 17:36 21:14 WBC RBC Hgb Hct MCV MCH MCHC RDW Plt Count MPV Neut % (Auto) Lymph % (Auto) Haakon % (Auto) Eos % (Auto) Baso % (Auto) Absolute Neuts (auto) Absolute Lymphs (auto) Absolute Monos (auto) Absolute Eos (auto) Absolute Basos (auto) Absolute Nucleated RBC Nucleated RBC % Sodium Potassium Chloride Carbon Dioxide Anion Gap BUN Creatinine Est GFR ( Amer) Est GFR (Non-Af Amer) BUN/Creatinine Ratio Glucose Lactic Acid 1.5 Calcium Total Bilirubin AST ALT Alkaline Phosphatase Troponin I 0.82 H* Total Protein Albumin Globulin Albumin/Globulin Ratio Urine Color Yellow Urine Appearance Cloudy Urine pH 5.0 Ur Specific [place] 1.010 Urine Protein 1+(30 mg/dl) A Urine Ketones Negative Urine Blood 3+ A Urine Nitrate Negative Urine Bilirubin Negative Urine Urobilinogen Negative Ur Leukocyte Esterase Negative Urine WBC (Auto) Trace(0-5/hpf) Urine RBC (Auto) 3+(>10/hpf) A Urine Bacteria Absent Urine Glucose Negative 06/16/19 06/16/19 06/17/19 23:45 23:45 02:25 WBC RBC Hgb Hct MCV MCH MCHC RDW Plt Count MPV Neut % (Auto) Lymph % (Auto) [place] % (Auto) Eos % (Auto) Baso % (Auto) Absolute Neuts (auto) Absolute Lymphs (auto) Absolute Monos (auto) Absolute Eos (auto) Absolute Basos (auto) Absolute Nucleated RBC Nucleated RBC % Sodium 140 Potassium 4.0 Chloride 109 Carbon Dioxide 23 Anion Gap 8 BUN 45 H Creatinine 2.29 H Est GFR ( Amer) 33.4 Est GFR (Non-Af Amer) 27.6 BUN/Creatinine Ratio 19.7 Glucose 67 L Lactic Acid 1.5 Calcium 7.0 L Total Bilirubin AST ALT Alkaline Phosphatase Troponin I 0.72 H* Total Protein Albumin Globulin Albumin/Globulin Ratio Urine Color Urine Appearance Urine pH Ur Specific [place] Urine Protein Urine Ketones Urine Blood Urine Nitrate Urine Bilirubin Urine Urobilinogen Ur Leukocyte Esterase Urine WBC (Auto) Urine RBC (Auto) Urine Bacteria Urine Glucose 06/17/19 06/17/19 06/17/19 02:25 02:25 05:45 WBC 16.2 H 18.5 H RBC 4.08 L 4.29 Hgb 12.2 L 13.0 L Hct 37 L 39 L MCV 91 90 MCH 30 30 MCHC 33 34 RDW 18 H 18 H Plt Count 128 L 141 L MPV 8.4 8.2 Neut % (Auto) 90.7 90.8 Lymph % (Auto) 4.4 4.0 Haakon % (Auto) 4.2 4.2 Eos % (Auto) 0.5 0.6 Baso % (Auto) 0.2 0.4 Absolute Neuts (auto) 14.7 H 16.8 H Absolute Lymphs (auto) 0.7 L 0.7 L Absolute Monos (auto) 0.7 0.8 Absolute Eos (auto) 0.1 0.1 Absolute Basos (auto) 0.0 0.1 Absolute Nucleated RBC 0.0 0.0 Nucleated RBC % 0.0 0.0 Sodium Potassium Chloride Carbon Dioxide Anion Gap BUN Creatinine Est GFR ( Amer) Est GFR (Non-Af Amer) BUN/Creatinine Ratio Glucose Lactic Acid 2.2 H* Calcium Total Bilirubin AST ALT Alkaline Phosphatase Troponin I Total Protein Albumin Globulin Albumin/Globulin Ratio Urine Color Urine Appearance Urine pH Ur Specific [place] Urine Protein Urine Ketones Urine Blood Urine Nitrate Urine Bilirubin Urine Urobilinogen Ur Leukocyte Esterase Urine WBC (Auto) Urine RBC (Auto) Urine Bacteria Urine Glucose 06/17/19 06/17/19 05:45 05:45 WBC RBC Hgb Hct MCV MCH MCHC RDW Plt Count MPV Neut % (Auto) Lymph % (Auto) [place] % (Auto) Eos % (Auto) Baso % (Auto) Absolute Neuts (auto) Absolute Lymphs (auto) Absolute Monos (auto) Absolute Eos (auto) Absolute Basos (auto) Absolute Nucleated RBC Nucleated RBC % Sodium 140 Potassium 4.5 Chloride 110 Carbon Dioxide 23 Anion Gap 7 BUN 46 H Creatinine 2.31 H Est GFR ( Amer) 33.1 Est GFR (Non-Af Amer) 27.4 BUN/Creatinine Ratio 19.9 Glucose 75 Lactic Acid 1.6 Calcium 7.2 L Total Bilirubin 0.60 AST 197 H ALT 56 H Alkaline Phosphatase 86 Troponin I Total Protein 4.9 L Albumin 2.4 L Globulin 2.5 Albumin/Globulin Ratio 1.0 Urine Color Urine Appearance Urine pH Ur Specific [place] Urine Protein Urine Ketones Urine Blood Urine Nitrate Urine Bilirubin Urine Urobilinogen Ur Leukocyte Esterase Urine WBC (Auto) Urine RBC (Auto) Urine Bacteria Urine Glucose Acetaminophen (Tylenol Tab*) 650 mg PO Q4H PRN PRN Reason: PAIN OR ELEVATED TEMP Last Admin: 06/16/19 20:54 Dose: 650 mg Apixaban (Eliquis*) 2.5 mg PO BID [facility] Last Admin: 06/16/19 20:54 Dose: 2.5 mg Docusate Sodium (Colace Cap*) 200 mg PO BID PRN PRN Reason: CONSTIPATION Sodium Chloride (Ns 0.9% 1000 Ml) 1,000 mls @ 100 mls/hr IV PER RATE [facility] Last Admin: 06/16/19 17:39 Dose: 100 mls/hr Norepinephrine Bitartrate (Levophed 16 Mcg/Ml Premix*) 4,000 mcg in 250 mls @ 0 mls/hr IV .PER PROTOCOL [facility]; Protocol Last Admin: 06/17/19 03:34 Dose: 4 mls/hr Piperacillin Sod/Tazobactam (Sod 3.375 gm/ Sodium Chloride) 100 mls @ 25 mls/ hr IVPB Q8H [facility] Last Admin: 06/17/19 05:33 Dose: 25 mls/hr Levothyroxine Sodium (Synthroid Tab*) 50 mcg PO DAILY [facility] Methylprednisolone Sodium Succinate (Solu-Medrol 125mg *) 125 mg IV DAILY [facility] Metoprolol Tartrate (Lopressor Tab*) 25 mg PO BID [facility] Last Admin: 06/16/19 20:54 Dose: 25 mg Morphine Sulfate (Morphine Oral.Soln 10 Mg*) 15 mg PO BID PRN PRN Reason: PAIN - MODERATE Ondansetron HCl (Zofran Tab*) 4 mg PO Q4HR PRN PRN Reason: NAUSEA Pantoprazole Sodium (Protonix Tab*) 40 mg PO DAILY [facility] Pharmacy Consult (Zosyn Per Pharmacy*) 1 note FOLLOW UP .ZOSYN PER PHARMACY [facility] Pharmacy Consult (Vancomycin Per Pharmacy*) 1 note FOLLOW UP . PRN PRN Reason: PER PROTOCOL Polyethylene Glycol/Electrolytes (Miralax*) 17 gm PO DAILY [facility] Tramadol HCl (Ultram*) 50 mg PO Q6HR PRN PRN Reason: PAIN - MODERATE Last Admin: 06/16/19 20:54 Dose: 50 mg Assessment: 78 yo M w metastatic urothelial CA (stable disease on recent imaging) recently admitted for kim-immunotherapy related itis, on steroid taper, seen 3 days ago in office with small bug bite like lesion on right thigh with mild edema and mid serosanginous drainage. presented 2 days later with marked thigh swelling and erythema, confusion and leukocytosis. Admitted with ddx of cellulitis vs. flare of immune mediated process. Overnight went in to afib w rvr, hypotensive , and now growing MRSA in the blood making this more consistent with septic shock than immunitis. Plan: -discussed case with Dr. Azul at length, who will manage from critical care -CT thigh/leg to rule out compartment syndrome/necrotizing fasciitis -known right leg DVT on anticoagulation for this, but may make sense to rule out progression of his clot with doppler. if he does have progression would change to heparin drip -cont vanco/zosyn -can change to stress dose steroids (should be noted that has been on prolonged steroids for immune process, with plan for very slow taper. home dose was currently 40 mg with plan to taper 10mg/week) Afib w rvr: -on amiodarone drip -on renally dosed eliquis (may need to switch to heparin if kidney function continues to deteriorate) CHARLEEN: -likely prerenal azotemia, but can not rule out component of ATN -cont hydration -making good urine at this point +troponin: likely demand ischemia thrush: mild, start nystatin full code
[2019-06-17] MEDS ORDERED: methylPREDNISolone 125 MG* 2 ML VIAL IV SCH (09:00)
[2019-06-17] MEDS: Metoprolol Tartrate TAB* 25 MG PO SCH ×2 (10:05→21:49)
[2019-06-17] MEDS: NS 0.9% 1000 ML** 1,000 ML IV SCH ×2 (10:05→19:59)
[2019-06-17] MEDS: Pantoprazole TAB * 40 MG TAB PO SCH (10:27)
[2019-06-17] MEDS: Levothyroxine TAB* 50 MCG TAB PO SCH (10:27)
[2019-06-17] MEDS: Polyethylene Glycol 3350* 17 GM PACKET PO SCH (10:28)
[2019-06-17] MEDS: Nystatin SUSPENSION* 100000 UNITS/ML 5 ML UDC PO SCH ×4 (10:28→21:30)
[2019-06-17] MEDS: Apixaban* 2.5 MG TAB PO SCH ×2 (10:58→22:02)
--- NOTE | 2019-06-17 12:19 | CONS ---
CRITICAL CARE CONSULT: DATE OF CONSULT: 06/17/19 REASON FOR CONSULT: Apparent septic shock. HISTORY OF PRESENT ILLNESS: This patient is an 78-year-old white male who has a history of metastatic urothelial carcinoma, treated with immunotherapy for the last 2 years, who was brought to the emergency department yesterday with a 2 -day history of swelling in his right leg that began with a small draining lesion that looked like a bug bite. The patient was hypotensive and required vasopressors on admission. Blood cultures from yesterday growng MRSA and MSSA in one bottle. Patient has been placed on vancomycin and empiric Zosyn. Of interest, the patient has a prior history of DVT and is currently on oral anticoagulant Rx. There is also a recent Hx of immune-mediated multiorgan dysfunction (i.e.,encephalitis, myocarditis, arthritis, nephritis, and hepatitis ), which responded to steroids and has mostly resolved (except for some renal insufficiency). PAST MEDICAL HISTORY: Includes renal insufficiency, aortic stenosis, DVT, hyperlipidemia, hypothyroidism, and retinal detachment. HOME MEDICATIONS: 1. Eliquis 5 mg twice daily. 2. Levothyroxine 50 mcg p.o. daily. 3. Metoprolol 25 mg twice daily. 4. Protonix 40 mg daily. 5. Prednisone 40 mg daily on a taper of 10 mg per week. 6. Morphine sulfate 50 mg twice daily. ALLERGIES: The patient is allergic to IODINATED CONTRAST both ORAL and IV, which causes pruritus. SOCIAL HISTORY: The patient is a former [employer], and lives alone - he has 2 daughters that live nearby. There is no recent history of smoking or alcohol abuse, and no history of illicit drug use. REVIEW OF SYSTEMS: The patient denies chest pain, shortness of breath, fever, or chills. PHYSICAL EXAM: I saw the patient on the morning after his admission and at that time he looked to be comfortable, was sitting up in bed and able to converse easily. Vital Signs: Temp was 98.6, heart rate was 109 and irregular , respirations were 16 per minute and nonlabored, O2 sat was 94%, blood pressure was 113/64 with a mean of 74. HEENT: There is no facial asymmetry. Pupils were equal and reactive. Neck was supple. Lungs were clear to auscultation. Cardiac exam revealed an irregular rhythm and a 2/6 early systolic murmur which radiated up into the neck. Abdomen was nontender and nondistended. Extremities revealed the right thigh was larger than the left thigh and the right thigh was also erythematous. There were good pulses in both legs, although the right foot felt cool to touch. DIAGNOSTIC STUDIES/LAB DATA: Admission laboratory data was significant for a creatinine of 2.29 and a BUN of 45, a lactate level of 2.2 that subsequently came down to 1.6, an albumin of 2.4, an AST of 197 and an ALT of 56 with a normal total bilirubin. White count of 22.8 with a hemoglobin of 13 and normal platelet count. Preliminary cultures show MRSA in a nasal screen and MRSA in 1 of 2 aerobic blood cultures. Chest x-ray shows an enlarged cardiac silhouette and clear lung vernon. Electrocardiogram shows atrial fibrillation with LVH by voltage. OVERALL IMPRESSION: 1. Right leg cellulitis with MRSA-MSSA septicemia. The normal lactate rules-out the diagnosis of septic shock. 2. Cannot rule out a concurrent DVT in the right thigh. 3. New-onset atrial fibrillation. MANAGEMENT PLAN: 1. Taper the vasopressors when possible. 2. Vancomycin for the MRSA/MSSA. 3. CT scan of the right thigh to rule out necrotizing fasciitis. 4. Ultrasound of the right thigh in search of DVT. 5. Amiodarone for the atrial fibrillation. No further anticoagulation needed. 6. Cardiac ultrasound. CRITICAL CARE TIME: 60 minutes. Case discussed with Dr. Yin of the oncology service. [id number]/CPS #: [id number] MTDD
[2019-06-17] MEDS: Nystatin TOP POWDER* 15 GM BTL TOPICAL SCH ×2 (12:37→21:50)
[2019-06-17] MEDS ORDERED: Amiodarone DRIP 150 MG in D5W 100 ML *LOADING DOSE* OVER 10 MIN IV ONE (18:00)
[2019-06-17] MEDS ORDERED: Amiodarone DRIP* 1.8 MG/ML 200 ML IV ONE (18:30)
[2019-06-17] MEDS: traMADol TAB* 50 MG PO PRN (21:48)
[2019-06-17] MEDS ORDERED: NS 0.9% 100 ML* 100 ML ONE (21:57)
[2019-06-18] MEDS: Piperacillin/Tazobac ADVAN(*) 3.375 GM in NS 0.9% 100 ML* 100 ML IVPB SCH ×3 (04:46→21:33)
[2019-06-18] MEDS: traMADol TAB* 50 MG PO PRN (04:55)
[2019-06-18 05:04] LABS: ABS Lymphocytes 0.3 10^3/ul (1.0-4.8); ABS Monocytes 0.6 10^3/ul (0-0.8); ABS Neutrophils 14.2 10^3/ul (1.5-7.7); Hematocrit 34 % (42-52); Hemoglobin 11.3 g/dL (14.0-18.0); Mean Corpuscular HGB Conc 34 g/dL (31-36); Mean Corpuscular Hemoglobin 30 pg (27-31); Mean Corpuscular Volume 89 fL (80-94); Mean Platelet Volume 8.1 fL (7.4-10.4); Platelet Count 106 10^3/uL (150-450); Red Blood Count 3.79 10^6 /uL (4.18-5.48); Red Cell Distribution Width 19 % (10-15); White Blood Count 15.1 10^3/uL (3.5-10.8)
[2019-06-18 05:25] LABS: BUN/Creatinine Ratio 21.1 (8-20); Calcium 7.5 mg/dL (8.6-10.3); EGFR African American 29.4 (>60); EGFR Non-African American 24.3 (>60); Potassium 4.7 mmol/L (3.5-5.0)
[2019-06-18] MEDS ORDERED: Vancomycin Random Level* NOTE FOLLOW UP ONE (06:00)
--- NOTE | 2019-06-18 07:38 | PN ---
Progress Note - Progress Note Date of Service: 06/18/19 SOAP: Subjective: looks markedly better than yesterday AM. off pressors and off amiodarone drip. more oriented to where he is. mild epistaxis and hematuria (in avina this am) Objective: Vital Signs Temp Pulse Resp BP Pulse Ox 97.2 F 60 16 105/83 96 06/18/19 03:24 06/18/19 06:02 06/18/19 06:32 06/18/19 06:02 06/18/19 06:02 sitting up in nad perr eomi nares with bloody crusting thrush better cta bl s1 s2 regular today soft nt +Bs less erythema right thigh, still 3+ edema, cluster of pinpoint escoriations inner thigh, warmer toes A+O x 3 today, nonfocal Laboratory Results - last 24 hr 06/18/19 06/18/19 06/18/19 04:48 04:50 04:50 WBC 15.1 H RBC 3.79 L Hgb 11.3 L Hct 34 L MCV 89 MCH 30 MCHC 34 RDW 19 H Plt Count 106 L MPV 8.1 Neut % (Auto) 93.8 Lymph % (Auto) 2.0 [place] % (Auto) 4.1 Eos % (Auto) 0.0 Baso % (Auto) 0.1 Absolute Neuts (auto) 14.2 H Absolute Lymphs (auto) 0.3 L Absolute Monos (auto) 0.6 Absolute Eos (auto) 0.0 Absolute Basos (auto) 0.0 Absolute Nucleated RBC 0.0 Nucleated RBC % 0.0 Sodium 142 Potassium 4.7 Chloride 111 Carbon Dioxide 22 Anion Gap 9 BUN 54 H Creatinine 2.56 H Est GFR ( Amer) 29.4 Est GFR (Non-Af Amer) 24.3 BUN/Creatinine Ratio 21.1 H Glucose 136 H Calcium 7.5 L Random Vancomycin 16.1 Acetaminophen (Tylenol Tab*) 650 mg PO Q4H PRN PRN Reason: PAIN OR ELEVATED TEMP Last Admin: 06/16/19 20:54 Dose: 650 mg Docusate Sodium (Colace Cap*) 200 mg PO BID PRN PRN Reason: CONSTIPATION Sodium Chloride (Ns 0.9% 1000 Ml) 1,000 mls @ 100 mls/hr IV PER RATE [facility] Last Admin: 06/17/19 19:59 Dose: 100 mls/hr Piperacillin Sod/Tazobactam (Sod 3.375 gm/ Sodium Chloride) 100 mls @ 25 mls/ hr IVPB Q8H [facility] Last Admin: 06/18/19 04:46 Dose: 25 mls/hr Vancomycin HCl 1,250 mg/ (Sodium Chloride) 250 mls @ 166.667 mls/hr IVPB ONCE ONE Stop: 06/18/19 09:59 Levothyroxine Sodium (Synthroid Tab*) 50 mcg PO DAILY [facility] Last Admin: 06/17/19 10:27 Dose: 50 mcg Metoprolol Tartrate (Lopressor Tab*) 25 mg PO BID [facility] Last Admin: 06/17/19 21:49 Dose: 25 mg Morphine Sulfate (Morphine Oral.Soln 10 Mg*) 15 mg PO BID PRN PRN Reason: PAIN - MODERATE Nystatin (Nystatin Top Powder*) 1 applic TOPICAL BID [facility] Last Admin: 06/17/19 21:50 Dose: 1 applic Nystatin (Nystatin Suspension*) 500,000 units PO QID [facility] Stop: 06/24/19 08:14 Last Admin: 06/17/19 21:30 Dose: Not Given Ondansetron HCl (Zofran Tab*) 4 mg PO Q4HR PRN PRN Reason: NAUSEA Pantoprazole Sodium (Protonix Tab*) 40 mg PO DAILY [facility] Last Admin: 06/17/19 10:27 Dose: 40 mg Pharmacy Consult (Zosyn Per Pharmacy*) 1 note FOLLOW UP .ZOSYN PER PHARMACY [facility] Pharmacy Consult (Vancomycin Per Pharmacy*) 1 note FOLLOW UP . PRN PRN Reason: PER PROTOCOL Pharmacy Consult (Vancomycin Random Level*) 1 note FOLLOW UP 0600 ONE Stop: 06/19/19 06:01 Polyethylene Glycol/Electrolytes (Miralax*) 17 gm PO DAILY [facility] Last Admin: 06/17/19 10:28 Dose: 17 gm Tramadol HCl (Ultram*) 50 mg PO Q6HR PRN PRN Reason: PAIN - MODERATE Last Admin: 06/18/19 04:55 Dose: 50 mg Assessment: 78 yo M w metastatic urothelial CA (stable disease on recent imaging) a/w septic shock from MRSA bacteremia related to cellulitis. Clinically markedly improved. Plan: Sepsis/cellulitis/bacteremia: -will d/w ID in am if port needs to be removed and RHIANNON done, given known cellulitis source -cont vanco/zosyn for now but can likely stop zosyn tomorrow -surveillance cultures today -stop stress dose steroids, resume 40 mg daily with plan for 10 mg/week taper for prior immune mediated SEs Afib w rvr: -amio drip off, in sinus rhythm this am -resume metoprolol bid -hold eliquis with CHARLEEN, moderate thrombocytopenia, and epistaxis/hematuria CHARLEEN: -likely prerenal azotemia, but can not rule out component of ATN -cont hydration -d/c avina -cont to monitor +troponin: likely demand ischemia thrush: improved, cont nystatin thrombocytopenia: -likely response to sepsis +/- vanco/zosyn -monitor closely (already holding eliquis) full code -no DVT prophylaxis today given above -ok to transfer to floor with tele monitoring
[2019-06-18] MEDS: Polyethylene Glycol 3350* 17 GM PACKET PO SCH (08:25)
[2019-06-18] MEDS: Pantoprazole TAB * 40 MG TAB PO SCH (08:25)
[2019-06-18] MEDS: Metoprolol Tartrate TAB* 25 MG PO SCH ×2 (08:25→20:42)
[2019-06-18] MEDS: Nystatin TOP POWDER* 15 GM BTL TOPICAL SCH ×2 (08:25→20:42)
[2019-06-18] MEDS: Nystatin SUSPENSION* 100000 UNITS/ML 5 ML UDC PO SCH ×4 (08:25→20:41)
[2019-06-18] MEDS: Levothyroxine TAB* 50 MCG TAB PO SCH (08:25)
[2019-06-18] MEDS ORDERED: Vancomycin(*) 1,250 MG IV x ONCE IVPB ONE ×2 (08:30)
[2019-06-18] MEDS: NS 0.9% 1000 ML** 1,000 ML IV SCH ×2 (13:57→21:33)
[2019-06-18 20:01] LABS: Urine Bacteria Absent (Absent); Urine Red Blood Cell 3+(>10/hpf) (Absent); Urine White Blood Cell Absent (Absent)
[2019-06-18 20:02] LABS: Urine Appearance Cloudy; Urine Bilirubin Negative (Negative); Urine Blood 3+ (Negative); Urine Color Yellow; Urine Glucose Negative (Negative); Urine Ketones Negative (Negative); Urine Protein 1+(30 mg/dL) (Negative); Urine Specific Gravity 1.025 (1.010-1.030)
[2019-06-18 20:03] LABS: Urine Nitrite Negative (Negative); Urine Urobilinogen Negative (Negative)
[2019-06-19] MEDS: Piperacillin/Tazobac ADVAN(*) 3.375 GM in NS 0.9% 100 ML* 100 ML IVPB SCH (04:48)
[2019-06-19 05:20] LABS: Albumin 2.3 g/dL (3.2-5.2); Calcium 7.3 mg/dL (8.6-10.3); Total Bilirubin 0.5 mg/dL (0.2-1.0)
[2019-06-19 05:25] LABS: ABS Basophils 0.1 10^3/ul (0-0.2); ABS Lymphocytes 0.6 10^3/ul (1.0-4.8); ABS Monocytes 0.8 10^3/ul (0-0.8); ABS Neutrophils 16.9 10^3/ul (1.5-7.7); Hematocrit 34 % (42-52); Hemoglobin 11.2 g/dL (14.0-18.0); Mean Corpuscular HGB Conc 33 g/dL (31-36); Mean Corpuscular Hemoglobin 30 pg (27-31); Mean Corpuscular Volume 89 fL (80-94); Mean Platelet Volume 8.7 fL (7.4-10.4); Nucleated Red Blood Cells % 0.1; Platelet Count 105 10^3/uL (150-450); Red Blood Count 3.77 10^6 /uL (4.18-5.48); Red Cell Distribution Width 19 % (10-15); White Blood Count 18.3 10^3/uL (3.5-10.8)
[2019-06-19 05:26] LABS: BUN/Creatinine Ratio 22.1 (8-20); EGFR African American 25.6 (>60); EGFR Non-African American 21.1 (>60); Globulin 2.2 g/dL (2-4); Total Protein 4.5 g/dL (6.4-8.9)
[2019-06-19] MEDS ORDERED: Vancomycin Random Level* NOTE FOLLOW UP ONE (06:00)
[2019-06-19] MEDS: Levothyroxine TAB* 50 MCG TAB PO SCH (08:34)
[2019-06-19] MEDS: Pantoprazole TAB * 40 MG TAB PO SCH (08:34)
[2019-06-19] MEDS: Metoprolol Tartrate TAB* 25 MG PO SCH ×2 (08:35→20:15)
[2019-06-19] MEDS: Nystatin SUSPENSION* 100000 UNITS/ML 5 ML UDC PO SCH ×4 (08:35→20:15)
[2019-06-19] MEDS: Nystatin TOP POWDER* 15 GM BTL TOPICAL SCH ×2 (08:35→20:19)
[2019-06-19] MEDS: Polyethylene Glycol 3350* 17 GM PACKET PO SCH (08:42)
[2019-06-19] MEDS: NS 0.9% 1000 ML** 1,000 ML IV SCH ×2 (08:48→20:13)
--- NOTE | 2019-06-19 10:51 | PN ---
Progress Note - Progress Note Date of Service: 06/19/19 SOAP: Subjective: []Feels well today, no fevers, leg is better. Eating well. Has HR down to 40s, no symptoms. Avina went in and had a full bag of fluid out right away. Anxious to patrica home. Acetaminophen (Tylenol Tab*) 650 mg PO Q4H PRN PRN Reason: PAIN OR ELEVATED TEMP Last Admin: 06/16/19 20:54 Dose: 650 mg Docusate Sodium (Colace Cap*) 200 mg PO BID PRN PRN Reason: CONSTIPATION Sodium Chloride (Ns 0.9% 1000 Ml) 1,000 mls @ 100 mls/hr IV PER RATE [facility] Last Admin: 06/19/19 08:48 Dose: 100 mls/hr Piperacillin Sod/Tazobactam (Sod 3.375 gm/ Sodium Chloride) 100 mls @ 25 mls/ hr IVPB Q8H [facility] Last Admin: 06/19/19 04:48 Dose: 25 mls/hr Levothyroxine Sodium (Synthroid Tab*) 50 mcg PO DAILY [facility] Last Admin: 06/19/19 08:34 Dose: 50 mcg Metoprolol Tartrate (Lopressor Tab*) 25 mg PO BID [facility] Last Admin: 06/19/19 08:35 Dose: 25 mg Morphine Sulfate (Morphine Oral.Soln 10 Mg*) 15 mg PO BID PRN PRN Reason: PAIN - MODERATE Nystatin (Nystatin Top Powder*) 1 applic TOPICAL BID [facility] Last Admin: 06/19/19 08:35 Dose: 1 applic Nystatin (Nystatin Suspension*) 500,000 units PO QID [facility] Stop: 06/24/19 08:14 Last Admin: 06/19/19 08:35 Dose: 500,000 units Ondansetron HCl (Zofran Tab*) 4 mg PO Q4HR PRN PRN Reason: NAUSEA Pantoprazole Sodium (Protonix Tab*) 40 mg PO DAILY [facility] Last Admin: 06/19/19 08:34 Dose: 40 mg Pharmacy Consult (Zosyn Per Pharmacy*) 1 note FOLLOW UP .ZOSYN PER [facility]ACY [facility] Pharmacy Consult (Vancomycin Per Pharmacy*) 1 note FOLLOW UP . PRN PRN Reason: PER PROTOCOL Polyethylene Glycol/Electrolytes (Miralax*) 17 gm PO DAILY [facility] Last Admin: 06/19/19 08:42 Dose: Not Given Prednisone (Deltasone Tab*) 40 mg PO DAILY [facility] Last Admin: 06/19/19 08:34 Dose: 40 mg Tramadol HCl (Ultram*) 50 mg PO Q6HR PRN PRN Reason: PAIN - MODERATE Last Admin: 06/18/19 04:55 Dose: 50 mg Objective: []Vital Signs Temp Pulse Resp BP Pulse Ox 97.3 F 57 20 152/97 100 06/19/19 07:15 06/19/19 07:15 06/19/19 08:00 06/19/19 07:15 06/19/19 07:15 HEENT : OM moist and no lesions port w/o erythema RRR S1S2 and no murmurs +BS NT ND Ext leg improved, no more redness, continued edema BC + MRSA, remaining + on 06/18 Assessment: 78 yo M w metastatic urothelial CA (stable disease on recent imaging) a/w septic shock from MRSA bacteremia related to cellulitis. Clinically markedly improved. Several issues todya. Plan: 1. Sepsis/cellulitis/bacteremia: - Continue Vancomycin - Stop Zosyn - port out - RHIANNON - Blood cultures tomorrow - ID unavailable until 06/26 2. Afib w rvr: - stable on Metoprolol - asymptomatic bradycardia, follow. 3. CHARLEEN: -likely prerenal azotemia, but can not rule out component of ATN -cont hydration -d/c avina -cont to monito 4. Urinary obstruction. - keep avina in - start afluzosin 10 mg po dialy. - Follow for SE given heart disease - urology consult as out patient. 5. thrush: improved, cont nystatin 6. thrombocytopenia: -likely response to sepsis +/- vanco/zosyn -follow for time being full code -no DVT prophylaxis today given above -ok to transfer to floor with tele monitoring
[2019-06-20] MEDS: NS 0.9% 1000 ML** 1,000 ML IV SCH (04:10)
[2019-06-20 04:37] LABS: Hematocrit 33 % (42-52); Hemoglobin 11.2 g/dL (14.0-18.0); Mean Corpuscular HGB Conc 34 g/dL (31-36); Mean Corpuscular Hemoglobin 30 pg (27-31); Mean Corpuscular Volume 89 fL (80-94); Mean Platelet Volume 8.8 fL (7.4-10.4); Platelet Count 137 10^3/uL (150-450); Red Cell Distribution Width 19 % (10-15); White Blood Count 19.6 10^3/uL (3.5-10.8)
[2019-06-20 04:53] LABS: Albumin 2.4 g/dL (3.2-5.2); Albumin/Globulin Ratio 0.8 (1-3); BUN/Creatinine Ratio 22.3 (8-20); Calcium 7.9 mg/dL (8.6-10.3); EGFR African American 22.1 (>60); EGFR Non-African American 18.3 (>60); Globulin 3.1 g/dL (2-4); Potassium 3.8 mmol/L (3.5-5.0); Total Bilirubin 0.6 mg/dL (0.2-1.0); Total Protein 5.5 g/dL (6.4-8.9)
[2019-06-20 05:21] LABS: Vancomycin Random 17.8 mcg/mL
[2019-06-20 05:29] LABS: ABS Lymphocytes 0.4 10^3/ul (1.0-4.8); ABS Neutrophils 18.2 10^3/ul (1.5-7.7); Lymphocyte % 1.9 %
[2019-06-20] MEDS ORDERED: Midazolam* 1 MG/ML 5 ML VIAL (5 MG) ONE (08:51)
[2019-06-20] MEDS ORDERED: fentaNYL* 50 MCG/ML 2 ML VIAL (100 MCG VIAL) ONE (08:51)
[2019-06-20] MEDS ORDERED: Lidocaine 2% VISCOUS* 15 ML UDC ONE (08:52)
[2019-06-20] MEDS ORDERED: Flumazenil* 0.1 MG/ML 5 ML MDV ONE (08:52)
[2019-06-20] MEDS ORDERED: Naloxone* 0.4 MG/ML 1 ML VIAL ONE (08:52)
[2019-06-20] MEDS ORDERED: Vancomycin(*) 1,000 MG in NS 0.9% 250 ML* 250 ML IV ONE (09:00)
--- NOTE | 2019-06-20 10:54 | TEE ---
*[facility]* [place] [address] Fax #: [phone] Transesophageal Echocardiogram Patient: Sean Santoyo : 1940 Study Date: 06/20/2019 Age: 78 Gender: M HR: 94 bpm Height: 70 in /177.8 cm BSA: 1.95 m^2 Weight: 170.6 lb /77.6 kg BMI: 24.5 kg/m^2 *Food Preparer: Noni Lu [facility] *Referring Physician: * Alec Walton *Reading Physician: * Jerson Dolan MD Indications: Bacteremia. History: Metastatic bladder cancer. Syncope. Aortic stenosis. Risk factors: Dyslipidemia. Conclusions Summary: - Left ventricle: Systolic function is mildly reduced. The estimated ejection fraction is 50-55%. No focl wall motion abnormalities. - Left atrium: There is no evidence of a thrombus in the atrial cavity or appendage. There is spontaneous echo contrast ("smoke") in the cavity and the appendage. - Atrial septum: A PFO is not demonstrated by color Doppler or agitated saline contrast. - Mitral valve: There is mild to moderate regurgitation. - Aortic valve: The annulus is mildly calcified. The valve is trileaflet. The leaflets are mildly thickened. The findings are consistent with moderate stenosis. There is trace regurgitation. - Tricuspid valve: There is mild regurgitation. - Pericardium, extracardiac: A small pericardial effusion is identified. - Pulmonary arteries: Systolic pressure can not be accurately estimated. - No vegetations noted Study data: Diagnostic Transesophageal Echocardiogram Consent: The risks and benefits of the procedure, including alternatives were discussed with the patient and/or their health care desk representative and written informed consent was obtained. Procedure: Initial setup: The patient was brought to the laboratory in the fasting state.Intravenous access was obtained. Surface ECG leads, heart rate, heart rhythm, blood pressure measurements, pulse oximetric signals, and mainstream end-tidal CO2 tracings were monitored throughout the procedure. Sedation. Moderate sedation was administered by nursing staff. History and physical as well as labs were reviewed. An oral bite block was inserted for protection of oral dentition. The patient was placed in the left lateral decubitus position. Topical anesthesia was obtained using viscous lidocaine. A transesophageal probe was inserted by the attending box builder. Transesophageal echocardiography was performed, image quality was good, and all standard views were attempted within the limitations of patient tolerance and safety. Multiple 2D, color flow Doppler and spectral Doppler images were obtained. The transesophageal probe was removed. A bubble study was performed. Location: Procedure room. Patient status: Inpatient. Patient room number: 431. Study completion: The patient tolerated the procedure well. There were no complications. Administered medications: Midazolam, 7mg. Fentanyl, 50mcg. Rhythm: Atrial fibrillation. Findings Left ventricle: The cavity size is mildly reduced. Systolic function is mildly reduced. The estimated ejection fraction is 50-55%. No focl wall motion abnormalities. Right ventricle: The cavity size is normal. Systolic function is normal. Left atrium: The atrium is dilated. There is no evidence of a thrombus in the atrial cavity or appendage. There is spontaneous echo contrast ("smoke") in the cavity and the appendage. Right atrium: The atrium is dilated. Atrial septum: A PFO is not demonstrated by color Doppler or agitated saline contrast. Negative bubble study. Mitral valve: The Mitral valve annulus appears calcified. The leaflets are mildly thickened. There is no evidence of a vegetation. There is no evidence of stenosis. There is mild to moderate regurgitation. Aortic valve: The annulus is mildly calcified. The valve is trileaflet. The leaflets are mildly thickened. There is no evidence of a vegetation. The findings are consistent with moderate stenosis. There is trace regurgitation. Tricuspid valve: The leaflets are normal thickness. There is no evidence of a vegetation. There is no evidence of stenosis. There is mild regurgitation. Pulmonic valve: The leaflets are normal thickness. There is no evidence of a vegetation. There is no evidence of stenosis. There is trace regurgitation. Aorta: Aortic root: The aortic root is appears normal and calcified. Aortic arch: The aortic arch is calcified. Pericardium: A small pericardial effusion is identified. Pulmonary arteries: The main pulmonary artery is normal-sized. Systolic pressure can not be accurately estimated. Systemic veins: Inferior vena cava: The vessel is normal in size. Superior vena cava: The vessel is appears normal. Measurements Aortic valve Value Ref Aortic root Value Ref Shannan diam, ED 2.0 cm ---- Root diam 3.2 cm <4.1 Mitral valve Value Ref Ascending aorta Value Ref Peak E 1.13 m/sec ---- AAo AP diam, S 3.4 cm ---- Decel time 42 ms ---- Peak grad, D 5.1 mm Hg ---- Legend: (L) and (H) ventura values outside specified reference range. Prepared and electronically signed by Jerson Dolan MD 06/20/2019 10:53
--- NOTE | 2019-06-20 10:58 | PN ---
Progress Note - Progress Note Date of Service: 06/20/19 SOAP: Subjective: []Sleepy following procedure, but wakes to voice. No pain. Understands plan. Hungry. Feels chilled this AM. Medications: Acetaminophen (Tylenol Tab*) 650 mg PO Q4H PRN PRN Reason: PAIN OR ELEVATED TEMP Last Admin: 06/16/19 20:54 Dose: 650 mg Docusate Sodium (Colace Cap*) 200 mg PO BID PRN PRN Reason: CONSTIPATION Sodium Chloride (Ns 0.9% 1000 Ml) 1,000 mls @ 100 mls/hr IV PER RATE [facility] Last Admin: 06/20/19 04:10 Dose: 100 mls/hr Levothyroxine Sodium (Synthroid Tab*) 50 mcg PO DAILY [facility] Last Admin: 06/19/19 08:34 Dose: 50 mcg Metoprolol Tartrate (Lopressor Tab*) 12.5 mg PO BID [facility] Last Admin: 06/19/19 20:15 Dose: 12.5 mg Morphine Sulfate (Morphine Oral.Soln 10 Mg*) 15 mg PO BID PRN PRN Reason: PAIN - MODERATE Nystatin (Nystatin Top Powder*) 1 applic TOPICAL BID [facility] Last Admin: 06/19/19 20:19 Dose: 1 applic Nystatin (Nystatin Suspension*) 500,000 units PO QID [facility] Stop: 06/24/19 08:14 Last Admin: 06/19/19 20:15 Dose: 500,000 units Ondansetron HCl (Zofran Tab*) 4 mg PO Q4HR PRN PRN Reason: NAUSEA Pantoprazole Sodium (Protonix Tab*) 40 mg PO DAILY [facility] Last Admin: 06/19/19 08:34 Dose: 40 mg Pharmacy Consult (Vancomycin Per Pharmacy*) 1 note FOLLOW UP . PRN PRN Reason: PER PROTOCOL Pharmacy Consult (Vancomycin Random Level*) 1 note FOLLOW UP 0600 ONE Stop: 06/21/19 06:01 Polyethylene Glycol/Electrolytes (Miralax*) 17 gm PO DAILY [facility] Last Admin: 06/19/19 08:42 Dose: Not Given Prednisone (Deltasone Tab*) 40 mg PO DAILY [facility] Last Admin: 06/19/19 08:34 Dose: 40 mg Tamsulosin HCl (Flomax Cap*) 0.4 mg PO DAILY [facility] Tramadol HCl (Ultram*) 50 mg PO Q6HR PRN PRN Reason: PAIN - MODERATE Last Admin: 06/18/19 04:55 Dose: 50 mg Objective: [] Vital Signs Temp Pulse Resp BP Pulse Ox 97.6 F 139 14 122/95 98 06/20/19 10:40 06/20/19 10:40 06/20/19 10:40 06/20/19 10:40 06/20/19 10:40 Alert and oriented, sleepy following RHIANNON HRI, A.Fib rate 130s LS clear +BS Right LE +3 edema, firm, non-tender, light pink without weeping Laboratory Results - last 24 hr 06/20/19 06/20/19 04:18 04:18 WBC 19.6 H RBC 3.70 L Hgb 11.2 L Hct 33 L MCV 89 MCH 30 MCHC 34 RDW 19 H Plt Count 137 L MPV 8.8 Neut % (Auto) 92.7 Lymph % (Auto) 1.9 [place] % (Auto) 5.2 Eos % (Auto) 0.0 Baso % (Auto) 0.2 Absolute Neuts (auto) 18.2 H Absolute Lymphs (auto) 0.4 L Absolute Monos (auto) 1.0 H Absolute Eos (auto) 0.0 Absolute Basos (auto) 0.0 Absolute Nucleated RBC 0.0 Nucleated RBC % 0.0 Sodium 142 Potassium 3.8 Chloride 113 H Carbon Dioxide 18 L Anion Gap 11 BUN 73 H Creatinine 3.28 H Est GFR ( Amer) 22.1 Est GFR (Non-Af Amer) 18.3 BUN/Creatinine Ratio 22.3 H Glucose 94 Calcium 7.9 L Total Bilirubin 0.60 AST 39 ALT 43 Alkaline Phosphatase 125 H Total Protein 5.5 L Albumin 2.4 L Globulin 3.1 Albumin/Globulin Ratio 0.8 L Random Vancomycin 17.8 Assessment: []78 yo M w metastatic urothelial CA (stable disease on recent imaging) a/w septic shock from MRSA bacteremia secondary to right lower extremity cellulitis with significant improvement however persistent bacteremia increasing suspicion for seeding of implanted port. Plan: []1. Sepsis/cellulitis/MRSA bacteremia: - Continue Vancomycin - port out: discussed with Dr. Nunes who hopes to remove this afternoon - RHIANNON: completed this AM, final read pending - ID unavailable until 06/26 - repeat cultures daily 2. Afib w rvr: - discussed with Dr. Dolan, recommendation to stop metoprolol and restart Amiodarone 200 mg PO BID x10 days followed by 200 mg daily, as well as initiating anticoagulation (which has been d/c'd d/t CHARLEEN) - hep gtt. to start this afternoon pending port removal 3. CHARLEEN: - question 2/2 obstruction however no improvement following avina placement - US kidneys now 4. Urinary obstruction. - keep avina in - cont. afluzosin 10 mg po dialy. - urology consult dependent on US 5. thrush: - improved, cont nystatin full code
--- NOTE | 2019-06-20 12:20 | CONS ---
CC: Dr. Moran; Dr. Walton * CARDIOLOGY CONSULTATION: DATE OF CONSULT: 06/20/19 INDICATION FOR CONSULTATION: Atrial fibrillation. HISTORY OF PRESENT ILLNESS: The patient is an 78-year-old gentleman with a history of metastatic urethral carcinoma, aortic stenosis, DVTs in the past, renal insufficiency, adrenal insufficiency, who was admitted to the hospital after a fall and change in mental status at home. The patient was found on the floor at home when his health aide came to see him. The patient had been on tapering doses of steroids. It is unclear what caused him to fall out of bed. He was transferred to the emergency room. In the emergency room, he was somewhat hypotensive and tachycardic in atrial fibrillation. He was admitted to the hospital. Since being in the hospital, the patient has had a few episodes of tachycardia, also a few episodes of fever. He also had positive blood cultures for MRSA. This morning, I did a transesophageal echocardiogram on the patient demonstrating low normal LV systolic function, ejection fraction of 45% to 50%, global hypokinesis, moderate aortic stenosis, [id number] mitral regurgitation, mild tricuspid regurgitation, no masses suggestive of vegetation. He did have a small pericardial effusion. He had no obvious thrombus in the left atrial appendage, but did have "smoke" in the left atrium. The patient was found to be in atrial fibrillation this morning. Again, the patient has been going in and out of atrial fibrillation during this hospitalizations. PAST SURGICAL HISTORY: Hernia repair in the past, multiple cystoscopies. OUTPATIENT MEDICATIONS: 1. Eliquis 5 mg twice a day for his DVTs. 2. Vitamin C 500 mg a day. 3. Levothyroxine 50 mcg a day. 4. Metoprolol tartrate 25 mg b.i.d. 5. Morphine 15 mg twice a day. 6. Zofran as needed. 7. Protonix 40 mg a day. 8. Prednisone 40 mg and tapering as directed. 9. Tramadol 50 mg q.6 hours p.r.n. ALLERGIES: CONTRAST DYE. FAMILY HISTORY: Mother of colon cancer at the age of 83. SOCIAL HISTORY: He lives independently. His daughters are involved in his care. Distant history of smoking, rare alcohol intake. He does not get any regular exercise. REVIEW OF SYSTEMS: Difficult to attain as the patient is sedated after his transesophageal echocardiogram. PHYSICAL EXAM: Height is 5 feet 10 inches, weight is 167 pounds. Temperature 97.6, heart rate is 115, blood pressure 122/95, respiratory rate is 19, oxygen saturation 98% on 2 L. Sclerae anicteric. Oropharynx is pink without erythema. He does have poor dentition. Carotids are 2+ with soft bilateral bruits. JVD is normal. Thyroid is normal. Cardiac Exam: Tachycardic, irregular. S1, S2 with a 2/6 systolic ejection murmur heard best at the right upper sternal border. PMI is normal. Lungs are clear anteriorly. He is unable to hear posteriorly because he is sedated and supine. Abdomen is soft, nontender, nondistended with normoactive bowel sounds. Extremities show minimal edema. He has 2+ pulses throughout. The patient is sedated after his transesophageal echocardiogram. DIAGNOSTIC STUDIES/LAB DATA: Laboratory Studies: White count 19.6, hemoglobin 11, hematocrit 33, platelet count 137. Chemistries: Potassium 3.8, BUN 73, creatinine 3.2. His baseline creatinine is about 1.4. EKG on admission was atrial fibrillation. He did convert to normal sinus rhythm. During his hospitalization this morning, he went back into atrial fibrillation with rapid ventricular response. IMPRESSION: This is an 78-year-old gentleman admitted to the hospital because of change in mental status and was found to have MRSA bacteremia. A transesophageal echocardiogram today demonstrated low normal LV systolic function. No evidence of thrombus in the left atrial appendage, but he does have "smoke" to the left atrium. The patient has been going in and out of atrial fibrillation. During his hospitalization here, his Eliquis was decreased from 5 mg twice a day to 2.5 mg a day because of his renal insufficiency. He was also started on amiodarone in the intensive care unit. When he is in the normal sinus rhythm, he is somewhat bradycardic. RECOMMENDATIONS: For now my recommendation is the patient to restart his anticoagulation, it was stopped today in preparation for a possible port removal , but I think given his atrial fibrillation and the smoke in the left atrium, the patient should be on IV heparin until his surgery. After surgery, the patient could go back on his Eliquis depending on his renal clearance. The patient may need to be on Coumadin. It is my recommendation to start oral amiodarone. The patient will be on 200 mg twice a day. My recommendation is to stop his metoprolol as he is somewhat bradycardic when he is in sinus rhythm. Further recommendations pending his hospital course. [id number]/[facility] #: [id number] MTDKeny
[2019-06-20] MEDS: Tamsulosin CAP* 0.4 MG PO SCH (13:07)
[2019-06-20] MEDS: Nystatin SUSPENSION* 100000 UNITS/ML 5 ML UDC PO SCH ×4 (13:07→21:33)
[2019-06-20] MEDS: Amiodarone TAB* 200 MG PO SCH ×2 (13:07→21:32)
[2019-06-20] MEDS: Levothyroxine TAB* 50 MCG TAB PO SCH (13:08)
[2019-06-20] MEDS: Pantoprazole TAB * 40 MG TAB PO SCH (13:08)
[2019-06-20] MEDS: Polyethylene Glycol 3350* 17 GM PACKET PO SCH (13:09)
[2019-06-20] MEDS: Nystatin TOP POWDER* 15 GM BTL TOPICAL SCH ×2 (13:09→21:33)
[2019-06-20] MEDS: Metoprolol Tartrate TAB* 25 MG PO SCH (13:21)
[2019-06-20] MEDS ORDERED: Bupivacaine 0.25% EPI 200,000* 30 ML SDV ONE (16:36)
[2019-06-20] MEDS ORDERED: Silver Nitrate/Potassium Nitr* 1 EA STICK TOPICAL ONE ×2 (17:50→18:00)
[2019-06-20] MEDS ORDERED: Heparin VIAL(*) 5000 UNITS/ML VIAL (FIVE THOUSAND) IV SCH (18:00)
[2019-06-20 18:06] LABS: ABS Lymphocytes 0.2 10^3/ul (1.0-4.8); ABS Monocytes 0.6 10^3/ul (0-0.8); ABS Neutrophils 13.9 10^3/ul (1.5-7.7); Eosinophil % 0.1 %; Hematocrit 35 % (42-52); Hemoglobin 11.2 g/dL (14.0-18.0); Lymphocyte % 1.7 %; Mean Corpuscular HGB Conc 32 g/dL (31-36); Mean Corpuscular Hemoglobin 29 pg (27-31); Mean Corpuscular Volume 90 fL (80-94); Mean Platelet Volume 8.5 fL (7.4-10.4); Platelet Count 158 10^3/uL (150-450); Red Blood Count 3.88 10^6 /uL (4.18-5.48); Red Cell Distribution Width 20 % (10-15); White Blood Count 14.7 10^3/uL (3.5-10.8)
[2019-06-20] MEDS: Heparin DRIP 25,000 UNITS(*) 25,000 UNITS/500 ML BAG IV SCH (21:58)
--- NOTE | 2019-06-20 22:54 | CONS ---
CONSULTATION REPORT: DATE OF CONSULT: 06/20/19 REASON FOR CONSULTATION: Port removal. HISTORY OF PRESENT ILLNESS: Mr. Santoyo is an 78-year-old gentleman with a history of metastatic urothelial carcinoma, status post 2 years of immunotherapy. He had a right-sided port placed 2 years ago for his treatment. The patient presented to the emergency department on 06/16/19 with confusion. He was admitted to the oncology service with MRSA bacteremia. He initially was admitted to the ICU but is now on the floor. Although he is clinically improving, there is suspicion that his port is seeded. Surgery was consulted for removal. The patient reports that overall he has been feeling well today. He did have a RHIANNON earlier in the day and has been drowsy since the procedure. He has been afebrile. The patient has been in atrial fibrillation, which is new. He took Eliquis at home for a history of DVT, which has been held for the past 2 days. Due to renal insufficiency, he will be started on heparin infusion for atrial fibrillation. PAST MEDICAL HISTORY: 1. Metastatic urothelial carcinoma. 2. Adrenal insufficiency. 3. History of DVT. 4. Hyperlipidemia. 5. Hypothyroidism. PAST SURGICAL HISTORY: The patient reports a bladder procedure for the urothelial carcinoma. HOME MEDICATIONS: 1. Eliquis. 2. Levothyroxine. 3. Metoprolol tartrate. 4. Morphine sulfate. 5. Protonix. 6. MiraLAX. 7. Prednisone. 8. Tramadol. ALLERGIES: IODINATED CONTRAST oral and IV. FAMILY HISTORY: Mother who from colon cancer at age 83. SOCIAL HISTORY: He does not currently smoke tobacco. He occasionally drinks alcohol. PHYSICAL EXAM: Temperature 98 Fahrenheit, pulse 63, respirations 18, oxygen 97 % on room air, and blood pressure 124/74. General: No acute distress. HEENT: Head is normocephalic and atraumatic. Extraocular movements are intact. Mucous membranes are moist. CV: Regular rate and rhythm. Chest: Clear to auscultation bilaterally. Breathing comfortably on room air. Port is palpable on the right upper chest. No overlying erythema. Abdomen: Soft, nontender, nondistended. Extremities: Right leg significantly swollen compared to the left. No tenderness to palpation. Both legs are warm. Skin: No lesions, intact. Neuro: Alert and oriented x3. DIAGNOSTIC STUDIES/LAB DATA: Labs: White blood cell count 19.6, hemoglobin 11.2, hematocrit 33, platelets 137. Sodium 142, potassium 3.8, chloride 113, carbon dioxide 18, BUN 73, creatinine 3.28, glucose 94. ASSESSMENT AND PLAN: An 78-year-old man with methicillin-resistant Staphylococcus aureus bacteremia, who has a port that is suspected to be seeded. There is no sign of infection around the port. PLAN: Port removal at the bedside. Please see separate procedure note. [id number]/[facility] #: [id number] [facility]
--- NOTE | 2019-06-20 23:02 | OP ---
DATE OF OPERATION: 06/20/19 DATE OF : 36 SURGEON: Breanne Nunes MD. TRIBAL DELEGATE: MICHAEL Sanon. ANESTHESIA: Bupivacaine 0.25% with 1:200,000 epinephrine, a total of 3 mL. PRE-OPERATIVE DIAGNOSIS: MRSA bacteremia. POST-OPERATIVE DIAGNOSIS: MRSA bacteremia. OPERATIVE PROCEDURE: Port removal. INDICATION: Sean Santoyo is an 78-year-old man who was admitted with MRSA bacteremia. He has been improving; however, he has a port that is likely seeded with MRSA. He no longer needs the port. I discussed the procedure of removing the port including risk of bleeding. The patient agreed to proceed with removal. DESCRIPTION OF PROCEDURE: The patient was placed in the supine position. The right upper chest overlying the port was prepped and draped in the usual sterile fashion. A time-out confirming patient's name, date of , and procedure was called. A transverse incision was made over the port after injecting 0.25% Marcaine with epinephrine. The incision was taken down to the subcutaneous tissue using blunt and sharp dissection. The capsule around the port was opened. The catheter was identified. The patient was placed in Trendelenburg. The catheter was removed and pressure held over the subclavian vein. The patient was returned to the supine position. The capsule was sharply dissected away from the port. Two sutures were cut to release the port. Port was removed and the remaining sutures in the soft tissue were also removed. This incision was closed with 4-0 Vicryl interrupted sutures to reapproximate the dermal layer. The skin was closed with a running 4-0 Vicryl suture. Steri-Strips were placed over the incision. Gauze and Tegaderm dressing was placed. The patient tolerated the procedure well. [id number]/[facility] #: [id number] MTDD
[2019-06-21] MEDS: NS 0.9% 1000 ML** 1,000 ML IV SCH ×2 (01:28→12:17)
[2019-06-21] MEDS ORDERED: Vancomycin Random Level* NOTE FOLLOW UP ONE (06:00)
[2019-06-21 06:49] LABS: Albumin 2.2 g/dL (3.2-5.2); Albumin/Globulin Ratio 0.7 (1-3); BUN/Creatinine Ratio 21.5 (8-20); EGFR African American 20.3 (>60); EGFR Non-African American 16.8 (>60); Globulin 3.3 g/dL (2-4); Potassium 3.6 mmol/L (3.5-5.0); Total Bilirubin 0.5 mg/dL (0.2-1.0); Total Protein 5.5 g/dL (6.4-8.9)
[2019-06-21 07:24] LABS: Vancomycin Random 19.8 mcg/mL
[2019-06-21] MEDS: Nystatin SUSPENSION* 100000 UNITS/ML 5 ML UDC PO SCH ×5 (08:19→21:54)
[2019-06-21] MEDS: Tamsulosin CAP* 0.4 MG PO SCH (08:19)
[2019-06-21] MEDS: Levothyroxine TAB* 50 MCG TAB PO SCH (08:19)
[2019-06-21] MEDS: Polyethylene Glycol 3350* 17 GM PACKET PO SCH (08:19)
[2019-06-21] MEDS: Pantoprazole TAB * 40 MG TAB PO SCH (08:19)
[2019-06-21] MEDS: Nystatin TOP POWDER* 15 GM BTL TOPICAL SCH ×2 (08:19→22:35)
[2019-06-21] MEDS: Amiodarone TAB* 200 MG PO SCH ×2 (08:19→21:54)
--- NOTE | 2019-06-21 09:06 | PN ---
Progress Note - Progress Note Date of Service: 06/21/19 Note: The patient is doing well and has no complaints this morning. He denies pain at the incision site. Heparin drip is therapeutic. Temp Pulse Resp BP Pulse Ox 97.1 F 62 20 155/82 99 06/21/19 07:15 06/21/19 07:15 06/21/19 08:00 06/21/19 07:15 06/21/19 07:15 General: No acute distress Chest: Incision is clean, dry, intact with Steri-Strips. Breathing comfortably Laboratory Tests 06/21/19 04:41 APTT 53.0 H Laboratory Tests 06/20/19 17:40 WBC 14.7 H RBC 3.88 L Hgb 11.2 L Plt Count 158 Assessment and plan: 78-year-old male with MRSA bacteremia status post port removal. Doing well after procedure. Steri-Strips will peel off on their own. The patient may shower but should avoid baths. No activity restrictions. Outpatient follow-up as needed.
[2019-06-21] MEDS ORDERED: Potassium Chlor TAB* 20 MEQ TAB.ER PO ONE (09:24)
[2019-06-21] MEDS ORDERED: Metoprolol Tartrate IV* 1 MG/ML 5 ML VIAL IV ONE ×2 (09:36→20:30)
--- NOTE | 2019-06-21 12:06 | PN ---
<Kimi Ng - Last Filed: 06/21/19 12:01> Subjective Date of Service: 06/21/19 - PAF, CHARLEEN, infected mediport. Interval History: No events last night. Patient was in Afib with RVR this morning. He was given 5mg IV Lopressor. Currently in NSR rate 60's. He is asymptomatic. Medications Active Medications: Acetaminophen (Tylenol Tab*) 650 mg PO Q4H PRN PRN Reason: PAIN OR ELEVATED TEMP Last Admin: 06/16/19 20:54 Dose: 650 mg Amiodarone HCl (Cordarone Tab*) 200 mg PO BID [facility] Stop: 06/30/19 11:59 Last Admin: 06/21/19 08:19 Dose: 200 mg Amiodarone HCl (Cordarone Tab*) 200 mg PO DAILY [facility] Docusate Sodium (Colace Cap*) 200 mg PO BID PRN PRN Reason: CONSTIPATION Heparin Sodium (Porcine) (Heparin Vial(*)) 0 units IV .PER PROTOCOL [facility] Last Admin: 06/21/19 06:27 Dose: 2,650 units Sodium Chloride (Ns 0.9% 1000 Ml) 1,000 mls @ 100 mls/hr IV PER RATE [facility] Last Admin: 06/21/19 01:28 Dose: 100 mls/hr Heparin Sodium/Dextrose (Heparin Drip 25,000 Units(*)) 25,000 units in 500 mls @ 0 mls/hr IV PER RATE [facility]; Protocol Last Admin: 06/20/19 21:58 Dose: 23 mls/hr Levothyroxine Sodium (Synthroid Tab*) 50 mcg PO DAILY [facility] Last Admin: 06/21/19 08:19 Dose: 50 mcg Metoprolol Tartrate (Lopressor Tab*) 12.5 mg PO Q12HR [facility] Morphine Sulfate (Morphine Oral.Soln 10 Mg*) 15 mg PO BID PRN PRN Reason: PAIN - MODERATE Nystatin (Nystatin Top Powder*) 1 applic TOPICAL BID [facility] Last Admin: 06/21/19 08:19 Dose: 1 applic Nystatin (Nystatin Suspension*) 500,000 units PO QID [facility] Stop: 06/24/19 08:14 Last Admin: 06/21/19 08:19 Dose: 500,000 units Ondansetron HCl (Zofran Tab*) 4 mg PO Q4HR PRN PRN Reason: NAUSEA Pantoprazole Sodium (Protonix Tab*) 40 mg PO DAILY [facility] Last Admin: 06/21/19 08:19 Dose: 40 mg Pharmacy Consult (Vancomycin Per Pharmacy*) 1 note FOLLOW UP . PRN PRN Reason: PER PROTOCOL Pharmacy Consult (Vancomycin Random Level*) 1 note FOLLOW UP 0600 ONE Stop: 06/22/19 06:01 Polyethylene Glycol/Electrolytes (Miralax*) 17 gm PO DAILY [facility] Last Admin: 06/21/19 08:19 Dose: Not Given Prednisone (Deltasone Tab*) 40 mg PO DAILY [facility] Last Admin: 06/21/19 08:19 Dose: 40 mg Tamsulosin HCl (Flomax Cap*) 0.4 mg PO DAILY [facility] Last Admin: 06/21/19 08:19 Dose: 0.4 mg Tramadol HCl (Ultram*) 50 mg PO Q6HR PRN PRN Reason: PAIN - MODERATE Last Admin: 06/18/19 04:55 Dose: 50 mg Objective Vital Signs: Temp Pulse Resp BP Pulse Ox 97.1 F 62 20 155/82 99 06/21/19 07:15 06/21/19 07:15 06/21/19 08:00 06/21/19 07:15 06/21/19 07:15 Oxygen Devices in Use Now: None Appearance: Sitting in chair, offers no complaints. Pleasant in NAD Ears/Nose/Mouth/Throat: NL Teeth, Lips, Gums, Mucous Membranes Moist Neck: NL Appearance and Movements; NL JVP, Trachea Midline Respiratory: Symmetrical Chest Expansion and Respiratory Effort, Clear to Auscultation Cardiovascular: - - + systolic murmur, no gallop or rub. Normal S1, S2 Extremities: No Edema Neurological: Alert and Oriented x 3 Lines/Tubes/Other Access: Clean, Dry and Intact Peripheral IV Laboratory Results: 06/20/19 17:40 06/21/19 06:13 APTT 53.0 seconds (26.0-38.0) H 06/21/19 04:41 Total Bilirubin 0.50 mg/dL (0.2-1.0) 06/21/19 06:13 AST 23 U/L (13-39) 06/21/19 06:13 ALT 35 U/L (7-52) 06/21/19 06:13 Alkaline Phosphatase 107 U/L (34-104) H 06/21/19 06:13 Total Protein 5.5 g/dL (6.4-8.9) L 06/21/19 06:13 Albumin 2.2 g/dL (3.2-5.2) L 06/21/19 06:13 Globulin 3.3 g/dL (2-4) 06/21/19 06:13 Albumin/Globulin Ratio 0.7 (1-3) L 06/21/19 06:13 06/16/19 06/16/19 06/16/19 10:13 17:36 23:45 Troponin I 0.94 H* 0.82 H* 0.72 H* Laboratory Results - last 24 hr 06/20/19 06/20/19 06/21/19 17:40 17:40 04:41 WBC 14.7 H RBC 3.88 L Hgb 11.2 L Hct 35 L MCV 90 MCH 29 MCHC 32 RDW 20 H Plt Count 158 MPV 8.5 Neut % (Auto) 94.3 Lymph % (Auto) 1.7 [place] % (Auto) 3.9 Eos % (Auto) 0.1 Baso % (Auto) 0.0 Absolute Neuts (auto) 13.9 H Absolute Lymphs (auto) 0.2 L Absolute Monos (auto) 0.6 Absolute Eos (auto) 0.0 Absolute Basos (auto) 0.0 Absolute Nucleated RBC 0.0 Nucleated RBC % 0.0 APTT 33.1 53.0 H Sodium Potassium Chloride Carbon Dioxide Anion Gap BUN Creatinine Est GFR ( Amer) Est GFR (Non-Af Amer) BUN/Creatinine Ratio Glucose Calcium Total Bilirubin AST ALT Alkaline Phosphatase Total Protein Albumin Globulin Albumin/Globulin Ratio Random Vancomycin 06/21/19 06:13 WBC RBC Hgb Hct MCV MCH MCHC RDW Plt Count MPV Neut % (Auto) Lymph % (Auto) [place] % (Auto) Eos % (Auto) Baso % (Auto) Absolute Neuts (auto) Absolute Lymphs (auto) Absolute Monos (auto) Absolute Eos (auto) Absolute Basos (auto) Absolute Nucleated RBC Nucleated RBC % APTT Sodium 141 Potassium 3.6 Chloride 113 H Carbon Dioxide 17 L Anion Gap 11 BUN 76 H Creatinine 3.53 H Est GFR ( Amer) 20.3 Est GFR (Non-Af Amer) 16.8 BUN/Creatinine Ratio 21.5 H Glucose 119 H Calcium 8.0 L Total Bilirubin 0.50 AST 23 ALT 35 Alkaline Phosphatase 107 H Total Protein 5.5 L Albumin 2.2 L Globulin 3.3 Albumin/Globulin Ratio 0.7 L Random Vancomycin 19.8 Diagnostic Imaging: *[facility]* [place] [address] Fax #: [phone] Transesophageal Echocardiogram Patient: Sean Santoyo : 1940 Study Date: 06/20/2019 Age: 78 Gender: M HR: 94 bpm Height: 70 in /177.8 cm BSA: 1.95 m^2 Weight: 170.6 lb /77.6 kg BMI: 24.5 kg/m^2 *Engineer Intern: Noni Lu [facility] *Referring Physician: * Alec Walton *Reading Physician: * Jerson Dolan MD Indications: Bacteremia. History: Metastatic bladder cancer. Syncope. Aortic stenosis. Risk factors: Dyslipidemia. Conclusions Summary: - Left ventricle: Systolic function is mildly reduced. The estimated ejection fraction is 50-55%. No focl wall motion abnormalities. - Left atrium: There is no evidence of a thrombus in the atrial cavity or appendage. There is spontaneous echo contrast ("smoke") in the cavity and the appendage. - Atrial septum: A PFO is not demonstrated by color Doppler or agitated saline contrast. - Mitral valve: There is mild to moderate regurgitation. - Aortic valve: The annulus is mildly calcified. The valve is trileaflet. The leaflets are mildly thickened. The findings are consistent with moderate stenosis. There is trace regurgitation. - Tricuspid valve: There is mild regurgitation. - Pericardium, extracardiac: A small pericardial effusion is This report is only to be considered final once signed by the Provider(s) as displayed in the "<Electronically Signed by >" field (s). Absence of a signature indicates the report is in a draft status and still needs to be finalized. In the event this document was created by someone other than the signing Provider, the individual initiating the document will be listed in the "Entered by:" or "Dictated by:" vernon. EKG Data: 06/21/2019; Afib rate 132. Telemetry; currently NSR rate 60's he had PAF this morning however prior to administration of Lopressor Assessment/Plan #1 PAF; Currently in NSR after 5mg IV Lopressor. Continue Amiodarone load. Will start Lopressor 12.5mg Po BID. Will follow closely. Keep K+>4, Mag >2. He is asymptomatic. He is going in and out of AF thus no role for CV as of now however, if AF re occurs and is persistent will re consider. On IV heparin. Will need OAC differ agent preference to primary team given acute on chronic renal disease. QTc is stable. Conversion strip placed in patient's chart. Will consider increasing Lopressor depending on clinical response. #2 Infected Mediport s/p extraction; blood cultures pending to r/o bacteremia. On Vanco managed by primary team #3 Hypokalemia; K+ 3.6, was replaced this morning. #4 Disposition pending course will follow Attending: Zhou Mejia <Mauser,Zhou F - Last Filed: 06/21/19 15:18> Medications Active Medications: Acetaminophen (Tylenol Tab*) 650 mg PO Q4H PRN PRN Reason: PAIN OR ELEVATED TEMP Last Admin: 06/16/19 20:54 Dose: 650 mg Amiodarone HCl (Cordarone Tab*) 200 mg PO BID [facility] Stop: 06/30/19 11:59 Last Admin: 06/21/19 08:19 Dose: 200 mg Amiodarone HCl (Cordarone Tab*) 200 mg PO DAILY [facility] Docusate Sodium (Colace Cap*) 200 mg PO BID PRN PRN Reason: CONSTIPATION Heparin Sodium (Porcine) (Heparin Vial(*)) 0 units IV .PER PROTOCOL [facility] Last Admin: 06/21/19 06:27 Dose: 2,650 units Heparin Sodium/Dextrose (Heparin Drip 25,000 Units(*)) 25,000 units in 500 mls @ 0 mls/hr IV PER RATE [facility]; Protocol Last Admin: 06/20/19 21:58 Dose: 23 mls/hr Sodium Chloride (Ns 0.9% 1000 Ml) 1,000 mls @ 50 mls/hr IV PER RATE [facility] Levothyroxine Sodium (Synthroid Tab*) 50 mcg PO DAILY [facility] Last Admin: 06/21/19 08:19 Dose: 50 mcg Metoprolol Tartrate (Lopressor Tab*) 12.5 mg PO Q12HR [facility] Morphine Sulfate (Morphine Oral.Soln 10 Mg*) 15 mg PO BID PRN PRN Reason: PAIN - MODERATE Nystatin (Nystatin Top Powder*) 1 applic TOPICAL BID [facility] Last Admin: 06/21/19 08:19 Dose: 1 applic Nystatin (Nystatin Suspension*) 500,000 units PO QID [facility] Stop: 06/24/19 08:14 Last Admin: 06/21/19 12:10 Dose: Not Given Ondansetron HCl (Zofran Tab*) 4 mg PO Q4HR PRN PRN Reason: NAUSEA Pantoprazole Sodium (Protonix Tab*) 40 mg PO DAILY [facility] Last Admin: 06/21/19 08:19 Dose: 40 mg Pharmacy Consult (Vancomycin Per Pharmacy*) 1 note FOLLOW UP . PRN PRN Reason: PER PROTOCOL Pharmacy Consult (Vancomycin Random Level*) 1 note FOLLOW UP 0600 ONE Stop: 06/22/19 06:01 Polyethylene Glycol/Electrolytes (Miralax*) 17 gm PO DAILY [facility] Last Admin: 06/21/19 08:19 Dose: Not Given Prednisone (Deltasone Tab*) 40 mg PO DAILY [facility] Last Admin: 06/21/19 08:19 Dose: 40 mg Tamsulosin HCl (Flomax Cap*) 0.4 mg PO DAILY [facility] Last Admin: 06/21/19 08:19 Dose: 0.4 mg Tramadol HCl (Ultram*) 50 mg PO Q6HR PRN PRN Reason: PAIN - MODERATE Last Admin: 06/18/19 04:55 Dose: 50 mg Objective Vital Signs: Temp Pulse Resp BP Pulse Ox 97.5 F 58 18 135/71 100 06/21/19 13:00 06/21/19 13:00 06/21/19 13:00 06/21/19 13:00 06/21/19 13:00 Laboratory Results: 06/21/19 15:00 06/21/19 06:13 APTT >240.0 seconds (26.0-38.0) H* 06/21/19 13:24 Total Bilirubin 0.50 mg/dL (0.2-1.0) 06/21/19 06:13 AST 23 U/L (13-39) 06/21/19 06:13 ALT 35 U/L (7-52) 06/21/19 06:13 Alkaline Phosphatase 107 U/L (34-104) H 06/21/19 06:13 Total Protein 5.5 g/dL (6.4-8.9) L 06/21/19 06:13 Albumin 2.2 g/dL (3.2-5.2) L 06/21/19 06:13 Globulin 3.3 g/dL (2-4) 06/21/19 06:13 Albumin/Globulin Ratio 0.7 (1-3) L 06/21/19 06:13 06/16/19 06/16/19 06/16/19 10:13 17:36 23:45 Troponin I 0.94 H* 0.82 H* 0.72 H* Assessment/Plan Chart reviewed, patient examined, discussed with Ms. Ng. Now in nsr. Will continue amiodarone. add low dose metoprolol and follow rates. recheck troponin. Jose Mejia MD 06.21.19 3;17 pm
[2019-06-21] MEDS ORDERED: NS 0.9% 1000 ML** 1,000 ML IV SCH (12:56)
--- NOTE | 2019-06-21 12:56 | PN ---
Progress Note - Progress Note Date of Service: 06/21/19 SOAP: Subjective: []Feeling well. Worried but can't find his dentures (partial upper). Aware that his HR went up but has remained asymptomatic with this. Appreciative of review of current status. RCW prior port site well approximated without edema, erythema, or tenderness Medications: Acetaminophen (Tylenol Tab*) 650 mg PO Q4H PRN PRN Reason: PAIN OR ELEVATED TEMP Last Admin: 06/16/19 20:54 Dose: 650 mg Amiodarone HCl (Cordarone Tab*) 200 mg PO BID [facility] Stop: 06/30/19 11:59 Last Admin: 06/21/19 08:19 Dose: 200 mg Amiodarone HCl (Cordarone Tab*) 200 mg PO DAILY [facility] Docusate Sodium (Colace Cap*) 200 mg PO BID PRN PRN Reason: CONSTIPATION Heparin Sodium (Porcine) (Heparin Vial(*)) 0 units IV .PER PROTOCOL [facility] Last Admin: 06/21/19 06:27 Dose: 2,650 units Sodium Chloride (Ns 0.9% 1000 Ml) 1,000 mls @ 100 mls/hr IV PER RATE [facility] Last Admin: 06/21/19 12:17 Dose: 100 mls/hr Heparin Sodium/Dextrose (Heparin Drip 25,000 Units(*)) 25,000 units in 500 mls @ 0 mls/hr IV PER RATE [facility]; Protocol Last Admin: 06/20/19 21:58 Dose: 23 mls/hr Levothyroxine Sodium (Synthroid Tab*) 50 mcg PO DAILY [facility] Last Admin: 06/21/19 08:19 Dose: 50 mcg Metoprolol Tartrate (Lopressor Tab*) 12.5 mg PO Q12HR [facility] Morphine Sulfate (Morphine Oral.Soln 10 Mg*) 15 mg PO BID PRN PRN Reason: PAIN - MODERATE Nystatin (Nystatin Top Powder*) 1 applic TOPICAL BID [facility] Last Admin: 06/21/19 08:19 Dose: 1 applic Nystatin (Nystatin Suspension*) 500,000 units PO QID [facility] Stop: 06/24/19 08:14 Last Admin: 06/21/19 12:10 Dose: Not Given Ondansetron HCl (Zofran Tab*) 4 mg PO Q4HR PRN PRN Reason: NAUSEA Pantoprazole Sodium (Protonix Tab*) 40 mg PO DAILY [facility] Last Admin: 06/21/19 08:19 Dose: 40 mg Pharmacy Consult (Vancomycin Per Pharmacy*) 1 note FOLLOW UP . PRN PRN Reason: PER PROTOCOL Pharmacy Consult (Vancomycin Random Level*) 1 note FOLLOW UP 0600 ONE Stop: 06/22/19 06:01 Polyethylene Glycol/Electrolytes (Miralax*) 17 gm PO DAILY [facility] Last Admin: 06/21/19 08:19 Dose: Not Given Prednisone (Deltasone Tab*) 40 mg PO DAILY [facility] Last Admin: 06/21/19 08:19 Dose: 40 mg Tamsulosin HCl (Flomax Cap*) 0.4 mg PO DAILY [facility] Last Admin: 06/21/19 08:19 Dose: 0.4 mg Tramadol HCl (Ultram*) 50 mg PO Q6HR PRN PRN Reason: PAIN - MODERATE Last Admin: 06/18/19 04:55 Dose: 50 mg Objective: [] Vital Signs Temp Pulse Resp BP Pulse Ox 97.1 F 62 20 155/82 99 06/21/19 07:15 06/21/19 07:15 06/21/19 08:00 06/21/19 07:15 06/21/19 07:15 Laboratory Results - last 24 hr 06/20/19 06/20/19 06/21/19 17:40 17:40 04:41 WBC 14.7 H RBC 3.88 L Hgb 11.2 L Hct 35 L MCV 90 MCH 29 MCHC 32 RDW 20 H Plt Count 158 MPV 8.5 Neut % (Auto) 94.3 Lymph % (Auto) 1.7 [place] % (Auto) 3.9 Eos % (Auto) 0.1 Baso % (Auto) 0.0 Absolute Neuts (auto) 13.9 H Absolute Lymphs (auto) 0.2 L Absolute Monos (auto) 0.6 Absolute Eos (auto) 0.0 Absolute Basos (auto) 0.0 Absolute Nucleated RBC 0.0 Nucleated RBC % 0.0 APTT 33.1 53.0 H Sodium Potassium Chloride Carbon Dioxide Anion Gap BUN Creatinine Est GFR ( Amer) Est GFR (Non-Af Amer) BUN/Creatinine Ratio Glucose Calcium Total Bilirubin AST ALT Alkaline Phosphatase Total Protein Albumin Globulin Albumin/Globulin Ratio Random Vancomycin 06/21/19 06:13 WBC RBC Hgb Hct MCV MCH MCHC RDW Plt Count MPV Neut % (Auto) Lymph % (Auto) [place] % (Auto) Eos % (Auto) Baso % (Auto) Absolute Neuts (auto) Absolute Lymphs (auto) Absolute Monos (auto) Absolute Eos (auto) Absolute Basos (auto) Absolute Nucleated RBC Nucleated RBC % APTT Sodium 141 Potassium 3.6 Chloride 113 H Carbon Dioxide 17 L Anion Gap 11 BUN 76 H Creatinine 3.53 H Est GFR ( Amer) 20.3 Est GFR (Non-Af Amer) 16.8 BUN/Creatinine Ratio 21.5 H Glucose 119 H Calcium 8.0 L Total Bilirubin 0.50 AST 23 ALT 35 Alkaline Phosphatase 107 H Total Protein 5.5 L Albumin 2.2 L Globulin 3.3 Albumin/Globulin Ratio 0.7 L Random Vancomycin 19.8 Intake and Output Last 24 Hours 06/19/19 06/20/19 06/21/19 06/22/19 06:59 06:59 06:59 06:59 Intake Total 2733 3736 2235.4 120 Output Total 600 1150 1700 Balance 2133 2586 535.4 120 Intake: IV Fluids 1032 1067 400 NS (0.9%) 1032 1067 IVPB 1221 1144 500 NS (0.9%) 759 1144 500 Vancomycin 250 Zosyn 212 Heparin 195.4 Oral 480 1525 1140 120 Output: Urine 600 Avina 1150 1700 Other: Estimated Void Small # Bowel Movements 1 Estimated Stool Amount Large Medium Medium # Voids 1 Assessment: []78 yo M w metastatic urothelial CA (stable disease on recent imaging) a/w septic shock from MRSA bacteremia secondary to right lower extremity cellulitis with significant improvement, pending cleared cultures. Plan: []1. Sepsis/cellulitis/MRSA bacteremia: - Continue Vancomycin - port out 06/20 - RHIANNON: completed this AM, final read pending - repeat cultures today pending 2. Afib w rvr: - started Amiodarone 200 mg PO BID 06/20 x10 days (plan to follow with 200 mg daily), however, recurrent RVR this AM that resolved with IV beta anuj and per cardiology will resume PO metoprolol - hep gtt. initiated yesterday - consideration of cardioversion dependent on response to medical management 3. CHARLEEN 2/2 ATN r/t sepsis - neg. US, good UO with avina - follow daily and cont. IV fluids but decrease rate 4. Urinary obstruction. - keep avina in - cont. afluzosin 10 mg po dialy. - urology consult likely as an outpatient Full code
[2019-06-21 15:14] LABS: Hematocrit 35 % (42-52); Hemoglobin 11.9 g/dL (14.0-18.0); Mean Corpuscular HGB Conc 34 g/dL (31-36); Mean Corpuscular Hemoglobin 31 pg (27-31); Mean Corpuscular Volume 90 fL (80-94); Mean Platelet Volume 8.4 fL (7.4-10.4); Platelet Count 169 10^3/uL (150-450); Red Blood Count 3.89 10^6 /uL (4.18-5.48); Red Cell Distribution Width 19 % (10-15); White Blood Count 13.5 10^3/uL (3.5-10.8)
[2019-06-21 15:38] LABS: ABS Lymphocytes 0.3 10^3/ul (1.0-4.8); ABS Monocytes 0.5 10^3/ul (0-0.8); ABS Neutrophils 12.7 10^3/ul (1.5-7.7); Eosinophil % 0.1 %; Nucleated Red Blood Cells % 0.1
[2019-06-21] MEDS: Metoprolol Tartrate TAB* 25 MG PO SCH (18:24)
[2019-06-21] MEDS: Heparin DRIP 25,000 UNITS(*) 25,000 UNITS/500 ML BAG IV SCH (20:16)
[2019-06-22] MEDS ORDERED: Metoprolol Tartrate IV* 1 MG/ML 5 ML VIAL IV ONE ×2 (00:30→01:30)
[2019-06-22] MEDS: traMADol TAB* 50 MG PO PRN ×2 (03:27→15:43)
[2019-06-22 05:27] LABS: Albumin 2.2 g/dL (3.2-5.2); Albumin/Globulin Ratio 0.7 (1-3); BUN/Creatinine Ratio 20.8 (8-20); Calcium 7.9 mg/dL (8.6-10.3); EGFR African American 19.5 (>60); EGFR Non-African American 16.1 (>60); Potassium 3.7 mmol/L (3.5-5.0); Total Bilirubin 0.4 mg/dL (0.2-1.0); Total Protein 5.2 g/dL (6.4-8.9)
[2019-06-22] MEDS ORDERED: Vancomycin Random Level* NOTE FOLLOW UP ONE (06:00)
[2019-06-22 06:05] LABS: Vancomycin Random 17.4 mcg/mL
[2019-06-22] MEDS: Metoprolol Tartrate TAB* 25 MG PO SCH ×2 (09:26→21:04)
[2019-06-22] MEDS: Amiodarone TAB* 200 MG PO SCH ×2 (09:28→21:09)
[2019-06-22] MEDS: Pantoprazole TAB * 40 MG TAB PO SCH (09:28)
[2019-06-22] MEDS: Tamsulosin CAP* 0.4 MG PO SCH (09:28)
[2019-06-22] MEDS: Nystatin TOP POWDER* 15 GM BTL TOPICAL SCH ×2 (09:29→21:10)
[2019-06-22] MEDS: Nystatin SUSPENSION* 100000 UNITS/ML 5 ML UDC PO SCH ×4 (09:29→21:09)
[2019-06-22] MEDS: Polyethylene Glycol 3350* 17 GM PACKET PO SCH ×2 (09:29→09:45)
[2019-06-22] MEDS: Levothyroxine TAB* 50 MCG TAB PO SCH (10:37)
--- NOTE | 2019-06-22 11:00 | PN ---
Progress Note - Progress Note Date of Service: 06/22/19 SOAP: Subjective: []Recurrent RVR overnight requiring 2 doses of IV beta anuj. Discussed with cardiology (Dr. Azul) who recommends NOT increased oral beta anuj at this time due to resting HR in the 50s and extended time for Amiodarone loading. Mr. Santoyo is feeling very well, though sad that his dentures seem to be missing (last seen Wednesday?). He has been essentially asymptomatic with RVR and overall feels better day by day. Medications: Acetaminophen (Tylenol Tab*) 650 mg PO Q4H PRN PRN Reason: PAIN OR ELEVATED TEMP Last Admin: 06/16/19 20:54 Dose: 650 mg Amiodarone HCl (Cordarone Tab*) 200 mg PO BID [facility] Stop: 06/30/19 11:59 Last Admin: 06/22/19 09:28 Dose: 200 mg Amiodarone HCl (Cordarone Tab*) 200 mg PO DAILY [facility] Docusate Sodium (Colace Cap*) 200 mg PO BID PRN PRN Reason: CONSTIPATION Heparin Sodium (Porcine) (Heparin Vial(*)) 0 units IV .PER PROTOCOL [facility] Last Admin: 06/21/19 06:27 Dose: 2,650 units Heparin Sodium/Dextrose (Heparin Drip 25,000 Units(*)) 25,000 units in 500 mls @ 0 mls/hr IV PER RATE [facility]; Protocol Last Admin: 06/21/19 20:16 Dose: 26 mls/hr Sodium Chloride (Ns 0.9% 1000 Ml) 1,000 mls @ 50 mls/hr IV PER RATE [facility] Levothyroxine Sodium (Synthroid Tab*) 50 mcg PO DAILY [facility] Last Admin: 06/22/19 10:37 Dose: 50 mcg Metoprolol Tartrate (Lopressor Tab*) 12.5 mg PO Q12HR [facility] Last Admin: 06/22/19 09:26 Dose: Not Given Morphine Sulfate (Morphine Oral.Soln 10 Mg*) 15 mg PO BID PRN PRN Reason: PAIN - MODERATE Nystatin (Nystatin Top Powder*) 1 applic TOPICAL BID [facility] Last Admin: 06/22/19 09:29 Dose: 1 applic Nystatin (Nystatin Suspension*) 500,000 units PO QID [facility] Stop: 06/24/19 08:14 Last Admin: 06/22/19 09:29 Dose: 500,000 units Ondansetron HCl (Zofran Tab*) 4 mg PO Q4HR PRN PRN Reason: NAUSEA Pantoprazole Sodium (Protonix Tab*) 40 mg PO DAILY [facility] Last Admin: 06/22/19 09:28 Dose: 40 mg Pharmacy Consult (Vancomycin Per Pharmacy*) 1 note FOLLOW UP . PRN PRN Reason: PER PROTOCOL Polyethylene Glycol/Electrolytes (Miralax*) 17 gm PO DAILY [facility] Last Admin: 06/22/19 09:45 Dose: Not Given Prednisone (Deltasone Tab*) 40 mg PO DAILY [facility] Last Admin: 06/22/19 09:28 Dose: 40 mg Tamsulosin HCl (Flomax Cap*) 0.4 mg PO DAILY [facility] Last Admin: 06/22/19 09:28 Dose: 0.4 mg Tramadol HCl (Ultram*) 50 mg PO Q6HR PRN PRN Reason: PAIN - MODERATE Last Admin: 06/22/19 03:27 Dose: 50 mg Objective: [] Vital Signs Temp Pulse Resp BP Pulse Ox 97.4 F 49 16 149/81 100 06/22/19 08:38 06/22/19 08:38 06/22/19 08:38 06/22/19 08:38 06/22/19 08:38 A&Ox3, EOMI, neuro grossly non-focal HRR, murmur noted, S1S2, tele SB today LS clear, resp. even and non-labored +BS Laboratory Results - last 24 hr 06/21/19 06/21/19 06/21/19 13:24 15:00 15:00 WBC 13.5 H RBC 3.89 L Hgb 11.9 L Hct 35 L MCV 90 MCH 31 MCHC 34 RDW 19 H Plt Count 169 MPV 8.4 Neut % (Auto) 94.4 Lymph % (Auto) 2.0 [place] % (Auto) 3.4 Eos % (Auto) 0.1 Baso % (Auto) 0.1 Absolute Neuts (auto) 12.7 H Absolute Lymphs (auto) 0.3 L Absolute Monos (auto) 0.5 Absolute Eos (auto) 0.0 Absolute Basos (auto) 0.0 Absolute Nucleated RBC 0.0 Nucleated RBC % 0.1 APTT >240.0 H* 62.9 H Sodium Potassium Chloride Carbon Dioxide Anion Gap BUN Creatinine Est GFR ( Amer) Est GFR (Non-Af Amer) BUN/Creatinine Ratio Glucose Calcium Total Bilirubin AST ALT Alkaline Phosphatase Total Protein Albumin Globulin Albumin/Globulin Ratio Random Vancomycin 06/22/19 06/22/19 04:39 04:39 WBC RBC Hgb Hct MCV MCH MCHC RDW Plt Count MPV Neut % (Auto) Lymph % (Auto) [place] % (Auto) Eos % (Auto) Baso % (Auto) Absolute Neuts (auto) Absolute Lymphs (auto) Absolute Monos (auto) Absolute Eos (auto) Absolute Basos (auto) Absolute Nucleated RBC Nucleated RBC % APTT 86.0 H Sodium 140 Potassium 3.7 Chloride 113 H Carbon Dioxide 17 L Anion Gap 10 BUN 76 H Creatinine 3.66 H Est GFR ( Amer) 19.5 Est GFR (Non-Af Amer) 16.1 BUN/Creatinine Ratio 20.8 H Glucose 114 H Calcium 7.9 L Total Bilirubin 0.40 AST 18 ALT 34 Alkaline Phosphatase 96 Total Protein 5.2 L Albumin 2.2 L Globulin 3.0 Albumin/Globulin Ratio 0.7 L Random Vancomycin 17.4 Assessment: []78 yo M w metastatic urothelial CA (stable disease on recent imaging, off therapy 2/2 systemic immune mediated response) admitted with septic shock due to MRSA bacteremia secondary to right lower extremity cellulitis with significant improvement. Cultures now cleared as off 06/21 following port out 06/20. His course has been complicated by A.Fib with RVR with Amiodarone now loading ( initiated on 06/19). Plan: []1. Sepsis/cellulitis/MRSA bacteremia: resolved/improving/resolved - Continue Vancomycin through 72 hours to confirm neg. cultures and will need PO - port out 06/20, RHIANNON negative for vegetation 2. Afib w rvr: - started Amiodarone 200 mg PO BID 06/20 x10 days (plan to follow with 200 mg daily) and PO metoprolol with IV rescue as needed - hep gtt. and will need to transition to PO at somepoint, likely warfarin as renal funciton improves 3. CHARLEEN suspect 2/2 ATN r/t sepsis c/b urinary obstruction - neg. US, good UO with avina - cont. afluzosin 10 mg po daily, needs avina d/t obstruction, consider urology consult as outpatient - consult nephrology to assist with management Full code
[2019-06-22] MEDS ORDERED: diPHENhydraMINE PO* 50 MG PO ONE ×2 (14:05→15:27)
--- NOTE | 2019-06-22 17:13 | PN ---
Cardiology Progress Note Date of Service: 06/22/19 Attention coders, please do not bill for this encounter Discussed with INGA Resendiz Patient had rapid afib overnight with IV lopressor given Sinus rhythm today Continue amiodarone load, no changes made in maintenance therapy today Add PRN IV lopressor 5 mg q1 hour (ordered)
[2019-06-22 17:54] LABS: Hematocrit 31 % (42-52); Hemoglobin 10.3 g/dL (14.0-18.0); Mean Corpuscular HGB Conc 33 g/dL (31-36); Mean Corpuscular Hemoglobin 30 pg (27-31); Mean Corpuscular Volume 91 fL (80-94); Mean Platelet Volume 8.5 fL (7.4-10.4); Platelet Count 166 10^3/uL (150-450); Red Blood Count 3.45 10^6 /uL (4.18-5.48); Red Cell Distribution Width 19 % (10-15); White Blood Count 11.2 10^3/uL (3.5-10.8)
[2019-06-22 17:57] LABS: ABS Eosinophils 0.1 10^3/ul (0-0.6); ABS Lymphocytes 0.4 10^3/ul (1.0-4.8); ABS Monocytes 0.5 10^3/ul (0-0.8); ABS Neutrophils 10.1 10^3/ul (1.5-7.7); Eosinophil % 0.8 %; Lymphocyte % 3.9 %
--- NOTE | 2019-06-22 18:34 | CONS ---
NEPHROLOGY CONSULT NOTE: DATE OF CONSULT: 06/22/19 CHIEF COMPLAINT: Acute kidney injury. HISTORY OF PRESENT ILLNESS: Mr. Santoyo is a very nice 78-year-old gentleman who has chronic kidney disease at baseline with a serum creatinine of 1.4 to 1.7 mg/dL. He was admitted on 06/16/19 with MRSA sepsis and his creatinine on admission was 2.62 mg/dL, higher than baseline. During his admission, creatinine frederic gradually and today is 3.66 mg/dL. The patient has a history of metastatic urothelial carcinoma. He was brought to the emergency room by ambulance after he was found on the floor next to his bed. He does not remember how he ended up on the floor. He does have a right hip tumor for metastatic bladder cancer. He had chemotherapy for that. He denied any fever, chest pain, or shortness of breath on admission. PAST MEDICAL HISTORY: Metastatic urothelial carcinoma, adrenal insufficiency, DVT, hyperlipidemia, and hypothyroidism. PAST SURGICAL HISTORY: Bladder surgery for urothelial carcinoma. CURRENT MEDICATIONS: 1. Tylenol as needed. 2. Amiodarone 200 mg p.o. b.i.d. 3. Benadryl as needed. 4. Docusate as needed for constipation. 5. Heparin subcu per protocol. 6. Levothyroxine 50 mcg daily. 7. Metoprolol tartrate 12.5 mg p.o. q.12 hours. 8. Morphine sulfate as needed. 9. Zofran as needed. 10. Vancomycin per pharmacy protocol. 11. Prednisone 40 mg daily. 12. Flomax 0.4 mg daily. 13. Tramadol as needed for pain. FAMILY HISTORY: Mother passed at 83 years old from colon cancer. SOCIAL HISTORY: He does not smoke, occasionally drinks alcohol. Lives with family. REVIEW OF SYSTEMS: Constitutional: He denies any fever, chills, night sweats. He feels weak. Respiratory: He denies cough, sputum production, or wheezing. Cardiovascular: He denies chest pain, shortness of breath, PND, or swelling. GI: He denies nausea, vomiting, diarrhea. Skin: He has diffuse ulcerations covered by crust, spread on both his legs. All systems were reviewed, and they were all negative unless otherwise specified. PHYSICAL EXAM: Blood pressure is 129/69. Of note, on the day of admission on 11/15/19, his blood pressure has been low throughout the day from 65/51 up to 93 /54. Going back to today, respiration rate is 14 per minute, heart rate is 84 beats per minute, temperature is 97.3. Constitutional: The patient looks chronically ill, but in no acute distress, pleasant and conversant. HEENT: Head is atraumatic and normocephalic. Ears and nose look normal. Eyes with pink conjunctivae, anicteric sclerae. Pupils are equal, symmetric, and reactive to light. Chest is clear to auscultation with good respiratory effort. Heart shows S1, S2. Regular rate and rhythm. No murmurs rubs, or gallops appreciated. +3 lower extremity edema. Abdomen is soft, nontender, nondistended. No hepatomegaly appreciated. No organomegaly. Bowel sounds are present.Neurologic: speech fluent , grossly nonfocal, no tremors. Psychiatric: AAOx3, normal mood , judgement and insight appropriate. DIAGNOSTIC STUDIES/LAB DATA: Labs from today show sodium of 140, potassium of 3.7, total CO2 of 17, BUN is 76, creatinine is 3.66. Hemoglobin A1c was 5.6% in May last month. Albumin is low at 2.2. Urinalysis was done earlier in this admission and is positive for protein and blood. Microscopic examination shows 3+ red blood cells, which is greater than 10 per high power field and significant. ASSESSMENT AND PLAN: 1. An 78-year-old male with methicillin-resistant Staphylococcus aureus bacteremia, admitted with acute on chronic kidney disease. Acute kidney injury on chronic kidney disease. Acute kidney injury is most probably secondary to acute tubular necrosis due to hypotension. Postinfectious glomerulonephropathy cannot be excluded as the UA that showed blood and protein. Please check a urine protein-creatinine ratio and another urinalysis. check complement levels C3 and C4 at this time and maybe SPEP and light chain ratio. check kidney ultrasound to rule out obstruction. 2. Metabolic acidosis due to CHARLEEN. 3. Volume overload. Start Lasix iv 60 mg once. stop bicarbonate drip and start po bicarbonate 1200 mg by mouth three times a day. [id number]/[facility] #: [id number] MTDD
[2019-06-22] MEDS: Heparin DRIP 25,000 UNITS(*) 25,000 UNITS/500 ML BAG IV SCH (18:52)
[2019-06-22] MEDS ORDERED: diPHENhydraMINE PO* 50 MG PO SCH (19:05)
[2019-06-23 07:15] LABS: Albumin 2.4 g/dL (3.2-5.2); Albumin/Globulin Ratio 0.8 (1-3); BUN/Creatinine Ratio 20.7 (8-20); Calcium 8.1 mg/dL (8.6-10.3); EGFR Non-African American 17.3 (>60); Globulin 3.1 g/dL (2-4); Potassium 3.8 mmol/L (3.5-5.0); Total Bilirubin 0.4 mg/dL (0.2-1.0); Total Protein 5.5 g/dL (6.4-8.9)
[2019-06-23 07:44] LABS: Vancomycin Random 14.4 mcg/mL
[2019-06-23] MEDS ORDERED: Vancomycin(*) 1,000 MG in NS 0.9% 250 ML* 250 ML IV ONE (09:00)
[2019-06-23] MEDS: Polyethylene Glycol 3350* 17 GM PACKET PO SCH (09:34)
[2019-06-23] MEDS: Pantoprazole TAB * 40 MG TAB PO SCH (09:34)
[2019-06-23] MEDS: Tamsulosin CAP* 0.4 MG PO SCH (09:34)
[2019-06-23] MEDS: Amiodarone TAB* 200 MG PO SCH ×2 (09:35→21:07)
[2019-06-23] MEDS: Nystatin SUSPENSION* 100000 UNITS/ML 5 ML UDC PO SCH ×4 (09:35→21:07)
[2019-06-23] MEDS: Levothyroxine TAB* 50 MCG TAB PO SCH (09:36)
[2019-06-23] MEDS: Metoprolol Tartrate TAB* 25 MG PO SCH ×2 (09:36→21:07)
[2019-06-23] MEDS: Acetaminophen TAB* 325 MG PO PRN (12:25)
[2019-06-23] MEDS: traMADol TAB* 50 MG PO PRN (12:25)
[2019-06-23] MEDS: Nystatin TOP POWDER* 15 GM BTL TOPICAL SCH ×2 (14:52→21:09)
--- NOTE | 2019-06-23 16:17 | PN ---
Progress Note - Progress Note Date of Service: 06/23/19 Note: cc: CHARLEEN History of present illness: Mr. Santoyo is sitting up in bed eating breakfast at the time of my visit. He is in good spirits. Has good amount of urine. Denies chest pain, abdominal pain, nausea, vomiting or diarrhea Kidney function is stable with a serum creatinine of 3.43 mg/dL from 3.66 mg/dL yesterday. Hemoglobin is 10.3, white blood cell count is trending down at 11.2 today. Total CO2 improved at 20. Potassium 3.8 sodium 142. He is in slightly negative volume balance with 1.2 L in and 1.5 L out today. Had a CT chest abdomen and pelvis today without contrast: Kidneys are normal in size without hydronephrosis or nephrolithiasis; small to moderate sized bilateral pleural effusions, small air-fluid collection in the pocket from the patients prior PowerPort catheter, new small pericardial effusion, no abdominal abscess, extensive lytic and sclerotic change in the right iliac bone and proximal right femur with pathologic fracture, diffuse thickening of the wall of the urinary bladder, increased density within the gallbladder consistent with sludge versus gallstones, anasarca Medications: Heparin drip Levothyroxine sodium 50 mcg daily Metoprolol 12.5 mg by mouth every 12 hours Protonix 40 mg daily Vancomycin per pharmacy Tamsulosin 0.4 mg daily prednisone 40 mg daily tramadol 50 mg as needed for pain. Vital signs: Blood pressure 149/79, respiration rate 18/min, oxygen saturation 100% on room air, temperature 97.3, heart rate 56 bpm Constitutional: No acute distress, pleasant and conversant. chest is clear to auscultation with good respiratory effort Heart shows S1-S2 regular rate and rhythm no murmurs rubs or gallops Abdomen is soft nontender nondistended Extremities with +3 lower extremities edema no clubbing or cyanosis Psychiatric: Alert and oriented 3, normal mood, judgment and insight appropriate. Assessment and plan: 1. CHARLEEN due to ATN 2. Volume overload/anasarca 3. Metabolic acidosis improved Plan: Conservative management of the acute kidney injury with maintenance of blood pressure, avoidance of NSAIDs and other nephrotoxins. I recommend Lasix 60 mg IV twice a day to achieve negative volume balance. Continue daily weights and strict Is and Os.
[2019-06-23 17:20] LABS: Hematocrit 34 % (42-52); Hemoglobin 11.1 g/dL (14.0-18.0); Mean Corpuscular HGB Conc 33 g/dL (31-36); Mean Corpuscular Hemoglobin 30 pg (27-31); Mean Corpuscular Volume 90 fL (80-94); Mean Platelet Volume 8.4 fL (7.4-10.4); Platelet Count 207 10^3/uL (150-450); Red Blood Count 3.74 10^6 /uL (4.18-5.48); Red Cell Distribution Width 20 % (10-15); White Blood Count 12.6 10^3/uL (3.5-10.8)
--- NOTE | 2019-06-23 17:45 | PN ---
Progress Note - Progress Note Date of Service: 06/23/19 SOAP: Subjective: [Not feeling well today. Reports generalized malaise and increased weakness. Notes some drainage from R leg wound. Remained in NSR overnight.] Objective: [ Vital Signs: Temp Pulse Resp BP Pulse Ox 97.3 F 56 17 149/79 100 06/23/19 08:15 06/23/19 08:15 06/23/19 15:30 06/23/19 08:15 06/23/19 08:15 Acetaminophen (Tylenol Tab*) 650 mg PO Q4H PRN PRN Reason: PAIN OR ELEVATED TEMP Last Admin: 06/23/19 12:25 Dose: 650 mg Amiodarone HCl (Cordarone Tab*) 200 mg PO BID [facility] Stop: 06/30/19 11:59 Last Admin: 06/23/19 09:35 Dose: 200 mg Amiodarone HCl (Cordarone Tab*) 200 mg PO DAILY [facility] Docusate Sodium (Colace Cap*) 200 mg PO BID PRN PRN Reason: CONSTIPATION Heparin Sodium (Porcine) (Heparin Vial(*)) 0 units IV .PER PROTOCOL [facility] Last Admin: 06/21/19 06:27 Dose: 2,650 units Heparin Sodium/Dextrose (Heparin Drip 25,000 Units(*)) 25,000 units in 500 mls @ 0 mls/hr IV PER RATE [facility]; Protocol Last Admin: 06/22/19 18:52 Dose: 20 mls/hr Levothyroxine Sodium (Synthroid Tab*) 50 mcg PO DAILY [facility] Last Admin: 06/23/19 09:36 Dose: 50 mcg Metoprolol Tartrate (Lopressor Tab*) 12.5 mg PO Q12HR [facility] Last Admin: 06/23/19 09:36 Dose: Not Given Metoprolol Tartrate (Lopressor Iv*) 5 mg IV Q1H PRN PRN Reason: HEART RATE/PULSE GREATER THAN: Morphine Sulfate (Morphine Oral.Soln 10 Mg*) 15 mg PO BID PRN PRN Reason: PAIN - MODERATE Nystatin (Nystatin Top Powder*) 1 applic TOPICAL BID [facility] Last Admin: 06/23/19 14:52 Dose: 1 applic Nystatin (Nystatin Suspension*) 500,000 units PO QID [facility] Stop: 06/24/19 08:14 Last Admin: 06/23/19 14:50 Dose: 500,000 units Ondansetron HCl (Zofran Tab*) 4 mg PO Q4HR PRN PRN Reason: NAUSEA Pantoprazole Sodium (Protonix Tab*) 40 mg PO DAILY [facility] Last Admin: 06/23/19 09:34 Dose: 40 mg Pharmacy Consult (Vancomycin Per Pharmacy*) 1 note FOLLOW UP . PRN PRN Reason: PER PROTOCOL Pharmacy Consult (Vancomycin Random Level*) 1 note FOLLOW UP 599 ONE Stop: 06/24/19 06:01 Pharmacy Consult (Vancomycin Random Level*) 1 note FOLLOW UP 599 ONE Stop: 06/25/19 06:01 Pharmacy Consult (Vancomycin Random Level*) 1 note FOLLOW UP 599 ONE Stop: 06/26/19 06:01 Polyethylene Glycol/Electrolytes (Miralax*) 17 gm PO DAILY [facility] Last Admin: 06/23/19 09:34 Dose: Not Given Prednisone (Deltasone Tab*) 40 mg PO DAILY [facility] Last Admin: 06/23/19 09:35 Dose: 40 mg Sodium Bicarbonate (Sodium Bicarbonate (Antacid)*) 650 mg PO BID [facility] Tamsulosin HCl (Flomax Cap*) 0.4 mg PO DAILY [facility] Last Admin: 06/23/19 09:34 Dose: 0.4 mg Tramadol HCl (Ultram*) 50 mg PO Q6HR PRN PRN Reason: PAIN - MODERATE Last Admin: 06/23/19 12:25 Dose: 50 mg Laboratory Results - last 24 hr 06/22/19 06/22/19 06/23/19 17:46 19:27 02:45 WBC 11.2 H RBC 3.45 L Hgb 10.3 L Hct 31 L MCV 91 MCH 30 MCHC 33 RDW 19 H Plt Count 166 MPV 8.5 Neut % (Auto) 90.4 Lymph % (Auto) 3.9 Amador % (Auto) 4.5 Eos % (Auto) 0.8 Baso % (Auto) 0.4 Absolute Neuts (auto) 10.1 H Absolute Lymphs (auto) 0.4 L Absolute Monos (auto) 0.5 Absolute Eos (auto) 0.1 Absolute Basos (auto) 0.0 Absolute Nucleated RBC 0.0 Nucleated RBC % 0.0 APTT 59.3 H 62.3 H Sodium Potassium Chloride Carbon Dioxide Anion Gap BUN Creatinine Est GFR ( Amer) Est GFR (Non-Af Amer) BUN/Creatinine Ratio Glucose Calcium Total Bilirubin AST ALT Alkaline Phosphatase Total Protein Albumin Globulin Albumin/Globulin Ratio Random Vancomycin 06/23/19 06/23/19 06/23/19 06:18 06:18 17:13 WBC 12.6 H RBC 3.74 L Hgb 11.1 L Hct 34 L MCV 90 MCH 30 MCHC 33 RDW 20 H Plt Count 207 MPV 8.4 Neut % (Auto) Lymph % (Auto) Amador % (Auto) Eos % (Auto) Baso % (Auto) Absolute Neuts (auto) Absolute Lymphs (auto) Absolute Monos (auto) Absolute Eos (auto) Absolute Basos (auto) Absolute Nucleated RBC Nucleated RBC % APTT 66.5 H Sodium 142 Potassium 3.8 Chloride 113 H Carbon Dioxide 20 L Anion Gap 9 BUN 71 H Creatinine 3.43 H Est GFR ( Amer) 21.0 Est GFR (Non-Af Amer) 17.3 BUN/Creatinine Ratio 20.7 H Glucose 98 Calcium 8.1 L Total Bilirubin 0.40 AST 15 ALT 31 Alkaline Phosphatase 94 Total Protein 5.5 L Albumin 2.4 L Globulin 3.1 Albumin/Globulin Ratio 0.8 L Random Vancomycin 14.4 Exam: Gen: chronically ill appearing 78 yo male in NAD HEENT: MMM CV: RRR, 3/6 murmur Resp: CTA, no w/c/r Abd: soft nonTTP : scrotal edema, avina in place Ext: diffuse edema, R>L] [Assessment: []78 yo M w metastatic urothelial CA (stable disease on recent imaging, off therapy 2/2 systemic immune mediated response) admitted with septic shock due to MRSA bacteremia secondary to right lower extremity cellulitis. His course has been complicated by A.Fib with RVR with Amiodarone now loading ( initiated on 06/19). Plan: []1. Sepsis/cellulitis/MRSA bacteremia: - cellulitis appears improved - blood cultures remain positive after port removal - RHIANNON negative for vegetation - cont Vanco - repeat blood cultures today - CT C/A/P to eval for occult abscess - requested ID consult 2. Afib w rvr: - started Amiodarone 200 mg PO BID 06/20 x10 days (plan to follow with 200 mg daily) and PO metoprolol with IV rescue as needed - hep gtt, start Coumadin - follow INR daily 3. CHARLEEN suspect 2/ ATN r/t sepsis c/b urinary obstruction - neg. renal US, good UO with avina - cont. afluzosin 10 mg po daily, needs avina d/t obstruction, consider urology consult as outpatient - nephrology consultation appreciated - complement 3/4, SPEP, light chains ordered - mildly acidotic - started oral HCO3- - appears anasarcic - stop IV fluids, diuress as tolerated with close attention to Cr trend Full code Dispo: continues to require inpatient level care
[2019-06-23 17:59] LABS: ABS Lymphocytes 0.3 10^3/ul (1.0-4.8); ABS Monocytes 0.3 10^3/ul (0-0.8); ABS Neutrophils 11.9 10^3/ul (1.5-7.7); Eosinophil % 0.2 %; Lymphocyte % 2.7 %
[2019-06-23] MEDS: Furosemide IV* 10 MG/ML 2 ML VIAL (20 MG) IV SCH (18:13)
[2019-06-23] MEDS: Heparin DRIP 25,000 UNITS(*) 25,000 UNITS/500 ML BAG IV SCH (21:03)
[2019-06-23] MEDS: Sodium Bicarbonate (ANTACID)* 650 MG TAB PO SCH (21:07)
[2019-06-24] MEDS ORDERED: Vancomycin Random Level* NOTE FOLLOW UP ONE (06:00)
[2019-06-24 06:08] LABS: Albumin 2.5 g/dL (3.2-5.2); Calcium 8.3 mg/dL (8.6-10.3); Potassium 3.5 mmol/L (3.5-5.0); Total Bilirubin 0.4 mg/dL (0.2-1.0)
[2019-06-24 06:14] LABS: Albumin/Globulin Ratio 0.8 (1-3); BUN/Creatinine Ratio 19.4 (8-20); EGFR African American 21.6 (>60); EGFR Non-African American 17.8 (>60); Globulin 3.3 g/dL (2-4); Total Protein 5.8 g/dL (6.4-8.9)
[2019-06-24 07:08] LABS: Vancomycin Random 17.1 mcg/mL
--- NOTE | 2019-06-24 10:03 | PN ---
Progress Note - Progress Note Date of Service: 06/24/19 SOAP: Subjective: []He feels like he is getting better. Eating well and pain is controlled. He has edema in legs and groin. Not out of bed. No additional fevers. Has some tenderness where port removed. No focal joint tenderness other then knee that always hurts. Acetaminophen (Tylenol Tab*) 650 mg PO Q4H PRN PRN Reason: PAIN OR ELEVATED TEMP Last Admin: 06/23/19 12:25 Dose: 650 mg Amiodarone HCl (Cordarone Tab*) 200 mg PO BID [facility] Stop: 06/30/19 11:59 Last Admin: 06/23/19 21:07 Dose: 200 mg Amiodarone HCl (Cordarone Tab*) 200 mg PO DAILY [facility] Docusate Sodium (Colace Cap*) 200 mg PO BID PRN PRN Reason: CONSTIPATION Furosemide (Lasix Iv*) 20 mg IV DAILY [facility] Last Admin: 06/23/19 18:13 Dose: 20 mg Heparin Sodium (Porcine) (Heparin Vial(*)) 0 units IV .PER PROTOCOL [facility] Last Admin: 06/21/19 06:27 Dose: 2,650 units Heparin Sodium/Dextrose (Heparin Drip 25,000 Units(*)) 25,000 units in 500 mls @ 0 mls/hr IV PER RATE [facility]; Protocol Last Admin: 06/23/19 21:03 Dose: 20 mls/hr Levothyroxine Sodium (Synthroid Tab*) 50 mcg PO DAILY [facility] Last Admin: 06/23/19 09:36 Dose: 50 mcg Metoprolol Tartrate (Lopressor Tab*) 12.5 mg PO Q12HR [facility] Last Admin: 06/23/19 21:07 Dose: 12.5 mg Metoprolol Tartrate (Lopressor Iv*) 5 mg IV Q1H PRN PRN Reason: HEART RATE/PULSE GREATER THAN: Morphine Sulfate (Morphine Oral.Soln 10 Mg*) 15 mg PO BID PRN PRN Reason: PAIN - MODERATE Nystatin (Nystatin Top Powder*) 1 applic TOPICAL BID [facility] Last Admin: 06/23/19 21:09 Dose: 1 applic Ondansetron HCl (Zofran Tab*) 4 mg PO Q4HR PRN PRN Reason: NAUSEA Pantoprazole Sodium (Protonix Tab*) 40 mg PO DAILY [facility] Last Admin: 06/23/19 09:34 Dose: 40 mg Pharmacy Consult (Vancomycin Per Pharmacy*) 1 note FOLLOW UP . PRN PRN Reason: PER PROTOCOL Pharmacy Consult (Vancomycin Random Level*) 1 note FOLLOW UP 0600 ONE Stop: 06/25/19 06:01 Pharmacy Consult (Vancomycin Random Level*) 1 note FOLLOW UP 0600 ONE Stop: 06/26/19 06:01 Polyethylene Glycol/Electrolytes (Miralax*) 17 gm PO DAILY [facility] Last Admin: 06/23/19 09:34 Dose: Not Given Prednisone (Deltasone Tab*) 40 mg PO DAILY [facility] Last Admin: 06/23/19 09:35 Dose: 40 mg Sodium Bicarbonate (Sodium Bicarbonate (Antacid)*) 650 mg PO BID [facility] Last Admin: 06/23/19 21:07 Dose: 650 mg Tamsulosin HCl (Flomax Cap*) 0.4 mg PO DAILY [facility] Last Admin: 06/23/19 09:34 Dose: 0.4 mg Tramadol HCl (Ultram*) 50 mg PO Q6HR PRN PRN Reason: PAIN - MODERATE Last Admin: 06/23/19 12:25 Dose: 50 mg Objective: [] Vital Signs Temp Pulse Resp BP Pulse Ox 97.7 F 57 20 143/80 99 06/24/19 07:15 06/24/19 07:15 06/24/19 07:15 06/24/19 07:15 06/24/19 07:15 Exam: Gen: thin but no distress HEENT: MMM CV: RRR, 3/6 murmur Resp: CTA, no w/c/r Abd: soft nonTTP, abd well edema : scrotal edema, avina in place Ext: diffuse edema, R>L, no clear skin breakdown, cellulitis is better. [Assessment: []78 yo M w metastatic urothelial CA (stable disease on recent imaging, off therapy 2/2 systemic immune mediated response) admitted with septic shock due to MRSA bacteremia secondary to right lower extremity cellulitis. His course has been complicated by A.Fib with RVR now on Amiodarone (initiated on 06/19), ARF thought second to ATN. He has persistent bacteremia. Infectious reservoir unclear. Small fluid pockets on CT at port site and hip. No urinary stents, artificial joints. Plan: []1. Sepsis/cellulitis/MRSA bacteremia: - cellulitis appears improved - blood cultures remain positive after port removal - RHIANNON negative for vegetation - cont Vanco - repeat blood cultures tomorrow - CT C/A/P to eval for occult abscess - requested ID consult. Case discussed. 2. Afib w rvr: - started Amiodarone 200 mg PO BID 06/20 x10 days (plan to follow with 200 mg daily) and PO metoprolol with IV rescue as needed - hep gtt - Hold Coumadin in case needs additional procedures, Bx 3. CHARLEEN suspect / ATN r/t sepsis c/b urinary obstruction. Cr stable but UO has been improving. - neg. renal US, good UO with avina - cont. afluzosin 10 mg po daily, needs avina d/t obstruction, consider urology consult as outpatient - nephrology consultation appreciated - complement 3/4, SPEP, light chains ordered - mildly acidotic improved oral HCO3- - if Cr remains elevated after infection improves, consider renal bx to r/o immune effects, 4. Immune mediated inflammation. - Decrease Prednisone to 30 mg po daily. 5. Anasarca. - Continue Lasix 20 IV daily. - Nutrition consult to help with high protein mechanical soft diet. 6. Full code
[2019-06-24] MEDS: Furosemide IV* 10 MG/ML 2 ML VIAL (20 MG) IV SCH (10:29)
[2019-06-24] MEDS: Pantoprazole TAB * 40 MG TAB PO SCH (10:30)
[2019-06-24] MEDS: Metoprolol Tartrate TAB* 25 MG PO SCH ×2 (10:30→20:18)
[2019-06-24] MEDS: Tamsulosin CAP* 0.4 MG PO SCH (10:31)
[2019-06-24] MEDS: Amiodarone TAB* 200 MG PO SCH ×2 (10:31→20:51)
[2019-06-24] MEDS: Levothyroxine TAB* 50 MCG TAB PO SCH (10:31)
[2019-06-24] MEDS: traMADol TAB* 50 MG PO PRN (10:31)
[2019-06-24] MEDS: Sodium Bicarbonate (ANTACID)* 650 MG TAB PO SCH ×2 (10:32→20:51)
[2019-06-24] MEDS: Acetaminophen TAB* 325 MG PO PRN (10:32)
[2019-06-24] MEDS: Polyethylene Glycol 3350* 17 GM PACKET PO SCH (10:47)
--- NOTE | 2019-06-24 10:53 | PN ---
Progress Note - Progress Note Date of Service: 06/24/19 Note: Chief complaint acute kidney injury on chronic kidney disease. HPI: Serum creatinine continues to very slowly come down. Today is 3.35 mg/dL from 3.43 yesterday and 3.66 the day before yesterday. Sodium 141, potassium 3.5, total CO2 is 24 improved, corrected calcium is 9.5 normal. Volume jenkins his negative fluid balance 2.7 L yesterday but remains positive during the hospitalization. yesterday he was started on Lasix 20 mg IV daily with excellent diuretic response and sodium bicarbonate 600 mg by mouth twice a day with improvement in metabolic acidosis. at the time of my visit he was sitting up in bed waiting for his pain medication to arrive. He said that the pain was mainly in the right knee but he felt uncomfortable all over. Other than that he denies chest pain, shortness of breath, stomach upset, nausea, vomiting and diarrhea. He was visiting with her family member Physical exam: Vital signs: Blood pressure 143/80, O2 sat 99%, respiratory rate 20, heart rate 57 bpm, temperature is 97.7F.Baseline serum creatinine 1.4-1.7 mg/dL. he is in no acute distress pleasant and conversant Chest is clear to auscultation with good respiratory effort Abdomen is soft and nontender and no cyanosis and +2-+3 edema Psychiatric: Alert and oriented 3, judgment and insight appropriate, mood is normal. assessment and plan: Sean Santoyo is a very nice 78-year-old man who was admitted on the with MRSA sepsis and acute kidney injury with a creatinine of 2.62 on admission. Creatinine peaked at 3.66. He has a history of metastatic urothelial renal carcinoma. 1. acute kidney injury Most probably ATN secondary to sepsis. expects that he will start to improve. Not sure if this cannot go back to baseline or his new creatinine is can establish somewhere in between his baseline and the current creatinine 2. Metabolic acidosis: Improved with supplementation of sodium bicarbonate 3 Anasarca. Improving. Continue Lasix 20 mg IV daily.
[2019-06-24 17:11] LABS: Hematocrit 33 % (42-52); Hemoglobin 10.9 g/dL (14.0-18.0); Mean Corpuscular HGB Conc 34 g/dL (31-36); Mean Corpuscular Hemoglobin 30 pg (27-31); Mean Corpuscular Volume 89 fL (80-94); Mean Platelet Volume 8.6 fL (7.4-10.4); Platelet Count 216 10^3/uL (150-450); Red Blood Count 3.66 10^6 /uL (4.18-5.48); Red Cell Distribution Width 19 % (10-15); White Blood Count 15.4 10^3/uL (3.5-10.8)
[2019-06-24 17:49] LABS: ABS Basophils 0.1 10^3/ul (0-0.2); ABS Lymphocytes 0.4 10^3/ul (1.0-4.8); ABS Monocytes 0.2 10^3/ul (0-0.8); ABS Neutrophils 14.7 10^3/ul (1.5-7.7); Eosinophil % 0.3 %; Lymphocyte % 2.3 %; Nucleated Red Blood Cells % 0.1
[2019-06-24] MEDS: Nystatin TOP POWDER* 15 GM BTL TOPICAL SCH ×2 (18:00→20:51)
[2019-06-24] MEDS: Heparin DRIP 25,000 UNITS(*) 25,000 UNITS/500 ML BAG IV SCH (19:56)
[2019-06-25] MEDS: Morphine ORAL.SOLN 10 mg* 2 MG/ML UDC 5 ml PO PRN (03:10)
[2019-06-25] MEDS ORDERED: Vancomycin Random Level* NOTE FOLLOW UP ONE (06:00)
[2019-06-25 06:46] LABS: Hematocrit 31 % (42-52); Hemoglobin 10.4 g/dL (14.0-18.0); Mean Corpuscular HGB Conc 33 g/dL (31-36); Mean Corpuscular Hemoglobin 30 pg (27-31); Mean Corpuscular Volume 89 fL (80-94); Mean Platelet Volume 8.6 fL (7.4-10.4); Platelet Count 222 10^3/uL (150-450); Red Blood Count 3.54 10^6 /uL (4.18-5.48); Red Cell Distribution Width 19 % (10-15); White Blood Count 16.4 10^3/uL (3.5-10.8)
[2019-06-25 06:56] LABS: Albumin 2.6 g/dL (3.2-5.2); Calcium 8.3 mg/dL (8.6-10.3); Magnesium 1.6 mg/dL (1.9-2.7); Potassium 3.3 mmol/L (3.5-5.0); Total Bilirubin 0.5 mg/dL (0.2-1.0)
[2019-06-25 07:02] LABS: Albumin/Globulin Ratio 0.8 (1-3); BUN/Creatinine Ratio 19.5 (8-20); EGFR African American 24.3 (>60); EGFR Non-African American 20.1 (>60); Globulin 3.4 g/dL (2-4)
[2019-06-25 07:43] LABS: Vancomycin Random 14.7 mcg/mL
[2019-06-25 07:54] LABS: ABS Eosinophils 0.1 10^3/ul (0-0.6); ABS Lymphocytes 0.8 10^3/ul (1.0-4.8); ABS Monocytes 0.6 10^3/ul (0-0.8); ABS Neutrophils 14.9 10^3/ul (1.5-7.7); Eosinophil % 0.4 %; Lymphocyte % 4.9 %
[2019-06-25] MEDS: Furosemide IV* 10 MG/ML 2 ML VIAL (20 MG) IV SCH (08:52)
[2019-06-25] MEDS: Pantoprazole TAB * 40 MG TAB PO SCH (08:53)
[2019-06-25] MEDS: Levothyroxine TAB* 50 MCG TAB PO SCH (08:53)
[2019-06-25] MEDS: Tamsulosin CAP* 0.4 MG PO SCH (08:53)
[2019-06-25] MEDS: Polyethylene Glycol 3350* 17 GM PACKET PO SCH (08:53)
[2019-06-25] MEDS: Metoprolol Tartrate TAB* 25 MG PO SCH (08:53)
[2019-06-25] MEDS: Sodium Bicarbonate (ANTACID)* 650 MG TAB PO SCH ×2 (08:53→21:06)
[2019-06-25] MEDS: Amiodarone TAB* 200 MG PO SCH ×2 (08:53→21:07)
[2019-06-25] MEDS: Nystatin TOP POWDER* 15 GM BTL TOPICAL SCH ×2 (08:54→21:01)
[2019-06-25] MEDS ORDERED: Magnesium Sulfate 2 GM IV* 2 GM/50 ML BAG IVPB ONE (10:03)
[2019-06-25] MEDS ORDERED: Potassium Chlor TAB* 20 MEQ TAB.ER PO ONE (10:03)
--- NOTE | 2019-06-25 10:04 | PN ---
Subjective Date of Service: 06/25/19 Interval History: ONCOLOGY CROSS COVER NOTE: Patient reports tenderness to old right chest mediport site( mediport recently removed) Swelling noted to right chest. Site without redness or warmth. Patient also reports pain to right knee during the night states that pain improved after receiving morphine in the night, states that he was able to sleep well. Patient does report that he has had chronic pain in his right knee for approximately 2 years that comes and goes. Knee is without redness and is not warm to the touch. Patient denies any fever or chills. denies chest pain or shortness of breath. denies abdominal pain n/v/d. Does continue to report swelling to lower extremities. Family History: Unchanged from Admission Social History: Unchanged from Admission Past Medical History: Unchanged from Admission Objective Active Medications: Acetaminophen (Tylenol Tab*) 650 mg PO Q4H PRN PRN Reason: PAIN OR ELEVATED TEMP Last Admin: 06/24/19 10:32 Dose: 650 mg Amiodarone HCl (Cordarone Tab*) 200 mg PO BID [facility] Stop: 06/30/19 11:59 Last Admin: 06/25/19 08:53 Dose: 200 mg Amiodarone HCl (Cordarone Tab*) 200 mg PO DAILY [facility] Docusate Sodium (Colace Cap*) 200 mg PO BID PRN PRN Reason: CONSTIPATION Furosemide (Lasix Iv*) 20 mg IV DAILY [facility] Last Admin: 06/25/19 08:52 Dose: 20 mg Heparin Sodium (Porcine) (Heparin Vial(*)) 0 units IV .PER PROTOCOL [facility] Last Admin: 06/21/19 06:27 Dose: 2,650 units Heparin Sodium/Dextrose (Heparin Drip 25,000 Units(*)) 25,000 units in 500 mls @ 0 mls/hr IV PER RATE [facility]; Protocol Last Admin: 06/24/19 19:56 Dose: 20 mls/hr Vancomycin HCl 1,000 mg/ (Sodium Chloride) 250 mls @ 166.667 mls/hr IV ONCE ONE Stop: 06/25/19 11:29 Levothyroxine Sodium (Synthroid Tab*) 50 mcg PO DAILY [facility] Last Admin: 06/25/19 08:53 Dose: 50 mcg Metoprolol Tartrate (Lopressor Tab*) 12.5 mg PO Q12HR [facility] Last Admin: 06/25/19 08:53 Dose: 12.5 mg Metoprolol Tartrate (Lopressor Iv*) 5 mg IV Q1H PRN PRN Reason: HEART RATE/PULSE GREATER THAN: Morphine Sulfate (Morphine Oral.Soln 10 Mg*) 15 mg PO BID PRN PRN Reason: PAIN - MODERATE Last Admin: 06/25/19 03:10 Dose: 15 mg Nystatin (Nystatin Top Powder*) 1 applic TOPICAL BID [facility] Last Admin: 06/25/19 08:54 Dose: 1 applic Ondansetron HCl (Zofran Tab*) 4 mg PO Q4HR PRN PRN Reason: NAUSEA Pantoprazole Sodium (Protonix Tab*) 40 mg PO DAILY [facility] Last Admin: 06/25/19 08:53 Dose: 40 mg Pharmacy Consult (Vancomycin Per Pharmacy*) 1 note FOLLOW UP . PRN PRN Reason: PER PROTOCOL Pharmacy Consult (Vancomycin Random Level*) 1 note FOLLOW UP 0600 ONE Stop: 06/26/19 06:01 Polyethylene Glycol/Electrolytes (Miralax*) 17 gm PO DAILY [facility] Last Admin: 06/25/19 08:53 Dose: Not Given Prednisone (Deltasone Tab*) 40 mg PO DAILY [facility] Last Admin: 06/25/19 08:53 Dose: 40 mg Sodium Bicarbonate (Sodium Bicarbonate (Antacid)*) 650 mg PO BID [facility] Last Admin: 06/25/19 08:53 Dose: 650 mg Tamsulosin HCl (Flomax Cap*) 0.4 mg PO DAILY [facility] Last Admin: 06/25/19 08:53 Dose: 0.4 mg Tramadol HCl (Ultram*) 50 mg PO Q6HR PRN PRN Reason: PAIN - MODERATE Last Admin: 06/24/19 10:31 Dose: 50 mg Vital Signs - 8 hr 06/25/19 06/25/19 06/25/19 03:10 03:15 04:46 Temperature 97.5 F Pulse Rate 52 Respiratory 18 18 18 Rate Blood Pressure 148/68 (mmHg) O2 Sat by Pulse 98 Oximetry 06/25/19 06/25/19 08:00 08:26 Temperature 97.6 F Pulse Rate 55 Respiratory 18 16 Rate Blood Pressure 145/62 (mmHg) O2 Sat by Pulse 99 Oximetry Oxygen Devices in Use Now: None Appearance: alert oriented x 3, appears comfotable resting in bed. Eyes: No Scleral Icterus, PERRLA Ears/Nose/Mouth/Throat: NL Teeth, Lips, Gums, Mucous Membranes Moist Neck: NL Appearance and Movements; NL JVP, Trachea Midline Respiratory: Symmetrical Chest Expansion and Respiratory Effort, Clear to Auscultation Cardiovascular: NL Sounds; No Murmurs; No JVD, No Edema Abdominal: NL Sounds; No Tenderness; No Distention Extremities: No Clubbing, Cyanosis, - - bilat lower extremities with + 3 pitting edema Skin: No Rash or Ulcers Neurological: Alert and Oriented x 3 Nutrition: Taking PO's - Nutrition: Malnutrition Diagnosis/Plan Malnutrition Assessment by Registered Dietitian: Malnutrition Assessment Clinical Characteristics Chronic,Severe Malnutrition Assessment: Inadequate Oral Intake - Noted pt w/ variable, Criteria overall poor intake; consumed 15-90% all meals x2 days - Anticipate meeting <75% nutrient >1 mo (severe) Unintentional Weight Loss - Noted wt loss per chart; current wt 167lb, prev wt on record 185lb (05/2019) - 9.7% loss x1 mo (severe) Malnutrition Assessment: Nutritional Supplementals/Nourishments - Will Interventions trial Ensure Enlive (350kcal, 20g prot/serv) at 10:00 and 15:00 daily to optimize kcal/prot intake; will monitor acceptance Texture Modification - Agree w/ soft diet; will monitor tolerance and make further recommendations as indicated GI Related - Recommend giving antidiarrheal as indicated; will monitor GI s/sx for impact on intake Malnutrition Assessment: Goals 1) Pt will tolerate least restrictive dietary textures w/o further difficulty chewing 2) Adequate po intake to support lean body mass and hydration status 3) Maintain fluid/electrolyte balance w/ adequate po intake 4) Maintain bowel regularity w/ adequate po intake w/o exac of diarrhea/development of constipation Result Diagrams: 06/25/19 06:29 06/25/19 06:29 Microbiology and Other Data: Microbiology 06/23/19 11:30 Aerobic Blood Culture - Preliminary Blood Venous Anaerobic Blood Culture - Preliminary Blood MRSA/MSSA (PCR) - Final Mrsa Positive S.aureus Positive 06/21/19 06:13 Aerobic Blood Culture - Preliminary No Source Provided No Growth Day 4 Anaerobic Blood Culture - Preliminary No Growth Day 4 06/23/19 11:26 Aerobic Blood Culture - Preliminary Blood Venous No Growth Day 1 Anaerobic Blood Culture - Preliminary No Growth Day 1 06/21/19 04:29 Aerobic Blood Culture - Final No Source Provided MRSA Anaerobic Blood Culture - Final MRSA Blood MRSA/MSSA (PCR) - Final Mrsa Positive S.aureus Positive 06/18/19 07:43 Aerobic Blood Culture - Final Blood Line MRSA Anaerobic Blood Culture - Final MRSA 06/18/19 07:43 Aerobic Blood Culture - Final Blood Line MRSA Anaerobic Blood Culture - Final MRSA Blood MRSA/MSSA (PCR) - Final Mrsa Positive S.aureus Positive 06/16/19 17:36 Aerobic Blood Culture - Final Blood Line MRSA Anaerobic Blood Culture - Final MRSA 06/16/19 11:33 Aerobic Blood Culture - Final Blood Venous MRSA 06/16/19 11:33 Aerobic Blood Culture - Final Blood Venous MRSA Anaerobic Blood Culture - Final MRSA Blood MRSA/MSSA (PCR) - Final Mrsa Positive S.aureus Positive 06/17/19 17:36 Stool Gross Appearance - Final Stool C. difficile DNA Amplification - Final 027 Presumptive NEGATIVE Toxigenic C.diff NEGATIVE 06/17/19 17:36 Stool Occult Blood (CALE) - Final Stool 06/16/19 21:14 Urine Culture - Final Urine No Growth (<1,000 CFU/mL) 06/17/19 05:45 Nasal Screen MRSA (PCR) - Final Nasal Mrsa Detected Assess/Plan/Problems-Billing Assessment: 1. Sepsis/cellulitis/MRSA bacteremia: - cellulitis appears improved - blood cultures remain positive after port removal - RHIANNON negative for vegetation - cont Vancomycin with renal dosing as per pharmacy. - repeat blood cultures - continue to show MRSA - ID consult pending - CT C/A/P to eval for occult abscess- negative for abscess. Patient with small amount of fluid in the right hip joint, and at the chest old mediport site. old vascular access site with tenderness with palpation, no redness or warmth. This area should be watched closely for signs of infection. C/o right knee pain, reports chronic right knee pain no more than his normal knee pain. Would also watch knee carefully as the patient as the potential of developing and septic joint d/t MRSA bacteremia . should consider consult to orthopedics if the knee becomes more painful or develops redness, swelling. - ID consulted. Case discussed by oncology- pending recommendations . 2. Afib w rvr: now controlled - started Amiodarone 200 mg PO BID 06/20 x10 days (plan to follow with 200 mg daily) and metoprolol with IV rescue as needed, Metoprolol PO d/c's d/t bradycardia as per cardiology - hep gtt- could transition to eliquis 2.5 mg BID per cardiology - will wait oncology recommendations. - Hold Coumadin in case needs additional procedures, Bx 3. CHARLEEN suspect 2/2 ATN r/t sepsis c/b urinary obstruction. Cr stable but UO has been improving. - neg. renal US, good UO with avina - cont. afluzosin 10 mg po daily, needs avina d/t obstruction, consider urology consult as outpatient - nephrology consultation appreciated - complement 3/4, SPEP, light chains ordered - mildly acidotic improved oral HCO3- now normalized - if Cr remains elevated after infection improves, consider renal bx to r/o immune effects, 4. Immune mediated inflammation. - Decrease Prednisone to 30 mg po daily. 5. Electrolyte imbalance: Will replace potassium and magnesium today. will repeat labs in the AM Will want to keep potassium level at 4 and magnesium at 2 - given patient recent episode of afib. 6. Anasarca. - Continue Lasix 20 IV daily.- may require daily potassium supplement while taking lasix. - Nutrition consult to help with high protein mechanical soft diet. 7. Full code Oncology to resume primary care in the AM. Inpatient
--- NOTE | 2019-06-25 10:57 | PN ---
Progress Note - Progress Note Date of Service: 06/25/19 Note: Chief complaint acute kidney injury on chronic kidney disease. 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 Status post chemotherapy and radiation therapy. Has chronic kidney disease at baseline with a serum creatinine of 1.4-1.7 mg/dL. Admission creatinine was 2.62 mg/dL. Continued to rise and peaked at 3.66 mg/ dL on the . Since then has been decreasing slowly but surely. On the creatinine 3.02 mg/dL. He has been hemodynamically stable during this admission without hypotension. He remained afebrile as well. Admission white blood cell count was 22.8 and since then it has been coming down. Today is 16.4. Blood culture on the remain positive for MRSA. He is a right chest port was removed but the area remains tender and slightly ecchymotic. He continues to have pain in the right knee. No new medications added since yesterday. Continues on Lasix 20 mg daily with excellent diuretic response. He had 4.7 L out and 1.9 L in for a negative balance of 2.7 L in the last 24 hours. He continues to have pain in the right knee, but otherwise is without pain. He denies chest pain or shortness of breath. He is lying in bed in no acute distress. He is waiting for the daughters to come by. He will try again to walk in the hallway. He walked a little bit yesterday with an aide and his daughter. Labs were reviewed and showed a potassium of 3.3 mEq/L, creatinine 3.02 mg/dL, total CO2 25, hemoglobin 10.4, white blood cell count 16.4, platelets 222. Physical exam: Blood pressure 148/68, temperature 97.5, heart rate 52 bpm, respiration rate 18/ min, oxygen saturation 98% on room air. Constitutional: Looking chronically ill but in no acute distress pleasant and conversant. Abdomen is soft, nontender, nondistended Significant lower extremities edema especially on the right side all the way to the thigh. Slightly improved from yesterday. Right leg is more swollen than the left. Psychiatric: Alert and oriented 3 judgment and insight appropriate, mood is normal. Assessment and plan: 1. Acute kidney injury secondary to ATN due to sepsis. Will rule out postinfectious GN or possible dysproteinemia. Kidney ultrasound showed no obstruction during this admission. He has a Gonzalez catheter. Kidney function slowly getting better. 2. Volume overload/significant lower extremities edema. Continue Lasix 20 mg IV daily. 3. Hypokalemia. Can add Spironolactone 25 mg daily after repleting potassium with 20 mEq today. 4. Persistent MRSA bacteremia. ID consult was called. Wonder if there is any infection of the fluid that pocketed at the site of previous vascular access , which is tender on palpation or if he has an infection of the right knee, which is swollen, tender on palpation it is not warm or red. RHIANNON was negative. CT scan of the chest abdomen and pelvis was negative with the exception of fluid collection at the site of the previous port. 5. Metabolic acidosis resolved. Continue sodium bicarbonate 600 milligrams by mouth twice a day
[2019-06-25] MEDS: Vancomycin(*) 1,000 MG in NS 0.9% 250 ML* 250 ML IV ONE ×2 (12:09→12:57)
[2019-06-25] MEDS: traMADol TAB* 50 MG PO PRN (13:14)
--- NOTE | 2019-06-25 15:37 | PN ---
Subjective Date of Service: 06/25/19 Interval History: Paroxysmal afib no chest pain or dyspnea at rest K and Mg being replaced tele: SR/SB metoprolol intermittently held for low HR Medications Active Medications: Acetaminophen (Tylenol Tab*) 650 mg PO Q4H PRN PRN Reason: PAIN OR ELEVATED TEMP Last Admin: 06/24/19 10:32 Dose: 650 mg Amiodarone HCl (Cordarone Tab*) 200 mg PO BID [facility] Stop: 06/30/19 11:59 Last Admin: 06/25/19 08:53 Dose: 200 mg Amiodarone HCl (Cordarone Tab*) 200 mg PO DAILY [facility] Docusate Sodium (Colace Cap*) 200 mg PO BID PRN PRN Reason: CONSTIPATION Furosemide (Lasix Iv*) 20 mg IV DAILY [facility] Last Admin: 06/25/19 08:52 Dose: 20 mg Heparin Sodium (Porcine) (Heparin Vial(*)) 0 units IV .PER PROTOCOL [facility] Last Admin: 06/21/19 06:27 Dose: 2,650 units Heparin Sodium/Dextrose (Heparin Drip 25,000 Units(*)) 25,000 units in 500 mls @ 0 mls/hr IV PER RATE [facility]; Protocol Last Admin: 06/24/19 19:56 Dose: 20 mls/hr Levothyroxine Sodium (Synthroid Tab*) 50 mcg PO DAILY [facility] Last Admin: 06/25/19 08:53 Dose: 50 mcg Metoprolol Tartrate (Lopressor Tab*) 12.5 mg PO Q12HR [facility] Last Admin: 06/25/19 08:53 Dose: 12.5 mg Metoprolol Tartrate (Lopressor Iv*) 5 mg IV Q1H PRN PRN Reason: HEART RATE/PULSE GREATER THAN: Morphine Sulfate (Morphine Oral.Soln 10 Mg*) 15 mg PO BID PRN PRN Reason: PAIN - MODERATE Last Admin: 06/25/19 03:10 Dose: 15 mg Nystatin (Nystatin Top Powder*) 1 applic TOPICAL BID [facility] Last Admin: 06/25/19 08:54 Dose: 1 applic Ondansetron HCl (Zofran Tab*) 4 mg PO Q4HR PRN PRN Reason: NAUSEA Pantoprazole Sodium (Protonix Tab*) 40 mg PO DAILY [facility] Last Admin: 06/25/19 08:53 Dose: 40 mg Pharmacy Consult (Vancomycin Per Pharmacy*) 1 note FOLLOW UP . PRN PRN Reason: PER PROTOCOL Pharmacy Consult (Vancomycin Random Level*) 1 note FOLLOW UP 0600 ONE Stop: 06/26/19 06:01 Polyethylene Glycol/Electrolytes (Miralax*) 17 gm PO DAILY [facility] Last Admin: 06/25/19 08:53 Dose: Not Given Prednisone (Deltasone Tab*) 40 mg PO DAILY [facility] Last Admin: 06/25/19 08:53 Dose: 40 mg Sodium Bicarbonate (Sodium Bicarbonate (Antacid)*) 650 mg PO BID [facility] Last Admin: 06/25/19 08:53 Dose: 650 mg Tamsulosin HCl (Flomax Cap*) 0.4 mg PO DAILY [facility] Last Admin: 06/25/19 08:53 Dose: 0.4 mg Tramadol HCl (Ultram*) 50 mg PO Q6HR PRN PRN Reason: PAIN - MODERATE Last Admin: 06/25/19 13:14 Dose: 50 mg Objective Vital Signs: Temp Pulse Resp BP Pulse Ox 98.7 F 60 16 131/68 97 06/25/19 15:23 06/25/19 15:23 06/25/19 15:23 06/25/19 15:23 06/25/19 15:23 Oxygen Devices in Use Now: None Appearance: nad, pleasant Neck: Trachea Midline, - - uncertain jvp Respiratory: Symmetrical Chest Expansion and Respiratory Effort, Clear to Auscultation Cardiovascular: RRR, - - 2-3/6 systolic murmur Abdominal: - - soft, nontender Extremities: - - 1-2+ pitting edema Neurological: Alert and Oriented x 3 Lines/Tubes/Other Access: Clean, Dry and Intact Peripheral IV Laboratory Results: 06/25/19 06:29 06/25/19 06:29 APTT 78.7 seconds (26.0-38.0) H 06/25/19 06:29 Total Bilirubin 0.50 mg/dL (0.2-1.0) 06/25/19 06:29 AST 15 U/L (13-39) 06/25/19 06:29 ALT 29 U/L (7-52) 06/25/19 06:29 Alkaline Phosphatase 90 U/L (34-104) 06/25/19 06:29 Total Protein 6.0 g/dL (6.4-8.9) L 06/25/19 06:29 Albumin 2.6 g/dL (3.2-5.2) L 06/25/19 06:29 Globulin 3.4 g/dL (2-4) 06/25/19 06:29 Albumin/Globulin Ratio 0.8 (1-3) L 06/25/19 06:29 06/16/19 06/16/19 06/16/19 10:13 17:36 23:45 Troponin I 0.94 H* 0.82 H* 0.72 H* Diagnostic Imaging: Transesophageal Echocardiogram Study Date: 06/20/2019 -- Conclusions Summary: - Left ventricle: Systolic function is mildly reduced. The estimated ejection fraction is 50-55%. No focl wall motion abnormalities. - Left atrium: There is no evidence of a thrombus in the atrial cavity or appendage. There is spontaneous echo contrast ("smoke") in the cavity and the appendage. - Atrial septum: A PFO is not demonstrated by color Doppler or agitated saline contrast. - Mitral valve: There is mild to moderate regurgitation. - Aortic valve: The annulus is mildly calcified. The valve is trileaflet. The leaflets are mildly thickened. The findings are consistent with moderate stenosis. There is trace regurgitation. - Tricuspid valve: There is mild regurgitation. - Pericardium, extracardiac: A small pericardial effusion is EKG Data: ekg 06/21/2019 afib 130 bpm, non-specific st/t changes Assessment/Plan Paroxysmal atrial fibrillation - High risk RHIANNON with spontaneous echo contrast - Continue therapeutic anticoagulation (currently on heparin gtt, was on eliquis 5 mg po bid [employer] - currently with renal function and age would be 2.5 mg BID for Afib if this is going to be restarted instead of coumadin) with as little interruption as possible - continue amiodarone as ordered - d/c metoprolol given asymptomatic sinus bradycardia (ordered), continue IV prn lopressor - Diuretics as per Nephrology - Keep K and Mg replaced - Will sign off, please reconsult as needed
[2019-06-25] MEDS: Heparin DRIP 25,000 UNITS(*) 25,000 UNITS/500 ML BAG IV SCH (22:05)
[2019-06-26] MEDS ORDERED: Vancomycin Random Level* NOTE FOLLOW UP ONE (06:00)
[2019-06-26 06:17] LABS: Calcium 8.6 mg/dL (8.6-10.3); Magnesium 1.8 mg/dL (1.9-2.7); Potassium 3.6 mmol/L (3.5-5.0)
[2019-06-26 06:23] LABS: BUN/Creatinine Ratio 19.6 (8-20); EGFR African American 27.1 (>60); EGFR Non-African American 22.4 (>60)
[2019-06-26 06:47] LABS: Vancomycin Random 18.9 mcg/mL
[2019-06-26] MEDS: traMADol TAB* 50 MG PO PRN ×2 (08:57→22:09)
[2019-06-26] MEDS: Furosemide IV* 10 MG/ML 2 ML VIAL (20 MG) IV SCH (08:57)
[2019-06-26] MEDS: Levothyroxine TAB* 50 MCG TAB PO SCH (08:58)
[2019-06-26] MEDS: Sodium Bicarbonate (ANTACID)* 650 MG TAB PO SCH ×2 (08:58→20:55)
[2019-06-26] MEDS: Tamsulosin CAP* 0.4 MG PO SCH (08:59)
[2019-06-26] MEDS: Amiodarone TAB* 200 MG PO SCH ×2 (08:59→20:56)
[2019-06-26] MEDS: Polyethylene Glycol 3350* 17 GM PACKET PO SCH (09:00)
[2019-06-26] MEDS: Pantoprazole TAB * 40 MG TAB PO SCH (09:00)
[2019-06-26] MEDS: Nystatin TOP POWDER* 15 GM BTL TOPICAL SCH ×2 (09:01→20:56)
--- NOTE | 2019-06-26 13:09 | CONS ---
CONSULTATION REPORT: DATE OF CONSULT: 06/26/19 REQUESTING PHYSICIAN: Dr. Walton. CONSULTING SERVICE: Infectious Disease. REASON FOR CONSULTATION: MRSA bacteremia, persistent. IMPRESSION: 1. Methicillin-resistant Staphylococcus aureus bacteremia present since first cultures taken 06/16/19 in the setting of encephalopathy. He has a history of destruction of the right hip and pelvis due to metastatic bladder cancer. His hip is at baseline. He apparently had an area of cellulitis on the right thigh when he arrived and he has had worsening right knee pain over the last few days. Septic arthritis of the right knee is a possibility. CT of the right hip was done that showed stable destructive changes in that hip joint without fluid collection except for in the bursa. He is now particularly tender there and does not have pain with log roll. I think hip infection less likely though it is still possible given the underlying abnormalities of that joint and pelvis. 2. Transesophageal echocardiogram showed no vegetations. He had a right chest port that was removed at the time of admission. 3. Adrenal insufficiency. RECOMMENDATIONS: We will continue vancomycin goal trough 15 to 20, one of the bottles taken on has gram-positive cocci growing, PCR is pending as the culture. It could be same MRSA or a contaminant, we will have to await that finding. If it is MRSA, we will recheck the cultures again. Continue vancomycin. Hold on PICC until the cultures are cleared. We will ask Orthopedics to evaluate him particularly the right knee and evaluation of right hip. HISTORY OF PRESENT ILLNESS: This is an 78-year-old man with urothelial carcinoma, metastatic to the right hip, admitted with encephalopathy, found to have MRSA in his blood and cultures taken at admission on 06/16/19. He has been on vancomycin since then. His studies also include a negative urine culture, a negative C. difficile PCR, positive MRSA culture from the blood on , 06/21/19 as well as 06/23/19 and gram-positive cocci in 1 of 4 bottles from 06/25/19. His right chest port was removed on 06/20/19. He was evidently feeling better and his daughter thinks his mental status was getting better. His initial fevers are better. He still has pain in the right knee, which is new in the last week or so. He had some redness and pain with some swelling of the right thigh. The redness has much improved. He has no prosthetic material present. He has no other pain other than some low level right hip pain. His right knee pain is worse with weightbearing and better at rest. His white blood cell count is 16,000, which was low as 11,000 on the 06/22/19. PAST MEDICAL HISTORY: 1. 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 2. Adrenal insufficiency. 3. Aortic stenosis. 4. History of DVT. 5. Hyperlipidemia. 6. Hypothyroidism. 7. History of retinal detachment. 8. Status post hernia repair. MEDICATIONS: 1. Tylenol. 2. Amiodarone. 3. Docusate. 4. Lasix. 5. Heparin infusion. 6. Levothyroxine. 7. Metoprolol. 8. Nystatin topical powder. 9. Pantoprazole. 10. Tamsulosin. 11. Sodium bicarbonate. 12. Prednisone 40 mg a day. 13. Vancomycin 1 g daily. ALLERGIES: CONTRAST MATERIAL. FAMILY HISTORY: Mother with colon cancer at age 83. SOCIAL HISTORY: He lives in [facility]. He is a retired [employer]. Past smoker. REVIEW OF SYSTEMS: All negative except as noted above to a 14-point review of systems. PHYSICAL EXAM: Vital Signs: Temperature is 37.5, heart rate 60, respiratory rate 16, blood pressure 160/80, oxygen saturation 97% on room air. In general, he is awake, not in distress. Neurologic: He is oriented x3. Follows all commands. HEENT: There is no conjunctival hemorrhage. Oropharynx without lesions. Neck is supple without mass. Heart is regular with 2/6 systolic murmur. Lungs are decreased breath sounds at the bases bilaterally without wheezes or rales. Abdomen is soft, nontender, nondistended. There are bowel sounds present. Right chest port site has diffuse swelling without erythema or warmth. Musculoskeletal: There is no spine tenderness to palpation. There is no right hip pain. Left hip pain with log roll. There is diffuse edema through the right thigh. No tenderness to palpation of the right knee, but pain with flexion, extension, and weightbearing with some edema throughout the knee. DIAGNOSTIC STUDIES/LAB DATA: White blood cell count 16, hemoglobin 10, platelets 222. Creatinine is 2.7. Vancomycin trough 18. Please see impression and recommendations outlined above. I discussed with MICHAEL Mace. Thank you for asking me to see Mr. Santoyo. [id number]/[facility] #: [id number] MARLY
--- NOTE | 2019-06-26 13:16 | PN ---
Progress Note - Progress Note Date of Service: 06/26/19 SOAP: Subjective: [Feels "lousy". No real improvements in general energy. LE edema has improved with diuretics. Reports some increased R hip and knee pain over baseline.] Objective: [ Vital Signs: Temp Pulse Resp BP Pulse Ox 99.5 F 61 18 157/80 97 06/26/19 07:15 06/26/19 07:15 06/26/19 08:57 06/26/19 07:15 06/26/19 07:15 Acetaminophen (Tylenol Tab*) 650 mg PO Q4H PRN PRN Reason: PAIN OR ELEVATED TEMP Last Admin: 06/24/19 10:32 Dose: 650 mg Amiodarone HCl (Cordarone Tab*) 200 mg PO BID [facility] Stop: 06/30/19 11:59 Last Admin: 06/26/19 08:59 Dose: 200 mg Amiodarone HCl (Cordarone Tab*) 200 mg PO DAILY [facility] Docusate Sodium (Colace Cap*) 200 mg PO BID PRN PRN Reason: CONSTIPATION Furosemide (Lasix Iv*) 20 mg IV DAILY [facility] Last Admin: 06/26/19 08:57 Dose: 20 mg Heparin Sodium (Porcine) (Heparin Vial(*)) 0 units IV .PER PROTOCOL [facility] Last Admin: 06/21/19 06:27 Dose: 2,650 units Heparin Sodium/Dextrose (Heparin Drip 25,000 Units(*)) 25,000 units in 500 mls @ 0 mls/hr IV PER RATE [facility]; Protocol Last Admin: 06/25/19 22:05 Dose: 20 mls/hr Vancomycin HCl 1,000 mg/ (Sodium Chloride) 250 mls @ 166.667 mls/hr IV Q24H [facility] Levothyroxine Sodium (Synthroid Tab*) 50 mcg PO DAILY [facility] Last Admin: 06/26/19 08:58 Dose: 50 mcg Metoprolol Tartrate (Lopressor Iv*) 5 mg IV Q1H PRN PRN Reason: HEART RATE/PULSE GREATER THAN: Morphine Sulfate (Morphine Oral.Soln 10 Mg*) 15 mg PO BID PRN PRN Reason: PAIN - MODERATE Last Admin: 06/25/19 03:10 Dose: 15 mg Nystatin (Nystatin Top Powder*) 1 applic TOPICAL BID [facility] Last Admin: 06/26/19 09:01 Dose: 1 applic Ondansetron HCl (Zofran Tab*) 4 mg PO Q4HR PRN PRN Reason: NAUSEA Pantoprazole Sodium (Protonix Tab*) 40 mg PO DAILY [facility] Last Admin: 06/26/19 09:00 Dose: 40 mg Pharmacy Consult (Vancomycin Per Pharmacy*) 1 note FOLLOW UP . PRN PRN Reason: PER PROTOCOL Pharmacy Profile Note (Vancomycin Trough Check) 1 note FOLLOW UP ONCE ONE Stop: 06/29/19 05:31 Polyethylene Glycol/Electrolytes (Miralax*) 17 gm PO DAILY [facility] Last Admin: 06/26/19 09:00 Dose: Not Given Prednisone (Deltasone Tab*) 40 mg PO DAILY [facility] Last Admin: 06/26/19 09:00 Dose: 40 mg Sodium Bicarbonate (Sodium Bicarbonate (Antacid)*) 650 mg PO BID [facility] Last Admin: 06/26/19 08:58 Dose: 650 mg Tamsulosin HCl (Flomax Cap*) 0.4 mg PO DAILY [facility] Last Admin: 06/26/19 08:59 Dose: 0.4 mg Tramadol HCl (Ultram*) 50 mg PO Q6HR PRN PRN Reason: PAIN - MODERATE Last Admin: 06/26/19 08:57 Dose: 50 mg Laboratory Results - last 24 hr 06/26/19 06/26/19 05:23 05:23 APTT 57.9 H Sodium 138 Potassium 3.6 Chloride 103 Carbon Dioxide 27 Anion Gap 8 BUN 54 H Creatinine 2.75 H Est GFR ( Amer) 27.1 Est GFR (Non-Af Amer) 22.4 BUN/Creatinine Ratio 19.6 Glucose 99 Calcium 8.6 Magnesium 1.8 L Random Vancomycin 18.9 Exam: Gen: thin but no distress HEENT: MMM Skin: port pocket at R chest wall is erythematous, swollen and has some bloody drainage CV: RRR, 3/6 murmur Resp: CTA, no w/c/r Abd: soft nonTTP, abd well edema : scrotal edema, avina in place Ext: diffuse edema, R>L (improved), no clear skin breakdown, cellulitis is better. [Assessment: []78 yo M w metastatic urothelial CA (stable disease on recent imaging, off therapy 2/2 systemic immune mediated response) admitted with septic shock due to MRSA bacteremia secondary to right lower extremity cellulitis. His course has been complicated by A.Fib with RVR now on Amiodarone (initiated on 06/19), ARF thought second to ATN. He has persistent bacteremia. Infectious reservoir unclear. Small fluid pockets on CT at port site and hip. No urinary stents, artificial joints. Plan: []1. Sepsis/cellulitis/MRSA bacteremia: - cellulitis appears improved - blood cultures remain positive after port removal, but now negative after 24hours - RHIANNON negative for vegetation - cont Vanco - requested ID consult - question whether hip washout is necessary - requested surgery to re-eval prior port pocket for abscess v hematoma and consider I&D 2. Afib w rvr: - started Amiodarone 200 mg PO BID 06/20 x10 days (plan to follow with 200 mg daily) and PO metoprolol with IV rescue as needed - hep gtt - renal fxn has improved to the point that eliquis would be a suitable oral option - start tomorrow if no additional procedures are necessary 3. CHARLEEN suspect 2/2 ATN r/t sepsis c/b urinary obstruction. Cr now improving - neg. renal US, good UO with avina - cont. afluzosin 10 mg po daily, needs avina d/t obstruction, consider urology consult as outpatient - nephrology consultation appreciated - complement 3/4, SPEP, light chains ordered - mildly acidotic improved oral HCO3- 4. Immune mediated inflammation. - Decrease Prednisone to 30 mg po daily. 5. Anasarca. - Continue Lasix 20 IV daily. - Nutrition consult to help with high protein mechanical soft diet. 6. Full code] Dispo: will require a course of prolonged IV abx, pending ID consult and recommendations. Can not return home independently at this time. Consider PMRU v ELVIRA
--- NOTE | 2019-06-26 17:46 | PN ---
PROGRESS NOTE: DATE OF VISIT: 06/26/19 SERVICE: [facility] Nephrology. SUBJECTIVE: The patient was seen and examined at bedside. The patient reports feeling better. He continues to have ongoing pain in his hip and lower extremity. Vitals and labs have been reviewed. PHYSICAL EXAM: HEENT: NC/AT. Heart: S1, S2 present. Irregularly irregular. Lungs: Clear to auscultation. Abdomen: Soft. Extremities: Noted to have some edema. Neuro: Alert. ASSESSMENT AND PLAN: 1. Acute kidney injury secondary to acute tubular necrosis in the setting of sepsis. The patient noted to have blood cultures positive for methicillin- resistant Staphylococcus aureus. 2. Acute kidney injury in recovery phase with improvement in renal function. 3. Immune-mediated renal injury is also possible. The patient has been on immune therapy for 2 years. The patient is currently on prednisone; however, the patient's kidney function is currently improving and can follow up closely with Nephrology as an outpatient. 4. Metabolic acidosis. Continue the p.o. bicarb. 5. Volume overload. Continue the Lasix 20 mg IV daily currently. 6. Further antibiotics per the primary team and Infectious Disease. 7. We will follow with the team as needed for any renal issues. [id number]/[facility] #: [id number] [facility] CENTERKeny
--- NOTE | 2019-06-26 17:50 | PN ---
Progress Note - Progress Note Date of Service: 06/26/19 Note: Notified that there is a hematoma at the previous port site. The port was removed 06/20. The patient reports that he noticed the hematoma about 3 days ago. It is painful when pushing on it but otherwise does not bother him much. He thinks it has been about the same size since he first noticed it. There was a little oozing from the incision. The port site is covered with a 2x2 gauze and Tegederm. There is a small amount of bloody drainage on the gauze. The hematoma is approximately 4 cm in diameter. Will monitor for now. If the hematoma continues to grow, then may need imaging to evaluate. Will see him again tomorrow.
[2019-06-26] MEDS: Docusate CAP* 100 MG PO PRN (18:19)
[2019-06-26 21:51] LABS: Kappa Free Light Chain 6.13 mg/dL; Lambda Free Light Chain 5.47 mg/dL
[2019-06-26] MEDS: Ondansetron TAB* 4 MG PO PRN (22:10)
[2019-06-26] MEDS: Heparin DRIP 25,000 UNITS(*) 25,000 UNITS/500 ML BAG IV SCH (23:16)
[2019-06-26 23:40] LABS: Complement C3 127 mg/dL (75 - 175)
[2019-06-27 05:20] LABS: EGFR African American 30.6 (>60); EGFR Non-African American 25.3 (>60)
[2019-06-27] MEDS: Vancomycin(*) 1,000 MG in NS 0.9% 250 ML* 250 ML IV SCH (05:36)
--- NOTE | 2019-06-27 09:11 | PN ---
Progress Note - Progress Note Date of Service: 06/27/19 SOAP: Subjective: []Doesn't feel great but certainly doesn't feel any worse. Tired, but hasn't been very active. More pain in leg since moving down for CT and having to hold it straight for an extended period. Port site this AM saturated with break-red blood, dressing changed with large scab (Photo reviewed). Contacted MD and hep gtt held and new dressing CDI. Site remains mildly tender. No BM in two days, at home will take miralax, but hasn't been eating as much here. Happy to have denture impression made. Medications: Acetaminophen (Tylenol Tab*) 650 mg PO Q4H PRN PRN Reason: PAIN OR ELEVATED TEMP Last Admin: 06/24/19 10:32 Dose: 650 mg Amiodarone HCl (Cordarone Tab*) 200 mg PO BID [facility] Stop: 06/30/19 11:59 Last Admin: 06/26/19 20:56 Dose: 200 mg Amiodarone HCl (Cordarone Tab*) 200 mg PO DAILY [facility] Docusate Sodium (Colace Cap*) 200 mg PO BID PRN PRN Reason: CONSTIPATION Last Admin: 06/26/19 18:19 Dose: 200 mg Furosemide (Lasix Iv*) 20 mg IV DAILY [facility] Last Admin: 06/26/19 08:57 Dose: 20 mg Heparin Sodium (Porcine) (Heparin Vial(*)) 0 units IV .PER PROTOCOL [facility] Last Admin: 06/21/19 06:27 Dose: 2,650 units Heparin Sodium/Dextrose (Heparin Drip 25,000 Units(*)) 25,000 units in 500 mls @ 0 mls/hr IV PER RATE [facility]; Protocol Last Admin: 06/26/19 23:16 Dose: 20 mls/hr Vancomycin HCl 1,000 mg/ (Sodium Chloride) 250 mls @ 166.667 mls/hr IV Q24H [facility] Last Admin: 06/27/19 05:36 Dose: 166.667 mls/hr Levothyroxine Sodium (Synthroid Tab*) 50 mcg PO DAILY [facility] Last Admin: 06/26/19 08:58 Dose: 50 mcg Metoprolol Tartrate (Lopressor Iv*) 5 mg IV Q1H PRN PRN Reason: HEART RATE/PULSE GREATER THAN: Morphine Sulfate (Morphine Oral.Soln 10 Mg*) 15 mg PO BID PRN PRN Reason: PAIN - MODERATE Last Admin: 06/25/19 03:10 Dose: 15 mg Nystatin (Nystatin Top Powder*) 1 applic TOPICAL BID [facility] Last Admin: 06/26/19 20:56 Dose: 1 applic Ondansetron HCl (Zofran Tab*) 4 mg PO Q4HR PRN PRN Reason: NAUSEA Last Admin: 06/26/19 22:10 Dose: 4 mg Pantoprazole Sodium (Protonix Tab*) 40 mg PO DAILY [facility] Last Admin: 06/26/19 09:00 Dose: 40 mg Pharmacy Consult (Vancomycin Per Pharmacy*) 1 note FOLLOW UP . PRN PRN Reason: PER PROTOCOL Pharmacy Profile Note (Vancomycin Trough Check) 1 note FOLLOW UP ONCE ONE Stop: 06/29/19 05:31 Polyethylene Glycol/Electrolytes (Miralax*) 17 gm PO DAILY [facility] Last Admin: 06/26/19 09:00 Dose: Not Given Prednisone (Deltasone Tab*) 40 mg PO DAILY [facility] Last Admin: 06/26/19 09:00 Dose: 40 mg Sodium Bicarbonate (Sodium Bicarbonate (Antacid)*) 650 mg PO BID [facility] Last Admin: 06/26/19 20:55 Dose: 650 mg Tamsulosin HCl (Flomax Cap*) 0.4 mg PO DAILY [facility] Last Admin: 06/26/19 08:59 Dose: 0.4 mg Tramadol HCl (Ultram*) 50 mg PO Q6HR PRN PRN Reason: PAIN - MODERATE Last Admin: 06/26/19 22:09 Dose: 50 mg Objective: [] Vital Signs Temp Pulse Resp BP Pulse Ox 97.8 F 68 19 123/68 98 06/27/19 03:13 06/27/19 03:13 06/27/19 03:13 06/27/19 03:13 06/27/19 03:13 A&Ox3, EOMI, neuro grossly non-focal HRR, S1S2 LS clear RCW dressing currently CDI +BS, abd. soft and non-tender Right leg red, enlarged Laboratory Results - last 24 hr 06/24/19 06/27/19 06/27/19 05:29 04:16 07:01 WBC RBC Hgb Hct MCV MCH MCHC RDW Plt Count MPV Neut % (Auto) Lymph % (Auto) [place] % (Auto) Eos % (Auto) Baso % (Auto) Absolute Neuts (auto) Absolute Lymphs (auto) Absolute Monos (auto) Absolute Eos (auto) Absolute Basos (auto) Absolute Nucleated RBC Nucleated RBC % APTT 59.4 H BUN 57 H Creatinine 2.47 H Est GFR ( Amer) 30.6 Est GFR (Non-Af Amer) 25.3 [place] Light Chain 6.13 H Lambda Light Chain 5.47 H [place]/Lambda Ratio 1.12 Complement C3 127 Complement C4 42 H 06/27/19 09:57 WBC 15.1 H RBC 3.52 L Hgb 10.4 L Hct 31 L MCV 89 MCH 30 MCHC 33 RDW 19 H Plt Count 219 MPV 8.3 Neut % (Auto) 90.5 Lymph % (Auto) 4.7 [place] % (Auto) 4.0 Eos % (Auto) 0.7 Baso % (Auto) 0.1 Absolute Neuts (auto) 13.7 H Absolute Lymphs (auto) 0.7 L Absolute Monos (auto) 0.6 Absolute Eos (auto) 0.1 Absolute Basos (auto) 0.0 Absolute Nucleated RBC 0.0 Nucleated RBC % 0.0 APTT BUN Creatinine Est GFR ( Amer) Est GFR (Non-Af Amer) [place] Light Chain Lambda Light Chain [place]/Lambda Ratio Complement C3 Complement C4 Assessment: []78 yo M w metastatic urothelial CA (stable disease on recent imaging, off therapy 2/2 systemic immune mediated response) admitted with septic shock due to MRSA bacteremia secondary to right lower extremity cellulitis. His course has been complicated by A.Fib with RVR now on Amiodarone (initiated on 06/19), ARF thought second to ATN, and unfortunately with persistent bacteremia with reservoir unclear. His port was removed and there was a hematoma and we have now repeated imaging of his right leg with significant concern for infected joint and question of communication to the pelvis cavity. Plan: []1. Sepsis/cellulitis/MRSA bacteremia: - blood cultures unfortunately remain positive after port removal, 06/25 08/05 positive - RHIANNON negative for vegetation - cont Vanco - cellulitis appears improved though high risk for septic joint - ortho consult ordered repeat CT of right leg and will be aspirating right hip joint, if surgery needed may need transfer for OrthoOnc. input - surgery recommended 06/26 monitoring port pocket for now, updated on question of pelvis cavity needing laprascopic eval. - appreciate ID consult 2. Afib w rvr: - started Amiodarone 200 mg PO BID 06/20 x10 days (plan to follow with 200 mg daily) and PO metoprolol with IV rescue as needed - hep gtt (however on hold d/t hematoma/bleed and need for hip aspiration) - renal fxn has improved to the point that eliquis would be a suitable oral option, however on hold pending potential for further surgical interventions 3. CHARLEEN suspect 09/03 ATN r/t sepsis c/b urinary obstruction. Cr now improving - neg. renal US, good UO with avina - cont. afluzosin 10 mg po daily, needs avina d/t obstruction, consider urology consult as outpatient - nephrology consultation appreciated - complement 3/4, SPEP, light chains ordered - mildly acidotic improved with oral HCO3- 4. Immune mediated inflammation: - Decrease Prednisone to 30 mg po daily 5. Anasarca: - Continue Lasix 20 IV daily. - Nutrition consult to help with high protein mechanical soft diet 6. Full code Dispo: acute inpt. care with cont.'d work-up for bacteremia and question of need for surgical intervention
[2019-06-27] MEDS: Furosemide IV* 10 MG/ML 2 ML VIAL (20 MG) IV SCH (10:10)
[2019-06-27] MEDS: Polyethylene Glycol 3350* 17 GM PACKET PO SCH (10:10)
[2019-06-27] MEDS: Levothyroxine TAB* 50 MCG TAB PO SCH (10:10)
[2019-06-27] MEDS: Pantoprazole TAB * 40 MG TAB PO SCH (10:12)
[2019-06-27] MEDS: Tamsulosin CAP* 0.4 MG PO SCH (10:12)
[2019-06-27] MEDS: Amiodarone TAB* 200 MG PO SCH ×2 (10:12→21:14)
[2019-06-27] MEDS: Sodium Bicarbonate (ANTACID)* 650 MG TAB PO SCH ×2 (10:12→21:13)
[2019-06-27] MEDS: Nystatin TOP POWDER* 15 GM BTL TOPICAL SCH ×2 (10:13→21:14)
[2019-06-27 10:18] LABS: Hematocrit 31 % (42-52); Hemoglobin 10.4 g/dL (14.0-18.0); Mean Corpuscular HGB Conc 33 g/dL (31-36); Mean Corpuscular Hemoglobin 30 pg (27-31); Mean Corpuscular Volume 89 fL (80-94); Mean Platelet Volume 8.3 fL (7.4-10.4); Platelet Count 219 10^3/uL (150-450); Red Blood Count 3.52 10^6 /uL (4.18-5.48); Red Cell Distribution Width 19 % (10-15); White Blood Count 15.1 10^3/uL (3.5-10.8)
[2019-06-27 10:57] LABS: ABS Eosinophils 0.1 10^3/ul (0-0.6); ABS Lymphocytes 0.7 10^3/ul (1.0-4.8); ABS Monocytes 0.6 10^3/ul (0-0.8); ABS Neutrophils 13.7 10^3/ul (1.5-7.7); Eosinophil % 0.7 %; Lymphocyte % 4.7 %
[2019-06-27] MEDS ORDERED: fentaNYL* 50 MCG/ML 2 ML VIAL (100 MCG VIAL) ONE (11:10)
[2019-06-27] MEDS ORDERED: Naloxone* 0.4 MG/ML 1 ML VIAL ONE (11:11)
--- NOTE | 2019-06-27 11:21 | PN ---
Progress Note - Progress Note Date of Service: 06/27/19 SOAP: Subjective: CC: Persistent MRSA bacteremia HPI: Mr. Santoyo is an 78 yo male with PMH significant for urothelial cancer with right hip metastasis, adrenal insufficiency, aortic stenosis, hx right LE DVT, HLD, hypothyroidism, hx retinal detachment. Admitted with encephalopathy with MRSA bacteremia. Denies fever, chills, nausea, vomiting, or diarrhea. Reports that he has had right LE (hip and knee) pain for 1.5 year, reports pain is constant and 3/10 (this is baseline). Objective: Vital Signs 06/27/19 03:13 Temperature 97.8 F Temperature Oral Source Pulse Rate 68 Respiratory 19 Rate Blood Pressure 123/68 (mmHg) Blood Pressure 86 Mean O2 Sat by Pulse 98 Oximetry Patient on Room Yes Air Physical Exam: General: NAD, sitting up in bed Neurological: Alert and Oriented x 4 HEENT: Moist MM, no thrush Cardiovascular: Heart rate regular, systolic murmur, grade 2/6 Respiratory: Lung sounds clear Abdominal: Bowel sounds present; ABD soft, non tender and non distended MSK: Able to slightly bend the right knee with AROM, guarding the right hip and knee and will not allow movement with PROM. Right LE edema, 1+ Skin: No rash. Dressing to right chest; clean, dry and intact without surrounding erythema Laboratory Results - last 24 hr 06/24/19 06/27/19 06/27/19 05:29 04:16 07:01 APTT 59.4 H BUN 57 H Creatinine 2.47 H Est GFR ( Amer) 30.6 Est GFR (Non-Af Amer) 25.3 [place] Light Chain 6.13 H Lambda Light Chain 5.47 H [place]/Lambda Ratio 1.12 Complement C3 127 Complement C4 42 H 06/27/19 09:57 WBC 15.1 H RBC 3.52 L Hgb 10.4 L Hct 31 L MCV 89 MCH 30 MCHC 33 RDW 19 H Plt Count 219 MPV 8.3 Neut % (Auto) 90.5 Lymph % (Auto) 4.7 [place] % (Auto) 4.0 Eos % (Auto) 0.7 Baso % (Auto) 0.1 Absolute Neuts (auto) 13.7 H Absolute Lymphs (auto) 0.7 L Absolute Monos (auto) 0.6 Absolute Eos (auto) 0.1 Absolute Basos (auto) 0.0 Absolute Nucleated RBC 0.0 Nucleated RBC % 0.0 Microbiology 06/23/19 11:26 Aerobic Blood Culture - Preliminary Blood Venous No Growth Day 4 Anaerobic Blood Culture - Final MRSA 06/25/19 06:38 Aerobic Blood Culture - Preliminary Blood Venous Anaerobic Blood Culture - Preliminary Blood MRSA/MSSA (PCR) - Final Mrsa Positive S.aureus Positive 06/25/19 06:29 Aerobic Blood Culture - Preliminary Blood Venous No Growth Day 2 Anaerobic Blood Culture - Preliminary No Growth Day 2 06/23/19 11:30 Aerobic Blood Culture - Final Blood Venous MRSA Anaerobic Blood Culture - Final MRSA Blood MRSA/MSSA (PCR) - Final Mrsa Positive S.aureus Positive 06/21/19 06:13 Aerobic Blood Culture - Final No Source Provided No Growth Day 5 Anaerobic Blood Culture - Final No Growth Day 5 06/21/19 04:29 Aerobic Blood Culture - Final No Source Provided MRSA Anaerobic Blood Culture - Final MRSA Blood MRSA/MSSA (PCR) - Final Mrsa Positive S.aureus Positive 06/18/19 07:43 Aerobic Blood Culture - Final Blood Line MRSA Anaerobic Blood Culture - Final MRSA 06/18/19 07:43 Aerobic Blood Culture - Final Blood Line MRSA Anaerobic Blood Culture - Final MRSA Blood MRSA/MSSA (PCR) - Final Mrsa Positive S.aureus Positive 06/16/19 17:36 Aerobic Blood Culture - Final Blood Line MRSA Anaerobic Blood Culture - Final MRSA 06/16/19 11:33 Aerobic Blood Culture - Final Blood Venous MRSA 06/16/19 11:33 Aerobic Blood Culture - Final Blood Venous MRSA Anaerobic Blood Culture - Final MRSA Blood MRSA/MSSA (PCR) - Final Mrsa Positive S.aureus Positive 06/17/19 17:36 Stool Gross Appearance - Final Stool C. difficile DNA Amplification - Final 027 Presumptive NEGATIVE Toxigenic C.diff NEGATIVE 06/17/19 17:36 Stool Occult Blood (CALE) - Final Stool 06/16/19 21:14 Urine Culture - Final Urine No Growth (<1,000 CFU/mL) 06/17/19 05:45 Nasal Screen MRSA (PCR) - Final Nasal Mrsa Detected Assessment: 1. Persistent MRSA bacteremia. 1st cultures 06/16, last blood cultures on 06/25 and continue to be positive for MRSA. RHIANNON with no vegetations. Power port in the right chest removed at admission. 2. Right hip and knee pain. With edema in the leg and large joint effusion on CT scan. Pt is guarding the leg and will not allow PROM at this time. Able to move right knee a small amount with AROM. Differential Dx: Septic right hip/ knee arthritis (right hip aspiration pending). 3. Urothelial cancer with right hip metastasis. Plan: Continue vancomycin, trough goal 15-20. Agree with right hip aspiration. Will repeat blood cultures in the AM.
[2019-06-27 13:15] LABS: Body Fluid Source Synovial Fluid
[2019-06-27 14:20] LABS: Body Fluid Mono 1 %
[2019-06-27 14:40] LABS: C Reactive Protein 143.37 mg/L (<8.01)
--- NOTE | 2019-06-27 15:49 | CONS ---
CONSULTATION REPORT: DATE OF CONSULT: 06/27/19 ATTENDING ORTHOPEDIC PROVIDER: Dr. Sean Salinas. ADMITTING DIAGNOSIS: Altered mental status. REASON FOR CONSULTATION: Consult request for right leg pain. HISTORY OF PRESENT ILLNESS: The patient is an 78-year-old gentleman with MRSA bacteremia, right hip and knee pain. He has a complicated history consisting of metastatic urothelial carcinoma for which he completed roughly 2 years of immunotherapy. In May 2019, he was admitted to the hospital with encephalitis, myocarditis, arthritis, nephritis, hepatitis due to severe immune- mediated reaction from which he has significantly improved on high dose steroids over the last month. The patient had been feeling relatively well until 06/15/19 when he was found on the floor confused found by his healthcare aid. In the emergency room, he was hypertensive and tachycardic. At the time of admission, he was reporting some pain in the right knee and hip, which is chronic for him. He has also had swelling in the right leg for approximately 1 year which is chronic for him as well. Today, he reports he is having pain in both the right knee and right hip as well as the entirety of the right leg. The swelling in the right leg does not seem worse than it has been over the past year. He reports that he has moderate sharp pain in both the right hip and the right knee with any movement as well as with walking, but he is able to range both of these joints somewhat. There is no pain radiation and the knee is more bothersome than the hip. PAST MEDICAL HISTORY: Significant for metastatic urothelial carcinoma, adrenal insufficiency, aortic stenosis, history of DVT, hyperlipidemia, hypothyroidism, retinal detachment. PAST SURGICAL HISTORY: Significant for hernia repair. HOME MEDICATIONS: Include: 1. Eliquis 5 mg p.o. twice daily. 2. Ascorbic acid 500 mg p.o. daily. 3. Docusate 200 mg p.o. twice daily. 4. Levothyroxine 50 mcg p.o. daily. 5. Metoprolol tartrate 25 mg p.o. twice daily. 6. Morphine sulfate 15 mg p.o. twice daily. 7. Multivitamin 1 tab p.o. daily. 8. Zofran 4 mg q.4 hours as needed for nausea and vomiting. 9. Protonix 40 mg p.o. daily. 10. MiraLAX 17 grams p.o. daily. 11. Prednisone 40 mg p.o. daily and a taper of 10 mg per week. 12. Tramadol 50 mg p.o. q.6 hours. FAMILY HISTORY: Mother of colon cancer at age 83. SOCIAL HISTORY: The patient lives independently with 2 daughters who live nearby. He has a 5-pack year smoking history. He quit 50 years ago. Occasional alcohol use. PHYSICAL EXAM: Vital Signs: Temperature 96.8, pulse rate 64, respiratory rate 18, oxygen saturation 96, blood pressure 131/66. General: The patient is in no acute distress. He is nontoxic appearing. HEENT: Normocephalic, atraumatic. Extraocular movements are intact. Respiratory: Lungs are clear to auscultation bilaterally. Cardiac: S1, S2. Positive for murmur. Abdomen: Nondistended, soft, nontender. Musculoskeletal: Bilateral upper extremities: Skin envelope intact. Nontender to palpation. Able to flex and extend digits, wrists, elbows, and shoulders without pain. Left lower extremity: Skin envelope intact. Nontender to palpation. There is 1+ pitting edema of the lower leg. Able to flex and extend toes, ankle, knee and hip without pain. Right lower extremity: Skin envelope intact. He has pitting edema throughout the extremity including circumferentially around the thigh. He is nontender to palpation throughout the extremity. He is nontender to palpation over the hip, the thigh, or the knee despite quite significant edema in all of these areas. There is no erythema and no warmth at the joints. At the medial thigh, there is very slight erythema where the patient states that his thigh occasionally weeps serous fluid, though there is no weeping today. Able to flex and extend at the toes and ankle without any pain. He is minimally able to actively range the hip and knee. Passive range of motion I am able to produce roughly from 0 to 45 degrees flexion and extension both at the knee and at the hip without any pain, difficult to assess further while he is lying in bed. Neuro: Sensation intact to light touch throughout bilateral upper and lower extremities. DIAGNOSTIC STUDIES/LAB DATA: CT scan of the right lower extremity demonstrates a large right hip effusion. There is possible extension of this fluid into the pelvic region as well. Ultrasound guided hip aspiration was completed, awaiting cell count as well as microbiology results. Labs at admission: White blood cell count was 22.8, it is now 15.1. No CRP has been done, adding on a CRP to today's labs. ASSESSMENT: This is an 79-year-old male with possible septic right hip, possible septic right knee. Ultrasound- guided aspiration has been done, awaiting results. Methicillin-resistant Staphylococcus aureus bacteremia. PLAN: We will await final results of aspiration. General Surgery has also been contacted by primary team oncology due to possible fluid communication into the pelvis with concern that even if there is a septic hip, washing out the hip alone may not be adequate to decrease burden of infection. I have asked physical therapy to get the patient up to the chair, so I can better assess his knee. This case has been discussed with Dr. Salinas who agrees with assessment and plan. MICHAEL VILLA Afternoon of 06/28/19 able to range the right knee 0-100 degrees without pain while sitting in a chair. Despite good ROM, patient has knee pain and bacteremia. Will aspirate the knee. [id number] #: [id number] [facility]ITALKeny
--- NOTE | 2019-06-27 16:14 | PN ---
Progress Note - Progress Note Date of Service: 06/27/19 Note: Patient has no complaints this morning. He has a little pain from the hematoma, but it does not bother him overall. There was draining of the hematoma overnight but nothing more this morning. Blood cultures are still positive, and source is not clear at this time. There is concern for septic R hip and potentially a communication into the pelvis. Temp Pulse Resp BP Pulse Ox 96.8 F 64 18 131/66 96 06/27/19 13:30 06/27/19 13:30 06/27/19 13:30 06/27/19 13:30 06/27/19 13:30 Intake & Output 06/27/19 06/27/19 06/27/19 06:59 14:59 22:59 Intake Total 240 480 Output Total 950 1800 Balance -710 -1320 General: No acute distress Skin: R chest hematoma, overall unchanged in size. No drainage. No erythema of overlying skin. Laboratory Results - last 24 hr 06/24/19 06/27/19 06/27/19 05:29 04:16 07:01 WBC RBC Hgb Hct MCV MCH MCHC RDW Plt Count MPV Neut % (Auto) Lymph % (Auto) [place] % (Auto) Eos % (Auto) Baso % (Auto) Absolute Neuts (auto) Absolute Lymphs (auto) Absolute Monos (auto) Absolute Eos (auto) Absolute Basos (auto) Absolute Nucleated RBC Nucleated RBC % APTT 59.4 H BUN 57 H Creatinine 2.47 H Est GFR ( Amer) 30.6 Est GFR (Non-Af Amer) 25.3 C-Reactive Protein 143.37 H Fluid Source Fluid Volume Fluid Color Fluid Appearance Fluid WBC Fluid RBC Fluid Tot Cell Count Fluid Neutrophils Fluid Lymphocytes Fluid Monocytes Fluid Comment [place] Light [place] 6.13 H Lambda Light [place] 5.47 H [place]/Lambda Ratio 1.12 Complement C3 127 Complement C4 42 H 06/27/19 06/27/19 06/27/19 09:57 12:43 14:53 WBC 15.1 H RBC 3.52 L Hgb 10.4 L Hct 31 L MCV 89 MCH 30 MCHC 33 RDW 19 H Plt Count 219 MPV 8.3 Neut % (Auto) 90.5 Lymph % (Auto) 4.7 [place] % (Auto) 4.0 Eos % (Auto) 0.7 Baso % (Auto) 0.1 Absolute Neuts (auto) 13.7 H Absolute Lymphs (auto) 0.7 L Absolute Monos (auto) 0.6 Absolute Eos (auto) 0.1 Absolute Basos (auto) 0.0 Absolute Nucleated RBC 0.0 Nucleated RBC % 0.0 APTT 29.5 BUN Creatinine Est GFR ( Amer) Est GFR (Non-Af Amer) C-Reactive Protein Fluid Source Synovial fluid Fluid Volume 2 Fluid Color [place] Fluid Appearance Cloudy Fluid WBC Not Reportable Fluid RBC Not Reportable Fluid Tot Cell Count 100 Fluid Neutrophils 94 Fluid Lymphocytes 5 Fluid Monocytes 1 Fluid Comment [place] Light [place] Lambda Light Chain [place]/Lambda Ratio Complement C3 Complement C4 A&P: 78M with persistent MRSA bacteremia s/p port removal. Now with hematoma at port site. Awaiting microbiology from US-guided hip aspiration. -Will follow up cultures from aspiration -Hematoma appears stable. Will watch for now. No evidence of infection at this time.
--- NOTE | 2019-06-27 16:26 | PN ---
Progress Note - Progress Note Date of Service: 06/27/19 Note: Right knee aspiration done 06/27/19 at 16:20] Consent performed with nurse present. Right knee aspirated, 15cc transparent straw colored fluid was removed. Tolerated well by the patient. Fluid sent to the lab for aerobic, anaerobic, fungal cultures, gram stain and cell count. Will follow results and exam. Patient is NPO at midnight for possible OR tomorrow pending right hip and knee aspiration results.
[2019-06-27 16:33] LABS: Body Fluid Source Synovial Fluid
[2019-06-27] MEDS ORDERED: Heparin VIAL(*) 5000 UNITS/ML VIAL (FIVE THOUSAND) IV SCH (17:00)
[2019-06-27] MEDS: Heparin DRIP 25,000 UNITS(*) 25,000 UNITS/500 ML BAG IV SCH (17:11)
[2019-06-27 17:46] LABS: Body Fluid Mono 68 %; Body Fluid Other Cells 2
[2019-06-27 18:21] LABS: Hematocrit 31 % (42-52); Hemoglobin 10.3 g/dL (14.0-18.0); Mean Corpuscular HGB Conc 34 g/dL (31-36); Mean Corpuscular Hemoglobin 30 pg (27-31); Mean Corpuscular Volume 90 fL (80-94); Mean Platelet Volume 8.6 fL (7.4-10.4); Platelet Count 220 10^3/uL (150-450); Red Blood Count 3.41 10^6 /uL (4.18-5.48); Red Cell Distribution Width 19 % (10-15); White Blood Count 18.6 10^3/uL (3.5-10.8)
[2019-06-27 18:23] LABS: ABS Lymphocytes 0.3 10^3/ul (1.0-4.8); ABS Monocytes 0.5 10^3/ul (0-0.8); ABS Neutrophils 17.7 10^3/ul (1.5-7.7); Eosinophil % 0.2 %; Lymphocyte % 1.5 %
[2019-06-27] MEDS: traMADol TAB* 50 MG PO PRN (22:17)
[2019-06-27] MEDS: Ondansetron TAB* 4 MG PO PRN (22:18)
[2019-06-28] MEDS: Vancomycin(*) 1,000 MG in NS 0.9% 250 ML* 250 ML IV SCH (05:51)
[2019-06-28 09:15] LABS: Hematocrit 29 % (42-52); Hemoglobin 9.2 g/dL (14.0-18.0); Mean Corpuscular HGB Conc 32 g/dL (31-36); Mean Corpuscular Hemoglobin 29 pg (27-31); Mean Corpuscular Volume 89 fL (80-94); Platelet Count 226 10^3/uL (150-450); Red Cell Distribution Width 18 % (10-15)
[2019-06-28] MEDS: Levothyroxine TAB* 50 MCG TAB PO SCH (09:59)
[2019-06-28 10:00] LABS: ABS Eosinophils 0.1 10^3/ul (0-0.6); ABS Lymphocytes 0.9 10^3/ul (1.0-4.8); ABS Monocytes 0.9 10^3/ul (0-0.8); ABS Neutrophils 14.2 10^3/ul (1.5-7.7); Eosinophil % 0.4 %; Lymphocyte % 5.4 %
[2019-06-28] MEDS: Amiodarone TAB* 200 MG PO SCH ×2 (10:00→20:22)
[2019-06-28] MEDS: Tamsulosin CAP* 0.4 MG PO SCH (10:00)
[2019-06-28] MEDS: Pantoprazole TAB * 40 MG TAB PO SCH (10:00)
[2019-06-28] MEDS: Polyethylene Glycol 3350* 17 GM PACKET PO SCH (10:00)
[2019-06-28] MEDS: Sodium Bicarbonate (ANTACID)* 650 MG TAB PO SCH ×2 (10:00→20:22)
[2019-06-28] MEDS: Furosemide IV* 10 MG/ML 2 ML VIAL (20 MG) IV SCH (10:01)
[2019-06-28] MEDS: Nystatin TOP POWDER* 15 GM BTL TOPICAL SCH ×2 (10:01→20:23)
--- NOTE | 2019-06-28 10:24 | PN ---
Progress Note - Progress Note Date of Service: 06/28/19 SOAP: Subjective: []Pt seen at bedside, right hip and knee pain have decreased some today, knee pain is rated 2/10 and no current hip pain. He has not yet been out of bed today. Denies any feeling of fever or chills. Objective: []Gen: NAD, nontoxic appearing RLE: diffuse pitting edema throughout RLE. There is no erythema and he is nontender to palpation throughout the extremity including the hip and knee. He is laying in bed, I'm able to f/e the hip 0-45 degrees without pain, f/e the knee 0-45 degrees without pain. Endpoint is limited by laying in bed rather than pain. f/e ankle and digits intact without pain. DP2+, sensation intact to light touch distally. Assessment: []R Leg pain r/o septic hip or septic knee Plan: []- Right knee aspiration showed low fluid WBC, no infection. Gram stain also without any organisms, awaiting final culture - US guidance did not reveal any fluid that could be aspirated from the right hip, fluid was taken from proximal R IT band. Sample coagulated, unable to get cell count. Gram stain without organisms, awaiting final culture. - MRI pelvis is ordered for today. - Discussed findings with Dr Salinas, at this time there is no orthopedic intervention planned. We will monitor labs/ cultures and MRI findings and make recommendations based on further findings. Microbiology 06/27/19 16:20 Joint Fluid(Synovial) - Knee Right Gram Stain - Final 06/27/19 12:43 Joint Fluid(Synovial) - Hip Gram Stain - Final 06/25/19 06:29 Blood Venous Aerobic Blood Culture - Preliminary No Growth Day 3 06/25/19 06:29 Blood Venous Anaerobic Blood Culture - Preliminary No Growth Day 3 06/23/19 11:26 Blood Venous Aerobic Blood Culture - Preliminary No Growth Day 4 06/23/19 11:26 Blood Venous Anaerobic Blood Culture - Final MRSA 06/25/19 06:38 Blood Venous Aerobic Blood Culture - Final MRSA 06/25/19 06:38 Blood Venous Anaerobic Blood Culture - Final MRSA 06/25/19 06:38 Blood Venous Blood MRSA/MSSA (PCR) - Final Mrsa Positive S.aureus Positive 06/23/19 11:30 Blood Venous Aerobic Blood Culture - Final MRSA 06/23/19 11:30 Blood Venous Anaerobic Blood Culture - Final MRSA 06/23/19 11:30 Blood Venous Blood MRSA/MSSA (PCR) - Final Mrsa Positive S.aureus Positive Laboratory Last Values WBC 16.0 10^3/uL (3.5-10.8) H 06/28/19 05:27 RBC 3.20 10^6 /uL (4.18-5.48) L 06/28/19 05:27 Hgb 9.2 g/dL (14.0-18.0) L 06/28/19 05:27 Hct 29 % (42-52) L 06/28/19 05:27 MCV 89 fL (80-94) 06/28/19 05:27 MCH 29 pg (27-31) 06/28/19 05:27 MCHC 32 g/dL (31-36) 06/28/19 05:27 RDW 18 % (10-15) H 06/28/19 05:27 Plt Count 226 10^3/uL (150-450) 06/28/19 05:27 MPV 9.0 fL (7.4-10.4) 06/28/19 05:27 Neut % (Auto) 88.5 % 06/28/19 05:27 Lymph % (Auto) 5.4 % 06/28/19 05:27 [place] % (Auto) 5.5 % 06/28/19 05:27 Eos % (Auto) 0.4 % 06/28/19 05:27 Baso % (Auto) 0.2 % 06/28/19 05:27 Absolute Neuts (auto) 14.2 10^3/ul (1.5-7.7) H 06/28/19 05:27 Absolute Lymphs (auto) 0.9 10^3/ul (1.0-4.8) L 06/28/19 05:27 Absolute Monos (auto) 0.9 10^3/ul (0-0.8) H 06/28/19 05:27 Absolute Eos (auto) 0.1 10^3/ul (0-0.6) 06/28/19 05:27 Absolute Basos (auto) 0.0 10^3/ul (0-0.2) 06/28/19 05:27 Absolute Nucleated RBC 0.0 10^3/ul 06/28/19 05:27 Immature Gran % 7.0 % (0-9) 06/24/19 16:59 Neutrophils % 86.0 % 06/24/19 16:59 Band Neutrophils % 3.0 % (0-8) 06/24/19 16:59 Lymphocytes % 4.0 % 06/24/19 16:59 Monocytes % 3.0 % 06/24/19 16:59 Eosinophils % 1.0 % 06/23/19 17:13 Metamyelocytes % 4.0 % (0-2) H 06/24/19 16:59 Myelocytes % 3.0 % (0-1) H 06/23/19 17:13 Promyelocytes % 1.0 % 06/23/19 17:13 Nucleated RBC % 0.0 06/28/19 05:27 Normal RBC Morphology Not Reportable 06/24/19 16:59 Anisocytosis 2+ 06/24/19 16:59 APTT 66.9 seconds (26.0-38.0) H 06/28/19 05:32 Sodium 138 mmol/L (135-145) 06/26/19 05:23 Potassium 3.6 mmol/L (3.5-5.0) 06/26/19 05:23 Chloride 103 mmol/L (101-111) 06/26/19 05:23 Carbon Dioxide 27 mmol/L (22-32) 06/26/19 05:23 Anion Gap 8 mmol/L (2-11) 06/26/19 05:23 BUN 57 mg/dL (6-24) H 06/27/19 04:16 Creatinine 2.47 mg/dL (0.67-1.17) H 06/27/19 04:16 Est GFR ( Amer) 30.6 (>60) 06/27/19 04:16 Est GFR (Non-Af Amer) 25.3 (>60) 06/27/19 04:16 BUN/Creatinine Ratio 19.6 (8-20) 06/26/19 05:23 Glucose 99 mg/dL (70-100) 06/26/19 05:23 Lactic Acid 1.6 mmol/L (0.5-2.0) 06/17/19 05:45 Calcium 8.6 mg/dL (8.6-10.3) 06/26/19 05:23 Magnesium 1.8 mg/dL (1.9-2.7) L 06/26/19 05:23 Total Bilirubin 0.50 mg/dL (0.2-1.0) 06/25/19 06:29 AST 15 U/L (13-39) 06/25/19 06:29 ALT 29 U/L (7-52) 06/25/19 06:29 Alkaline Phosphatase 90 U/L (34-104) 06/25/19 06:29 Troponin I 0.72 ng/mL (<0.04) H* 06/16/19 23:45 C-Reactive Protein 143.37 mg/L (<8.01) H 06/27/19 04:16 Total Protein 6.0 g/dL (6.4-8.9) L 06/25/19 06:29 Albumin 2.6 g/dL (3.2-5.2) L 06/25/19 06:29 Globulin 3.4 g/dL (2-4) 06/25/19 06:29 Albumin/Globulin Ratio 0.8 (1-3) L 06/25/19 06:29 Urine Color Yellow 06/18/19 19:15 Urine Appearance Cloudy 06/18/19 19:15 Urine pH 5 (5-9) 06/18/19 19:15 Ur Specific [place] 1.025 (1.010-1.030) 06/18/19 19:15 Urine Protein 1+(30 mg/dl) (Negative) A 06/18/19 19:15 Urine Ketones Negative (Negative) 06/18/19 19:15 Urine Blood 3+ (Negative) A 06/18/19 19:15 Urine Nitrate Negative (Negative) 06/18/19 19:15 Urine Bilirubin Negative (Negative) 06/18/19 19:15 Urine Urobilinogen Negative (Negative) 06/18/19 19:15 Ur Leukocyte Esterase Negative (Negative) 06/18/19 19:15 Urine WBC (Auto) Absent (Absent) 06/18/19 19:15 Urine RBC (Auto) 3+(>10/hpf) (Absent) A 06/18/19 19:15 Urine Bacteria Absent (Absent) 06/18/19 19:15 Urine Glucose Negative (Negative) 06/18/19 19:15 Urine Ascorbic Acid Not Reportable 06/18/19 19:15 Fluid Source Synovial fluid 06/27/19 16:20 Fluid Volume 14 mL 06/27/19 16:20 Fluid Color Yellow 06/27/19 16:20 Fluid Appearance Clear 06/27/19 16:20 Fluid WBC 25 /mcL (0-570793) 06/27/19 16:20 Fluid RBC 35 /mcL 06/27/19 16:20 Fluid Tot Cell Count 100 06/27/19 16:20 Fluid Neutrophils 3 % 06/27/19 16:20 Fluid Lymphocytes 28 % 06/27/19 16:20 Fluid Monocytes 68 % 06/27/19 16:20 Fluid Basophils 1 % 06/27/19 16:20 Fluid Other Cells 2 06/27/19 16:20 Fluid Comment 06/27/19 16:20 Random Vancomycin 18.9 mcg/mL 06/26/19 05:23 [place] Light Chain 6.13 mg/dL H 06/24/19 05:29 Lambda Light Chain 5.47 mg/dL H 06/24/19 05:29 [place]/Lambda Ratio 1.12 06/24/19 05:29 Complement C3 127 mg/dL (75 - 175) 06/24/19 05:29 Complement C4 42 mg/dL (14 - 40) H 06/24/19 05:29
--- NOTE | 2019-06-28 10:59 | PN ---
Progress Note - Progress Note Date of Service: 06/28/19 SOAP: Subjective: CC: Persistent MRSA bacteremia HPI: Mr. Santoyo is an 78 yo male with PMH significant for urothelial cancer with right hip metastasis, adrenal insufficiency, aortic stenosis, hx right LE DVT, HLD, hypothyroidism, hx retinal detachment. Admitted with encephalopathy with MRSA bacteremia. Denies fever, chills, nausea, vomiting, or diarrhea. Reports the right hip and knee pain is tolerable. Objective: Vital Signs - 8 hr 06/28/19 06/28/19 06/28/19 03:53 07:53 08:00 Temperature 98 F 98.0 F Pulse Rate 58 63 Respiratory 20 18 19 Rate Blood Pressure 148/63 133/68 (mmHg) O2 Sat by Pulse 98 97 Oximetry Physical Exam: General: NAD, sitting up in bed Neurological: Alert and Oriented x 4 HEENT: Moist MM, no thrush Cardiovascular: Heart rate regular, systolic murmur, grade 2/6 Respiratory: Lung sounds clear Abdominal: Bowel sounds present; ABD soft, non tender and non distended MSK: Able to slightly bend the right knee with AROM. Able to perform log roll on the right hip. Right LE edema, 1+. Skin: No rash. Dressing to right chest; clean, dry and intact without surrounding erythema Laboratory Results - last 24 hr 06/27/19 06/27/19 06/27/19 04:16 09:57 12:43 Neut % (Auto) 90.5 Lymph % (Auto) 4.7 [place] % (Auto) 4.0 Eos % (Auto) 0.7 Baso % (Auto) 0.1 Absolute Neuts (auto) 13.7 H Absolute Lymphs (auto) 0.7 L Absolute Monos (auto) 0.6 Absolute Eos (auto) 0.1 Absolute Basos (auto) 0.0 Absolute Nucleated RBC 0.0 Nucleated RBC % 0.0 BUN 57 H Creatinine 2.47 H Est GFR ( Amer) 30.6 Est GFR (Non-Af Amer) 25.3 C-Reactive Protein 143.37 H Fluid Source Synovial fluid Fluid Volume 2 Fluid Color [place] Fluid Appearance Cloudy Fluid WBC Not Reportable Fluid RBC Not Reportable Fluid Tot Cell Count 100 Fluid Neutrophils 94 Fluid Lymphocytes 5 Fluid Monocytes 1 06/27/19 06/27/19 06/27/19 14:53 16:20 18:02 WBC 18.6 H RBC 3.41 L Hgb 10.3 L Hct 31 L MCV 90 MCH 30 MCHC 34 RDW 19 H Plt Count 220 MPV 8.6 Neut % (Auto) 95.3 Lymph % (Auto) 1.5 [place] % (Auto) 2.9 Eos % (Auto) 0.2 Baso % (Auto) 0.1 Absolute Neuts (auto) 17.7 H Absolute Lymphs (auto) 0.3 L Absolute Monos (auto) 0.5 Absolute Eos (auto) 0.0 Absolute Basos (auto) 0.0 Absolute Nucleated RBC 0.0 Nucleated RBC % 0.0 APTT 29.5 C-Reactive Protein Fluid Source Synovial fluid Fluid Volume 14 Fluid Color [place] Fluid Appearance Clear Fluid WBC 25 Fluid RBC 35 Fluid Tot Cell Count 100 Fluid Neutrophils 3 Fluid Lymphocytes 28 Fluid Monocytes 68 Fluid Basophils 1 Fluid Other Cells 2 06/27/19 06/28/19 06/28/19 23:18 05:27 05:32 WBC 16.0 H RBC 3.20 L Hgb 9.2 L Hct 29 L MCV 89 MCH 29 MCHC 32 RDW 18 H Plt Count 226 MPV 9.0 Neut % (Auto) 88.5 Lymph % (Auto) 5.4 [place] % (Auto) 5.5 Eos % (Auto) 0.4 Baso % (Auto) 0.2 Absolute Neuts (auto) 14.2 H Absolute Lymphs (auto) 0.9 L Absolute Monos (auto) 0.9 H Absolute Eos (auto) 0.1 Absolute Basos (auto) 0.0 Absolute Nucleated RBC 0.0 Nucleated RBC % 0.0 APTT 48.4 H 66.9 H Microbiology 06/27/19 12:43 Gram Stain - Final Joint Fluid(Synovial) - Hip Body Fluid Culture - Preliminary No Growth Day 1 06/27/19 16:20 Gram Stain - Final Joint Fluid(Synovial) - Knee Right Body Fluid Culture - Preliminary No Growth Day 1 06/25/19 06:29 Aerobic Blood Culture - Preliminary Blood Venous No Growth Day 3 Anaerobic Blood Culture - Preliminary No Growth Day 3 06/23/19 11:26 Aerobic Blood Culture - Preliminary Blood Venous No Growth Day 4 Anaerobic Blood Culture - Final MRSA 06/25/19 06:38 Aerobic Blood Culture - Final Blood Venous MRSA Anaerobic Blood Culture - Final MRSA Blood MRSA/MSSA (PCR) - Final Mrsa Positive S.aureus Positive 06/23/19 11:30 Aerobic Blood Culture - Final Blood Venous MRSA Anaerobic Blood Culture - Final MRSA Blood MRSA/MSSA (PCR) - Final Mrsa Positive S.aureus Positive 06/21/19 06:13 Aerobic Blood Culture - Final No Source Provided No Growth Day 5 Anaerobic Blood Culture - Final No Growth Day 5 06/21/19 04:29 Aerobic Blood Culture - Final No Source Provided MRSA Anaerobic Blood Culture - Final MRSA Blood MRSA/MSSA (PCR) - Final Mrsa Positive S.aureus Positive 06/18/19 07:43 Aerobic Blood Culture - Final Blood Line MRSA Anaerobic Blood Culture - Final MRSA 06/18/19 07:43 Aerobic Blood Culture - Final Blood Line MRSA Anaerobic Blood Culture - Final MRSA Blood MRSA/MSSA (PCR) - Final Mrsa Positive S.aureus Positive 06/16/19 17:36 Aerobic Blood Culture - Final Blood Line MRSA Anaerobic Blood Culture - Final MRSA 06/16/19 11:33 Aerobic Blood Culture - Final Blood Venous MRSA 06/16/19 11:33 Aerobic Blood Culture - Final Blood Venous MRSA Anaerobic Blood Culture - Final MRSA Blood MRSA/MSSA (PCR) - Final Mrsa Positive S.aureus Positive 06/17/19 17:36 Stool Gross Appearance - Final Stool C. difficile DNA Amplification - Final 027 Presumptive NEGATIVE Toxigenic C.diff NEGATIVE 06/17/19 17:36 Stool Occult Blood (CALE) - Final Stool 06/16/19 21:14 Urine Culture - Final Urine No Growth (<1,000 CFU/mL) 06/17/19 05:45 Nasal Screen MRSA (PCR) - Final Nasal Mrsa Detected Assessment: 1. Persistent MRSA bacteremia. 1st cultures 06/16, last blood cultures on 06/25 and continue to be positive for MRSA with 2/4 bottles. Repeat blood cultures were drawn this AM, pending at this time. RHIANNON with no vegetations. Power port in the right chest removed at admission. 2. Right hip and knee pain. With edema in the leg and large joint effusion on CT scan. Minimal fluid obtained from aspiration of the right hip, no growth today. Right knee aspiration with no growth to date.Differential Dx: Septic right hip/knee arthritis (right hip aspiration pending). 3. Urothelial cancer with right hip metastasis. Plan: Continue vancomycin, trough goal 15-20. Recommend MRI to further eval the right hip process.
[2019-06-28] MEDS: Metoprolol Tartrate IV* 1 MG/ML 5 ML VIAL IV PRN (11:05)
[2019-06-28] MEDS: Heparin DRIP 25,000 UNITS(*) 25,000 UNITS/500 ML BAG IV SCH (16:16)
--- NOTE | 2019-06-28 17:22 | PN ---
Progress Note - Progress Note Date of Service: 06/28/19 Note: No complaints this morning. No bleeding/oozing from port site. Denies pain at hematoma site. Denies chest pain, shortness of breath, abdominal pain. Hip and knee aspiration done yesterday, no growth to date. Temp Pulse Resp BP Pulse Ox 98.1 F 72 18 133/56 97 06/28/19 11:30 06/28/19 11:30 06/28/19 11:30 06/28/19 11:30 06/28/19 11:30 General: No acute distress Chest: hematoma size unchanged. No erythema of overlying skin. Dressing from yesterday is clean and dry. Abdomen: soft, nondistended, nontender Extremities: Significant edema of RLE but warm. LLE warm, no pedal edema. Neuro: Alert, oriented x3 A&P 78M with MRSA bacteremia s/p port removal. Also concern for septic knee or hip. -Hematoma appears stable. Continue to monitor. Change dressing as needed, -Will f/u hip and knee cultures.
--- NOTE | 2019-06-28 17:24 | PN ---
Progress Note - Progress Note Date of Service: 06/28/19 SOAP: Subjective: [Eduin reports feeling a little better today. Pain in the hip/leg is slightly improved. No more oozing or other drainage from port site. Objective: [ Vital Signs: Temp Pulse Resp BP Pulse Ox 98.1 F 72 18 133/56 97 06/28/19 11:30 06/28/19 11:30 06/28/19 11:30 06/28/19 11:30 06/28/19 11:30 Acetaminophen (Tylenol Tab*) 650 mg PO Q4H PRN PRN Reason: PAIN OR ELEVATED TEMP Last Admin: 06/24/19 10:32 Dose: 650 mg Amiodarone HCl (Cordarone Tab*) 200 mg PO BID [facility] Stop: 06/30/19 11:59 Last Admin: 06/28/19 10:00 Dose: 200 mg Amiodarone HCl (Cordarone Tab*) 200 mg PO DAILY [facility] Docusate Sodium (Colace Cap*) 200 mg PO BID PRN PRN Reason: CONSTIPATION Last Admin: 06/26/19 18:19 Dose: 200 mg Furosemide (Lasix Iv*) 20 mg IV DAILY [facility] Last Admin: 06/28/19 10:01 Dose: 20 mg Heparin Sodium (Porcine) (Heparin Vial(*)) 0 units IV .PER PROTOCOL [facility] Vancomycin HCl 1,000 mg/ (Sodium Chloride) 250 mls @ 166.667 mls/hr IV Q24H [facility] Last Admin: 06/28/19 05:51 Dose: 166.667 mls/hr Heparin Sodium/Dextrose (Heparin Drip 25,000 Units(*)) 25,000 units in 500 mls @ 0 mls/hr IV PER RATE [facility]; Protocol Last Admin: 06/28/19 16:16 Dose: 23 mls/hr Levothyroxine Sodium (Synthroid Tab*) 50 mcg PO DAILY [facility] Last Admin: 06/28/19 09:59 Dose: 50 mcg Metoprolol Tartrate (Lopressor Iv*) 5 mg IV Q1H PRN PRN Reason: HEART RATE/PULSE GREATER THAN: Last Admin: 06/28/19 11:05 Dose: 5 mg Morphine Sulfate (Morphine Oral.Soln 10 Mg*) 15 mg PO BID PRN PRN Reason: PAIN - MODERATE Last Admin: 06/25/19 03:10 Dose: 15 mg Nystatin (Nystatin Top Powder*) 1 applic TOPICAL BID [facility] Last Admin: 06/28/19 10:01 Dose: 1 applic Ondansetron HCl (Zofran Tab*) 4 mg PO Q4HR PRN PRN Reason: NAUSEA Last Admin: 06/27/19 22:18 Dose: 4 mg Pantoprazole Sodium (Protonix Tab*) 40 mg PO DAILY [facility] Last Admin: 06/28/19 10:00 Dose: 40 mg Pharmacy Consult (Vancomycin Per Pharmacy*) 1 note FOLLOW UP . PRN PRN Reason: PER PROTOCOL Pharmacy Profile Note (Vancomycin Trough Check) 1 note FOLLOW UP ONCE ONE Stop: 06/29/19 05:31 Polyethylene Glycol/Electrolytes (Miralax*) 17 gm PO DAILY [facility] Last Admin: 06/28/19 10:00 Dose: 17 gm Prednisone (Deltasone Tab*) 40 mg PO DAILY [facility] Last Admin: 06/28/19 10:00 Dose: 40 mg Sodium Bicarbonate (Sodium Bicarbonate (Antacid)*) 650 mg PO BID [facility] Last Admin: 06/28/19 10:00 Dose: 650 mg Tamsulosin HCl (Flomax Cap*) 0.4 mg PO DAILY [facility] Last Admin: 06/28/19 10:00 Dose: 0.4 mg Tramadol HCl (Ultram*) 50 mg PO Q6HR PRN PRN Reason: PAIN - MODERATE Last Admin: 06/27/19 22:17 Dose: 50 mg Laboratory Results - last 24 hr 06/27/19 06/27/19 06/27/19 12:43 16:20 18:02 WBC 18.6 H RBC 3.41 L Hgb 10.3 L Hct 31 L MCV 90 MCH 30 MCHC 34 RDW 19 H Plt Count 220 MPV 8.6 Neut % (Auto) 95.3 Lymph % (Auto) 1.5 [place] % (Auto) 2.9 Eos % (Auto) 0.2 Baso % (Auto) 0.1 Absolute Neuts (auto) 17.7 H Absolute Lymphs (auto) 0.3 L Absolute Monos (auto) 0.5 Absolute Eos (auto) 0.0 Absolute Basos (auto) 0.0 Absolute Nucleated RBC 0.0 Nucleated RBC % 0.0 APTT C-Reactive Protein Fluid WBC 25 Fluid RBC 35 Fluid Tot Cell Count 100 Fluid Neutrophils 3 Fluid Lymphocytes 28 Fluid Monocytes 68 Fluid Basophils 1 Fluid Other Cells 2 Fluid Cell Count Rvw By 06/27/19 06/28/19 06/28/19 23:18 05:27 05:32 WBC 16.0 H RBC 3.20 L Hgb 9.2 L Hct 29 L MCV 89 MCH 29 MCHC 32 RDW 18 H Plt Count 226 MPV 9.0 Neut % (Auto) 88.5 Lymph % (Auto) 5.4 [place] % (Auto) 5.5 Eos % (Auto) 0.4 Baso % (Auto) 0.2 Absolute Neuts (auto) 14.2 H Absolute Lymphs (auto) 0.9 L Absolute Monos (auto) 0.9 H Absolute Eos (auto) 0.1 Absolute Basos (auto) 0.0 Absolute Nucleated RBC 0.0 Nucleated RBC % 0.0 APTT 48.4 H 66.9 H C-Reactive Protein Fluid WBC Fluid RBC Fluid Tot Cell Count Fluid Neutrophils Fluid Lymphocytes Fluid Monocytes Fluid Basophils Fluid Other Cells Fluid Cell Count Rvw By 06/28/19 06/28/19 11:43 11:47 WBC RBC Hgb Hct MCV MCH MCHC RDW Plt Count MPV Neut % (Auto) Lymph % (Auto) [place] % (Auto) Eos % (Auto) Baso % (Auto) Absolute Neuts (auto) Absolute Lymphs (auto) Absolute Monos (auto) Absolute Eos (auto) Absolute Basos (auto) Absolute Nucleated RBC Nucleated RBC % APTT 60.2 H C-Reactive Protein 120.71 H Fluid WBC Fluid RBC Fluid Tot Cell Count Fluid Neutrophils Fluid Lymphocytes Fluid Monocytes Fluid Basophils Fluid Other Cells Fluid Cell Count Rvw By Exam: Gen: Relatively well appearing 78 yo male in NAD HEENT: MMM, few missing teeth CV: RRR, 3/6 murmur Resp: CTA, no w/c/r Abd: soft and nonTTP Ext: improved edema of the RLE, hip and knee are non TTP Skin: port site is covered, no drainage or surrounding erythema noted Assessment: []78 yo M w metastatic urothelial CA (stable disease on recent imaging, off therapy 2/2 systemic immune mediated response) admitted with septic shock due to MRSA bacteremia secondary to right lower extremity cellulitis. His course has been complicated by A.Fib with RVR now SR on Amiodarone (initiated on 06/19) , ARF secondary to ATN, and unfortunately with persistent bacteremia with reservoir unclear. His port was removed and there was a hematoma and we have now repeated imaging of his right leg with significant concern for infected joint and question of communication to the pelvis cavity. Hip and knee aspirates are negative for growth at this time. Plan: []1. Sepsis/cellulitis/MRSA bacteremia: - blood cultures unfortunately remain positive after port removal, repeat cultures collected this morning - RHIANNON negative for vegetation - cont Vanco - cellulitis appears improved though high risk for septic joint - appreciate ID consult - R hip and knee aspirated yesterday which did not yield any positive results - MRI of the pelvis ordered and reviewed today - Dr Carrion will plan to reattempt aspiration of the R hip (likely to be done Fri and will need to hold heparin for 2 hours post procedure) 2. Afib w rvr: - started Amiodarone 200 mg PO BID 06/20 x10 days (plan to follow with 200 mg daily) and PO metoprolol with IV rescue as needed - hep gtt (however on hold d/t hematoma/bleed and need for hip aspiration) - renal fxn has improved to the point that eliquis would be a suitable oral option, however on hold pending potential for further surgical interventions 3. CHARLEEN suspect 2/2 ATN r/t sepsis c/b urinary obstruction. Cr now improving - neg. renal US, good UO with avina - cont. afluzosin 10 mg po daily, needs avina d/t obstruction, consider urology consult as outpatient - nephrology consultation appreciated - complement 3/4, SPEP, light chains WNLw - mildly acidotic improved with oral HCO3- 4. Immune mediated inflammation: - Decreased Prednisone to 30 mg po daily 5. Anasarca: - Continue Lasix 20 IV daily. - Nutrition consult to help with high protein mechanical soft diet 6. Full code Dispo: acute inpt. care with cont.'d work-up for bacteremia and question of need for surgical intervention]
[2019-06-28] MEDS: traMADol TAB* 50 MG PO PRN (21:58)
[2019-06-29] MEDS ORDERED: Vancomycin Trough Check NOTE FOLLOW UP ONE (05:30)
[2019-06-29 06:22] LABS: Hematocrit 27 % (42-52); Hemoglobin 9.1 g/dL (14.0-18.0); Mean Corpuscular HGB Conc 34 g/dL (31-36); Mean Corpuscular Hemoglobin 30 pg (27-31); Mean Corpuscular Volume 88 fL (80-94); Mean Platelet Volume 8.5 fL (7.4-10.4); Platelet Count 230 10^3/uL (150-450); Red Blood Count 3.07 10^6 /uL (4.18-5.48); Red Cell Distribution Width 18 % (10-15); White Blood Count 17.5 10^3/uL (3.5-10.8)
[2019-06-29 06:42] LABS: EGFR African American 29.7 (>60); EGFR Non-African American 24.5 (>60)
[2019-06-29 07:19] LABS: ABS Eosinophils 0.1 10^3/ul (0-0.6); ABS Lymphocytes 0.8 10^3/ul (1.0-4.8); ABS Monocytes 1.1 10^3/ul (0-0.8); ABS Neutrophils 15.4 10^3/ul (1.5-7.7); Eosinophil % 0.6 %; Lymphocyte % 4.8 %
[2019-06-29] MEDS: Vancomycin(*) 1,000 MG in NS 0.9% 250 ML* 250 ML IV SCH (08:02)
[2019-06-29] MEDS: Furosemide IV* 10 MG/ML 2 ML VIAL (20 MG) IV SCH (08:15)
[2019-06-29] MEDS: Sodium Bicarbonate (ANTACID)* 650 MG TAB PO SCH ×2 (08:15→21:18)
[2019-06-29] MEDS: Tamsulosin CAP* 0.4 MG PO SCH (08:16)
[2019-06-29] MEDS: Levothyroxine TAB* 50 MCG TAB PO SCH (08:17)
[2019-06-29] MEDS: Nystatin TOP POWDER* 15 GM BTL TOPICAL SCH ×2 (08:17→21:18)
[2019-06-29] MEDS: Polyethylene Glycol 3350* 17 GM PACKET PO SCH (08:17)
[2019-06-29] MEDS: Pantoprazole TAB * 40 MG TAB PO SCH (08:17)
[2019-06-29] MEDS: Amiodarone TAB* 200 MG PO SCH ×2 (08:18→21:19)
[2019-06-29 09:52] LABS: Calcium 8.3 mg/dL (8.6-10.3); Potassium 3.5 mmol/L (3.5-5.0)
--- NOTE | 2019-06-29 10:35 | PN ---
Progress Note - Progress Note Date of Service: 06/29/19 SOAP: Subjective: []No change, no fevers. He is eating well, no other complaints. Has been walking some but did not have PT yesterday. Had diarrhea after Miralax but still feels stuffed up. Acetaminophen (Tylenol Tab*) 650 mg PO Q4H PRN PRN Reason: PAIN OR ELEVATED TEMP Last Admin: 06/24/19 10:32 Dose: 650 mg Amiodarone HCl (Cordarone Tab*) 200 mg PO BID [facility] Stop: 06/30/19 11:59 Last Admin: 06/29/19 08:18 Dose: 200 mg Amiodarone HCl (Cordarone Tab*) 200 mg PO DAILY [facility] Docusate Sodium (Colace Cap*) 200 mg PO BID PRN PRN Reason: CONSTIPATION Last Admin: 06/26/19 18:19 Dose: 200 mg Furosemide (Lasix Iv*) 20 mg IV DAILY [facility] Last Admin: 06/29/19 08:15 Dose: 20 mg Heparin Sodium (Porcine) (Heparin Vial(*)) 0 units IV .PER PROTOCOL [facility] Heparin Sodium/Dextrose (Heparin Drip 25,000 Units(*)) 25,000 units in 500 mls @ 0 mls/hr IV PER RATE [facility]; Protocol Last Admin: 06/28/19 16:16 Dose: 23 mls/hr Vancomycin HCl 750 mg/ Sodium (Chloride) 250 mls @ 166.667 mls/hr IVPB Q24H [facility] Levothyroxine Sodium (Synthroid Tab*) 50 mcg PO DAILY [facility] Last Admin: 06/29/19 08:17 Dose: 50 mcg Metoprolol Tartrate (Lopressor Iv*) 5 mg IV Q1H PRN PRN Reason: HEART RATE/PULSE GREATER THAN: Last Admin: 06/28/19 11:05 Dose: 5 mg Morphine Sulfate (Morphine Oral.Soln 10 Mg*) 15 mg PO BID PRN PRN Reason: PAIN - MODERATE Last Admin: 06/25/19 03:10 Dose: 15 mg Nystatin (Nystatin Top Powder*) 1 applic TOPICAL BID [facility] Last Admin: 06/29/19 08:17 Dose: 1 applic Ondansetron HCl (Zofran Tab*) 4 mg PO Q4HR PRN PRN Reason: NAUSEA Last Admin: 11/26/19 22:18 Dose: 4 mg Pantoprazole Sodium (Protonix Tab*) 40 mg PO DAILY [facility] Last Admin: 06/29/19 08:17 Dose: 40 mg Pharmacy Consult (Vancomycin Per Pharmacy*) 1 note FOLLOW UP . PRN PRN Reason: PER PROTOCOL Polyethylene Glycol/Electrolytes (Miralax*) 17 gm PO DAILY [facility] Last Admin: 06/29/19 08:17 Dose: Not Given Prednisone (Deltasone Tab*) 40 mg PO DAILY [facility] Last Admin: 06/29/19 08:16 Dose: 40 mg Sodium Bicarbonate (Sodium Bicarbonate (Antacid)*) 650 mg PO BID [facility] Last Admin: 06/29/19 08:15 Dose: 650 mg Tamsulosin HCl (Flomax Cap*) 0.4 mg PO DAILY [facility] Last Admin: 06/29/19 08:16 Dose: 0.4 mg Tramadol HCl (Ultram*) 50 mg PO Q6HR PRN PRN Reason: PAIN - MODERATE Last Admin: 06/28/19 21:58 Dose: 50 mg Exam: Gen: Relatively well appearing 78 yo male in NAD HEENT: MMM, few missing teeth CV: RRR, 3/6 murmur Resp: CTA, no w/c/r Abd: soft and nonTTP Ext: improved edema of the RLE, hip and knee are non TTP Skin: port site is covered, no drainage or surrounding erythema noted MRI hip: Marked arthropathic change at the RIGHT hip with erosions at the acetabular and femoral head margins. Lytic and blastic osseous lesions at the RIGHT hemipelvis including the acetabulum. Associated pathologic fractures at the acetabulum as documented on prior CT. Bone marrow edema throughout the RIGHT hemipelvis with sparing of the sacrum. Bone marrow edema at the RIGHT femoral head through the basicervical region. Large RIGHT hip joint effusion contiguous with fluid extending proximal within the RIGHT iliopsoas bursa and infiltrative edema extending to the iliopsoas muscle, hip adductor musculature, proximal quadriceps musculature, and gluteus minimus and gluteus medius muscles. 2 small volume loculated fluid collections at the deep portion of the RIGHT iliacus muscle measuring up to 1.4 x 1.4 x 1.1 and 1.3 x 0.7 x 1.1 cm. Catheterized decompressed urinary bladder. Negative for ascites. No visualized lymphadenopathy evident. Diffuse subcutaneous edema. IMPRESSION: #. Given the clinical context the findings raise significant concern for septic arthritis at the RIGHT hip with associated osteomyelitis at the RIGHT hemipelvis and proximal femur as well as surrounding deep soft tissue infection as described. Assessment: []78 yo M w metastatic urothelial CA (stable disease on recent imaging, off therapy 2/2 systemic immune mediated response) admitted with septic shock due to MRSA bacteremia secondary to right lower extremity cellulitis. His course has been complicated by A.Fib with RVR now SR on Amiodarone (initiated on 06/19) , ARF secondary to ATN, and unfortunately with persistent bacteremia with reservoir unclear. His port was removed and there was a hematoma and we have now repeated imaging of his right leg with significant concern for infected joint and question of communication to the pelvis cavity. The right hip effusion is not clearly changed from prior CT scan in January but is most likely source of continued bacteremia. US guided bx non diagnostic but ased on MRI, second Bx may be more reveling. Plan: []1. Sepsis/cellulitis/MRSA bacteremia: - blood cultures + 06/28/19 - RHIANNON negative for vegetation - cont Vanco - cellulitis appears improved though high risk for septic joint - appreciate ID consult - R hip and knee aspirated yesterday which did not yield any positive results. re-aspirate tomorrow. 2. Afib w rvr: - started Amiodarone 200 mg PO BID 06/20 x10 days (plan to follow with 200 mg daily) and PO metoprolol with IV rescue as needed - hep gtt (however on hold d/t hematoma/bleed and need for hip aspiration) - renal fxn has improved to the point that eliquis would be a suitable oral option, however on hold pending potential for further surgical interventions 3. CHARLEEN suspect 2/2 ATN r/t sepsis c/b urinary obstruction. Cr now stable - neg. renal US, good UO with avina - cont. afluzosin 10 mg po daily, needs avina d/t obstruction, consider urology consult as outpatient - nephrology consultation appreciated - complement 3/4, SPEP, light chains WNLw - mildly acidotic improved with oral HCO3- 4. Immune mediated inflammation: - Decreased Prednisone to 30 mg po daily 5. Anasarca: - Hold Lasix for slight rise in Cr - Nutrition consult to help with high protein mechanical soft diet 6. Constipation. - Senokot S 2 per day. 6. Full code
[2019-06-29 10:52] LABS: BUN/Creatinine Ratio 21.7 (8-20)
--- NOTE | 2019-06-29 12:14 | PN ---
Progress Note - Progress Note Date of Service: 06/29/19 SOAP: Subjective: Pt seen sitting up in chair. right hip and knee pain reported. Knee worse than hip. Has not tried walking today. Denies F/C Vital Signs: Temp Pulse Resp BP Pulse Ox 98.2 F 67 16 99/48 96 06/29/19 11:22 06/29/19 11:22 06/29/19 11:22 06/29/19 11:22 06/29/19 11:22 Laboratory Last Values WBC 17.5 10^3/uL (3.5-10.8) H 06/29/19 05:56 RBC 3.07 10^6 /uL (4.18-5.48) L 06/29/19 05:56 Hgb 9.1 g/dL (14.0-18.0) L 06/29/19 05:56 Hct 27 % (42-52) L 06/29/19 05:56 MCV 88 fL (80-94) 06/29/19 05:56 MCH 30 pg (27-31) 06/29/19 05:56 MCHC 34 g/dL (31-36) 06/29/19 05:56 RDW 18 % (10-15) H 06/29/19 05:56 Plt Count 230 10^3/uL (150-450) 06/29/19 05:56 MPV 8.5 fL (7.4-10.4) 06/29/19 05:56 Neut % (Auto) 88.2 % 06/29/19 05:56 Lymph % (Auto) 4.8 % 06/29/19 05:56 [place] % (Auto) 6.2 % 06/29/19 05:56 Eos % (Auto) 0.6 % 06/29/19 05:56 Baso % (Auto) 0.2 % 06/29/19 05:56 Absolute Neuts (auto) 15.4 10^3/ul (1.5-7.7) H 06/29/19 05:56 Absolute Lymphs (auto) 0.8 10^3/ul (1.0-4.8) L 06/29/19 05:56 Absolute Monos (auto) 1.1 10^3/ul (0-0.8) H 06/29/19 05:56 Absolute Eos (auto) 0.1 10^3/ul (0-0.6) 06/29/19 05:56 Absolute Basos (auto) 0.0 10^3/ul (0-0.2) 06/29/19 05:56 Absolute Nucleated RBC 0.0 10^3/ul 06/29/19 05:56 Immature Gran % 7.0 % (0-9) 06/24/19 16:59 Neutrophils % 86.0 % 06/24/19 16:59 Band Neutrophils % 3.0 % (0-8) 06/24/19 16:59 Lymphocytes % 4.0 % 06/24/19 16:59 Monocytes % 3.0 % 06/24/19 16:59 Eosinophils % 1.0 % 06/23/19 17:13 Metamyelocytes % 4.0 % (0-2) H 06/24/19 16:59 Myelocytes % 3.0 % (0-1) H 06/23/19 17:13 Promyelocytes % 1.0 % 06/23/19 17:13 Nucleated RBC % 0.0 06/29/19 05:56 Normal RBC Morphology Not Reportable 06/24/19 16:59 Anisocytosis 2+ 06/24/19 16:59 APTT 77.1 seconds (26.0-38.0) H 06/29/19 11:49 Sodium 138 mmol/L (135-145) 06/29/19 05:56 Potassium 3.5 mmol/L (3.5-5.0) 06/29/19 05:56 Chloride 96 mmol/L (101-111) L 06/29/19 05:56 Carbon Dioxide 31 mmol/L (22-32) 06/29/19 05:56 Anion Gap 11 mmol/L (2-11) 06/29/19 05:56 BUN 55 mg/dL (6-24) H 06/29/19 05:56 Creatinine 2.54 mg/dL (0.67-1.17) H 06/29/19 05:56 Est GFR ( Amer) 29.7 (>60) 06/29/19 05:56 Est GFR (Non-Af Amer) 24.5 (>60) 06/29/19 05:56 BUN/Creatinine Ratio 21.7 (8-20) H 06/29/19 05:56 Glucose 124 mg/dL (70-100) H 06/29/19 05:56 Lactic Acid 1.6 mmol/L (0.5-2.0) 06/17/19 05:45 Calcium 8.3 mg/dL (8.6-10.3) L 06/29/19 05:56 Magnesium 1.8 mg/dL (1.9-2.7) L 06/26/19 05:23 Total Bilirubin 0.50 mg/dL (0.2-1.0) 06/25/19 06:29 AST 15 U/L (13-39) 06/25/19 06:29 ALT 29 U/L (7-52) 06/25/19 06:29 Alkaline Phosphatase 90 U/L (34-104) 06/25/19 06:29 Troponin I 0.72 ng/mL (<0.04) H* 06/16/19 23:45 C-Reactive Protein 120.71 mg/L (<8.01) H 06/28/19 11:43 Total Protein 6.0 g/dL (6.4-8.9) L 06/25/19 06:29 Albumin 2.6 g/dL (3.2-5.2) L 06/25/19 06:29 Globulin 3.4 g/dL (2-4) 06/25/19 06:29 Albumin/Globulin Ratio 0.8 (1-3) L 06/25/19 06:29 Urine Color Yellow 06/18/19 19:15 Urine Appearance Cloudy 06/18/19 19:15 Urine pH 5 (5-9) 06/18/19 19:15 Ur Specific [place] 1.025 (1.010-1.030) 06/18/19 19:15 Urine Protein 1+(30 mg/dl) (Negative) A 06/18/19 19:15 Urine Ketones Negative (Negative) 06/18/19 19:15 Urine Blood 3+ (Negative) A 06/18/19 19:15 Urine Nitrate Negative (Negative) 06/18/19 19:15 Urine Bilirubin Negative (Negative) 06/18/19 19:15 Urine Urobilinogen Negative (Negative) 06/18/19 19:15 Ur Leukocyte Esterase Negative (Negative) 06/18/19 19:15 Urine WBC (Auto) Absent (Absent) 06/18/19 19:15 Urine RBC (Auto) 3+(>10/hpf) (Absent) A 06/18/19 19:15 Urine Bacteria Absent (Absent) 06/18/19 19:15 Urine Glucose Negative (Negative) 06/18/19 19:15 Urine Ascorbic Acid Not Reportable 06/18/19 19:15 Fluid Source Synovial fluid 06/27/19 16:20 Fluid Volume 14 mL 06/27/19 16:20 Fluid Color Yellow 06/27/19 16:20 Fluid Appearance Clear 06/27/19 16:20 Fluid WBC 25 /mcL (0-675233) 06/27/19 16:20 Fluid RBC 35 /mcL 06/27/19 16:20 Fluid Tot Cell Count 100 06/27/19 16:20 Fluid Neutrophils 3 % 06/27/19 16:20 Fluid Lymphocytes 28 % 06/27/19 16:20 Fluid Monocytes 68 % 06/27/19 16:20 Fluid Basophils 1 % 06/27/19 16:20 Fluid Other Cells 2 06/27/19 16:20 Fluid Cell Count Rvw By 06/27/19 16:20 Fluid Comment 06/27/19 16:20 Vancomycin Trough 20.0 mcg/mL 06/29/19 05:56 Random Vancomycin 18.9 mcg/mL 06/26/19 05:23 [place] Light Chain 6.13 mg/dL H 06/24/19 05:29 Lambda Light Chain 5.47 mg/dL H 06/24/19 05:29 [place]/Lambda Ratio 1.12 06/24/19 05:29 Complement C3 127 mg/dL (75 - 175) 06/24/19 05:29 Complement C4 42 mg/dL (14 - 40) H 06/24/19 05:29 Objective: A&O x3, NAD Hip motion 0-90 degrees, Knee motion 0-45, Diffuse pitting edema RLE, no tenderness to palpation, NVI distally. Assessment: Right leg pain R/O septic knee or hip Plan: Plan is for another Right hip aspiration likely tomorrow. No surgery planned at this point, if fluid is infected and patient wants operation he would need transfer to another facility.
[2019-06-29] MEDS: Heparin DRIP 25,000 UNITS(*) 25,000 UNITS/500 ML BAG IV SCH (13:46)
[2019-06-29] MEDS: Ondansetron TAB* 4 MG PO PRN (19:34)
[2019-06-30 04:41] LABS: Hematocrit 28 % (42-52); Hemoglobin 9.2 g/dL (14.0-18.0); Mean Corpuscular HGB Conc 33 g/dL (31-36); Mean Corpuscular Hemoglobin 29 pg (27-31); Mean Corpuscular Volume 89 fL (80-94); Mean Platelet Volume 8.2 fL (7.4-10.4); Platelet Count 234 10^3/uL (150-450); Red Blood Count 3.15 10^6 /uL (4.18-5.48); Red Cell Distribution Width 18 % (10-15); White Blood Count 17.2 10^3/uL (3.5-10.8)
[2019-06-30 05:09] LABS: ABS Basophils 0.1 10^3/ul (0-0.2); ABS Eosinophils 0.1 10^3/ul (0-0.6); ABS Lymphocytes 0.7 10^3/ul (1.0-4.8); ABS Monocytes 1.2 10^3/ul (0-0.8); Eosinophil % 0.7 %; Lymphocyte % 4.3 %
[2019-06-30] MEDS: Amiodarone TAB* 200 MG PO SCH (09:15)
[2019-06-30] MEDS: Levothyroxine TAB* 50 MCG TAB PO SCH (09:15)
[2019-06-30] MEDS: Tamsulosin CAP* 0.4 MG PO SCH (09:16)
[2019-06-30] MEDS: Senna TAB 8.6 mg* TAB PO SCH (09:16)
[2019-06-30] MEDS: Pantoprazole TAB * 40 MG TAB PO SCH (09:17)
[2019-06-30] MEDS: Sodium Bicarbonate (ANTACID)* 650 MG TAB PO SCH ×2 (09:18→21:50)
[2019-06-30] MEDS: Polyethylene Glycol 3350* 17 GM PACKET PO SCH (09:18)
[2019-06-30 09:25] LABS: Albumin 2.5 g/dL (3.2-5.2); Albumin/Globulin Ratio 0.7 (1-3); BUN/Creatinine Ratio 19.6 (8-20); Calcium 8.5 mg/dL (8.6-10.3); EGFR African American 28.3 (>60); EGFR Non-African American 23.3 (>60); Globulin 3.4 g/dL (2-4); Potassium 3.3 mmol/L (3.5-5.0); Total Bilirubin 0.4 mg/dL (0.2-1.0); Total Protein 5.9 g/dL (6.4-8.9)
--- NOTE | 2019-06-30 10:41 | PN ---
Progress Note - Progress Note Date of Service: 06/30/19 SOAP: Subjective: []No change continues to feel well. Compression yesterday for LE edema. No fevers or chills. Eating well, had bood BM today, soft. Still feels bloated. Otherwise doing well. Acetaminophen (Tylenol Tab*) 650 mg PO Q4H PRN PRN Reason: PAIN OR ELEVATED TEMP Last Admin: 06/24/19 10:32 Dose: 650 mg Amiodarone HCl (Cordarone Tab*) 200 mg PO BID [facility] Stop: 06/30/19 11:59 Last Admin: 06/30/19 09:15 Dose: 200 mg Amiodarone HCl (Cordarone Tab*) 200 mg PO DAILY [facility] Docusate Sodium (Colace Cap*) 200 mg PO BID PRN PRN Reason: CONSTIPATION Last Admin: 06/26/19 18:19 Dose: 200 mg Vancomycin HCl 750 mg/ Sodium (Chloride) 250 mls @ 166.667 mls/hr IVPB Q24H [facility] Levothyroxine Sodium (Synthroid Tab*) 50 mcg PO DAILY [facility] Last Admin: 06/30/19 09:15 Dose: 50 mcg Metoprolol Tartrate (Lopressor Iv*) 5 mg IV Q1H PRN PRN Reason: HEART RATE/PULSE GREATER THAN: Last Admin: 06/28/19 11:05 Dose: 5 mg Morphine Sulfate (Morphine Oral.Soln 10 Mg*) 15 mg PO BID PRN PRN Reason: PAIN - MODERATE Last Admin: 06/25/19 03:10 Dose: 15 mg Ondansetron HCl (Zofran Tab*) 4 mg PO Q4HR PRN PRN Reason: NAUSEA Last Admin: 06/29/19 19:34 Dose: 4 mg Pantoprazole Sodium (Protonix Tab*) 40 mg PO DAILY [facility] Last Admin: 06/30/19 09:17 Dose: 40 mg Pharmacy Consult (Vancomycin Per Pharmacy*) 1 note FOLLOW UP . PRN PRN Reason: PER PROTOCOL Pharmacy Profile Note (Vancomycin Trough Check) 1 note FOLLOW UP 1030 ONE Stop: 07/02/19 10:31 Polyethylene Glycol/Electrolytes (Miralax*) 17 gm PO DAILY [facility] Last Admin: 06/30/19 09:18 Dose: Not Given Prednisone (Deltasone Tab*) 30 mg PO DAILY [facility] Last Admin: 06/30/19 09:17 Dose: 30 mg Senna (Senokot 8.6 Mg Tab*) 2 tab PO DAILY [facility] Last Admin: 06/30/19 09:16 Dose: Not Given Sodium Bicarbonate (Sodium Bicarbonate (Antacid)*) 650 mg PO BID [facility] Last Admin: 06/30/19 09:18 Dose: 650 mg Tamsulosin HCl (Flomax Cap*) 0.4 mg PO DAILY [facility] Last Admin: 06/30/19 09:16 Dose: 0.4 mg Objective: [] Vital Signs Temp Pulse Resp BP Pulse Ox 98.1 F 64 20 151/68 95 06/30/19 08:19 06/30/19 08:19 06/30/19 09:30 06/30/19 08:19 06/30/19 08:19 Exam: Gen: Relatively well appearing 78 yo male in NAD HEENT: MMM, few missing teeth CV: RRR, 3/6 murmur Resp: CTA, no w/c/r Abd: soft and nonTTP Ext: improved edema of the RLE, hip and knee are non TTP Skin: port site is covered, no drainage or surrounding erythema noted CR 2.65, up Assessment: []78 yo M w metastatic urothelial CA (stable disease on recent imaging, off therapy 2/2 systemic immune mediated response) admitted with septic shock due to MRSA bacteremia secondary to right lower extremity cellulitis. His course has been complicated by A.Fib with RVR now SR on Amiodarone (initiated on 06/19) , ARF secondary to ATN, and unfortunately with persistent bacteremia with reservoir unclear. His port was removed and there was a hematoma and we have now repeated imaging of his right leg with significant concern for infected joint and question of communication to the pelvis cavity. The right hip effusion is not clearly changed from prior CT scan in January but is most likely source of continued bacteremia. US guided bx non diagnostic but ased on MRI, second Bx may be more reveling. Plan: []1. Sepsis/cellulitis/MRSA bacteremia: - blood cultures + 06/28/19 x 4 - RHIANNON negative for vegetation - cont Vanco - cellulitis appears improved though high risk for septic joint - appreciate ID consult - R hip and knee aspiration today. - If aspiration positive, transfer to [place] for surgery. Dr. Eduin Salinas will manage ortho issues over weekend. 2. Afib w rvr: - started Amiodarone 200 mg daily and PO metoprolol with IV rescue as needed - hep gtt to re-start after biopsy 3. CHARLEEN suspect 2/2 ATN r/t sepsis c/b urinary obstruction. Cr now stable - Rise in Cr today is concerning, follow - neg. renal US, good UO with avina - cont. afluzosin 10 mg po daily, needs avina d/t obstruction, consider urology consult as outpatient - nephrology consultation appreciated - complement 3/4, SPEP, light chains WNLw - mildly acidotic improved with oral HCO3- 4. Immune mediated inflammation: - Given rise in Cr, will bring Prednisone back to 40 mg daily in case element if immune nephritis 5. Anasarca: - Hold Lasix - intermitent compression stocking. 6. Constipation. - Senokot S 2 per day, Miralax prn. 6. Full code
[2019-06-30] MEDS ORDERED: Heparin DRIP 25,000 UNITS(*) 25,000 UNITS/500 ML BAG IV SCH (10:45)
[2019-06-30] MEDS: Vancomycin(*) 750 MG in NS 0.9% 250 ML* 250 ML IVPB SCH (10:57)
[2019-06-30] MEDS ORDERED: Heparin VIAL(*) 5000 UNITS/ML VIAL (FIVE THOUSAND) IV SCH (11:00)
[2019-06-30 11:46] LABS: Hematocrit 30 % (42-52); Hemoglobin 10.1 g/dL (14.0-18.0); Mean Corpuscular HGB Conc 33 g/dL (31-36); Mean Corpuscular Hemoglobin 30 pg (27-31); Mean Corpuscular Volume 88 fL (80-94); Mean Platelet Volume 7.8 fL (7.4-10.4); Platelet Count 278 10^3/uL (150-450); Red Blood Count 3.42 10^6 /uL (4.18-5.48); Red Cell Distribution Width 18 % (10-15); White Blood Count 22.9 10^3/uL (3.5-10.8)
--- NOTE | 2019-06-30 12:01 | PN ---
Progress Note - Progress Note Date of Service: 06/30/19 SOAP: Subjective: Pt seen sitting up in chair. right hip and knee pain reported. Knee worse than hip. Has been able to get up with PT and walk around the unit today. Denies F/C Vital Signs Temp 98.1 F 06/30/19 08:19 Pulse 64 06/30/19 08:19 Resp 20 06/30/19 09:30 BP 151/68 06/30/19 08:19 Pulse Ox 95 06/30/19 08:19 Intake & Output 06/29/19 06/30/19 06/30/19 18:59 06:59 18:59 Intake Total 771 646 360 Output Total 1200 1525 Balance -429 -879 360 Intake: IV Fluids 20 406 Heparin 406 Vancomycin 20 IVPB 250 Vancomycin 250 Heparin 141 Oral 360 240 360 Output: Gonzalez 1200 1525 Other: Estimated Stool Amount Large Objective: A&O x3, NAD Hip motion 0-90 degrees, Knee motion 0-45, Diffuse pitting edema RLE, no tenderness to palpation, NVI distally. Assessment: Right leg pain R/O septic knee or hip Plan: Plan is for another Right hip aspiration today No surgery planned at this point, if fluid is infected and patient wants operation he would need transfer to another facility.
[2019-06-30 12:06] LABS: EGFR African American 29.4 (>60); EGFR Non-African American 24.3 (>60)
[2019-06-30 12:12] LABS: ABS Basophils 0.1 10^3/ul (0-0.2); ABS Eosinophils 0.1 10^3/ul (0-0.6); ABS Lymphocytes 0.5 10^3/ul (1.0-4.8); ABS Monocytes 1.1 10^3/ul (0-0.8); ABS Neutrophils 21.1 10^3/ul (1.5-7.7); Eosinophil % 0.5 %
[2019-06-30 13:22] LABS: Albumin 1.9 g/dL (3.4-4.7); Albumin/Globulin Ratio 0.61; Total Protein(PEP) 5.1 g/dL (6.3 - 7.9)
[2019-06-30] MEDS ORDERED: traMADol TAB* 50 MG PO PRN (13:39)
[2019-06-30 13:50] LABS: Body Fluid Source OTH
--- NOTE | 2019-06-30 15:35 | PN ---
Progress Note - Progress Note Date of Service: 06/30/19 Note: Patient up walking in hallways with PT. Denies pain at hematoma site. Temp Pulse Resp BP Pulse Ox 97.7 F 65 18 127/66 98 06/30/19 11:06 06/30/19 11:06 06/30/19 14:37 06/30/19 11:06 06/30/19 11:06 General: No acute distress Chest: Hematoma at port site. Incision has opened. Hematoma was partially evacuated and wound packed with wet to dry dressing. Neuro: Alert, oriented x3 A&P 78M with MRSA bacteremia s/p port removal with hematoma at site. -Change wet to dry dressing once a day and prn for saturated dressing (nursing order placed)
[2019-06-30] MEDS: Morphine ORAL.SOLN 10 mg* 2 MG/ML UDC 5 ml PO PRN (21:48)
[2019-06-30] MEDS: Nystatin TOP POWDER* 15 GM BTL TOPICAL SCH ×2 (21:48→22:31)
[2019-07-01 04:02] LABS: Hematocrit 27 % (42-52); Hemoglobin 8.9 g/dL (14.0-18.0); Mean Corpuscular HGB Conc 34 g/dL (31-36); Mean Corpuscular Hemoglobin 30 pg (27-31); Mean Corpuscular Volume 88 fL (80-94); Mean Platelet Volume 7.6 fL (7.4-10.4); Platelet Count 236 10^3/uL (150-450); Red Blood Count 3.02 10^6 /uL (4.18-5.48); Red Cell Distribution Width 18 % (10-15); White Blood Count 14.7 10^3/uL (3.5-10.8)
[2019-07-01 04:20] LABS: Albumin 2.4 g/dL (3.2-5.2); Albumin/Globulin Ratio 0.7 (1-3); BUN/Creatinine Ratio 18.6 (8-20); Calcium 8.5 mg/dL (8.6-10.3); EGFR African American 31.4 (>60); EGFR Non-African American 25.9 (>60); Globulin 3.3 g/dL (2-4); Magnesium 1.4 mg/dL (1.9-2.7); Potassium 3.6 mmol/L (3.5-5.0); Total Bilirubin 0.5 mg/dL (0.2-1.0); Total Protein 5.7 g/dL (6.4-8.9)
[2019-07-01 04:36] LABS: ABS Basophils 0.1 10^3/ul (0-0.2); ABS Eosinophils 0.1 10^3/ul (0-0.6); ABS Lymphocytes 0.8 10^3/ul (1.0-4.8); ABS Monocytes 0.8 10^3/ul (0-0.8); ABS Neutrophils 12.9 10^3/ul (1.5-7.7); Eosinophil % 0.8 %; Lymphocyte % 5.7 %
[2019-07-01] MEDS ORDERED: Magnesium Sulfate 2 GM IV* 2 GM/50 ML BAG IVPB ONE (08:19)
--- NOTE | 2019-07-01 08:20 | DS ---
- Discharge Summary TRANSFER SUMMARY ADMIT DATE:06/16/2019 TRANSFER DATE: Anticipated 07/01/2019 DISCHARGE DIAGNOSIS: 1. MRSA bacteremia from infected right hip 2. afib 3. metastatic bladder cancer 4. chronic immunosuppression from steroids 5. 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 urinary obstruction, indwelling avina DISCHARGE MEDICATIONS: Acetaminophen (Tylenol Tab*) 650 mg PO Q4H PRN PRN Reason: PAIN OR ELEVATED TEMP Last Admin: 06/24/19 10:32 Dose: 650 mg Amiodarone HCl (Cordarone Tab*) 200 mg PO DAILY [facility] Docusate Sodium (Colace Cap*) 200 mg PO BID PRN PRN Reason: CONSTIPATION Last Admin: 06/26/19 18:19 Dose: 200 mg Vancomycin HCl 750 mg/ Sodium (Chloride) 250 mls @ 166.667 mls/hr IVPB Q24H [facility] Last Admin: 06/30/19 10:57 Dose: 166.667 mls/hr Levothyroxine Sodium (Synthroid Tab*) 50 mcg PO DAILY [facility] Last Admin: 06/30/19 09:15 Dose: 50 mcg Metoprolol Tartrate (Lopressor Iv*) 5 mg IV Q1H PRN PRN Reason: HEART RATE/PULSE GREATER THAN: Last Admin: 06/28/19 11:05 Dose: 5 mg Morphine Sulfate (Morphine Oral.Soln 10 Mg*) 15 mg PO BID PRN PRN Reason: PAIN - MODERATE Last Admin: 06/30/19 21:48 Dose: 15 mg Nystatin (Nystatin Top Powder*) 1 applic TOPICAL BID [facility] Last Admin: 06/30/19 22:31 Dose: Not Given Ondansetron HCl (Zofran Tab*) 4 mg PO Q4HR PRN PRN Reason: NAUSEA Last Admin: 06/29/19 19:34 Dose: 4 mg Pantoprazole Sodium (Protonix Tab*) 40 mg PO DAILY [facility] Last Admin: 06/30/19 09:17 Dose: 40 mg Pharmacy Consult (Vancomycin Per Pharmacy*) 1 note FOLLOW UP . PRN PRN Reason: PER PROTOCOL Pharmacy Profile Note (Vancomycin Trough Check) 1 note FOLLOW UP 1030 ONE Stop: 07/02/19 10:31 Polyethylene Glycol/Electrolytes (Miralax*) 17 gm PO DAILY [facility] Last Admin: 06/30/19 09:18 Dose: Not Given Prednisone (Deltasone Tab*) 40 mg PO DAILY [facility] Last Admin: 06/30/19 09:17 Dose: 30 mg Senna (Senokot 8.6 Mg Tab*) 2 tab PO DAILY [facility] Last Admin: 06/30/19 09:16 Dose: Not Given Sodium Bicarbonate (Sodium Bicarbonate (Antacid)*) 650 mg PO BID [facility] Last Admin: 06/30/19 21:50 Dose: 650 mg Tamsulosin HCl (Flomax Cap*) 0.4 mg PO DAILY [facility] Last Admin: 06/30/19 09:16 Dose: 0.4 mg Tramadol HCl (Ultram*) 50 mg PO Q12H PRN PRN Reason: PAIN - MODERATE Last Admin: 06/30/19 14:37 Dose: 50 mg HOSPITAL COURSE: 78 yo M w PMH of metastatic bladder cancer, just completing 2 years of palliative immunotherapy with stable bone only disease, with 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 Initial source felt to be right thigh cellulitis given open wound on thigh and erythema. Initially in ICU on pressors and broad spectrum antibiotics, but markedly improved and moved to a medical bed with telemetry. His port was removed given persistent bacteremia, and a RHIANNON failed to reveal vegetations. He remained persistently bacteremic despite IV Vancomycin. Extensive work up for source of infection ultimately revealed septic arthritis of his markedly abnormal right hip (2/2 bony disease from cancer). He did have his right knee cultured (negative) and synovial fluid around right iliotibial band, both of which were negative. MRI of the pelvis done on 06/28 revealed bone marrow edema throughout the right hemipelvis with sparing of the sacrum, edema of the right femoral head through the basicervical region, large right hip effusion contiguous with fluid extending within the right iliopsoas bursa with 2 small volume loculated fluid collections at the deep portion of the right iliacus muscle, all concerning for septic arthritis with associated osteomyelitis of the right hemipelvis and proximal femur. Given this he had repeat aspiration of the right hip on 06/30, which is positive for MRSA. Dr. Salinas (orthopedic surgery) has been following the patient closely and recommended transfer to a tertiary care center for surgical management, which may include general surgery given pelvis involvement and need for intra-abdominal approach. I have discussed this with Eduin and his daughter at length. They understand that with his deconditioning and high dose steroid usage that he is a poor surgical candidate, but the alternative is hospice. They are interested in pursuing the transfer and discussing risks and benefits further with the transfer team there. Notably, his heparin drip is on hold for continued bleeding/oozing at his port pocket, though this will need to be resumed at some point in the near future. He had acute on chronic kidney failure felt 2/2 sepsis and possible a continued component of immune mediated nephritis, necessitating going back up on prednisone to 40 mg. He is completely hemodynamically stable on transfer (has not required any PRN metoprolol for RVR in 3 days). - Nutrition: Malnutrition Diagnosis/Plan Nutrition: Malnutrition Diagnosis/Plan: Malnutrition Assessment Clinical Characteristics Chronic,Severe Malnutrition Assessment: Inadequate Oral Intake - Noted pt w/ variable, Criteria overall poor intake; consumed 15-90% all meals x2 days - Anticipate meeting <75% nutrient >1 mo (severe) Unintentional Weight Loss - Noted wt loss per chart; current wt 167lb, prev wt on record 185lb (05/2019) - 9.7% loss x1 mo (severe) Malnutrition Assessment: Nutritional Supplementals/Nourishments - Will Interventions trial Ensure Enlive (350kcal, 20g prot/serv) at 10:00 and 15:00 daily to optimize kcal/prot intake; will monitor acceptance Texture Modification - Agree w/ soft diet; will monitor tolerance and make further recommendations as indicated GI Related - Recommend giving antidiarrheal as indicated; will monitor GI s/sx for impact on intake Malnutrition Assessment: Goals 1) Pt will tolerate least restrictive dietary textures w/o further difficulty chewing 2) Adequate po intake to support lean body mass and hydration status 3) Maintain fluid/electrolyte balance w/ adequate po intake 4) Maintain bowel regularity w/ adequate po intake w/o exac of diarrhea/development of constipation
[2019-07-01] MEDS: Sodium Bicarbonate (ANTACID)* 650 MG TAB PO SCH ×2 (08:55→21:59)
[2019-07-01] MEDS: Levothyroxine TAB* 50 MCG TAB PO SCH (08:56)
[2019-07-01] MEDS: Pantoprazole TAB * 40 MG TAB PO SCH (08:56)
[2019-07-01] MEDS: Senna TAB 8.6 mg* TAB PO SCH (08:57)
[2019-07-01] MEDS: Amiodarone TAB* 200 MG PO SCH (08:58)
[2019-07-01] MEDS: Tamsulosin CAP* 0.4 MG PO SCH (08:58)
[2019-07-01] MEDS: Polyethylene Glycol 3350* 17 GM PACKET PO SCH (08:58)
[2019-07-01] MEDS: Nystatin TOP POWDER* 15 GM BTL TOPICAL SCH ×2 (09:05→22:00)
[2019-07-01] MEDS: Metoprolol Tartrate IV* 1 MG/ML 5 ML VIAL IV PRN (09:46)
--- NOTE | 2019-07-01 11:30 | PN ---
Progress Note - Progress Note Date of Service: 07/01/19 SOAP: Subjective: Pt seen at bedside. No complaint of pain. Has not been up to walk today. Denies F/C Vital Signs: Temp Pulse Resp BP Pulse Ox 98.2 F 55 16 120/59 94 07/01/19 07:15 07/01/19 07:15 07/01/19 08:00 07/01/19 07:15 07/01/19 07:15 Laboratory Last Values WBC 14.7 10^3/uL (3.5-10.8) H 07/01/19 03:56 RBC 3.02 10^6 /uL (4.18-5.48) L 07/01/19 03:56 Hgb 8.9 g/dL (14.0-18.0) L 07/01/19 03:56 Hct 27 % (42-52) L 07/01/19 03:56 MCV 88 fL (80-94) 07/01/19 03:56 MCH 30 pg (27-31) 07/01/19 03:56 MCHC 34 g/dL (31-36) 07/01/19 03:56 RDW 18 % (10-15) H 07/01/19 03:56 Plt Count 236 10^3/uL (150-450) 07/01/19 03:56 MPV 7.6 fL (7.4-10.4) 07/01/19 03:56 Neut % (Auto) 87.5 % 07/01/19 03:56 Lymph % (Auto) 5.7 % 07/01/19 03:56 [place] % (Auto) 5.6 % 07/01/19 03:56 Eos % (Auto) 0.8 % 07/01/19 03:56 Baso % (Auto) 0.4 % 07/01/19 03:56 Absolute Neuts (auto) 12.9 10^3/ul (1.5-7.7) H 07/01/19 03:56 Absolute Lymphs (auto) 0.8 10^3/ul (1.0-4.8) L 07/01/19 03:56 Absolute Monos (auto) 0.8 10^3/ul (0-0.8) 07/01/19 03:56 Absolute Eos (auto) 0.1 10^3/ul (0-0.6) 07/01/19 03:56 Absolute Basos (auto) 0.1 10^3/ul (0-0.2) 07/01/19 03:56 Absolute Nucleated RBC 0.0 10^3/ul 07/01/19 03:56 Immature Gran % 4.0 % (0-9) 06/30/19 04:15 Neutrophils % 89.0 % 06/30/19 04:15 Band Neutrophils % 1.0 % (0-8) 06/30/19 04:15 Lymphocytes % 1.0 % 06/30/19 04:15 Monocytes % 5.0 % 06/30/19 04:15 Eosinophils % 1.0 % 06/30/19 04:15 Metamyelocytes % 4.0 % (0-2) H 06/24/19 16:59 Myelocytes % 3.0 % (0-1) H 06/30/19 04:15 Promyelocytes % 1.0 % 06/23/19 17:13 Nucleated RBC % 0.0 07/01/19 03:56 Normal RBC Morphology Normal (Normal) 06/30/19 04:15 Anisocytosis 2+ 06/24/19 16:59 APTT 36.7 seconds (26.0-38.0) 07/01/19 03:56 Sodium 137 mmol/L (135-145) 07/01/19 03:56 Potassium 3.6 mmol/L (3.5-5.0) 07/01/19 03:56 Chloride 96 mmol/L (101-111) L 07/01/19 03:56 Carbon Dioxide 34 mmol/L (22-32) H 07/01/19 03:56 Anion Gap 7 mmol/L (2-11) 07/01/19 03:56 BUN 45 mg/dL (6-24) H 07/01/19 03:56 Creatinine 2.42 mg/dL (0.67-1.17) H 07/01/19 03:56 Est GFR ( Amer) 31.4 (>60) 07/01/19 03:56 Est GFR (Non-Af Amer) 25.9 (>60) 07/01/19 03:56 BUN/Creatinine Ratio 18.6 (8-20) 07/01/19 03:56 Glucose 93 mg/dL (70-100) 07/01/19 03:56 Lactic Acid 1.6 mmol/L (0.5-2.0) 06/17/19 05:45 Calcium 8.5 mg/dL (8.6-10.3) L 07/01/19 03:56 Magnesium 1.4 mg/dL (1.9-2.7) L 07/01/19 03:56 Total Bilirubin 0.50 mg/dL (0.2-1.0) 07/01/19 03:56 AST 13 U/L (13-39) 07/01/19 03:56 ALT 23 U/L (7-52) 07/01/19 03:56 Alkaline Phosphatase 73 U/L (34-104) 07/01/19 03:56 Troponin I 0.72 ng/mL (<0.04) H* 06/16/19 23:45 C-Reactive Protein 120.71 mg/L (<8.01) H 06/28/19 11:43 Total Protein 5.7 g/dL (6.4-8.9) L 07/01/19 03:56 Total Protein (PEP) 5.1 g/dL (6.3 - 7.9) L 06/24/19 05:29 Albumin 2.4 g/dL (3.2-5.2) L 07/01/19 03:56 Albumin (PEP) 1.9 g/dL (3.4-4.7) L 06/24/19 05:29 Globulin 3.3 g/dL (2-4) 07/01/19 03:56 Albumin/Globulin Ratio 0.7 (1-3) L 07/01/19 03:56 Albumin/Globulin (PEP) 0.61 06/24/19 05:29 Vnrzh-5-Gsgzybxtu 0.3 g/dL (0.1-0.3) 06/24/19 05:29 Mapcv-2-Ijeirchpf 1.1 g/dL (0.6-1.0) H 06/24/19 05:29 Hdap-5-Nyvrgjpr 0.8 g/dL (0.7-1.2) 06/24/19 05:29 Gamma Globulins 1.0 g/dL (0.6-1.6) 06/24/19 05:29 M-Juan M Not Reportable 06/24/19 05:29 M-Juan M 2 Not Reportable 06/24/19 05:29 PEP Impression See comment 06/24/19 05:29 Urine Color Yellow 06/18/19 19:15 Urine Appearance Cloudy 06/18/19 19:15 Urine pH 5 (5-9) 06/18/19 19:15 Ur Specific [place] 1.025 (1.010-1.030) 06/18/19 19:15 Urine Protein 1+(30 mg/dl) (Negative) A 06/18/19 19:15 Urine Ketones Negative (Negative) 06/18/19 19:15 Urine Blood 3+ (Negative) A 06/18/19 19:15 Urine Nitrate Negative (Negative) 06/18/19 19:15 Urine Bilirubin Negative (Negative) 06/18/19 19:15 Urine Urobilinogen Negative (Negative) 06/18/19 19:15 Ur Leukocyte Esterase Negative (Negative) 06/18/19 19:15 Urine WBC (Auto) Absent (Absent) 06/18/19 19:15 Urine RBC (Auto) 3+(>10/hpf) (Absent) A 06/18/19 19:15 Urine Bacteria Absent (Absent) 06/18/19 19:15 Urine Glucose Negative (Negative) 06/18/19 19:15 Urine Ascorbic Acid Not Reportable 06/18/19 19:15 Fluid Source Oth 06/30/19 12:39 Fluid Volume 16 mL 06/30/19 12:39 Fluid Color Red 06/30/19 12:39 Fluid Appearance Bloody 06/30/19 12:39 Fluid WBC TNP 06/30/19 12:39 Fluid RBC TNP 06/30/19 12:39 Fluid Tot Cell Count 100 06/30/19 12:39 Fluid Neutrophils 83 % 06/30/19 12:39 Fluid Lymphocytes 17 % 06/30/19 12:39 Fluid Monocytes 68 % 06/27/19 16:20 Fluid Basophils 1 % 06/27/19 16:20 Fluid Other Cells 2 06/27/19 16:20 Fluid Cell Count Rvw By 06/27/19 16:20 Fluid Comment 06/27/19 16:20 Vancomycin Trough 20.0 mcg/mL 06/29/19 05:56 Random Vancomycin 18.9 mcg/mL 06/26/19 05:23 [place] Light Chain 6.13 mg/dL H 06/24/19 05:29 Lambda Light Chain 5.47 mg/dL H 06/24/19 05:29 [place]/Lambda Ratio 1.12 06/24/19 05:29 Serum Immunofixation See comment 06/24/19 05:29 Complement C3 127 mg/dL (75 - 175) 06/24/19 05:29 Complement C4 42 mg/dL (14 - 40) H 06/24/19 05:29 Objective: A&O x3, NAD Hip motion 0-90, knee motion 0-45, diffuse pitting edema RLE, No tenderness to palpation, NVI distally. Assessment: 78 yo male with right leg pain R/O septic knee/hip Plan: Pt being transferred to another facility for a higher level of care.
[2019-07-01] MEDS: Vancomycin(*) 750 MG in NS 0.9% 250 ML* 250 ML IVPB SCH (11:46)
[2019-07-01] MEDS ORDERED: NS 0.9% 500 ML* 500 ML IV SCH (14:00)
[2019-07-01] MEDS: Morphine ORAL.SOLN 10 mg* 2 MG/ML UDC 5 ml PO PRN (21:59)
--- NOTE | 2019-07-02 07:57 | PN ---
Progress Note - Progress Note Date of Service: 07/02/19 SOAP: Subjective: feels good today. had BM yesterday. Objective: Vital Signs Temp Pulse Resp BP Pulse Ox 98.3 F 59 21 128/72 97 07/02/19 02:54 07/02/19 02:54 07/02/19 02:54 07/02/19 02:54 07/02/19 02:54 lying flat in nad perr eomi op moist cta bl s1 s2 III/ VIANNEY soft nt +Bs edematous LE, R>L edema on right to abdomen, no erythema port pocket dressed, no blood today Acetaminophen (Tylenol Tab*) 650 mg PO Q4H PRN PRN Reason: PAIN OR ELEVATED TEMP Last Admin: 06/24/19 10:32 Dose: 650 mg Amiodarone HCl (Cordarone Tab*) 200 mg PO DAILY [facility] Last Admin: 07/01/19 08:58 Dose: 200 mg Docusate Sodium (Colace Cap*) 200 mg PO BID PRN PRN Reason: CONSTIPATION Last Admin: 06/26/19 18:19 Dose: 200 mg Vancomycin HCl 750 mg/ Sodium (Chloride) 250 mls @ 166.667 mls/hr IVPB Q24H [facility] Last Admin: 07/01/19 11:46 Dose: 166.667 mls/hr Heparin Sodium/Dextrose (Heparin Drip 25,000 Units(*)) 25,000 units in 500 mls @ 0 mls/hr IV PER RATE [facility]; Protocol Levothyroxine Sodium (Synthroid Tab*) 50 mcg PO DAILY [facility] Last Admin: 07/01/19 08:56 Dose: 50 mcg Metoprolol Tartrate (Lopressor Iv*) 5 mg IV Q1H PRN PRN Reason: HEART RATE/PULSE GREATER THAN: Last Admin: 07/01/19 09:46 Dose: 5 mg Morphine Sulfate (Morphine Oral.Soln 10 Mg*) 15 mg PO BID PRN PRN Reason: PAIN - MODERATE Last Admin: 07/01/19 21:59 Dose: 15 mg Nystatin (Nystatin Top Powder*) 1 applic TOPICAL BID [facility] Last Admin: 07/01/19 22:00 Dose: 1 applic Ondansetron HCl (Zofran Tab*) 4 mg PO Q4HR PRN PRN Reason: NAUSEA Last Admin: 06/29/19 19:34 Dose: 4 mg Pantoprazole Sodium (Protonix Tab*) 40 mg PO DAILY [facility] Last Admin: 07/01/19 08:56 Dose: 40 mg Pharmacy Consult (Vancomycin Per Pharmacy*) 1 note FOLLOW UP . PRN PRN Reason: PER PROTOCOL Pharmacy Profile Note (Vancomycin Trough Check) 1 note FOLLOW UP 1030 ONE Stop: 07/02/19 10:31 Polyethylene Glycol/Electrolytes (Miralax*) 17 gm PO DAILY [facility] Last Admin: 07/01/19 08:58 Dose: Not Given Prednisone (Deltasone Tab*) 40 mg PO DAILY [facility] Last Admin: 07/01/19 09:48 Dose: 40 mg Senna (Senokot 8.6 Mg Tab*) 2 tab PO DAILY [facility] Last Admin: 07/01/19 08:57 Dose: 2 tab Sodium Bicarbonate (Sodium Bicarbonate (Antacid)*) 650 mg PO BID [facility] Last Admin: 07/01/19 21:59 Dose: 650 mg Tamsulosin HCl (Flomax Cap*) 0.4 mg PO DAILY [facility] Last Admin: 07/01/19 08:58 Dose: 0.4 mg Tramadol HCl (Ultram*) 50 mg PO Q12H PRN PRN Reason: PAIN - MODERATE Last Admin: 06/30/19 14:37 Dose: 50 mg Assessment: 78 yo M w metastatic bladder CA a/w sepsis, afib w rvr, and MRSA bacteremia, now clearly with septic arthritis awaiting transfer to tertiary care center at recommendation of ortho. (see full discharge summary) Plan: ID: -cont vanco per pharmacy protocol Afib w RVR: relatively well controlled, back in sinus after one dose of metoprolol IV yesterday -resume heparin drip -cont amiodarone urinary retention: will need outpatient eval cont avina cont flomax Ivo-abddaisgzhtfn-flxt: currently on 40 mg prednisone, if creatinine remains stable resume taper Wednesday to 30 mg (10 mg/week) Acute on chronic kidney failure: stable cont sodium bicarb tabs per nephrology bladder cancer: bony disease, stable, sp 2 years of immunotherapy pending transfer to [facility] when bed available
[2019-07-02 08:00] LABS: Hematocrit 29 % (42-52); Hemoglobin 9.8 g/dL (14.0-18.0); Mean Corpuscular HGB Conc 34 g/dL (31-36); Mean Corpuscular Hemoglobin 30 pg (27-31); Mean Corpuscular Volume 89 fL (80-94); Mean Platelet Volume 7.6 fL (7.4-10.4); Platelet Count 234 10^3/uL (150-450); Red Blood Count 3.26 10^6 /uL (4.18-5.48); Red Cell Distribution Width 18 % (10-15); White Blood Count 13.6 10^3/uL (3.5-10.8)
[2019-07-02] MEDS ORDERED: Heparin VIAL(*) 5000 UNITS/ML VIAL (FIVE THOUSAND) IV SCH (08:00)
[2019-07-02 08:04] LABS: ABS Basophils 0.1 10^3/ul (0-0.2); ABS Eosinophils 0.2 10^3/ul (0-0.6); ABS Lymphocytes 0.7 10^3/ul (1.0-4.8); ABS Monocytes 0.8 10^3/ul (0-0.8); ABS Neutrophils 11.8 10^3/ul (1.5-7.7); Eosinophil % 1.3 %; Lymphocyte % 5.2 %
[2019-07-02 08:16] LABS: BUN/Creatinine Ratio 17.7 (8-20); Calcium 8.6 mg/dL (8.6-10.3); EGFR African American 32.9 (>60); EGFR Non-African American 27.2 (>60); Potassium 3.7 mmol/L (3.5-5.0)
[2019-07-02] MEDS: Levothyroxine TAB* 50 MCG TAB PO SCH (10:27)
[2019-07-02] MEDS: Amiodarone TAB* 200 MG PO SCH (10:27)
[2019-07-02] MEDS: Pantoprazole TAB * 40 MG TAB PO SCH (10:27)
[2019-07-02] MEDS: Tamsulosin CAP* 0.4 MG PO SCH (10:28)
[2019-07-02] MEDS: Sodium Bicarbonate (ANTACID)* 650 MG TAB PO SCH ×2 (10:28→20:56)
[2019-07-02] MEDS ORDERED: Vancomycin Trough Check NOTE FOLLOW UP ONE (10:30)
[2019-07-02] MEDS: Heparin DRIP 25,000 UNITS(*) 25,000 UNITS/500 ML BAG IV SCH (10:32)
[2019-07-02] MEDS: Nystatin TOP POWDER* 15 GM BTL TOPICAL SCH ×2 (11:40→20:53)
[2019-07-02] MEDS: Polyethylene Glycol 3350* 17 GM PACKET PO SCH (11:40)
--- NOTE | 2019-07-02 12:00 | PN ---
Progress Note - Progress Note Date of Service: 07/02/19 SOAP: Subjective: Pt seen and examined at bedside. No complaint of pain. Has been ambulating. Denies F/C. Vital Signs: Temp Pulse Resp BP Pulse Ox 97.9 F 60 16 138/61 95 07/02/19 08:27 07/02/19 08:27 07/02/19 08:27 07/02/19 08:27 07/02/19 08:27 Laboratory Last Values WBC 13.6 10^3/uL (3.5-10.8) H 07/02/19 07:45 RBC 3.26 10^6 /uL (4.18-5.48) L 07/02/19 07:45 Hgb 9.8 g/dL (14.0-18.0) L 07/02/19 07:45 Hct 29 % (42-52) L 07/02/19 07:45 MCV 89 fL (80-94) 07/02/19 07:45 MCH 30 pg (27-31) 07/02/19 07:45 MCHC 34 g/dL (31-36) 07/02/19 07:45 RDW 18 % (10-15) H 07/02/19 07:45 Plt Count 234 10^3/uL (150-450) 07/02/19 07:45 MPV 7.6 fL (7.4-10.4) 07/02/19 07:45 Neut % (Auto) 86.9 % 07/02/19 07:45 Lymph % (Auto) 5.2 % 07/02/19 07:45 [place] % (Auto) 5.7 % 07/02/19 07:45 Eos % (Auto) 1.3 % 07/02/19 07:45 Baso % (Auto) 0.9 % 07/02/19 07:45 Absolute Neuts (auto) 11.8 10^3/ul (1.5-7.7) H 07/02/19 07:45 Absolute Lymphs (auto) 0.7 10^3/ul (1.0-4.8) L 07/02/19 07:45 Absolute Monos (auto) 0.8 10^3/ul (0-0.8) 07/02/19 07:45 Absolute Eos (auto) 0.2 10^3/ul (0-0.6) 07/02/19 07:45 Absolute Basos (auto) 0.1 10^3/ul (0-0.2) 07/02/19 07:45 Absolute Nucleated RBC 0.0 10^3/ul 07/02/19 07:45 Immature Gran % 4.0 % (0-9) 06/30/19 04:15 Neutrophils % 89.0 % 06/30/19 04:15 Band Neutrophils % 1.0 % (0-8) 06/30/19 04:15 Lymphocytes % 1.0 % 06/30/19 04:15 Monocytes % 5.0 % 06/30/19 04:15 Eosinophils % 1.0 % 06/30/19 04:15 Metamyelocytes % 4.0 % (0-2) H 06/24/19 16:59 Myelocytes % 3.0 % (0-1) H 06/30/19 04:15 Promyelocytes % 1.0 % 06/23/19 17:13 Nucleated RBC % 0.0 07/02/19 07:45 Normal RBC Morphology Normal (Normal) 06/30/19 04:15 Anisocytosis 2+ 06/24/19 16:59 APTT 28.8 seconds (26.0-38.0) 07/02/19 07:52 Sodium 139 mmol/L (135-145) 07/02/19 07:45 Potassium 3.7 mmol/L (3.5-5.0) 07/02/19 07:45 Chloride 95 mmol/L (101-111) L 07/02/19 07:45 Carbon Dioxide 36 mmol/L (22-32) H 07/02/19 07:45 Anion Gap 8 mmol/L (2-11) 07/02/19 07:45 BUN 41 mg/dL (6-24) H 07/02/19 07:45 Creatinine 2.32 mg/dL (0.67-1.17) H 07/02/19 07:45 Est GFR ( Amer) 32.9 (>60) 07/02/19 07:45 Est GFR (Non-Af Amer) 27.2 (>60) 07/02/19 07:45 BUN/Creatinine Ratio 17.7 (8-20) 07/02/19 07:45 Glucose 88 mg/dL (70-100) 07/02/19 07:45 Lactic Acid 1.6 mmol/L (0.5-2.0) 06/17/19 05:45 Calcium 8.6 mg/dL (8.6-10.3) 07/02/19 07:45 Magnesium 1.4 mg/dL (1.9-2.7) L 07/01/19 03:56 Total Bilirubin 0.50 mg/dL (0.2-1.0) 07/01/19 03:56 AST 13 U/L (13-39) 07/01/19 03:56 ALT 23 U/L (7-52) 07/01/19 03:56 Alkaline Phosphatase 73 U/L (34-104) 07/01/19 03:56 Troponin I 0.72 ng/mL (<0.04) H* 06/16/19 23:45 C-Reactive Protein 120.71 mg/L (<8.01) H 06/28/19 11:43 Total Protein 5.7 g/dL (6.4-8.9) L 07/01/19 03:56 Total Protein (PEP) 5.1 g/dL (6.3 - 7.9) L 06/24/19 05:29 Albumin 2.4 g/dL (3.2-5.2) L 07/01/19 03:56 Albumin (PEP) 1.9 g/dL (3.4-4.7) L 06/24/19 05:29 Globulin 3.3 g/dL (2-4) 07/01/19 03:56 Albumin/Globulin Ratio 0.7 (1-3) L 07/01/19 03:56 Albumin/Globulin (PEP) 0.61 06/24/19 05:29 Phsgr-4-Tmpmnmayb 0.3 g/dL (0.1-0.3) 06/24/19 05:29 Emgbt-1-Ndmilggng 1.1 g/dL (0.6-1.0) H 06/24/19 05:29 Gtxe-9-Altlsdrn 0.8 g/dL (0.7-1.2) 06/24/19 05:29 Gamma Globulins 1.0 g/dL (0.6-1.6) 06/24/19 05:29 M-Juan M Not Reportable 06/24/19 05:29 M-Juan M 2 Not Reportable 06/24/19 05:29 PEP Impression See comment 06/24/19 05:29 Urine Color Yellow 06/18/19 19:15 Urine Appearance Cloudy 06/18/19 19:15 Urine pH 5 (5-9) 06/18/19 19:15 Ur Specific [place] 1.025 (1.010-1.030) 06/18/19 19:15 Urine Protein 1+(30 mg/dl) (Negative) A 06/18/19 19:15 Urine Ketones Negative (Negative) 06/18/19 19:15 Urine Blood 3+ (Negative) A 06/18/19 19:15 Urine Nitrate Negative (Negative) 06/18/19 19:15 Urine Bilirubin Negative (Negative) 06/18/19 19:15 Urine Urobilinogen Negative (Negative) 06/18/19 19:15 Ur Leukocyte Esterase Negative (Negative) 06/18/19 19:15 Urine WBC (Auto) Absent (Absent) 06/18/19 19:15 Urine RBC (Auto) 3+(>10/hpf) (Absent) A 06/18/19 19:15 Urine Bacteria Absent (Absent) 06/18/19 19:15 Urine Glucose Negative (Negative) 06/18/19 19:15 Urine Ascorbic Acid Not Reportable 06/18/19 19:15 Fluid Source Oth 06/30/19 12:39 Fluid Volume 16 mL 06/30/19 12:39 Fluid Color Red 06/30/19 12:39 Fluid Appearance Bloody 06/30/19 12:39 Fluid WBC TNP 06/30/19 12:39 Fluid RBC TNP 06/30/19 12:39 Fluid Tot Cell Count 100 06/30/19 12:39 Fluid Neutrophils 83 % 06/30/19 12:39 Fluid Lymphocytes 17 % 06/30/19 12:39 Fluid Monocytes 68 % 06/27/19 16:20 Fluid Basophils 1 % 06/27/19 16:20 Fluid Other Cells 2 06/27/19 16:20 Fluid Cell Count Rvw By 06/27/19 16:20 Fluid Comment 06/27/19 16:20 Vancomycin Trough 18.6 mcg/mL 07/02/19 10:25 Random Vancomycin 18.9 mcg/mL 06/26/19 05:23 [place] Light Chain 6.13 mg/dL H 06/24/19 05:29 Lambda Light Chain 5.47 mg/dL H 06/24/19 05:29 [place]/Lambda Ratio 1.12 06/24/19 05:29 Serum Immunofixation See comment 06/24/19 05:29 Complement C3 127 mg/dL (75 - 175) 06/24/19 05:29 Complement C4 42 mg/dL (14 - 40) H 06/24/19 05:29 Objective: A&O x3, NAD right Hip motion 0-90, right knee motion 0-45, diffuse pitting edema, no tenderness to palpation, NVI distally Assessment: 78 yo male R/O septic hip and knee Plan: Pt being transferred to another facility when feasible for a higher level of care.
[2019-07-02] MEDS: Vancomycin(*) 750 MG in NS 0.9% 250 ML* 250 ML IVPB SCH (12:16)
[2019-07-02] MEDS: Senna TAB 8.6 mg* TAB PO SCH (12:19)
[2019-07-02] MEDS: Docusate CAP* 100 MG PO PRN (20:57)
[2019-07-02] MEDS: Morphine ORAL.SOLN 10 mg* 2 MG/ML UDC 5 ml PO PRN (21:53)
[2019-07-02] MEDS ORDERED: Polyethylene Glycol 3350* 17 GM PACKET PO ONE (22:15)
[2019-07-03 06:06] LABS: Hematocrit 27 % (42-52); Hemoglobin 9.1 g/dL (14.0-18.0); Mean Corpuscular HGB Conc 33 g/dL (31-36); Mean Corpuscular Hemoglobin 30 pg (27-31); Mean Corpuscular Volume 89 fL (80-94); Mean Platelet Volume 7.9 fL (7.4-10.4); Platelet Count 229 10^3/uL (150-450); Red Blood Count 3.08 10^6 /uL (4.18-5.48); Red Cell Distribution Width 18 % (10-15); White Blood Count 12.3 10^3/uL (3.5-10.8)
[2019-07-03 06:23] LABS: BUN/Creatinine Ratio 15.6 (8-20); Calcium 8.3 mg/dL (8.6-10.3); EGFR African American 28.6 (>60); EGFR Non-African American 23.7 (>60)
[2019-07-03 07:16] LABS: ABS Basophils 0.1 10^3/ul (0-0.2); ABS Eosinophils 0.2 10^3/ul (0-0.6); ABS Lymphocytes 0.6 10^3/ul (1.0-4.8); ABS Monocytes 0.6 10^3/ul (0-0.8); ABS Neutrophils 10.8 10^3/ul (1.5-7.7); Eosinophil % 1.5 %; Lymphocyte % 5.2 %; Nucleated Red Blood Cells % 0.1
[2019-07-03] MEDS: Sodium Bicarbonate (ANTACID)* 650 MG TAB PO SCH (07:30)
[2019-07-03] MEDS: Amiodarone TAB* 200 MG PO SCH (07:30)
[2019-07-03] MEDS: Senna TAB 8.6 mg* TAB PO SCH (07:31)
[2019-07-03] MEDS: Pantoprazole TAB * 40 MG TAB PO SCH (07:31)
[2019-07-03] MEDS: Levothyroxine TAB* 50 MCG TAB PO SCH (07:31)
[2019-07-03] MEDS: Tamsulosin CAP* 0.4 MG PO SCH (07:33)
[2019-07-03] MEDS: Nystatin TOP POWDER* 15 GM BTL TOPICAL SCH (07:38)
[2019-07-03] MEDS: Polyethylene Glycol 3350* 17 GM PACKET PO SCH (07:40)
--- NOTE | 2019-07-03 09:53 | PN ---
Progress Note - Progress Note Date of Service: 07/03/19 SOAP: Subjective: [No new complaints today. Pain is well controlled. Eating ok. ] Objective: [ Vital Signs: Temp Pulse Resp BP Pulse Ox 98.3 F 60 16 150/83 95 07/03/19 07:35 07/03/19 07:35 07/03/19 07:42 07/03/19 07:35 07/03/19 07:35 Acetaminophen (Tylenol Tab*) 650 mg PO Q4H PRN PRN Reason: PAIN OR ELEVATED TEMP Last Admin: 06/24/19 10:32 Dose: 650 mg Amiodarone HCl (Cordarone Tab*) 200 mg PO DAILY [facility] Last Admin: 07/03/19 07:30 Dose: 200 mg Docusate Sodium (Colace Cap*) 200 mg PO BID PRN PRN Reason: CONSTIPATION Last Admin: 07/02/19 20:57 Dose: 200 mg Heparin Sodium (Porcine) (Heparin Vial(*)) 0 units IV .PER PROTOCOL [facility] Last Admin: 07/02/19 10:32 Dose: 5,300 units Vancomycin HCl 750 mg/ Sodium (Chloride) 250 mls @ 166.667 mls/hr IVPB Q24H [facility] Last Admin: 07/02/19 12:16 Dose: 167 mls/hr Heparin Sodium/Dextrose (Heparin Drip 25,000 Units(*)) 25,000 units in 500 mls @ 0 mls/hr IV PER RATE [facility]; Protocol Last Admin: 07/02/19 10:32 Dose: 23 mls/hr Levothyroxine Sodium (Synthroid Tab*) 50 mcg PO DAILY [facility] Last Admin: 07/03/19 07:31 Dose: 50 mcg Metoprolol Tartrate (Lopressor Iv*) 5 mg IV Q1H PRN PRN Reason: HEART RATE/PULSE GREATER THAN: Last Admin: 07/01/19 09:46 Dose: 5 mg Morphine Sulfate (Morphine Oral.Soln 10 Mg*) 15 mg PO BID PRN PRN Reason: PAIN - MODERATE Last Admin: 07/02/19 21:53 Dose: 15 mg Nystatin (Nystatin Top Powder*) 1 applic TOPICAL BID [facility] Last Admin: 07/03/19 07:38 Dose: Not Given Ondansetron HCl (Zofran Tab*) 4 mg PO Q4HR PRN PRN Reason: NAUSEA Last Admin: 06/29/19 19:34 Dose: 4 mg Pantoprazole Sodium (Protonix Tab*) 40 mg PO DAILY [facility] Last Admin: 07/03/19 07:31 Dose: 40 mg Pharmacy Consult (Vancomycin Per Pharmacy*) 1 note FOLLOW UP . PRN PRN Reason: PER PROTOCOL Pharmacy Profile Note (Vancomycin Trough Check) 1 note FOLLOW UP 1030 ONE Stop: 07/05/19 10:31 Polyethylene Glycol/Electrolytes (Miralax*) 17 gm PO DAILY [facility] Last Admin: 07/03/19 07:40 Dose: 17 gm Prednisone (Deltasone Tab*) 40 mg PO DAILY [facility] Last Admin: 07/03/19 07:30 Dose: 40 mg Senna (Senokot 8.6 Mg Tab*) 2 tab PO DAILY [facility] Last Admin: 07/03/19 07:31 Dose: 2 tab Sodium Bicarbonate (Sodium Bicarbonate (Antacid)*) 650 mg PO BID [facility] Last Admin: 07/03/19 07:30 Dose: 650 mg Tamsulosin HCl (Flomax Cap*) 0.4 mg PO DAILY [facility] Last Admin: 07/03/19 07:33 Dose: 0.4 mg Tramadol HCl (Ultram*) 50 mg PO Q12H PRN PRN Reason: PAIN - MODERATE Last Admin: 06/30/19 14:37 Dose: 50 mg Laboratory Results - last 24 hr 07/02/19 07/02/19 07/02/19 10:25 16:37 22:22 WBC RBC Hgb Hct MCV MCH MCHC RDW Plt Count MPV Neut % (Auto) Lymph % (Auto) [place] % (Auto) Eos % (Auto) Baso % (Auto) Absolute Neuts (auto) Absolute Lymphs (auto) Absolute Monos (auto) Absolute Eos (auto) Absolute Basos (auto) Absolute Nucleated RBC Nucleated RBC % APTT 78.2 H 68.0 H Sodium Potassium Chloride Carbon Dioxide Anion Gap BUN Creatinine Est GFR ( Amer) Est GFR (Non-Af Amer) BUN/Creatinine Ratio Glucose Calcium Vancomycin Trough 18.6 07/03/19 07/03/19 05:17 05:17 WBC 12.3 H RBC 3.08 L Hgb 9.1 L Hct 27 L MCV 89 MCH 30 MCHC 33 RDW 18 H Plt Count 229 MPV 7.9 Neut % (Auto) 88.2 Lymph % (Auto) 5.2 [place] % (Auto) 4.7 Eos % (Auto) 1.5 Baso % (Auto) 0.4 Absolute Neuts (auto) 10.8 H Absolute Lymphs (auto) 0.6 L Absolute Monos (auto) 0.6 Absolute Eos (auto) 0.2 Absolute Basos (auto) 0.1 Absolute Nucleated RBC 0.0 Nucleated RBC % 0.1 APTT Sodium 137 Potassium 4.0 Chloride 96 L Carbon Dioxide 34 H Anion Gap 7 BUN 41 H Creatinine 2.62 H Est GFR ( Amer) 28.6 Est GFR (Non-Af Amer) 23.7 BUN/Creatinine Ratio 15.6 Glucose 125 H Calcium 8.3 L Vancomycin Trough Assessment: []78 yo M w metastatic urothelial CA (stable disease on recent imaging, off therapy 2/2 systemic immune mediated response) admitted with septic shock due to MRSA bacteremia secondary to right lower extremity cellulitis. His course has been complicated by A.Fib with RVR now SR on Amiodarone (initiated on 06/19) , ARF secondary to ATN, and unfortunately with persistent bacteremia with now clear evidence of a septic R hip with likely communicating abscess to the pelvis. Plan: []1. Sepsis/cellulitis/MRSA bacteremia secondary to septic arthritis of the R hip - blood cultures + 06/28/19 x 4 - RHIANNON negative for vegetation - cont Vanco - orthopedic recommendation is to transfer to a tertiary facility for washout procedure 2. Afib w rvr: - started Amiodarone 200 mg daily and PO metoprolol with IV rescue as needed - transition to renally adjusted Lovenox from heparin drip to start 2 hours after finishing heparin drip 3. CHARLEEN suspect 2/2 ATN r/t sepsis c/b urinary obstruction. Cr now stable - neg. renal US, good UO with avina - cont. afluzosin 10 mg po daily, needs avina d/t obstruction, consider urology consult as outpatient - nephrology consultation appreciated - complement 3/4, SPEP, light chains WNLw - buffering with oral HCO3-, but will hold as he is now mildly alkalotic 4. Immune mediated inflammation: - cont to taper Prednisone slowly, starting with 30 mg daily today (taper by 10 mg weekly) 5. Anasarca: - Hold Lasix - intermitent compression stocking. 6. Constipation. - Senokot S 2 per day, Miralax prn. 6. Full code Dispo: transfer to teritary facility. [facility] still has no bed availability. Will look to [facility] today.
[2019-07-03] MEDS: Heparin DRIP 25,000 UNITS(*) 25,000 UNITS/500 ML BAG IV SCH (09:59)
--- NOTE | 2019-07-03 11:26 | DS ---
- Discharge Summary TRANSFER SUMMARY ADMIT DATE:06/16/2019 TRANSFER DATE: 07/03/2019 DISCHARGE DIAGNOSIS: 1. MRSA bacteremia from infected right hip 2. afib 3. metastatic bladder cancer 4. chronic immunosuppression from steroids 5. Acute on chronic kidney failure, ATN v immune mediated 6. urinary obstruction, indwelling avina DISCHARGE MEDICATIONS: Acetaminophen (Tylenol Tab*) 650 mg PO Q4H PRN PRN Reason: PAIN OR ELEVATED TEMP Last Admin: 06/24/19 10:32 Dose: 650 mg Amiodarone HCl (Cordarone Tab*) 200 mg PO DAILY [facility] Last Admin: 07/03/19 07:30 Dose: 200 mg Docusate Sodium (Colace Cap*) 200 mg PO BID PRN PRN Reason: CONSTIPATION Last Admin: 07/02/19 20:57 Dose: 200 mg Enoxaparin Sodium (Lovenox(*)) 30 mg SUBCUT Q24H [facility] Heparin Sodium (Porcine) (Heparin Vial(*)) 0 units IV .PER PROTOCOL [facility] Last Admin: 07/02/19 10:32 Dose: 5,300 units Vancomycin HCl 750 mg/ Sodium (Chloride) 250 mls @ 166.667 mls/hr IVPB Q24H [facility] Last Admin: 07/02/19 12:16 Dose: 167 mls/hr Levothyroxine Sodium (Synthroid Tab*) 50 mcg PO DAILY [facility] Last Admin: 07/03/19 07:31 Dose: 50 mcg Metoprolol Tartrate (Lopressor Iv*) 5 mg IV Q1H PRN PRN Reason: HEART RATE/PULSE GREATER THAN: Last Admin: 07/01/19 09:46 Dose: 5 mg Morphine Sulfate (Morphine Oral.Soln 10 Mg*) 15 mg PO BID PRN PRN Reason: PAIN - MODERATE Last Admin: 07/02/19 21:53 Dose: 15 mg Nystatin (Nystatin Top Powder*) 1 applic TOPICAL BID [facility] Last Admin: 07/03/19 07:38 Dose: Not Given Ondansetron HCl (Zofran Tab*) 4 mg PO Q4HR PRN PRN Reason: NAUSEA Last Admin: 06/29/19 19:34 Dose: 4 mg Pantoprazole Sodium (Protonix Tab*) 40 mg PO DAILY [facility] Last Admin: 07/03/19 07:31 Dose: 40 mg Pharmacy Consult (Vancomycin Per Pharmacy*) 1 note FOLLOW UP . PRN PRN Reason: PER PROTOCOL Pharmacy Profile Note (Vancomycin Trough Check) 1 note FOLLOW UP 1030 ONE Stop: 07/05/19 10:31 Polyethylene Glycol/Electrolytes (Miralax*) 17 gm PO DAILY [facility] Last Admin: 07/03/19 07:40 Dose: 17 gm Prednisone (Deltasone Tab*) 30 mg PO DAILY [facility] Senna (Senokot 8.6 Mg Tab*) 2 tab PO DAILY [facility] Last Admin: 07/03/19 07:31 Dose: 2 tab Tamsulosin HCl (Flomax Cap*) 0.4 mg PO DAILY [facility] Last Admin: 07/03/19 07:33 Dose: 0.4 mg Tramadol HCl (Ultram*) 50 mg PO Q12H PRN PRN Reason: PAIN - MODERATE Last Admin: 06/30/19 14:37 Dose: 50 mg UPDATED HOSPITAL COURSE: Please refer to full discharge summary from Dr Yin dated 07/01/19. Patient remained stable without additional episodes of afib. Blood cultures remain positive. Pain is well controlled at this time. Heparin drip discontinued the day of transfer in favor of renally adjusted dose of Lovenox. Vital Signs Temp Pulse Resp BP Pulse Ox 98.3 F 60 16 150/83 95 07/03/19 07:35 07/03/19 07:35 07/03/19 07:42 07/03/19 07:35 07/03/19 07:35 Laboratory Results - last 24 hr 07/02/19 07/02/19 07/03/19 16:37 22:22 05:17 WBC 12.3 H RBC 3.08 L Hgb 9.1 L Hct 27 L MCV 89 MCH 30 MCHC 33 RDW 18 H Plt Count 229 MPV 7.9 Neut % (Auto) 88.2 Lymph % (Auto) 5.2 [place] % (Auto) 4.7 Eos % (Auto) 1.5 Baso % (Auto) 0.4 Absolute Neuts (auto) 10.8 H Absolute Lymphs (auto) 0.6 L Absolute Monos (auto) 0.6 Absolute Eos (auto) 0.2 Absolute Basos (auto) 0.1 Absolute Nucleated RBC 0.0 Nucleated RBC % 0.1 APTT 78.2 H 68.0 H Sodium Potassium Chloride Carbon Dioxide Anion Gap BUN Creatinine Est GFR ( Amer) Est GFR (Non-Af Amer) BUN/Creatinine Ratio Glucose Calcium 07/03/19 05:17 WBC RBC Hgb Hct MCV MCH MCHC RDW Plt Count MPV Neut % (Auto) Lymph % (Auto) [place] % (Auto) Eos % (Auto) Baso % (Auto) Absolute Neuts (auto) Absolute Lymphs (auto) Absolute Monos (auto) Absolute Eos (auto) Absolute Basos (auto) Absolute Nucleated RBC Nucleated RBC % APTT Sodium 137 Potassium 4.0 Chloride 96 L Carbon Dioxide 34 H Anion Gap 7 BUN 41 H Creatinine 2.62 H Est GFR ( Amer) 28.6 Est GFR (Non-Af Amer) 23.7 BUN/Creatinine Ratio 15.6 Glucose 125 H Calcium 8.3 L - Nutrition: Malnutrition Diagnosis/Plan Nutrition: Malnutrition Diagnosis/Plan: Malnutrition Assessment Clinical Characteristics Chronic,Severe Malnutrition Assessment: Inadequate Oral Intake - Noted pt w/ variable, Criteria overall poor intake; consumed 15-90% all meals x2 days - Anticipate meeting <75% nutrient >1 mo (severe) Unintentional Weight Loss - Noted wt loss per chart; current wt 167lb, prev wt on record 185lb (05/2019) - 9.7% loss x1 mo (severe) Malnutrition Assessment: Nutritional Supplementals/Nourishments - Will Interventions trial Ensure Enlive (350kcal, 20g prot/serv) at 10:00 and 15:00 daily to optimize kcal/prot intake; will monitor acceptance Texture Modification - Agree w/ soft diet; will monitor tolerance and make further recommendations as indicated GI Related - Recommend giving antidiarrheal as indicated; will monitor GI s/sx for impact on intake Malnutrition Assessment: Goals 1) Pt will tolerate least restrictive dietary textures w/o further difficulty chewing 2) Adequate po intake to support lean body mass and hydration status 3) Maintain fluid/electrolyte balance w/ adequate po intake 4) Maintain bowel regularity w/ adequate po intake w/o exac of diarrhea/development of constipation
--- NOTE | 2019-07-03 11:55 | PN ---
Progress Note - Progress Note Date of Service: 07/03/19 SOAP: Subjective: []Pt seen and examined at bedside. He reports an improvement of right leg/hip pain. He has no other complaints Objective: []Gen: NAD, nontoxix appearing RLE: diffuse edema of RLE without erythema. f/e hip and knee 0-45 while in bed though no reported pain. No pain with ROM all joints BL UE, LLE, right ankle or digits. Assessment: [] 78 yo male with right septic hip Plan: Pt being transferred to another facility for a higher level of care. Cont abx per ID: [email or web address] Microbiology 06/30/19 12:39 Gram Stain - Final Misc Fluid (See Comment) - Aspirate Body Fluid Culture - Preliminary MRSA Skin and Soft Tissue MRSA/MSSA (PCR - Final Mrsa Positive S.aureus Positive
[2019-07-03] MEDS: Vancomycin(*) 750 MG in NS 0.9% 250 ML* 250 ML IVPB SCH (12:20)
[2019-07-03] MEDS ORDERED: Enoxaparin(*) 80 MG/0.8 ML SYR SUBCUT SCH (14:00)
[2019-07-03] MEDS ORDERED: Enoxaparin(*) 30 MG/0.3 ML SYR SUBCUT SCH (14:00)
[2019-07-03] MEDS: Metoprolol Tartrate IV* 1 MG/ML 5 ML VIAL IV PRN (15:03)
[2019-07-03 21:57] VITALS: BP 102/59
[2019-07-05] MEDS ORDERED: Vancomycin Trough Check NOTE FOLLOW UP ONE (10:30)
--- NOTE | 2019-07-20 12:19 | ADMNOTE ---
Admission Primary Care Provider: Alec Walton Chief Complaint: ADDENDUM TO H&P from 06/16/19 Allergies/Medications Allergies/Adverse Reactions: Allergies Allergy/AdvReac Type Severity Reaction Status Date / Time Iodinated Contrast Media Allergy Itching Verified 06/16/19 09:53 [Iodinated Contrast- Oral and IV Dye] iodixanol [From Visipaque] Allergy Itching Verified 06/16/19 09:53 Review of Systems - Review of Systems General Comments: Full ROS completed, all negative except as noted in HPI
== END 2019-07-03 20:40 | disposition short-term general hospital (02) | DRG 871 ==
LOC: ED 09:45 → MEDTELE 12:53 → ICU 06-17 01:25 → MEDTELE 06-18 10:04
PROVIDERS: ADMIT Internal Medicine Hematology & Oncology; ATTEND Internal Medicine Hematology & Oncology
PROC: B246ZZ4 Ultrasonography of Right and Left Heart, Transesophageal (ICD-10-PCS; 2019-06-20)
PROC: 05PY33Z Removal of Infusion Device from Upper Vein, Percutaneous Approach (ICD-10-PCS; principal; 2019-06-20 08:30)
PROC: 0S993ZX Drainage of Right Hip Joint, Percutaneous Approach, Diagnostic (ICD-10-PCS; 2019-06-27)
PROC: 0S993ZX Drainage of Right Hip Joint, Percutaneous Approach, Diagnostic (ICD-10-PCS; 2019-06-30)
DX: A41.02 Sepsis due to Methicillin resistant Staphylococcus aureus (principal); N17.0 Acute kidney failure with tubular necrosis; E43 Unspecified severe protein-calorie malnutrition; R65.21 Severe sepsis with septic shock; G93.40 Encephalopathy, unspecified; L03.115 Cellulitis of right lower limb; B37.0 Candidal stomatitis; I24.8 Other forms of acute ischemic heart disease; E87.2 Acidosis; C68.0 Malignant neoplasm of urethra; C79.11 Secondary malignant neoplasm of bladder; E27.40 Unspecified adrenocortical insufficiency; C79.51 Secondary malignant neoplasm of bone; M00.051 Staphylococcal arthritis, right hip; L02.415 Cutaneous abscess of right lower limb; M84.48XA Pathological fracture, other site, initial encounter for fracture; L76.32 Postprocedural hematoma of skin and subcutaneous tissue following other procedure; D69.6 Thrombocytopenia, unspecified; E78.5 Hyperlipidemia, unspecified; E03.9 Hypothyroidism, unspecified; G89.29 Other chronic pain; R41.0 Disorientation, unspecified; I48.0 Paroxysmal atrial fibrillation; E87.6 Hypokalemia; E83.42 Hypomagnesemia; R60.1 Generalized edema; N13.9 Obstructive and reflux uropathy, unspecified; N05.9 Unspecified nephritic syndrome with unspecified morphologic changes; B95.62 Methicillin resistant Staphylococcus aureus infection as the cause of diseases classified elsewhere; I08.3 Combined rheumatic disorders of mitral, aortic and tricuspid valves; K59.00 Constipation, unspecified; B37.9 Candidiasis, unspecified; E87.70 Fluid overload, unspecified; Z86.718 Personal history of other venous thrombosis and embolism; Z86.69 Personal history of other diseases of the nervous system and sense organs; Z68.24 Body mass index [BMI] 24.0-24.9, adult; Z79.01 Long term (current) use of anticoagulants; Z79.52 Long term (current) use of systemic steroids; Z79.899 Other long term (current) drug therapy; Z80.0 Family history of malignant neoplasm of digestive organs; Z87.891 Personal history of nicotine dependence; Z91.041 Radiographic dye allergy status
CPT/HCPCS: 10005; 20610; 36415; 70450; 71046; 71250; 72195; 74176; 76775; 76942; 77002; 78582; 80048; 80053; 80202; 81003; 81015; 82270; 82565; 83605; 83735; 83883; 84155; 84165; 84484; 84520; 85025; 85730; 86140; 86160; 87040; 87070; 87077; 87086; 87150; 87186; 87205; 87493; 87640; 87641; 89051; 93005; 93306; 93312; 93325; 96361; 96365; 99156; 99157; 99222; 99232; 99233; 99239; 99285; A9270-GY; A9540; A9558; G8978-GP-CJ; G8978-GP-CK; G8979-GP-CI; J0282; J1644; J1940; J2250; J2270; J2310; J2543; J2930; J3010; J3370; J3475; J3490; J7512